=== PATIENT | male | born 1955 | race Caucasian/White ===

== ENCOUNTER 2017-01-29 17:37 | Inpatient (IN) | payer MEDICAID ==
[2017-01-29] MEDS ORDERED: SODIUM CHLORIDE 0.9% 1,000 ML IV ONE ×2 (18:17)
[2017-01-29] MEDS ORDERED: MORPHINE 10 MG/ML VIAL IVP STA ×2 (18:17→19:53)
--- NOTE | 2017-01-29 18:20 | ED Physician Documentation ---
History of Present Illness - Stated complaint Stated Complaint: STOMACH PX - Chief complaint Chief Complaint: Cardiac - History obtained from History obtained from: Patient, Family - History of Present Illness Timing: How many weeks ago (1) Pain level max: 8 Pain level now: 8 - Additonal information Additional information: Patient is a 61-year-old diabetic gentleman who presents to the emergency department with right-sided chest pain for the past week. He is also had intermittent fevers, coughing and congestion at home. States nothing makes the pain better. Worse with movement and breathing. He is a smoker. Has not seen a doctor for several years. Took aspirin at home without relief. No recent travel. No leg swelling. Review of Systems Ten Systems: 10 systems reviewed and negative Constitutional: reports: Fever, Chills Ears: denies: Ear pain Nose: reports: Rhinorrhea / runny nose, Congestion Throat: denies: Sore throat Cardiac: reports: Chest pain / pressure (R sided, heavy) Respiratory: reports: Cough. denies: Dyspnea, Hemoptysis GI: denies: Abdominal Pain, Nausea, Vomiting, Diarrhea Skin: denies: Rash Musculoskeletal: denies: Neck pain, Back pain PD PAST MEDICAL HISTORY - Past Medical History Past Medical History: Yes Endocrine/Autoimmune: Type 2 diabetes GI: Hepatitis - Past Surgical History Past Surgical History: Yes - Present Medications Home Medications: Ambulatory Orders Medication Instructions Recorded Confirmed No Known Home Medications [No 01/29/17 01/29/17 Known Home Medications] - Allergies Allergies/Adverse Reactions: Allergies Allergy/AdvReac Type Severity Reaction Status Date / Time No Known Drug Allergies Allergy Verified 01/29/17 17:51 - Social History Does the pt smoke?: Yes Smoking Status: Current every day smoker PD ED PE NORMAL - Vitals Vital signs reviewed: Yes - General General: Alert and oriented X 3, No acute distress, Well developed/nourished - HEENT HEENT: PERRL, Moist mucous membranes - Neck Neck: Supple, no meningeal sign - Cardiac Cardiac: RRR, Strong equal pulses - Respiratory Respiratory: No respiratory distress, Other (diminished BS bilaterally.) - Abdomen Abdomen: Soft, Non tender, Non distended - Derm Derm: Warm and dry - Extremities Extremities: No edema, No calf tenderness / cord - Neuro Neuro: Alert and oriented X 3 - Psych Psych: Normal mood, Normal affect Results - Vitals Vitals: Vital Signs - 24 hr 12/16/17 12/16/17 12/16/17 17:47 18:08 18:55 Temperature 37.2 C Heart Rate 97 90 94 Respiratory 16 20 16 Rate Blood Pressure 172/91 H 170/83 H O2 Saturation 97 98 93 01/29/17 01/29/17 18:56 19:59 Temperature Heart Rate 90 Respiratory 18 Rate Blood Pressure 153/72 H 165/85 H O2 Saturation 95 Oxygen O2 Source Room air - EKG (time done) 1749 Rate: Rate (enter#) (97) Rhythm: NSR Gabriels: Normal Intervals: Normal CA QRS: Normal Ischemia: Normal ST segments, Other (q waves V1-2) - Labs Labs: Laboratory Tests 01/29/17 01/29/17 01/29/17 17:56 18:34 18:34 WBC 16.5 H RBC 4.42 L Hgb 13.2 L Hct 39.7 L MCV 89.8 MCH 29.9 MCHC 33.3 RDW 13.8 Plt Count 337 MPV 8.1 Neut # Not Reportable Lymph # Not Reportable Phillips # Not Reportable Eos # Not Reportable Baso # Not Reportable Absolute Nucleated RBC Not Reportable Total Counted 100 Band Neuts % (Manual) 7 Abnorm Lymph % (Manual) 0 Nucleated RBC % Not Reportable Neutrophils # (Manual) 13.9 H Lymphocytes # (Manual) 1.3 L Monocytes # (Manual) 1.3 H Eosinophils # (Manual) 0.0 Basophils # (Manual) 0.0 Manual Slide Review Indicated WBC Morphology NORMAL APPEARANCE Platelet Estimate NORMAL (130-450,000) Platelet Morphology NORMAL APPEARANCE RBC Morph Micro Appear NORMAL APPEARANCE Sodium 129 L Potassium 4.1 Chloride 90 L Carbon Dioxide 23 Anion Gap 16.0 H BUN 10 Creatinine 0.4 L Estimated GFR (MDRD) 220 Glucose 270 H POC Whole Bld Glucose 299 H Lactic Acid Calcium 8.5 Total Bilirubin 1.1 H AST 20 ALT 37 Alkaline Phosphatase 122 H Troponin I Total Protein 7.7 Albumin 2.6 L Globulin 5.1 H Albumin/Globulin Ratio 0.5 L Lipase < 10 L 01/29/17 01/29/17 18:34 18:34 WBC RBC Hgb Hct MCV MCH MCHC RDW Plt Count MPV Neut # Lymph # Phillips # Eos # Baso # Absolute Nucleated RBC Total Counted Band Neuts % (Manual) Abnorm Lymph % (Manual) Nucleated RBC % Neutrophils # (Manual) Lymphocytes # (Manual) Monocytes # (Manual) Eosinophils # (Manual) Basophils # (Manual) Manual Slide Review WBC Morphology Platelet Estimate Platelet Morphology RBC Morph Micro Appear Sodium Potassium Chloride Carbon Dioxide Anion Gap BUN Creatinine Estimated GFR (MDRD) Glucose POC Whole Bld Glucose Lactic Acid 1.5 Calcium Total Bilirubin AST ALT Alkaline Phosphatase Troponin I < 0.04 Total Protein Albumin Globulin Albumin/Globulin Ratio Lipase - Rads (name of study) CXR Radiology: Prelim report reviewed, EMP read contemporaneously, See rad report ( Opacification of majority of the right lung. Chest CT recommended. mild cardiomegaly) CT chest Radiology: Prelim report reviewed, EMP read contemporaneously, See rad report ( Large loculated pleural effusion on the right with near complete collapse of the middle and lower lobes and volume loss in the upper lobe. 2. Fatty liver noted. ) PD MEDICAL DECISION MAKING - ED course Complexity details: reviewed results, re-evaluated patient, considered differential, d/w patient, d/w family, d/w automotive internet sales consultant ([id number] - Dr. Teran ( surgery) and states will come see the patient tonight on the floor and drain the effusion. Requested to be called when goes to the floor. ) ED course: Patient is a 61-year-old gentleman who presents to the emergency department with coughing and right-sided chest pain for the past week. Does have an elevated white blood cell count. Discussed the case with surgery on-call who states that he feels that we can drain the effusion here and he will come see the patient on the floor tonight to drain the effusion. Antibiotics will be held until it is drained. Patient is well-appearing, nontoxic. Pain improved with morphine. Discussed the case also with Dr. Banks, hospitalist who accepts. This document was made in part using voice recognition software. While efforts are made to proofread this document, sound alike and grammatical errors may occur. Departure - Departure Disposition: 66 [facility] DC/Xfer Clinical Impression: Pleural effusion Chest pain Qualifiers: Chest pain type: unspecified Qualified Code(s): R07.9 - Chest pain, unspecified Condition: Stable Discharge Date/Time: 01/29/17 21:33
--- NOTE | 2017-01-29 18:27 | XRAY Preliminary Report ---
Exam: XR CHEST 1 VIEW IMPRESSION: 1. Opacification majority of the right lung. Chest CT recommended. 2. Mild cardiomegaly. [facility] SITE ID: [id number]
--- NOTE | 2017-01-29 18:34 | XRAY Report ---
EXAM: CHEST RADIOGRAPHY EXAM DATE: 01/29/2017 06:21 PM. CLINICAL HISTORY: Cough, right-sided chest pain for one week. COMPARISON: None. TECHNIQUE: 1 view. FINDINGS: Lungs/Pleura: Opacification of the inferior two-thirds of the right lung. Possible marked elevation o f the right hemidiaphragm. Left lung is clear. No vascular congestion nor pneumothorax. Mediastinum: Mild cardiomegaly. No midline shift. Other: None. IMPRESSION: 1. Opacification of majority of the right lung. Chest CT recommended. 2. Mild cardiomegaly. [facility] Referring Provider Line: [phone] SITE ID: [id number]
[2017-01-29 18:42] LABS: BASOPHILS % (AUTO) 0.2 %; EOSINOPHILS % (AUTO) 0.1 %; HCT - HEMATOCRIT 39.7 % (42.0-52.0); HGB - HEMOGLOBIN 13.2 g/dL (14.0-18.0); LYMPHOCYTES % (AUTO) 5.6 %; MEAN CORPUSCULAR HEMOGLOBIN 29.9 pg (27.0-31.0); MEAN CORPUSCULAR HGB CONC 33.3 g/dL (32.0-36.0); MEAN CORPUSCULAR VOLUME 89.8 fL (80.0-94.0); MEAN PLATELET VOLUME 8.1 fL (7.4-11.4); MONOCYTES % (AUTO) 4.7 %; NEUTROPHILS % (AUTO) 89.4 %; RED BLOOD COUNT 4.42 10^6/uL (4.70-6.10); RED CELL DISTRIBUTION WIDTH 13.8 % (12.0-15.0); UNCORRECTED WHITE BLOOD COUNT 16.5 x10^3/uL; WHITE BLOOD COUNT 16.5 x10^3/uL (4.8-10.8)
[2017-01-29 18:57] LABS: ALBUMIN/GLOBULIN RATIO 0.5 (1.0-2.2); BILIRUBIN,TOTAL 1.1 mg/dL (0.2-1.0); BUN - BLOOD UREA NITROGEN 10 mg/dL (6-20); CALCIUM 8.5 mg/dL (8.5-10.3); CARBON DIOXIDE - CO2 23 mmol/L (21-32); CHLORIDE 90 mmol/L (101-111); CREATININE 0.4 mg/dL (0.6-1.2); GFR - MDRD 220 (>89); GLUCOSE 270 mg/dL (70-100); LIPASE < 10 U/L (22-51); POTASSIUM 4.1 mmol/L (3.5-5.0); SODIUM 129 mmol/L (135-145); TOTAL PROTEIN 7.7 g/dL (6.7-8.2)
[2017-01-29 19:09] LABS: BAND NEUTROPHILS % (MANUAL) 7 %; LYMPHOCYTES % (MANUAL) 8 %; NEUTROPHILS % (MANUAL) 77 %; TOTAL CELLS COUNTED 100
[2017-01-29 19:11] LABS: NP AUTO DIFFERENTIAL? YES; NP MAN DIFFERENTIAL? NO; PLATELET ESTIMATE, MANUAL NORMAL (130-450,000) (NORMAL); PLATELET MORPHOLOGY NORMAL APPEARANCE (NORMAL); WBC MORPHOLOGY (MULTIPLE) NORMAL APPEARANCE (NORMAL)
[2017-01-29] MEDS ORDERED: IOPAMIDOL-300 100 ML VIAL ONE (19:24)
[2017-01-29] MEDS ORDERED: IOPAMIDOL-300 100 ML VIAL IVP ONE (19:41)
--- NOTE | 2017-01-29 20:33 | CT Preliminary Report ---
Exam: CT CHEST W/ IMPRESSION: 1. Large loculated pleural effusion on the right with near complete collapse of the middle and lower lobes and volume loss in the upper lobe. 2. Fatty liver noted. [facility] SITE ID: [id number]
--- NOTE | 2017-01-29 20:36 | CT Report ---
EXAM: CT CHEST EXAM DATE: 01/29/2017 07:52 PM. CLINICAL HISTORY: Cough. Fever. Pleural effusion. COMPARISONS: Chest x-ray today. TECHNIQUE: Routine helical CT imaging was performed through the chest. IV contrast: 80 cc of Isovue 3 00. Reconstructions: Coronal and sagittal. In accordance with CT protocol optimization, one or more of the following dose reduction techniques w ere utilized for this exam: automated exposure control, adjustment of mA and/or KV based on patient s ize, or use of iterative reconstructive technique. FINDINGS: Lungs/Pleura: Large loculated pleural effusion on the right, mainly lower lung, with near complete co llapse of the middle and lower lobes and volume loss in the upper lobe. On the left, no nodules, bron chial thickening, consolidation, or edema. Pulmonary vasculature is normal. No left pleural effusion. No pneumothorax. Mediastinum: Normal. No adenopathy or masses. The heart and great vessels are normal. Bones: Unremarkable. Visualized Abdomen: Diffuse liver low-density, otherwise unremarkable. Other: None. IMPRESSION: 1. Large loculated pleural effusion on the right with near complete collapse of the middle and lower lobes and volume loss in the upper lobe. 2. Fatty liver noted. [facility] Referring Provider Line: [phone] SITE ID: [id number]
[2017-01-29] MEDS ORDERED: IPRATROPIUM/ALBUTEROL 3 ML NEB INH PRN (20:52)
[2017-01-29] MEDS ORDERED: ZOLPIDEM 5 MG TABLET PO PRN (20:52)
[2017-01-29] MEDS ORDERED: ONDANSETRON 4 MG/2 ML VIAL IVP PRN (20:52)
[2017-01-29] MEDS ORDERED: oxyCODONE 5 MG TABLET PO PRN (20:52)
[2017-01-29] MEDS ORDERED: PROCHLORPERAZINE 10 MG/2 ML VIAL IVP PRN (20:52)
[2017-01-29] MEDS ORDERED: PIPERACILLIN/TAZOBACTAM 4.5 GM in SODIUM CHLORIDE 0.9% MINIBAG 100 ML IV SCH (21:00)
--- NOTE | 2017-01-29 21:32 | HISTORY & PHYSICAL EXAMINATION ---
Chief Complaint - Chief Complaint Chief Complaint: Chest pain History of Present Illness - Admitted From Admitted From:: Emergency department - History Obtained From Records Reviewed: Yes History obtained from: Patient Exam Limitations: None - History of Present Illness HPI Comment/Other: Patient is a 61-year-old gentleman with a past medical history significant for diabetes, hyperlipidemia, hypertension and hepatitis C status post treatment in 1999 who presented to the emergency department with a chief complaint of right- sided chest pain. The patient states that he has not seen a doctor for several years and although he was previously on insulin for his diabetes he has not been taking any medications. He states that about 1-1-1/2 weeks ago he began experiencing chest pain. He states that it was in the right side and radiated into his posterior ribs. He states that he thought the pain was secondary to a pulled muscle and just waited it out. He denies having had any fevers or chills. He denies having had any night sweats. He does admit to a mild cough without any production. He states that with the cough his pain would become worse. He states that the pain is worse with deep breathing and recently he cannot take a deep breath at all. He states that over the past 3 days the pain has become significantly worse and he has been increasingly short of air. Today the symptoms were so bad that he finally decided to come into the emergency department. The patient denies any injury to his chest wall. He states that he has been losing weight over the last 5 or 6 years but there has not been a significant weight loss in the last year. The patient also admits to increased urinary frequency and polydipsia. The patient denies any headaches, blurred vision, runny nose, sore throat, nasal congestion, orthopnea, PND, increased lower extremity swelling, abdominal pain, nausea, vomiting, diarrhea, constipation, urinary urgency or dysuria, muscle aches, joint pains, joint swelling, back pain, neck stiffness, changes in appetite, difficulty swallowing, hair loss, rashes or any focal neurologic deficits. On presentation to the emergency department the patient was afebrile he was hypertensive and heart rate was in the high 90s. The patient however was not in any respiratory distress and was saturating well on room air. The patient was complaining of significant right-sided chest pain and could only take shallow breaths. On examination the patient was found to have very limited breath sounds in the right lung. The patient underwent routine lab work which did reveal a hyponatremia of 129 and elevated blood glucose of 299 and a WBC of 16.5. The patient's lactic acid was normal and his troponin was negative. The patient also had an EKG which showed normal sinus rhythm without any ST elevations it did show Q waves in the anterior septal leads suggestive of possible old NC. The patient then underwent a chest x-ray the chest x-ray revealed complete opacification of majority of the right lung and a CT scan was recommended by the radiologist. A CT scan of the chest was ordered and that CT scan revealed a large loculated pleural effusion on the right with near complete collapse of the middle and lower lobes and volume loss in the upper lobe. The emergency room physician spoke with the surgeon regional retail sales manager Dr. Ino Teran he asked that the patient be admitted to the medical service and that he be consulted for a thoracentesis and drainage of this loculated pleural effusion. The patient was given antibiotics in the emergency department and admitted to the medical jean. History - Past Medical History Cardiovascular: reports: Hypertension, High cholesterol Endocrine/Autoimmune: reports: Type 2 diabetes GI: reports: Hepatitis (Hepatitis C status post treatment in 1999) Other Past Medical History: Right rib fracture - Family & Social History Family History: Mother: CAD, Cancer (Brother had bladder cancer, mom had cervical cancer), Diabetes, Type 2, Hypertension, Father: (Brother of bladder cancer also had cirrhosis of his liver from alcohol abuse), Brother: , Alcoholism, Cancer Living arrangement: At home Living Situation: With family Social History Notes: The patient lives in [place] with his mother. He does have children who are grown. He is not currently . 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 The patient does smoke although he states he has not had a cigarette for the past week due to this current illness. He states that he smokes half a pack to 1 pack per day and has been smoking since the age of 20. He denies any illicit drug use or alcohol abuse. - POLST Patient has POLST: No POLST Status: Full Code Meds/Allgy - Home Medications Home Medications: Ambulatory Orders Medication Instructions Recorded Confirmed No Known Home Medications [No 01/29/17 01/29/17 Known Home Medications] - Allergies Allergies/Adverse Reactions: Allergies Allergy/AdvReac Type Severity Reaction Status Date / Time No Known Drug Allergies Allergy Verified 01/29/17 17:51 Review of Systems - Other Findings Other Findings: A comprehensive review of systems was performed the pertinent positives and negatives are stated above in the HPI and the remainder of the review of systems is negative. Exam - Vital Signs Reviewed Vital Signs: Yes - Physical Exam General Appearance: positive: Alert, Mild distress (Continues to have significant pain anytime he is asked to take a deep breath.) Eyes Bilateral: positive: Normal inspection, PERRL, EOMI, No lid inflammation, Conjunctivae nml, No scleral icterus ENT: positive: Pharynx nml, Dry mucous membranes, Other (Tongue is very dry and patient has poor dentition). negative: Purulent nasal drainage, Pharyngeal erythema Neck: positive: Nml inspection, Thyroid nml, No JVD, Trachea midline. negative : Thyromegaly, Lymphadenopathy (R), Lymphadenopathy (L), Carotid bruit, Tracheal deviation Respiratory: positive: Chest non-tender, Other (Decreased almost absent lung sounds on the right, dullness to percussion on the right lung. Patient unable to take a deep breath secondary to pain). negative: Wheezes, Rales, Rhonchi Cardiovascular: positive: No murmur, No gallop, Tachycardia Peripheral Pulses: positive: 2+ Abdomen: positive: Non-tender, No organomegaly, Nml bowel sounds, No distention. negative: Guarding, Rebound, Hepatomegaly Back: positive: Nml inspection. negative: CVA tenderness (R), CVA tenderness (L ) Skin: positive: Color nml, No rash, Dry. negative: Cyanosis, Diaphoresis, Pallor Extremities: positive: Non-tender, Full ROM, Nml appearance, No pedal edema Neurologic/Psychiatric: positive: Oriented x3, CN's nml (2-12), Motor nml, Sensation nml, Mood/affect nml Conclusion/Plan - Problem List (1) Loculated pleural effusion Conclusion/Plan: The patient presented with right-sided chest pain, cough and increasing shortness of air for the past week. Patient was found to have a right lung loculated pleural effusion. This is likely secondary to an infection. However given the patient's history of smoking we cannot completely rule out the possibility of malignancy at this time. The patient's effusion is quite extensive and there could be an underlying mass or cancer. The patient does have a leukocytosis and this is quite acute in onset therefore it is more likely that the patient does just have a severe pneumonia. Plan: Surgery consulted for thoracentesis and drainage of the pleural effusion Pleural fluid will be sent for cell count and differential, cytology and cultures Patient will be given supplemental oxygen Patient will be treated with IV antibiotics We will continue to monitor his effusion with daily chest x-ray Patient will likely need a repeat CT once effusion has improved to look for resolution and for any underlying process. (2) Community acquired pneumonia Conclusion/Plan: The patient presented with 1 week of right-sided chest pain, mild cough and increasing shortness of air. The patient was found to have a right sided loculated pleural effusion and likely has an underlying pneumonia. Given that the patient has not been recently hospitalized he likely has community-acquired pneumonia however he is an uncontrolled diabetic and has risk factors for Pseudomonas. Plan: Patient will be treated with IV antibiotics Zosyn and Levaquin to ensure coverage for Pseudomonas. Patient will be given IV fluids We will monitor the patient's white blood cell count and get daily chest x-ray. Surgery has been consulted for thoracentesis Patient's pleural fluid will be sent for cell count and differential, as well as cytology and cultures. Patient will be placed on duo nebs as needed although he does not have a history of COPD given his smoking history he may have some mild COPD Patient was advised to quit smoking Patient will be given oxygen as needed Qualifiers: Laterality: right (3) Hyponatremia Conclusion/Plan: The patient does present with some hyponatremia with a sodium of 129. The patient does appear to be significantly dehydrated likely secondary to his elevated blood glucose and the finding of pneumonia with loculated effusion. The patient has hypovolemic hyponatremia. Plan: Patient will be treated with IV fluids and we will continue to monitor the patient's sodium. (4) Diabetes Conclusion/Plan: The patient does have a history of type 2 diabetes. He was previously on insulin but stopped taking all of his medications a few years back when his PCP left. He states that he does experience probably urea and polydipsia and has for some time. On presentation to the emergency department the patient's blood glucose is elevated at 299. Plan: We will check a hemoglobin A1c We will monitor the patient's blood glucose before meals at bedtime We will place the patient on a sliding scale of insulin We will consider starting long-acting insulin once we have an A1c and an idea of how much short-acting insulin the patient requires over 24 hours. Patient will be placed on a diabetic diet Patient was counseled about medication noncompliance Qualifiers: Diabetes mellitus type: type 2 (5) Hypertension Conclusion/Plan: The patient does have a history of hypertension however he does not take any medications. He states that he has stopped seeing his primary care physician because his PCP moved away. He states that he has not refilled any medications and does not remember if he was on anything for his blood pressure. On presentation to the emergency department the patient's blood pressure is elevated however he is also in pain. Plan: We will continue to monitor the patient's blood pressure closely We will treat the patient's pain If patient's blood pressure is persistently elevated we will consider starting a medication likely lisinopril in the setting of diabetes. Qualifiers: Hypertension type: essential hypertension Qualified Code(s): I10 - Essential (primary) hypertension (6) Hyperlipidemia Conclusion/Plan: The patient states he does have a history of hyperlipidemia however he does not take any medications and has not followed up with a primary care physician in over 2 years. Plan: We will check a lipid profile and wait on results for any further recommendations. (7) Tobacco abuse Conclusion/Plan: The patient states he has not smoked for 1 week secondary to his current symptoms. He however does smoke half a pack to a pack a day regularly. He was counseled on the risks of continued smoking. The patient understood the risk he was putting himself under by continuing to smoke. He stated that he would think about quitting. Currently he states he does not need a nicotine patch. (8) Prophylactic use of low molecular weight heparin for venous thromboembolism (VTE) Conclusion/Plan: Patient will be placed on Lovenox for DVT prophylaxis while he is hospitalized. - Lab Results Lab results reviewed: Yes Fish Bones: 01/29/17 18:34 01/29/17 18:34 Other Lab Results: Laboratory Results WBC 16.5 x10^3/uL (4.8-10.8) H 01/29/17 18:34 RBC 4.42 10^6/uL (4.70-6.10) L 01/29/17 18:34 Hgb 13.2 g/dL (14.0-18.0) L 01/29/17 18:34 Hct 39.7 % (42.0-52.0) L 01/29/17 18:34 MCV 89.8 fL (80.0-94.0) 01/29/17 18:34 MCH 29.9 pg (27.0-31.0) 01/29/17 18:34 MCHC 33.3 g/dL (32.0-36.0) 01/29/17 18:34 RDW 13.8 % (12.0-15.0) 01/29/17 18:34 Plt Count 337 10^3/uL (130-450) 01/29/17 18:34 MPV 8.1 fL (7.4-11.4) 01/29/17 18:34 Neut # Not Reportable 01/29/17 18:34 Lymph # Not Reportable 01/29/17 18:34 [place] # Not Reportable 01/29/17 18:34 Eos # Not Reportable 01/29/17 18:34 Baso # Not Reportable 01/29/17 18:34 Absolute Nucleated RBC Not Reportable 01/29/17 18:34 Total Counted 100 01/29/17 18:34 Band Neuts % (Manual) 7 % (0-10) 01/29/17 18:34 Abnorm Lymph % (Manual) 0 % 01/29/17 18:34 Nucleated RBC % Not Reportable 01/29/17 18:34 Neutrophils # (Manual) 13.9 10^3/uL (1.5-6.6) H 01/29/17 18:34 Lymphocytes # (Manual) 1.3 10^3/uL (1.5-3.5) L 01/29/17 18:34 Monocytes # (Manual) 1.3 10^3/uL (0.0-1.0) H 01/29/17 18:34 Eosinophils # (Manual) 0.0 10^3/uL (0-0.7) 01/29/17 18:34 Basophils # (Manual) 0.0 10^3/uL (0-0.1) 01/29/17 18:34 Manual Slide Review Indicated 01/29/17 18:34 WBC Morphology NORMAL APPEARANCE (NORMAL) 01/29/17 18:34 Platelet Estimate NORMAL (130-450,000) (NORMAL) 01/29/17 18:34 Platelet Morphology NORMAL APPEARANCE (NORMAL) 01/29/17 18:34 RBC Morph Micro Appear NORMAL APPEARANCE (NORMAL) 01/29/17 18:34 Sodium 129 mmol/L (135-145) L 01/29/17 18:34 Potassium 4.1 mmol/L (3.5-5.0) 01/29/17 18:34 Chloride 90 mmol/L (101-111) L 01/29/17 18:34 Carbon Dioxide 23 mmol/L (21-32) 01/29/17 18:34 Anion Gap 16.0 (6-13) H 01/29/17 18:34 BUN 10 mg/dL (6-20) 01/29/17 18:34 Creatinine 0.4 mg/dL (0.6-1.2) L 01/29/17 18:34 Estimated GFR (MDRD) 220 (>89) 01/29/17 18:34 Glucose 270 mg/dL (70-100) H 01/29/17 18:34 POC Whole Bld Glucose 299 mg/dL (70 - 100) H 01/29/17 17:56 Lactic Acid 1.5 mmol/L (0.5-2.2) 01/29/17 18:34 Calcium 8.5 mg/dL (8.5-10.3) 01/29/17 18:34 Total Bilirubin 1.1 mg/dL (0.2-1.0) H 01/29/17 18:34 AST 20 IU/L (10-42) 01/29/17 18:34 ALT 37 IU/L (10-60) 01/29/17 18:34 Alkaline Phosphatase 122 IU/L (42-121) H 01/29/17 18:34 Troponin I < 0.04 ng/mL (<0.49) 01/29/17 18:34 Total Protein 7.7 g/dL (6.7-8.2) 01/29/17 18:34 Albumin 2.6 g/dL (3.2-5.5) L 01/29/17 18:34 Globulin 5.1 g/dL (2.1-4.2) H 01/29/17 18:34 Albumin/Globulin Ratio 0.5 (1.0-2.2) L 12/16/17 18:34 Lipase < 10 U/L (22-51) L 01/29/17 18:34 - Diagnostic Imaging Results Diagnostic Imaging Results: positive: Final report reviewed Diagnostic Imaging Results Comments: Chest x-ray Impression: 1. Opacification of majority of the right lung. Chest CT recommended. 2. Mild cardiomegaly Chest CT Impression: 1. Large loculated pleural effusion on the right with near complete collapse of the middle and lower lobes and volume loss in the upper lobe. 2. Fatty liver noted. - EKG Results EKG Interpreted Independently: Yes EKG Findings: Normal sinus rhythm with Q waves in the anteroseptal leads. Issues/Core Measures - Anticipated LOS Anticipated Stay Length: 2 or more midnights - [facility] Requirement for [facility] I expect patient to be DC'd or transferred within 96 hours.: Yes - DVT/VTE - Prophylaxis VTE/DVT Prophylaxis med ordered at admit?: Yes
[2017-01-29] MEDS: MORPHINE 2 MG/ML SYRINGE IVP PRN ×2 (21:58→23:49)
[2017-01-29] MEDS: SODIUM CHLORIDE 0.9% 1,000 ML IV SCH (22:17)
[2017-01-29] MEDS: INSULIN ASPART 300 UNIT/3 ML PEN SUBQ SCH (22:23)
[2017-01-29] MEDS: levoFLOXacin 750 MG/150 ML 750 MG/150 ML BAG IV SCH (23:40)
[2017-01-29] MEDS: SODIUM CHLORIDE FLUSH 0.9% 10 ML SYRINGE IVP SCH (23:44)
[2017-01-29] MEDS: traZODone 50 MG TABLET PO SCH (23:44)
[2017-01-30] MEDS: MORPHINE 2 MG/ML SYRINGE IVP PRN ×6 (01:41→18:23)
[2017-01-30] MEDS: oxyCODONE 5 MG TABLET PO PRN ×3 (02:23→21:32)
[2017-01-30] MEDS: PIPERACILLIN/TAZOBACTAM 4.5 GM in SODIUM CHLORIDE 0.9% MINIBAG 100 ML IV SCH ×4 (04:27→21:15)
[2017-01-30 05:02] LABS: BASOPHILS % (AUTO) 0.2 %; EOSINOPHILS % (AUTO) 0.1 %; HGB - HEMOGLOBIN 11.7 g/dL (14.0-18.0); LYMPHOCYTES # (AUTO) 0.8 10^3/uL (1.5-3.5); LYMPHOCYTES % (AUTO) 6.3 %; MEAN CORPUSCULAR HEMOGLOBIN 29.4 pg (27.0-31.0); MEAN CORPUSCULAR HGB CONC 32.6 g/dL (32.0-36.0); MEAN CORPUSCULAR VOLUME 90.1 fL (80.0-94.0); MEAN PLATELET VOLUME 7.6 fL (7.4-11.4); MONOCYTES # (AUTO) 1.2 10^3/uL (0.0-1.0); MONOCYTES % (AUTO) 9.8 %; NEUTROPHILS # (AUTO) 10.3 10^3/uL (1.5-6.6); NEUTROPHILS % (AUTO) 83.6 %; NUCLEATED RED BLOOD CELLS AUTO 0.1 /100WBC; RED BLOOD COUNT 3.99 10^6/uL (4.70-6.10); RED CELL DISTRIBUTION WIDTH 13.8 % (12.0-15.0); UNCORRECTED WHITE BLOOD COUNT 12.4 x10^3/uL; WHITE BLOOD COUNT 12.4 x10^3/uL (4.8-10.8)
[2017-01-30 05:10] LABS: CALCIUM 7.5 mg/dL (8.5-10.3); CREATININE 0.4 mg/dL (0.6-1.2); POTASSIUM 3.7 mmol/L (3.5-5.0)
[2017-01-30] MEDS: SODIUM CHLORIDE FLUSH 0.9% 10 ML SYRINGE IVP SCH ×3 (05:23→18:23)
[2017-01-30 05:38] LABS: INR 1.3 (0.8-1.2)
[2017-01-30 05:54] LABS: CHOL/HDL RATIO 7.4 (<5.0); CHOLESTEROL 126 mg/dL; HDL CHOLESTEROL 17 mg/dL; LDL/HDL RATIO 4.6 (<3.6); TRIGLYCERIDES 148 mg/dL; VLDL CHOLESTEROL 30 mg/dL
[2017-01-30 06:14] LABS: HEMOGLOBIN A1C 1.42 g/dL
[2017-01-30] MEDS: INSULIN ASPART 300 UNIT/3 ML PEN SUBQ SCH ×4 (08:36→21:19)
[2017-01-30] MEDS: SACCHAROMYCES BOULARDII 250 MG CAPSULE PO SCH ×2 (08:40→17:55)
[2017-01-30] MEDS: FAMOTIDINE 20 MG TABLET PO SCH (08:40)
[2017-01-30] MEDS: ENOXAPARIN 40 MG/0.4 ML SYRINGE SUBQ SCH (08:56)
[2017-01-30] MEDS: POLYETHYLENE GLYCOL 3350 17 GM PACKET PO SCH (08:56)
[2017-01-30] MEDS ORDERED: INSULIN GLARGINE 300 UNIT/3 ML PEN SUBQ SCH (09:00)
--- NOTE | 2017-01-30 09:57 | PROVIDER PROGRESS NOTE ---
Subjective - Prog Note Date Prog Note Date: 01/30/17 - Subjective Pt reports feeling: Improved Subjective: pt state his right side chest pain is great improved. Pt will have thoracentesis today. Current Medications - Current Medications Current Medications: Active Medications Acetaminophen (Tylenol) 650 mg PO Q4HR PRN PRN Reason: Pain 1 to 4 Albuterol/Ipratropium (Duoneb) 3 ml INH RTQID PRN PRN Reason: Wheezing Enoxaparin Sodium (Lovenox) 40 mg SUBQ DAILY [facility] Last Admin: 01/30/17 08:56 Dose: 40 mg Famotidine (Pepcid) 20 mg PO DAILY [facility] Last Admin: 01/30/17 08:40 Dose: 20 mg Levofloxacin (Levaquin 750 Mg/150 Ml) 750 mg in 150 mls @ 100 mls/hr IV Q24H [facility] Last Infusion: 01/30/17 01:10 Dose: Infused Sodium Chloride (Normal Saline 0.9%) 1,000 mls @ 100 mls/hr IV .Q10H [facility] Last Infusion: 01/30/17 01:45 Dose: 100 mls/hr Piperacillin Sod/Tazobactam (Sod 4.5 gm/ Sodium Chloride) 100 mls @ 100 mls/hr IV Q6H [facility] Last Admin: 01/30/17 09:50 Dose: 100 mls/hr Insulin Aspart (Novolog) 1 - 5 unit SUBQ 0800,1200,1700,2100 [facility] PRN Reason: Protocol Last Admin: 01/30/17 08:36 Dose: 3 unit Insulin Glargine (Lantus Solostar) 20 unit SUBQ DAILY [facility] Last Admin: 01/30/17 08:37 Dose: 20 unit Morphine Sulfate (Morphine) 2 mg IVP Q2H PRN PRN Reason: Pain 8 to 10 Last Admin: 01/30/17 09:09 Dose: 2 mg Ondansetron HCl (Zofran Inj) 4 mg IVP Q6HR PRN PRN Reason: Nausea / Vomiting Oxycodone HCl (Roxicodone) 5 mg PO Q4HR PRN PRN Reason: Pain 5 to 7 Oxycodone HCl (Roxicodone) 10 mg PO Q4HR PRN PRN Reason: Pain 8 to 10 Last Admin: 01/30/17 07:36 Dose: 10 mg Polyethylene Glycol (Miralax) 17 gm PO DAILY [facility] Last Admin: 01/30/17 08:56 Dose: Not Given Prochlorperazine Edisylate (Compazine Inj) 10 mg IVP Q6HR PRN PRN Reason: Nausea / Vomiting Saccharomyces Boulardii (Florastor) 250 mg PO BIDWM [facility] Last Admin: 01/30/17 08:40 Dose: 250 mg Sodium Chloride (Normal Saline Flush 0.9%) 10 ml IVP PRN PRN PRN Reason: NEEDED PER PROVIDER ORDERS Sodium Chloride (Normal Saline Flush 0.9%) 10 ml IVP Q8HR [facility] Last Admin: 01/30/17 05:23 Dose: 10 ml Trazodone HCl (Desyrel) 50 mg PO QPM [facility] Last Admin: 01/29/17 23:44 Dose: 50 mg No Known Home Medications [No Known Home Medications] 01/29/17 Objective - Vital Signs/Intake & Output Reviewed Vital Signs: Yes Vital Signs: Vital Signs x48h Temp Pulse Resp BP Pulse Ox 01/30/17 07:28 37.0 C 104 H 20 138/93 H 93 01/30/17 05:19 37.3 C 100 22 152/69 H 92 Intake & Output: Intake & Output 01/27/17 01/28/17 01/29/17 01/30/17 23:59 23:59 23:59 23:59 Intake Total 1111.667 250 Output Total 250 Balance 1111.667 0 - Objective General Appearance: positive: No acute distress, Alert. negative: Lethargic Eyes Bilateral: positive: Normal inspection, PERRL, No lid inflammation, Conjunctivae nml ENT: positive: ENT inspection nml, Pharynx nml, No signs of dehydration. negative: Purulent nasal drainage, Pharyngeal erythema, Oral lesions, Dry mucous membranes Neck: positive: Nml inspection, Thyroid nml, No JVD, Trachea midline. negative : Thyromegaly, Lymphadenopathy (R), Lymphadenopathy (L), Stiff neck, Carotid bruit, Swelling/bruising, Tracheal deviation Respiratory: positive: Chest non-tender, No respiratory distress, Other ( significantly decreased lung sound at right side). negative: Wheezes, Rales, Rhonchi Cardiovascular: positive: Regular rate & rhythm, No murmur, No gallop. negative : Irregularly irregular, Extrasystoles, Tachycardia, Bradycardia, Systolic murmur, Diastolic murmur Peripheral Pulses: 2+ Radial (R), 2+ Radial (L), 2+ Dorsalis pedis (R), 2+ Dorsalis pedis (L) Abdomen: positive: Non-tender, No organomegaly, Nml bowel sounds, No distention. negative: Tenderness, Guarding, Rebound, Abnml bowel sounds Back: positive: Nml inspection. negative: CVA tenderness (R), CVA tenderness (L ) Skin: positive: Color nml, No rash, Warm, Dry. negative: Cyanosis, Diaphoresis , Pallor, Skin rash Extremities: positive: Non-tender, Full ROM, Nml appearance. negative: Pedal edema, Joint swelling, Nestor's sign/cords Neurologic/Psychiatric: positive: Oriented x3, Motor nml, Sensation nml, Mood/ affect nml. negative: Sensory loss, Depressed mood/affect - Lab Results Fish Bones: 01/30/17 04:50 01/30/17 04:50 Other Labs: Lab Results x24hrs 01/30/17 01/30/17 01/30/17 Range/Units 07:18 04:50 04:50 WBC (4.8-10.8) x10^3/uL RBC (4.70-6.10) 10^6/uL Hgb (14.0-18.0) g/dL Hct (42.0-52.0) % MCV (80.0-94.0) fL MCH (27.0-31.0) pg MCHC (32.0-36.0) g/dL RDW (12.0-15.0) % Plt Count (130-450) 10^3/uL MPV (7.4-11.4) fL Neut # (1.5-6.6) 10^3/uL Lymph # (1.5-3.5) 10^3/uL Owen # (0.0-1.0) 10^3/uL Eos # (0.0-0.7) 10^3/uL Baso # (0.0-0.1) 10^3/uL Absolute Nucleated RBC x10^3/uL Nucleated RBC % /100WBC PT 14.0 H (9.9-12.6) secs INR 1.3 H (0.8-1.2) Sodium (135-145) mmol/L Potassium (3.5-5.0) mmol/L Chloride (101-111) mmol/L Carbon Dioxide (21-32) mmol/L Anion Gap (6-13) BUN (6-20) mg/dL Creatinine (0.6-1.2) mg/dL Estimated GFR (MDRD) (>89) Glucose (70-100) mg/dL POC Whole Bld Glucose 264 H (70 - 100) mg/dL Glycated Hemoglobin (4.6-6.2) % Estim Average Glucose (70-100) Calcium (8.5-10.3) mg/dL Triglycerides 148 ( - 149) mg/dL Cholesterol 126 ( - 199) mg/dL LDL Cholesterol, Calc 79 ( - 129) mg/dL VLDL Cholesterol 30 mg/dL HDL Cholesterol 17 L (60 - ) mg/dL LDL/HDL Ratio 4.6 (<3.6) Cholesterol/HDL Ratio 7.4 (<5.0) 01/30/17 01/30/17 01/30/17 Range/Units 04:50 04:50 04:50 WBC 12.4 H (4.8-10.8) x10^3/uL RBC 3.99 L (4.70-6.10) 10^6/uL Hgb 11.7 L (14.0-18.0) g/dL Hct 36.0 L (42.0-52.0) % MCV 90.1 (80.0-94.0) fL MCH 29.4 (27.0-31.0) pg MCHC 32.6 (32.0-36.0) g/dL RDW 13.8 (12.0-15.0) % Plt Count 302 (130-450) 10^3/uL MPV 7.6 (7.4-11.4) fL Neut # 10.3 H (1.5-6.6) 10^3/uL Lymph # 0.8 L (1.5-3.5) 10^3/uL Owen # 1.2 H (0.0-1.0) 10^3/uL Eos # 0.0 (0.0-0.7) 10^3/uL Baso # 0.0 (0.0-0.1) 10^3/uL Absolute Nucleated RBC 0.01 x10^3/uL Nucleated RBC % 0.1 /100WBC PT (9.9-12.6) secs INR (0.8-1.2) Sodium 131 L (135-145) mmol/L Potassium 3.7 (3.5-5.0) mmol/L Chloride 96 L (101-111) mmol/L Carbon Dioxide 22 (21-32) mmol/L Anion Gap 13.0 (6-13) BUN 10 (6-20) mg/dL Creatinine 0.4 L (0.6-1.2) mg/dL Estimated GFR (MDRD) 220 (>89) Glucose 241 H (70-100) mg/dL POC Whole Bld Glucose (70 - 100) mg/dL Glycated Hemoglobin 12.6 H (4.6-6.2) % Estim Average Glucose 315 H (70-100) Calcium 7.5 L (8.5-10.3) mg/dL Triglycerides ( - 149) mg/dL Cholesterol ( - 199) mg/dL LDL Cholesterol, Calc ( - 129) mg/dL VLDL Cholesterol mg/dL HDL Cholesterol (60 - ) mg/dL LDL/HDL Ratio (<3.6) Cholesterol/HDL Ratio (<5.0) 01/29/ Range/Units 21:48 WBC (4.8-10.8) x10^3/uL RBC (4.70-6.10) 10^6/uL Hgb (14.0-18.0) g/dL Hct (42.0-52.0) % MCV (80.0-94.0) fL MCH (27.0-31.0) pg MCHC (32.0-36.0) g/dL RDW (12.0-15.0) % Plt Count (130-450) 10^3/uL MPV (7.4-11.4) fL Neut # (1.5-6.6) 10^3/uL Lymph # (1.5-3.5) 10^3/uL Owen # (0.0-1.0) 10^3/uL Eos # (0.0-0.7) 10^3/uL Baso # (0.0-0.1) 10^3/uL Absolute Nucleated RBC x10^3/uL Nucleated RBC % /100WBC PT (9.9-12.6) secs INR (0.8-1.2) Sodium (135-145) mmol/L Potassium (3.5-5.0) mmol/L Chloride (101-111) mmol/L Carbon Dioxide (21-32) mmol/L Anion Gap (6-13) BUN (6-20) mg/dL Creatinine (0.6-1.2) mg/dL Estimated GFR (MDRD) (>89) Glucose (70-100) mg/dL POC Whole Bld Glucose 255 H (70 - 100) mg/dL Glycated Hemoglobin (4.6-6.2) % Estim Average Glucose (70-100) Calcium (8.5-10.3) mg/dL Triglycerides ( - 149) mg/dL Cholesterol ( - 199) mg/dL LDL Cholesterol, Calc ( - 129) mg/dL VLDL Cholesterol mg/dL HDL Cholesterol (60 - ) mg/dL LDL/HDL Ratio (<3.6) Cholesterol/HDL Ratio (<5.0) Assessment/Plan - Problem List (1) Pleural effusion Impression: talk with Dr. Teran. Pt will have thoracentesis today keep NPO IVF 100cc/h pain control with Morphin for right side chest pain pleural fluid study and culture plan order CT of chest to R/O malignance The patient presented with right-sided chest pain, cough and increasing shortness of air for the past week. Patient was found to have a right lung loculated pleural effusion. This is likely secondary to an infection. However given the patient's history of smoking we cannot completely rule out the possibility of malignancy at this time. The patient's effusion is quite extensive and there could be an underlying mass or cancer. The patient does have a leukocytosis and this is quite acute in onset therefore it is more likely that the patient does just have a severe pneumonia. Plan: Surgery consulted for thoracentesis and drainage of the pleural effusion Pleural fluid will be sent for cell count and differential, cytology and cultures Patient will be given supplemental oxygen Patient will be treated with IV antibiotics We will continue to monitor his effusion with daily chest x-ray Patient will likely need a repeat CT once effusion has improved to look for resolution and for any underlying process. (2) Community acquired pneumonia Conclusion/Plan: continue the current antibiotics follow up blood culture, and fluid culture vital monitor, daily lab monitor The patient presented with 1 week of right-sided chest pain, mild cough and increasing shortness of air. The patient was found to have a right sided loculated pleural effusion and likely has an underlying pneumonia. Given that the patient has not been recently hospitalized he likely has community-acquired pneumonia however he is an uncontrolled diabetic and has risk factors for Pseudomonas. Plan: Patient will be treated with IV antibiotics Zosyn and Levaquin to ensure coverage for Pseudomonas. Patient will be given IV fluids We will monitor the patient's white blood cell count and get daily chest x-ray. Surgery has been consulted for thoracentesis Patient's pleural fluid will be sent for cell count and differential, as well as cytology and cultures. Patient will be placed on duo nebs as needed although he does not have a history of COPD given his smoking history he may have some mild COPD Patient was advised to quit smoking Patient will be given oxygen as needed Qualifiers: Laterality: right (3) Hyponatremia Conclusion/Plan: Na increase to 132, continue NS of IVF continue daily lab test The patient does present with some hyponatremia with a sodium of 129. The patient does appear to be significantly dehydrated likely secondary to his elevated blood glucose and the finding of pneumonia with loculated effusion. The patient has hypovolemic hyponatremia. Plan: Patient will be treated with IV fluids and we will continue to monitor the patient's sodium. (4) Diabetes Conclusion/Plan: Pt's A1C is over 12, it seems pt did not have medical compliance for DM treatment pt had daily Lantus and slide scale, will closely monitor glucose level, adjust insulin as needed The patient does have a history of type 2 diabetes. He was previously on insulin but stopped taking all of his medications a few years back when his PCP left. He states that he does experience probably urea and polydipsia and has for some time. On presentation to the emergency department the patient's blood glucose is elevated at 299. Plan: We will check a hemoglobin A1c We will monitor the patient's blood glucose before meals at bedtime We will place the patient on a sliding scale of insulin We will consider starting long-acting insulin once we have an A1c and an idea of how much short-acting insulin the patient requires over 24 hours. Patient will be placed on a diabetic diet Patient was counseled about medication noncompliance Qualifiers: Diabetes mellitus type: type 2 (5) Hypertension Conclusion/Plan: stable controlled, continue BP meds check vital, The patient does have a history of hypertension however he does not take any medications. He states that he has stopped seeing his primary care physician because his PCP moved away. He states that he has not refilled any medications and does not remember if he was on anything for his blood pressure. On presentation to the emergency department the patient's blood pressure is elevated however he is also in pain. Plan: We will continue to monitor the patient's blood pressure closely We will treat the patient's pain If patient's blood pressure is persistently elevated we will consider starting a medication likely lisinopril in the setting of diabetes. (6) Hyperlipidemia Conclusion/Plan: The patient states he does have a history of hyperlipidemia however he does not take any medications and has not followed up with a primary care physician in over 2 years. Plan: We will check a lipid profile and wait on results for any further recommendations. (7) Tobacco abuse consult with pt for quitting smoking. pt plan to quit cigarette smoking (8) medical non-compliant consult for medical compliance, special DM control.
--- NOTE | 2017-01-30 10:02 | XRAY Preliminary Report ---
Exam: XR CHEST 2 VIEW PA/LAT IMPRESSION: 1. Somewhat increased right lung opacity compatible with large effusion and atelectasis and/or consol idation. [facility] SITE ID: [id number]
--- NOTE | 2017-01-30 10:05 | XRAY Report ---
EXAM: CHEST RADIOGRAPHY EXAM DATE: 01/30/2017 08:51 AM. CLINICAL HISTORY: Loculated pleural effusion. COMPARISON: 01/29/2017 1812 hrs.. TECHNIQUE: 2 views. FINDINGS: Lungs/Pleura: Opacification of the mid to lower right lung compatible with large effusion and atelect asis and/or consolidation, with increased opacity at the periphery of the right apex. Left lung is cl ear. Mediastinum: Heart and mediastinal contours are unremarkable. Other: None. IMPRESSION: 1. Somewhat increased right lung opacity compatible with large effusion and atelectasis and/or consol idation. [facility] Referring Provider Line: [phone] SITE ID: [id number]
[2017-01-30] MEDS ORDERED: LIDOCAINE 2% 10 ML MDV ONE (12:48)
[2017-01-30] MEDS: SODIUM CHLORIDE 0.9% 1,000 ML IV SCH ×2 (13:19→16:34)
[2017-01-30 14:16] LABS: CC,BF RBC 84077 /mm^3
[2017-01-30] MEDS ORDERED: SODIUM CHLORIDE 0.9% 1,000 ML IV ONE (14:33)
[2017-01-30] MEDS ORDERED: LIDOCAINE 1% 50 ML MDV SUBQ ONE (14:34)
[2017-01-30] MEDS ORDERED: PROPOFOL 200 MG/20 ML VIAL IVP ONE (15:00)
[2017-01-30] MEDS: HYDROmorphone 1 MG/ML SYRINGE ONE ×2 (15:05→15:15)
--- NOTE | 2017-01-30 15:23 | XRAY Preliminary Report ---
Exam: XR CHEST 1 VIEW IMPRESSION: Postoperative changes. Right chest tube terminating at the right apex, with evacuation of the loculated right pleural effusion. Residual right infiltrate and atelectasis. [facility] SITE ID: [id number]
[2017-01-30] MEDS ORDERED: KETOROLAC 15 MG/ML VIAL ONE (15:24)
--- NOTE | 2017-01-30 15:26 | XRAY Report ---
EXAM: CHEST RADIOGRAPHY EXAM DATE: 01/30/2017 03:16 PM. CLINICAL HISTORY: Chest tube placement. COMPARISON: 01/30/2017 0837 hrs.. TECHNIQUE: 1 view. FINDINGS: Lungs/Pleura: Right chest tube terminates at the right apex. Loculated right pleural fluid has been e vacuated. Patchy atelectasis and right infiltrate are present. The left lung is clear. No definite pn eumothorax. Mediastinum: Within exam limitations, the cardiomediastinal contour is normal. Other: None. IMPRESSION: Postoperative changes. Right chest tube terminating at the right apex, with evacuation of the loculated right pleural effusion. Residual right infiltrate and atelectasis. [facility] Referring Provider Line: [phone] SITE ID: [id number]
[2017-01-30 15:50] LABS: LYMPHOCYTES %,BODY FLUID 15; MESOTHELIAL %, BF 29 %; NEUTROPHILS %, BF 56 %
[2017-01-30 15:51] LABS: BF CLARITY TURBID; BF COLOR BLOODY
[2017-01-30] MEDS ORDERED: CALCIUM GLUCONATE 1,000 MG in SODIUM CHLORIDE 0.9% 50 ML IV ONE (17:15)
[2017-01-30] MEDS: traZODone 50 MG TABLET PO SCH (21:17)
[2017-01-30] MEDS: levoFLOXacin 750 MG/150 ML 750 MG/150 ML BAG IV SCH (22:25)
[2017-01-31] MEDS: PIPERACILLIN/TAZOBACTAM 4.5 GM in SODIUM CHLORIDE 0.9% MINIBAG 100 ML IV SCH ×4 (03:39→21:37)
[2017-01-31 05:34] LABS: BASOPHILS % (AUTO) 0.1 %; EOSINOPHILS % (AUTO) 0.1 %; HCT - HEMATOCRIT 33.4 % (42.0-52.0); HGB - HEMOGLOBIN 11.1 g/dL (14.0-18.0); LYMPHOCYTES % (AUTO) 9.3 %; MEAN CORPUSCULAR HEMOGLOBIN 29.9 pg (27.0-31.0); MEAN CORPUSCULAR HGB CONC 33.3 g/dL (32.0-36.0); MEAN CORPUSCULAR VOLUME 89.8 fL (80.0-94.0); MEAN PLATELET VOLUME 7.8 fL (7.4-11.4); MONOCYTES # (AUTO) 1.2 10^3/uL (0.0-1.0); MONOCYTES % (AUTO) 11.6 %; NEUTROPHILS # (AUTO) 8.1 10^3/uL (1.5-6.6); NEUTROPHILS % (AUTO) 78.9 %; RED BLOOD COUNT 3.72 10^6/uL (4.70-6.10); RED CELL DISTRIBUTION WIDTH 13.8 % (12.0-15.0); UNCORRECTED WHITE BLOOD COUNT 10.3 x10^3/uL; WHITE BLOOD COUNT 10.3 x10^3/uL (4.8-10.8)
[2017-01-31 05:35] LABS: CALCIUM 7.4 mg/dL (8.5-10.3); CREATININE 0.5 mg/dL (0.6-1.2); POTASSIUM 3.3 mmol/L (3.5-5.0)
[2017-01-31] MEDS: SODIUM CHLORIDE FLUSH 0.9% 10 ML SYRINGE IVP SCH ×3 (06:11→21:41)
[2017-01-31] MEDS: oxyCODONE 5 MG TABLET PO PRN ×5 (06:27→23:52)
[2017-01-31] MEDS ORDERED: POTASSIUM CHLORIDE 20 MEQ TABLET PO ONE ×2 (07:01→08:00)
[2017-01-31 07:25] LABS: CALCIUM, IONIZED 1.06 mmol/L (1.15-1.33); VBG PH 7.491 (7.31-7.41)
[2017-01-31] MEDS ORDERED: POTASSIUM CHLOR 10 MEQ/100 ML 10 MEQ/100 ML BAG IV ONE (08:15)
[2017-01-31] MEDS: MORPHINE 2 MG/ML SYRINGE IVP PRN ×5 (08:15→23:51)
[2017-01-31] MEDS ORDERED: CALCIUM GLUCONATE 2,000 MG in SODIUM CHLORIDE 0.9% 100ML 100 ML IV ONE (08:15)
[2017-01-31] MEDS: SODIUM CHLORIDE FLUSH 0.9% 10 ML SYRINGE IVP PRN (08:16)
[2017-01-31] MEDS: SACCHAROMYCES BOULARDII 250 MG CAPSULE PO SCH ×2 (08:50→17:02)
[2017-01-31] MEDS: INSULIN ASPART 300 UNIT/3 ML PEN SUBQ SCH ×4 (08:50→21:39)
[2017-01-31] MEDS: POLYETHYLENE GLYCOL 3350 17 GM PACKET PO SCH (08:50)
[2017-01-31] MEDS: FAMOTIDINE 20 MG TABLET PO SCH (08:50)
[2017-01-31] MEDS: INSULIN GLARGINE 300 UNIT/3 ML PEN SUBQ SCH (08:51)
[2017-01-31] MEDS: ENOXAPARIN 40 MG/0.4 ML SYRINGE SUBQ SCH (08:52)
--- NOTE | 2017-01-31 11:40 | PROVIDER PROGRESS NOTE ---
Subjective - Prog Note Date Prog Note Date: 01/31/17 - Subjective Pt reports feeling: Improved Subjective: pt state he feel better in his right chest pain, and breathing also better. Denies fever, chill, chest pain. Current Medications - Current Medications Current Medications: Active Medications Acetaminophen (Tylenol) 650 mg PO Q4HR PRN PRN Reason: Pain 1 to 4 Albuterol/Ipratropium (Duoneb) 3 ml INH RTQID PRN PRN Reason: Wheezing Enoxaparin Sodium (Lovenox) 40 mg SUBQ DAILY [facility] Last Admin: 01/31/17 08:52 Dose: 40 mg Famotidine (Pepcid) 20 mg PO DAILY [facility] Last Admin: 01/31/17 08:50 Dose: 20 mg Levofloxacin (Levaquin 750 Mg/150 Ml) 750 mg in 150 mls @ 100 mls/hr IV Q24H [facility] Last Infusion: 01/31/17 00:00 Dose: Infused Piperacillin Sod/Tazobactam (Sod 4.5 gm/ Sodium Chloride) 100 mls @ 100 mls/hr IV Q6H [facility] Last Admin: 01/31/17 11:34 Dose: 100 mls/hr Sodium Chloride (Normal Saline 0.9%) 1,000 mls @ 75 mls/hr IV .[id number] [facility] Last Infusion: 01/30/17 19:08 Dose: 75 mls/hr Insulin Aspart (Novolog) 1 - 9 unit SUBQ 0800,1200,1700,2100 [facility] PRN Reason: Protocol Last Admin: 01/31/17 11:50 Dose: 3 unit Insulin Glargine (Lantus Solostar) 25 unit SUBQ DAILY [facility] Last Admin: 01/31/17 08:51 Dose: 25 unit Morphine Sulfate (Morphine) 2 mg IVP Q2H PRN PRN Reason: Pain 8 to 10 Last Admin: 01/31/17 08:15 Dose: 2 mg Ondansetron HCl (Zofran Inj) 4 mg IVP Q6HR PRN PRN Reason: Nausea / Vomiting Oxycodone HCl (Roxicodone) 5 mg PO Q4HR PRN PRN Reason: Pain 5 to 7 Last Admin: 01/31/17 01:01 Dose: 5 mg Oxycodone HCl (Roxicodone) 10 mg PO Q4HR PRN PRN Reason: Pain 8 to 10 Last Admin: 01/31/17 11:34 Dose: 10 mg Polyethylene Glycol (Miralax) 17 gm PO DAILY [facility] Last Admin: 01/31/17 08:50 Dose: 17 gm Prochlorperazine Edisylate (Compazine Inj) 10 mg IVP Q6HR PRN PRN Reason: Nausea / Vomiting Saccharomyces Boulardii (Florastor) 250 mg PO BIDWM [facility] Last Admin: 01/31/17 08:50 Dose: 250 mg Sodium Chloride (Normal Saline Flush 0.9%) 10 ml IVP PRN PRN PRN Reason: NEEDED PER PROVIDER ORDERS Last Admin: 01/31/17 08:16 Dose: 10 ml Sodium Chloride (Normal Saline Flush 0.9%) 10 ml IVP Q8HR [facility] Last Admin: 01/31/17 06:11 Dose: Not Given Trazodone HCl (Desyrel) 50 mg PO QPM [facility] Last Admin: 01/30/17 21:17 Dose: 50 mg No Known Home Medications [No Known Home Medications] 01/29/17 Objective - Vital Signs/Intake & Output Reviewed Vital Signs: Yes Vital Signs: Vital Signs x48h Temp Pulse Resp BP Pulse Ox 01/31/17 08:12 37.0 C 82 18 153/76 H 94 01/31/17 04:51 36.9 C 85 18 147/68 H 93 Intake & Output: Intake & Output 01/28/17 01/29/17 01/30/17 01/31/17 23:59 23:59 23:59 23:59 Intake Total 0901.442 0585.833 920 Output Total 650 260 Balance 7664.730 2522.833 660 - Objective General Appearance: positive: No acute distress, Alert. negative: Lethargic Eyes Bilateral: positive: Normal inspection, PERRL, No lid inflammation, Conjunctivae nml ENT: positive: ENT inspection nml, Pharynx nml, No signs of dehydration. negative: Purulent nasal drainage, Pharyngeal erythema, Oral lesions, Dry mucous membranes Neck: positive: Nml inspection, Thyroid nml, No JVD, Trachea midline. negative : Thyromegaly, Lymphadenopathy (R), Lymphadenopathy (L), Stiff neck, Carotid bruit, Swelling/bruising, Tracheal deviation Respiratory: positive: Chest non-tender, No respiratory distress, Other (normal lung sound at left side, reduced sound at right). negative: Wheezes, Rales Cardiovascular: positive: Regular rate & rhythm, No murmur, No gallop. negative : Irregularly irregular, Extrasystoles, Tachycardia, Bradycardia, Systolic murmur, Diastolic murmur Peripheral Pulses: 2+ Radial (R), 2+ Radial (L), 2+ Dorsalis pedis (R), 2+ Dorsalis pedis (L) Abdomen: positive: Non-tender, No organomegaly, Nml bowel sounds, No distention. negative: Tenderness, Guarding, Rebound Back: positive: Nml inspection. negative: CVA tenderness (R), CVA tenderness (L ) Skin: positive: Color nml, No rash, Warm, Dry. negative: Cyanosis, Diaphoresis , Pallor, Skin rash Extremities: positive: Non-tender, Full ROM, Nml appearance. negative: Calf tenderness, Joint swelling, Nestor's sign/cords Neurologic/Psychiatric: positive: Oriented x3, Motor nml, Sensation nml, Mood/ affect nml. negative: Sensory loss, Facial droop, Slurred/abnml speech, Depressed mood/affect - Lab Results Fish Bones: 01/31/17 04:50 01/31/17 04:50 Other Labs: Lab Results x24hrs 01/31/17 01/31/17 01/31/17 Range/Units 11:27 07:48 07:18 WBC (4.8-10.8) x10^3/uL RBC (4.70-6.10) 10^6/uL Hgb (14.0-18.0) g/dL Hct (42.0-52.0) % MCV (80.0-94.0) fL MCH (27.0-31.0) pg MCHC (32.0-36.0) g/dL RDW (12.0-15.0) % Plt Count (130-450) 10^3/uL MPV (7.4-11.4) fL Neut # (1.5-6.6) 10^3/uL Lymph # (1.5-3.5) 10^3/uL Stone # (0.0-1.0) 10^3/uL Eos # (0.0-0.7) 10^3/uL Baso # (0.0-0.1) 10^3/uL Absolute Nucleated RBC x10^3/uL Nucleated RBC % /100WBC VBG pH 7.491 H (7.31-7.41) Ionized Calcium 1.06 L (1.15-1.33) mmol/L Sodium (135-145) mmol/L Potassium (3.5-5.0) mmol/L Chloride (101-111) mmol/L Carbon Dioxide (21-32) mmol/L Anion Gap (6-13) BUN (6-20) mg/dL Creatinine (0.6-1.2) mg/dL Estimated GFR (MDRD) (>89) Glucose (70-100) mg/dL POC Whole Bld Glucose 191 H 196 H (70 - 100) mg/dL Calcium (8.5-10.3) mg/dL Fluid Source Fluid Color Fluid Clarity Fluid WBC /mm^3 Fluid RBC /mm^3 Fluid Neutrophils % % Fluid Lymphocytes % Fld Mesothelial Cell % % 01/31/17 01/31/17 01/30/17 Range/Units 04:50 04:50 20:25 WBC 10.3 (4.8-10.8) x10^3/uL RBC 3.72 L (4.70-6.10) 10^6/uL Hgb 11.1 L (14.0-18.0) g/dL Hct 33.4 L (42.0-52.0) % MCV 89.8 (80.0-94.0) fL MCH 29.9 (27.0-31.0) pg MCHC 33.3 (32.0-36.0) g/dL RDW 13.8 (12.0-15.0) % Plt Count 310 (130-450) 10^3/uL MPV 7.8 (7.4-11.4) fL Neut # 8.1 H (1.5-6.6) 10^3/uL Lymph # 1.0 L (1.5-3.5) 10^3/uL Stone # 1.2 H (0.0-1.0) 10^3/uL Eos # 0.0 (0.0-0.7) 10^3/uL Baso # 0.0 (0.0-0.1) 10^3/uL Absolute Nucleated RBC 0.00 x10^3/uL Nucleated RBC % 0.0 /100WBC VBG pH (7.31-7.41) Ionized Calcium (1.15-1.33) mmol/L Sodium 131 L (135-145) mmol/L Potassium 3.3 L (3.5-5.0) mmol/L Chloride 96 L (101-111) mmol/L Carbon Dioxide 25 (21-32) mmol/L Anion Gap 10.0 (6-13) BUN 12 (6-20) mg/dL Creatinine 0.5 L (0.6-1.2) mg/dL Estimated GFR (MDRD) 170 (>89) Glucose 189 H (70-100) mg/dL POC Whole Bld Glucose 283 H (70 - 100) mg/dL Calcium 7.4 L (8.5-10.3) mg/dL Fluid Source Fluid Color Fluid Clarity Fluid WBC /mm^3 Fluid RBC /mm^3 Fluid Neutrophils % % Fluid Lymphocytes % Fld Mesothelial Cell % % 01/30/17 01/30/17 Range/Units 16:22 12:45 WBC (4.8-10.8) x10^3/uL RBC (4.70-6.10) 10^6/uL Hgb (14.0-18.0) g/dL Hct (42.0-52.0) % MCV (80.0-94.0) fL MCH (27.0-31.0) pg MCHC (32.0-36.0) g/dL RDW (12.0-15.0) % Plt Count (130-450) 10^3/uL MPV (7.4-11.4) fL Neut # (1.5-6.6) 10^3/uL Lymph # (1.5-3.5) 10^3/uL Stone # (0.0-1.0) 10^3/uL Eos # (0.0-0.7) 10^3/uL Baso # (0.0-0.1) 10^3/uL Absolute Nucleated RBC x10^3/uL Nucleated RBC % /100WBC VBG pH (7.31-7.41) Ionized Calcium (1.15-1.33) mmol/L Sodium (135-145) mmol/L Potassium (3.5-5.0) mmol/L Chloride (101-111) mmol/L Carbon Dioxide (21-32) mmol/L Anion Gap (6-13) BUN (6-20) mg/dL Creatinine (0.6-1.2) mg/dL Estimated GFR (MDRD) (>89) Glucose (70-100) mg/dL POC Whole Bld Glucose 211 H (70 - 100) mg/dL Calcium (8.5-10.3) mg/dL Fluid Source PLEURAL Fluid Color BLOODY Fluid Clarity TURBID Fluid WBC 328492 /mm^3 Fluid RBC 80119 /mm^3 Fluid Neutrophils % 56 % Fluid Lymphocytes % 15 Fld Mesothelial Cell % 29 % Assessment/Plan - Problem List (1) Pleural effusion Impression: (1) Pleural effusion Impression: pt had 2300 ml pus by chest tube out pus was sent for culture and staining and test, will follow up chest tube, will follow up surgeon continue antibiotics treatment. Today pt's WBC is down to the [facility] daily lab, and vital monitor talk with Dr. Teran. Pt will have thoracentesis today keep NPO IVF 100cc/h pain control with Morphin for right side chest pain pleural fluid study and culture plan order CT of chest to R/O malignance The patient presented with right-sided chest pain, cough and increasing shortness of air for the past week. Patient was found to have a right lung loculated pleural effusion. This is likely secondary to an infection. However given the patient's history of smoking we cannot completely rule out the possibility of malignancy at this time. The patient's effusion is quite extensive and there could be an underlying mass or cancer. The patient does have a leukocytosis and this is quite acute in onset therefore it is more likely that the patient does just have a severe pneumonia. Plan: Surgery consulted for thoracentesis and drainage of the pleural effusion Pleural fluid will be sent for cell count and differential, cytology and cultures Patient will be given supplemental oxygen Patient will be treated with IV antibiotics We will continue to monitor his effusion with daily chest x-ray Patient will likely need a repeat CT once effusion has improved to look for resolution and for any underlying process. (2) Community acquired pneumonia Conclusion/Plan: continue antibiotics follow up culture continue the current antibiotics follow up blood culture, and fluid culture vital monitor, daily lab monitor The patient presented with 1 week of right-sided chest pain, mild cough and increasing shortness of air. The patient was found to have a right sided loculated pleural effusion and likely has an underlying pneumonia. Given that the patient has not been recently hospitalized he likely has community-acquired pneumonia however he is an uncontrolled diabetic and has risk factors for Pseudomonas. Plan: Patient will be treated with IV antibiotics Zosyn and Levaquin to ensure coverage for Pseudomonas. Patient will be given IV fluids We will monitor the patient's white blood cell count and get daily chest x-ray. Surgery has been consulted for thoracentesis Patient's pleural fluid will be sent for cell count and differential, as well as cytology and cultures. Patient will be placed on duo nebs as needed although he does not have a history of COPD given his smoking history he may have some mild COPD Patient was advised to quit smoking Patient will be given oxygen as needed (3) Hyponatremia Conclusion/Plan: stable, it may be pt's baseline Na increase to 132, continue NS of IVF continue daily lab test The patient does present with some hyponatremia with a sodium of 129. The patient does appear to be significantly dehydrated likely secondary to his elevated blood glucose and the finding of pneumonia with loculated effusion. The patient has hypovolemic hyponatremia. Plan: Patient will be treated with IV fluids and we will continue to monitor the patient's sodium. (4) Diabetes Conclusion/Plan: slight high glucose level increase Lantus to 25 unit and moderate insulin of slide scale Pt's A1C is over 12, it seems pt did not have medical compliance for DM treatment pt had daily Lantus and slide scale, will closely monitor glucose level, adjust insulin as needed The patient does have a history of type 2 diabetes. He was previously on insulin but stopped taking all of his medications a few years back when his PCP left. He states that he does experience probably urea and polydipsia and has for some time. On presentation to the emergency department the patient's blood glucose is elevated at 299. Plan: We will check a hemoglobin A1c We will monitor the patient's blood glucose before meals at bedtime We will place the patient on a sliding scale of insulin We will consider starting long-acting insulin once we have an A1c and an idea of how much short-acting insulin the patient requires over 24 hours. Patient will be placed on a diabetic diet Patient was counseled about medication noncompliance (5) Hypertension Conclusion/Plan: stable controlled, continue BP meds check vital, The patient does have a history of hypertension however he does not take any medications. He states that he has stopped seeing his primary care physician because his PCP moved away. He states that he has not refilled any medications and does not remember if he was on anything for his blood pressure. On presentation to the emergency department the patient's blood pressure is elevated however he is also in pain. Plan: We will continue to monitor the patient's blood pressure closely We will treat the patient's pain If patient's blood pressure is persistently elevated we will consider starting a medication likely lisinopril in the setting of diabetes. (6) Hyperlipidemia Conclusion/Plan: The patient states he does have a history of hyperlipidemia however he does not take any medications and has not followed up with a primary care physician in over 2 years. Plan: We will check a lipid profile and wait on results for any further recommendations. (7) Tobacco abuse consult with pt for quitting smoking. pt plan to quit cigarette smoking (8) medical non-compliant consult for medical compliance, special DM control. (9) Empyema based on pt's clinic features, large amount pus at right pleural effusion, with PNA history, will review of culture and staining of effusion result continue chest tube for drainage out, follow up surgeon. continue current antibiotics daily lab vital monitor pt may need residential antibiotics
--- NOTE | 2017-01-31 12:24 | PROCEDURE REPORT ---
DATE OF PROCEDURE: 01/30/2017 PREOPERATIVE DIAGNOSIS: Right empyema. POSTOPERATIVE DIAGNOSIS: Right empyema. PROCEDURE PERFORMED: Placement of right chest tube with evacuation of right empyema. ANESTHESIA: MAC. INDICATIONS FOR PROCEDURE: The patient is a 61-year-old male who presents with right-sided chest pain. A chest x-ray and CT scan of the chest revealed a large loculated effusion on the right side. He underwent a thoracentesis earlier, in which purulent fluid was aspirated from the right chest. Because of this, it was recommended a tube thoracostomy would be placed. FINDINGS AT PROCEDURE: 2200 mL of purulent, thick fluid was aspirated from the right chest cavity. DESCRIPTION OF PROCEDURE: After informed consent was obtained, patient was taken to the operating room and placed in a supine position. MAC anesthesia was administered. The patient's right chest was then prepped and draped in the usual sterile fashion. The skin overlying the fifth rib near the anterior axillary line was then injected with local anesthesia. The area had been prepped and draped in usual sterile fashion. An incision was then made over the fifth rib in this location. The wound was then dissected all the way to the chest wall, which was then entered with a clamp. Purulent fluid was then encountered. A finger was then inserted, enlarging the hole. The anchor suction was then advanced into the chest cavity sucking out 2200 mL of purulent, thick fluid. The Yankauer was used to break up any loculations and any adhesions. Next, a 40-Mongolian chest tube was placed through this opening in the chest wall and into the pleural cavity. Under fluoroscopy it was advanced with the tip of the chest tube located in the superior portion of the chest cavity. The chest tube was then secured to the skin using #0 silk suture. Xeroform gauze was then applied to the insertion site and gauze placed on top. The chest tube was then taped in place. Patient was then awakened and taken from the operating room in stable condition. Chest x-ray will be obtained in the recovery room. The chest tube had been connected to the collecting system. TD: 01/31/2017 08:44 MART
[2017-01-31] MEDS: SODIUM CHLORIDE 0.9% 1,000 ML IV SCH ×2 (15:00→23:52)
[2017-01-31] MEDS: ACETAMINOPHEN 325 MG TABLET PO PRN (17:02)
[2017-01-31] MEDS: levoFLOXacin 750 MG/150 ML 750 MG/150 ML BAG IV SCH (21:35)
[2017-01-31] MEDS: traZODone 50 MG TABLET PO SCH (21:38)
[2017-02-01] MEDS: PIPERACILLIN/TAZOBACTAM 4.5 GM in SODIUM CHLORIDE 0.9% MINIBAG 100 ML IV SCH ×4 (03:09→22:57)
[2017-02-01] MEDS: SODIUM CHLORIDE 0.9% 1,000 ML IV SCH ×2 (03:09→18:47)
[2017-02-01] MEDS: MORPHINE 2 MG/ML SYRINGE IVP PRN ×4 (03:23→23:51)
[2017-02-01] MEDS: oxyCODONE 5 MG TABLET PO PRN ×5 (03:23→23:51)
[2017-02-01 05:25] LABS: BASOPHILS % (AUTO) 0.1 %; EOSINOPHILS % (AUTO) 0.1 %; HGB - HEMOGLOBIN 10.5 g/dL (14.0-18.0); LYMPHOCYTES # (AUTO) 0.9 10^3/uL (1.5-3.5); LYMPHOCYTES % (AUTO) 9.4 %; MEAN CORPUSCULAR HEMOGLOBIN 29.5 pg (27.0-31.0); MEAN CORPUSCULAR HGB CONC 32.9 g/dL (32.0-36.0); MEAN CORPUSCULAR VOLUME 89.6 fL (80.0-94.0); MEAN PLATELET VOLUME 7.3 fL (7.4-11.4); MONOCYTES % (AUTO) 11.3 %; NEUTROPHILS # (AUTO) 7.2 10^3/uL (1.5-6.6); NEUTROPHILS % (AUTO) 79.1 %; RED BLOOD COUNT 3.57 10^6/uL (4.70-6.10); RED CELL DISTRIBUTION WIDTH 13.7 % (12.0-15.0); UNCORRECTED WHITE BLOOD COUNT 9.1 x10^3/uL; WHITE BLOOD COUNT 9.1 x10^3/uL (4.8-10.8)
[2017-02-01] MEDS: SODIUM CHLORIDE FLUSH 0.9% 10 ML SYRINGE IVP SCH ×3 (05:32→22:56)
[2017-02-01 05:33] LABS: CALCIUM 7.3 mg/dL (8.5-10.3); CREATININE 0.4 mg/dL (0.6-1.2); MAGNESIUM 1.5 mg/dL (1.7-2.8); POTASSIUM 3.7 mmol/L (3.5-5.0)
--- NOTE | 2017-02-01 07:42 | PROVIDER PROGRESS NOTE ---
Subjective - Prog Note Date Prog Note Date: 02/01/17 Prog Note Time: 07:41 - Subjective Pt reports feeling: No change Subjective: Jarad was accompanied by his mother by his side and later his sister who claims they all 3 live together. Patient notes his primary complaint as his right sided chest tube. He denies chest pain, new shortness of breath, N/V or a new cough. Current Medications - Current Medications Current Medications: Active Medications Acetaminophen (Tylenol) 650 mg PO Q4HR PRN PRN Reason: Pain 1 to 4 Last Admin: 01/31/17 17:02 Dose: 650 mg Albuterol/Ipratropium (Duoneb) 3 ml INH RTQID PRN PRN Reason: Wheezing Enoxaparin Sodium (Lovenox) 40 mg SUBQ DAILY [facility] Last Admin: 01/31/17 08:52 Dose: 40 mg Famotidine (Pepcid) 20 mg PO DAILY [facility] Last Admin: 01/31/17 08:50 Dose: 20 mg Levofloxacin (Levaquin 750 Mg/150 Ml) 750 mg in 150 mls @ 100 mls/hr IV Q24H [facility] Last Infusion: 02/01/17 07:29 Dose: Infused Piperacillin Sod/Tazobactam (Sod 4.5 gm/ Sodium Chloride) 100 mls @ 100 mls/hr IV Q6H [facility] Last Infusion: 02/01/17 05:32 Dose: Infused Sodium Chloride (Normal Saline 0.9%) 1,000 mls @ 75 mls/hr IV .[id number] [facility] Last Admin: 02/01/17 03:09 Dose: 75 mls/hr Insulin Aspart (Novolog) 1 - 9 unit SUBQ 0800,1200,1700,2100 [facility] PRN Reason: Protocol Last Admin: 01/31/17 21:39 Dose: 5 unit Insulin Glargine (Lantus Solostar) 25 unit SUBQ DAILY [facility] Last Admin: 01/31/17 08:51 Dose: 25 unit Morphine Sulfate (Morphine) 2 mg IVP Q2H PRN PRN Reason: Pain 8 to 10 Last Admin: 02/01/17 03:23 Dose: 2 mg Ondansetron HCl (Zofran Inj) 4 mg IVP Q6HR PRN PRN Reason: Nausea / Vomiting Oxycodone HCl (Roxicodone) 5 mg PO Q4HR PRN PRN Reason: Pain 5 to 7 Last Admin: 01/31/17 01:01 Dose: 5 mg Oxycodone HCl (Roxicodone) 10 mg PO Q4HR PRN PRN Reason: Pain 8 to 10 Last Admin: 02/01/17 03:23 Dose: 10 mg Polyethylene Glycol (Miralax) 17 gm PO DAILY [facility] Last Admin: 01/31/17 08:50 Dose: 17 gm Prochlorperazine Edisylate (Compazine Inj) 10 mg IVP Q6HR PRN PRN Reason: Nausea / Vomiting Saccharomyces Boulardii (Florastor) 250 mg PO BIDWM [facility] Last Admin: 01/31/17 17:02 Dose: 250 mg Sodium Chloride (Normal Saline Flush 0.9%) 10 ml IVP PRN PRN PRN Reason: NEEDED PER PROVIDER ORDERS Last Admin: 01/31/17 08:16 Dose: 10 ml Sodium Chloride (Normal Saline Flush 0.9%) 10 ml IVP Q8HR [facility] Last Admin: 02/01/17 05:32 Dose: Not Given Trazodone HCl (Desyrel) 50 mg PO QPM [facility] Last Admin: 01/31/17 21:38 Dose: 50 mg No Known Home Medications [No Known Home Medications] 01/29/17 Objective - Vital Signs/Intake & Output Vital Signs: Vital Signs x48h Temp Pulse Resp BP Pulse Ox 02/01/17 05:00 36.8 C 77 16 139/66 H 95 02/01/17 00:50 36.7 C 82 18 153/86 H 96 Intake & Output: Intake & Output 01/29/17 01/30/17 01/31/17 02/01/17 23:59 23:59 23:59 23:59 Intake Total 3874.523 0225.833 3177.5 1161.25 Output Total 650 1250 200 Balance 2461.786 9145.833 1927.5 961.25 - Objective General Appearance: positive: Alert, Moderate distress Eyes Bilateral: positive: Normal inspection ENT: positive: ENT inspection nml, Pharynx nml, Dry mucous membranes Neck: positive: Nml inspection, Thyroid nml, No JVD Respiratory: positive: No respiratory distress, Rales, Rhonchi (coarse crackles right), Other (right sided chest wall pain due to CT site.) Cardiovascular: positive: Regular rate & rhythm, No gallop, Tachycardia Peripheral Pulses: 2+ Radial (R), 2+ Radial (L) Abdomen: positive: Non-tender, Hepatomegaly, Abnml bowel sounds Back: positive: CVA tenderness (R) Skin: positive: Color nml, No rash, Warm, Dry, Pallor Extremities: positive: Non-tender, Full ROM, No pedal edema, Joint swelling Neurologic/Psychiatric: positive: Oriented x3, CN's nml (2-12), Motor nml, Weakness, Depressed mood/affect Reflexes: Bicep (R): 3+, Bicep (L): 3+ - Lab Results Fish Bones: 02/02/17 05:17 02/01/17 05:08 Other Labs: Lab Results x24hrs 02/01/17 02/01/17 02/01/17 Range/Units 07:33 05:08 05:08 WBC 9.1 (4.8-10.8) x10^3/uL RBC 3.57 L (4.70-6.10) 10^6/uL Hgb 10.5 L (14.0-18.0) g/dL Hct 32.0 L (42.0-52.0) % MCV 89.6 (80.0-94.0) fL MCH 29.5 (27.0-31.0) pg MCHC 32.9 (32.0-36.0) g/dL RDW 13.7 (12.0-15.0) % Plt Count 354 (130-450) 10^3/uL MPV 7.3 L (7.4-11.4) fL Neut # 7.2 H (1.5-6.6) 10^3/uL Lymph # 0.9 L (1.5-3.5) 10^3/uL [place] # 1.0 (0.0-1.0) 10^3/uL Eos # 0.0 (0.0-0.7) 10^3/uL Baso # 0.0 (0.0-0.1) 10^3/uL Absolute Nucleated RBC 0.00 x10^3/uL Nucleated RBC % 0.0 /100WBC Sodium 129 L (135-145) mmol/L Potassium 3.7 (3.5-5.0) mmol/L Chloride 96 L (101-111) mmol/L Carbon Dioxide 25 (21-32) mmol/L Anion Gap 8.0 (6-13) BUN 9 (6-20) mg/dL Creatinine 0.4 L (0.6-1.2) mg/dL Estimated GFR (MDRD) 220 (>89) Glucose 202 H (70-100) mg/dL POC Whole Bld Glucose 184 H (70 - 100) mg/dL Calcium 7.3 L (8.5-10.3) mg/dL Magnesium 1.5 L (1.7-2.8) mg/dL 01/31/17 01/31/17 01/31/17 Range/Units 20:25 16:22 11:27 WBC (4.8-10.8) x10^3/uL RBC (4.70-6.10) 10^6/uL Hgb (14.0-18.0) g/dL Hct (42.0-52.0) % MCV (80.0-94.0) fL MCH (27.0-31.0) pg MCHC (32.0-36.0) g/dL RDW (12.0-15.0) % Plt Count (130-450) 10^3/uL MPV (7.4-11.4) fL Neut # (1.5-6.6) 10^3/uL Lymph # (1.5-3.5) 10^3/uL [place] # (0.0-1.0) 10^3/uL Eos # (0.0-0.7) 10^3/uL Baso # (0.0-0.1) 10^3/uL Absolute Nucleated RBC x10^3/uL Nucleated RBC % /100WBC Sodium (135-145) mmol/L Potassium (3.5-5.0) mmol/L Chloride (101-111) mmol/L Carbon Dioxide (21-32) mmol/L Anion Gap (6-13) BUN (6-20) mg/dL Creatinine (0.6-1.2) mg/dL Estimated GFR (MDRD) (>89) Glucose (70-100) mg/dL POC Whole Bld Glucose 243 H 224 H 191 H (70 - 100) mg/dL Calcium (8.5-10.3) mg/dL Magnesium (1.7-2.8) mg/dL 01/31/17 Range/Units 07:48 WBC (4.8-10.8) x10^3/uL RBC (4.70-6.10) 10^6/uL Hgb (14.0-18.0) g/dL Hct (42.0-52.0) % MCV (80.0-94.0) fL MCH (27.0-31.0) pg MCHC (32.0-36.0) g/dL RDW (12.0-15.0) % Plt Count (130-450) 10^3/uL MPV (7.4-11.4) fL Neut # (1.5-6.6) 10^3/uL Lymph # (1.5-3.5) 10^3/uL [place] # (0.0-1.0) 10^3/uL Eos # (0.0-0.7) 10^3/uL Baso # (0.0-0.1) 10^3/uL Absolute Nucleated RBC x10^3/uL Nucleated RBC % /100WBC Sodium (135-145) mmol/L Potassium (3.5-5.0) mmol/L Chloride (101-111) mmol/L Carbon Dioxide (21-32) mmol/L Anion Gap (6-13) BUN (6-20) mg/dL Creatinine (0.6-1.2) mg/dL Estimated GFR (MDRD) (>89) Glucose (70-100) mg/dL POC Whole Bld Glucose 196 H (70 - 100) mg/dL Calcium (8.5-10.3) mg/dL Magnesium (1.7-2.8) mg/dL - Diagnostic Imaging Diagnostic Imaging Results: positive: Final report reviewed Diagnostic Imaging Comments: Chest x-ray 02/01/17: FINDINGS: Lungs/Pleura: Right thoracostomy tube in stable position with tip in the right apex. Similar right basal opacity suggesting small effusion and atelectasis and/ or consolidation. Similar opacity in the aerated right lung. No definite pneumothorax. Left lung appears clear. Mediastinum: Heart and mediastinal contours are unremarkable. Other: None. IMPRESSION: Compared with 01/31/2017, similar right-sided pulmonary opacities, as described above. Right chest tube in stable position. Assessment/Plan - Problem List (1) Loculated pleural effusion Impression: The patient presented with right-sided chest pain, cough and increasing shortness of breath at least the past week. Patient was found to have a right lung loculated pleural effusion. Patient has a history of smoking, so the chance of malignancy is a concern. Surgery was consulted for thoracentesis and drainage of the pleural effusion, pleural fluid was sent for cell count and differential, cytology and cultures. Plan: Supplemental oxygen as needed or for patient comfort, IV antibiotics, daily chest x-rays. Plan for a repeat CT once effusion has improved to look for resolution and for any underlying process. (2) Community acquired pneumonia Impression: The patient presented with 1 week of right-sided chest pain, mild cough and increasing shortness of breath. The patient was found to have a right sided loculated pleural effusion and likely has an underlying pneumonia. The patient has not had any recent hospitalizations, so this is likely community-acquired pneumonia. Plan: IV antibiotics Zosyn and Levaquin to ensure coverage for Pseudomonas, IV fluids, monitor labs including WBCs and get daily chest x-ray. The patient will be encouraged to continue with smoking cessation. Qualifiers: Laterality: right (3) Hyponatremia Impression: Sodium is 129. The patient shows signs of dehydration likely secondary to his elevated blood glucose and the finding of pneumonia with loculated effusion. Plan: Patient will be treated with IV fluids and we will continue to monitor the patient's sodium. (4) Hypertension Impression: The patient does have a history of hypertension however he does not take any medications. He states that he has stopped seeing his primary care physician because his PCP moved away. Plan: Continue to monitor the patient's vital signs, treat the patient's pain, and may consider starting a medication likely lisinopril in the setting of diabetes. Qualifiers: Hypertension type: essential hypertension Qualified Code(s): I10 - Essential (primary) hypertension (5) Hyperlipidemia Impression: The patient states he does have a history of hyperlipidemia however he does not take any medications and has not followed up with a primary care physician in over 2 years. Plan: We will check a lipid profile and wait on results for any further recommendations. (6) Tobacco abuse Impression: The patient states he has not smoked for 1 week secondary to his current symptoms. He however does smoke half a pack to a pack a day regularly. He stated that he would think about quitting and has great family re-enforcements for support. Plan: Offer nicotine patch if he becomes agitated, but has refused a nicotine patch. (7) Uncontrolled type 2 DM with peripheral circulatory disorder Impression: The patient does have a history of type 2 diabetes. He was previously on insulin but stopped taking all of his medications a few years back when his PCP left. He states that he does experience probable urea and polydipsia and has for some time. On presentation to the emergency department the patient's blood glucose is elevated at 299. Hemoglobin A1c was grossly elevated at 12.6%. Plan: Monitor the patient's blood glucose before meals at bedtime and plan to control BS with SSI, and Lantus long acting insulin. Also added a scheduled Aspart insulin of 4 units with meals. We will continue to monitor and adjust Lantus as needed depending on early AM blood sugars.
[2017-02-01] MEDS: INSULIN ASPART 300 UNIT/3 ML PEN SUBQ SCH ×4 (07:54→21:38)
[2017-02-01] MEDS: INSULIN GLARGINE 300 UNIT/3 ML PEN SUBQ SCH (07:55)
[2017-02-01] MEDS: SACCHAROMYCES BOULARDII 250 MG CAPSULE PO SCH ×2 (07:57→16:28)
[2017-02-01] MEDS: FAMOTIDINE 20 MG TABLET PO SCH (07:57)
[2017-02-01] MEDS: POLYETHYLENE GLYCOL 3350 17 GM PACKET PO SCH (07:58)
[2017-02-01] MEDS: ENOXAPARIN 40 MG/0.4 ML SYRINGE SUBQ SCH (08:00)
--- NOTE | 2017-02-01 09:59 | PROCEDURE REPORT ---
DATE OF PROCEDURE: 01/30/2017 PREOPERATIVE DIAGNOSIS: Right pleural effusion. POSTOPERATIVE DIAGNOSIS: Right empyema. PROCEDURE PERFORMED: Aspiration or thoracentesis right chest cavity. INDICATIONS FOR PROCEDURE: The patient is a 61-year-old male who presents with several day history of right-sided chest pain. He came to the emergency room and a chest x-ray revealed a large density in the right lobe. CT scan of the chest revealed a large fluid collection being present in the right chest, loculated with near collapse of the middle and lower lobes. PROCEDURE: After informed consent was obtained, the patient was placed in the upright position. Location on the right side of the back was then identified for the thoracentesis by ultrasound. This was approximately just lateral to the midclavicular line at about the 8th intercostal space. The skin overlying the area was then prepped and draped in usual sterile fashion. The skin overlying the 9th rib was then injected with local anesthesia. The needle was then inserted through this area over top of the 9th rib and into the pleural space. Purulent fluid was then aspirated. At this point, I decided that he needs a tube thoracostomy and not a thoracentesis, as this fluid was quite viscous. A Band-Aid was then applied to the surgical site with no bleeding noted. The fluid was sent for Gram stain, culture and sensitivity. Patient will now be ready to have a right chest tube placed. TD: 01/31/2017 08:42 MTDD
--- NOTE | 2017-02-01 10:33 | XRAY Preliminary Report ---
Exam: XR CHEST 2 VIEW PA/LAT IMPRESSION: Compared with 01/31/2017, similar right-sided pulmonary opacities, as described above. Ri ght chest tube in stable position. [facility] SITE ID: [id number]
--- NOTE | 2017-02-01 10:35 | XRAY Report ---
EXAM: CHEST RADIOGRAPHY EXAM DATE: 02/01/2017 09:28 AM. CLINICAL HISTORY: Loculated pleural effusion. COMPARISON: 01/31/2017. TECHNIQUE: 2 views. FINDINGS: Lungs/Pleura: Right thoracostomy tube in stable position with tip in the right apex. Similar right ba riana opacity suggesting small effusion and atelectasis and/or consolidation. Similar opacity in the ae rated right lung. No definite pneumothorax. Left lung appears clear. Mediastinum: Heart and mediastinal contours are unremarkable. Other: None. IMPRESSION: Compared with 01/31/2017, similar right-sided pulmonary opacities, as described above. Ri ght chest tube in stable position. [facility] Referring Provider Line: [phone] SITE ID: [id number]
[2017-02-01] MEDS ORDERED: MAGNESIUM OXIDE 400 MG TABLET PO ONE (13:17)
[2017-02-01] MEDS: traZODone 50 MG TABLET PO SCH (21:25)
[2017-02-01] MEDS: levoFLOXacin 750 MG/150 ML 750 MG/150 ML BAG IV SCH (21:25)
[2017-02-01] MEDS: SODIUM CHLORIDE FLUSH 0.9% 10 ML SYRINGE IVP PRN (23:52)
[2017-02-01] MEDS ORDERED: SODIUM CHLORIDE FLUSH 0.9% 10 ML SYRINGE IVP ONE (23:56)
[2017-02-02] MEDS: oxyCODONE 5 MG TABLET PO PRN ×4 (04:27→21:48)
[2017-02-02] MEDS: MORPHINE 2 MG/ML SYRINGE IVP PRN ×4 (04:27→16:10)
[2017-02-02] MEDS: PIPERACILLIN/TAZOBACTAM 4.5 GM in SODIUM CHLORIDE 0.9% MINIBAG 100 ML IV SCH ×4 (04:28→21:42)
[2017-02-02] MEDS: SODIUM CHLORIDE FLUSH 0.9% 10 ML SYRINGE IVP SCH ×3 (04:56→16:11)
[2017-02-02 05:45] LABS: BASOPHILS % (AUTO) 0.3 %; EOSINOPHILS % (AUTO) 0.4 %; HCT - HEMATOCRIT 32.5 % (42.0-52.0); HGB - HEMOGLOBIN 10.7 g/dL (14.0-18.0); LYMPHOCYTES # (AUTO) 1.1 10^3/uL (1.5-3.5); LYMPHOCYTES % (AUTO) 11.5 %; MEAN CORPUSCULAR HEMOGLOBIN 29.7 pg (27.0-31.0); MEAN CORPUSCULAR HGB CONC 33.1 g/dL (32.0-36.0); MEAN CORPUSCULAR VOLUME 89.8 fL (80.0-94.0); MEAN PLATELET VOLUME 7.4 fL (7.4-11.4); MONOCYTES # (AUTO) 1.1 10^3/uL (0.0-1.0); MONOCYTES % (AUTO) 11.8 %; NEUTROPHILS # (AUTO) 7.3 10^3/uL (1.5-6.6); NUCLEATED RED BLOOD CELLS AUTO 0.1 /100WBC; RED BLOOD COUNT 3.62 10^6/uL (4.70-6.10); RED CELL DISTRIBUTION WIDTH 13.5 % (12.0-15.0); UNCORRECTED WHITE BLOOD COUNT 9.6 x10^3/uL; WHITE BLOOD COUNT 9.6 x10^3/uL (4.8-10.8)
[2017-02-02 06:10] LABS: CALCIUM 7.3 mg/dL (8.5-10.3); CREATININE 0.3 mg/dL (0.6-1.2); POTASSIUM 3.4 mmol/L (3.5-5.0)
--- NOTE | 2017-02-02 06:36 | XRAY Preliminary Report ---
Exam: XR CHEST 2 VIEW PA/LAT IMPRESSION: Stable small loculated right pleural effusion with adjacent airspace opacity with chest t ube in place. [facility] SITE ID: [id number]
--- NOTE | 2017-02-02 06:41 | XRAY Report ---
EXAM: CHEST RADIOGRAPHY EXAM DATE: 02/02/2017 06:29 AM. CLINICAL HISTORY: Loculated pleural effusion. COMPARISON: 02/01/2017, CT 01/29/2017. TECHNIQUE: 2 views. FINDINGS: Lungs/Pleura: Stable right chest tube projecting at the apex. Stable small right pleural effusion wit h adjacent airspace opacity. Grossly clear left lung. No pneumothorax. Mediastinum: Heart and mediastinal contours are unremarkable. Other: None. IMPRESSION: Stable small loculated right pleural effusion with adjacent airspace opacity with chest tube in place . [facility] Referring Provider Line: [phone] SITE ID: [id number]
[2017-02-02] MEDS: INSULIN GLARGINE 300 UNIT/3 ML PEN SUBQ SCH (08:39)
[2017-02-02] MEDS: INSULIN ASPART 300 UNIT/3 ML PEN SUBQ SCH ×7 (08:39→21:50)
[2017-02-02] MEDS: POLYETHYLENE GLYCOL 3350 17 GM PACKET PO SCH (08:40)
[2017-02-02] MEDS: FAMOTIDINE 20 MG TABLET PO SCH (08:40)
[2017-02-02] MEDS: SACCHAROMYCES BOULARDII 250 MG CAPSULE PO SCH ×2 (08:40→16:10)
[2017-02-02] MEDS: ENOXAPARIN 40 MG/0.4 ML SYRINGE SUBQ SCH (08:40)
--- NOTE | 2017-02-02 10:14 | XRAY Report ---
[facility] Fluoroscopy time only, no images submitted for interpretation. Fluoroscopy time 0 minutes, 0.3 seconds. MTDD
--- NOTE | 2017-02-02 11:35 | PROVIDER PROGRESS NOTE ---
Subjective - Prog Note Date Prog Note Date: 02/02/17 Prog Note Time: 11:33 - Subjective Pt reports feeling: No change Subjective: Patient states he wishes to go home. He denies SOB, chest pain-except incision discomfort, N/V or a new cough. He feels he has an easier time breathing. Current Medications - Current Medications Current Medications: Active Medications Acetaminophen (Tylenol) 650 mg PO Q4HR PRN PRN Reason: Pain 1 to 4 Last Admin: 01/31/17 17:02 Dose: 650 mg Albuterol/Ipratropium (Duoneb) 3 ml INH RTQID PRN PRN Reason: Wheezing Enoxaparin Sodium (Lovenox) 40 mg SUBQ DAILY [facility] Last Admin: 02/02/17 08:40 Dose: 40 mg Famotidine (Pepcid) 20 mg PO DAILY [facility] Last Admin: 02/02/17 08:40 Dose: 20 mg Levofloxacin (Levaquin 750 Mg/150 Ml) 750 mg in 150 mls @ 100 mls/hr IV Q24H [facility] Last Infusion: 02/03/17 00:20 Dose: Infused Piperacillin Sod/Tazobactam (Sod 4.5 gm/ Sodium Chloride) 100 mls @ 100 mls/hr IV Q6H [facility] Last Infusion: 02/03/17 05:48 Dose: Infused Sodium Chloride (Normal Saline 0.9%) 1,000 mls @ 125 mls/hr IV .Q8H [facility] Insulin Aspart (Novolog) 1 - 9 unit SUBQ 0800,1200,1700,2100 [facility] PRN Reason: Protocol Last Admin: 02/02/17 21:50 Dose: 1 unit Insulin Aspart (Novolog) 4 unit SUBQ TIDWM [facility] Last Admin: 02/02/17 17:43 Dose: 4 unit Insulin Glargine (Lantus Solostar) 30 unit SUBQ DAILY [facility] Magnesium Oxide (Mag Ox) 400 mg PO BID [facility] Morphine Sulfate (Morphine) 2 mg IVP Q2H PRN PRN Reason: Pain 8 to 10 Last Admin: 02/03/17 04:20 Dose: 2 mg Ondansetron HCl (Zofran Inj) 4 mg IVP Q6HR PRN PRN Reason: Nausea / Vomiting Oxycodone HCl (Roxicodone) 5 mg PO Q4HR PRN PRN Reason: Pain 5 to 7 Last Admin: 01/31/17 01:01 Dose: 5 mg Oxycodone HCl (Roxicodone) 10 mg PO Q4HR PRN PRN Reason: Pain 8 to 10 Last Admin: 02/03/17 04:20 Dose: 10 mg Polyethylene Glycol (Miralax) 17 gm PO DAILY [facility] Last Admin: 02/02/17 08:40 Dose: 17 gm Prochlorperazine Edisylate (Compazine Inj) 10 mg IVP Q6HR PRN PRN Reason: Nausea / Vomiting Saccharomyces Boulardii (Florastor) 250 mg PO BIDWM [facility] Last Admin: 02/02/17 16:10 Dose: 250 mg Sodium Chloride (Normal Saline Flush 0.9%) 10 ml IVP PRN PRN PRN Reason: NEEDED PER PROVIDER ORDERS Last Admin: 02/03/17 00:30 Dose: 10 ml Sodium Chloride (Normal Saline Flush 0.9%) 10 ml IVP Q8HR [facility] Last Admin: 02/02/17 16:11 Dose: 10 ml Trazodone HCl (Desyrel) 50 mg PO QPM [facility] Last Admin: 02/02/17 21:45 Dose: 50 mg No Known Home Medications [No Known Home Medications] 01/29/17 Objective - Vital Signs/Intake & Output Reviewed Vital Signs: Yes Vital Signs: Vital Signs x48h Temp Pulse Pulse Resp BP Pulse Ox 02/02/17 09:03 83 18 02/02/17 07:39 36.6 C 79 18 137/80 H 98 02/02/17 04:36 36.7 C 80 18 162/76 H 96 Intake & Output: Intake & Output 01/30/17 01/31/17 02/01/17 02/02/17 23:59 23:59 23:59 23:59 Intake Total 2966.833 3177.5 3717.50 700 Output Total 650 1250 1708 820 Balance 2316.833 1927.5 2008.50 -120 - Objective General Appearance: positive: No acute distress, Alert Eyes Bilateral: positive: Normal inspection ENT: positive: ENT inspection nml, Pharynx nml, No signs of dehydration Neck: positive: Nml inspection, Thyroid nml, No JVD Respiratory: positive: No respiratory distress, Rhonchi (right side) Cardiovascular: positive: Regular rate & rhythm, No murmur, No gallop Peripheral Pulses: 2+ Radial (R), 2+ Radial (L) Abdomen: positive: Non-tender, No organomegaly, Nml bowel sounds, Other ( rounded.) Back: positive: Nml inspection, CVA tenderness (R) Skin: positive: Color nml, No rash, Warm, Dry Extremities: positive: Non-tender, Full ROM, Nml appearance, No pedal edema Neurologic/Psychiatric: positive: Oriented x3, CN's nml (2-12), Motor nml, Sensation nml, Depressed mood/affect Reflexes: Bicep (R): 3+, Bicep (L): 3+ - Lab Results Fish Bones: 02/03/17 05:02 02/03/17 05:02 Other Labs: Lab Results x24hrs 02/02/17 02/02/17 02/02/17 Range/Units 11:21 07:22 05:17 WBC (4.8-10.8) x10^3/uL RBC (4.70-6.10) 10^6/uL Hgb (14.0-18.0) g/dL Hct (42.0-52.0) % MCV (80.0-94.0) fL MCH (27.0-31.0) pg MCHC (32.0-36.0) g/dL RDW (12.0-15.0) % Plt Count (130-450) 10^3/uL MPV (7.4-11.4) fL Neut # (1.5-6.6) 10^3/uL Lymph # (1.5-3.5) 10^3/uL [place] # (0.0-1.0) 10^3/uL Eos # (0.0-0.7) 10^3/uL Baso # (0.0-0.1) 10^3/uL Absolute Nucleated RBC x10^3/uL Nucleated RBC % /100WBC Sodium 131 L (135-145) mmol/L Potassium 3.4 L (3.5-5.0) mmol/L Chloride 97 L (101-111) mmol/L Carbon Dioxide 27 (21-32) mmol/L Anion Gap 7.0 (6-13) BUN 7 (6-20) mg/dL Creatinine 0.3 L (0.6-1.2) mg/dL Estimated GFR (MDRD) 307 (>89) Glucose 157 H (70-100) mg/dL POC Whole Bld Glucose 171 H 157 H (70 - 100) mg/dL Calcium 7.3 L (8.5-10.3) mg/dL 02/02/17 02/01/17 02/01/17 Range/Units 05:17 21:26 17:55 WBC 9.6 (4.8-10.8) x10^3/uL RBC 3.62 L (4.70-6.10) 10^6/uL Hgb 10.7 L (14.0-18.0) g/dL Hct 32.5 L (42.0-52.0) % MCV 89.8 (80.0-94.0) fL MCH 29.7 (27.0-31.0) pg MCHC 33.1 (32.0-36.0) g/dL RDW 13.5 (12.0-15.0) % Plt Count 435 (130-450) 10^3/uL MPV 7.4 (7.4-11.4) fL Neut # 7.3 H (1.5-6.6) 10^3/uL Lymph # 1.1 L (1.5-3.5) 10^3/uL [place] # 1.1 H (0.0-1.0) 10^3/uL Eos # 0.0 (0.0-0.7) 10^3/uL Baso # 0.0 (0.0-0.1) 10^3/uL Absolute Nucleated RBC 0.01 x10^3/uL Nucleated RBC % 0.1 /100WBC Sodium (135-145) mmol/L Potassium (3.5-5.0) mmol/L Chloride (101-111) mmol/L Carbon Dioxide (21-32) mmol/L Anion Gap (6-13) BUN (6-20) mg/dL Creatinine (0.6-1.2) mg/dL Estimated GFR (MDRD) (>89) Glucose (70-100) mg/dL POC Whole Bld Glucose 219 H 171 H (70 - 100) mg/dL Calcium (8.5-10.3) mg/dL 02/01/17 Range/Units 16:40 WBC (4.8-10.8) x10^3/uL RBC (4.70-6.10) 10^6/uL Hgb (14.0-18.0) g/dL Hct (42.0-52.0) % MCV (80.0-94.0) fL MCH (27.0-31.0) pg MCHC (32.0-36.0) g/dL RDW (12.0-15.0) % Plt Count (130-450) 10^3/uL MPV (7.4-11.4) fL Neut # (1.5-6.6) 10^3/uL Lymph # (1.5-3.5) 10^3/uL [place] # (0.0-1.0) 10^3/uL Eos # (0.0-0.7) 10^3/uL Baso # (0.0-0.1) 10^3/uL Absolute Nucleated RBC x10^3/uL Nucleated RBC % /100WBC Sodium (135-145) mmol/L Potassium (3.5-5.0) mmol/L Chloride (101-111) mmol/L Carbon Dioxide (21-32) mmol/L Anion Gap (6-13) BUN (6-20) mg/dL Creatinine (0.6-1.2) mg/dL Estimated GFR (MDRD) (>89) Glucose (70-100) mg/dL POC Whole Bld Glucose 194 H (70 - 100) mg/dL Calcium (8.5-10.3) mg/dL - Diagnostic Imaging Diagnostic Imaging Results: positive: Final report reviewed Diagnostic Imaging Comments: Daily chest x-ray 02/02/17: FINDINGS: Lungs/Pleura: Stable right chest tube projecting at the apex. Stable small right pleural effusion with adjacent airspace opacity. Grossly clear left lung. No pneumothorax. Mediastinum: Heart and mediastinal contours are unremarkable. Other: None. IMPRESSION: Stable small loculated right pleural effusion with adjacent airspace opacity with chest tube in place. Assessment/Plan - Problem List (1) Loculated pleural effusion Impression: The patient presented with right-sided chest pain, cough and increasing shortness of breath at least the past week. Patient was found to have a right lung loculated pleural effusion. Patient has a history of smoking, so the chance of malignancy is a concern. Surgery was consulted for thoracentesis and drainage of the pleural effusion, pleural fluid was sent for cell count and differential, cytology and cultures. Patient continues to have generous output , so not a good idea to discontinue right chest tube, spoke with Dr. Teran who is managing this. Plan: Supplemental oxygen as needed or for patient comfort, IV antibiotics, daily chest x-rays. Plan for a repeat CT once effusion has improved to look for resolution and for any underlying process. (2) Community acquired pneumonia Impression: The patient presented with 1 week of right-sided chest pain, mild cough and increasing shortness of breath. The patient was found to have a right sided loculated pleural effusion and likely has an underlying pneumonia. The patient has not had any recent hospitalizations, so this is likely community-acquired pneumonia. Plan: IV antibiotics Zosyn and Levaquin to ensure coverage for Pseudomonas, IV fluids, monitor labs including WBCs and get daily chest x-ray. The patient will be encouraged to continue with smoking cessation. Qualifiers: Laterality: right (3) Hyponatremia Impression: Sodium remains low at 130. The patient shows signs of dehydration likely secondary to his elevated blood glucose and the finding of pneumonia with loculated effusion. Plan: Patient will be treated with IV fluids and we will continue to monitor the patient's sodium. (4) Hypertension Impression: The patient does have a history of hypertension however he does not take any medications. He states that he has stopped seeing his primary care physician because his PCP moved away. Plan: Continue to monitor the patient's vital signs, treat the patient's pain, and may consider starting a medication likely lisinopril in the setting of diabetes. Qualifiers: Hypertension type: essential hypertension Qualified Code(s): I10 - Essential (primary) hypertension (5) Hyperlipidemia Impression: The patient states he does have a history of hyperlipidemia however he does not take any medications and has not followed up with a primary care physician in over 2 years. Plan: We will check a lipid profile and wait on results for any further recommendations. (6) Tobacco abuse Impression: The patient states he has not smoked for 1 week secondary to his current symptoms. He however does smoke half a pack to a pack a day regularly. He stated that he would think about quitting and has great family re-enforcements for support. Plan: Offer nicotine patch if he becomes agitated, but has refused a nicotine patch. (7) Uncontrolled type 2 DM with peripheral circulatory disorder Impression: The patient does have a history of type 2 diabetes. He was previously on insulin but stopped taking all of his medications a few years back when his PCP left. He states that he does experience probable urea and polydipsia and has for some time. On presentation to the emergency department the patient's blood glucose is elevated at 299. Hemoglobin A1c was grossly elevated at 12.6%. Plan: Monitor the patient's blood glucose before meals at bedtime and plan to control BS with SSI, and Lantus long acting insulin. Also added a scheduled Aspart insulin of 4 units with meals. We will continue to monitor and adjust Lantus as needed depending on early AM blood sugars. Lantus was increased to 30 units daily. *[facility] 96 hour ATTESTATION: In good daniel I feel that the patient is reasonably expected to be discharged and/or transferred to another hospital within 96 hours.
[2017-02-02] MEDS: SODIUM CHLORIDE 0.9% 1,000 ML IV SCH (11:52)
[2017-02-02] MEDS ORDERED: INSULIN GLARGINE 300 UNIT/3 ML PEN SUBQ SCH (11:54)
[2017-02-02] MEDS: SODIUM CHLORIDE FLUSH 0.9% 10 ML SYRINGE IVP PRN (13:42)
[2017-02-02] MEDS: traZODone 50 MG TABLET PO SCH (21:45)
[2017-02-02] MEDS: levoFLOXacin 750 MG/150 ML 750 MG/150 ML BAG IV SCH (22:48)
--- NOTE | 2017-02-02 23:57 | Ultrasound Preliminary Report ---
Exam: US DUPLEX EXT VEINS RIGHT IMPRESSION: No evidence for deep vein thrombosis. [facility] SITE ID: [id number]
--- NOTE | 2017-02-02 23:59 | Ultrasound Report ---
EXAM: RIGHT UPPER EXTREMITY VENOUS ULTRASOUND EXAM DATE: 02/02/2017 10:16 PM. CLINICAL HISTORY: Right arm pain and swelling. COMPARISON: None. TECHNIQUE: Real-time sonographic vascular imaging was performed by the manager room through the upper extremity utilizing both color-flow and Doppler spectral analysis. Multiple product representative static lyndsay ges were saved for review. FINDINGS: Internal Jugular Vein (IJV): Normal. Subclavian Vein (SCV): Normal. Axillary Vein : Normal. Cephalic Vein (superficial vein): Normal. Basilic Vein (superficial vein): Normal. Brachial Vein: Normal. IMPRESSION: No evidence for deep vein thrombosis. [facility] Referring Provider Line: [phone] SITE ID: [id number]
[2017-02-03] MEDS: MORPHINE 2 MG/ML SYRINGE IVP PRN ×4 (00:29→20:49)
[2017-02-03] MEDS: SODIUM CHLORIDE FLUSH 0.9% 10 ML SYRINGE IVP PRN ×2 (00:30→09:20)
[2017-02-03] MEDS ORDERED: SODIUM CHLORIDE FLUSH 0.9% 10 ML SYRINGE IVP ONE (00:34)
[2017-02-03] MEDS: PIPERACILLIN/TAZOBACTAM 4.5 GM in SODIUM CHLORIDE 0.9% MINIBAG 100 ML IV SCH ×4 (04:20→20:50)
[2017-02-03] MEDS: oxyCODONE 5 MG TABLET PO PRN ×4 (04:20→20:44)
[2017-02-03 05:23] LABS: BASOPHILS % (AUTO) 0.4 %; EOSINOPHILS % (AUTO) 0.4 %; HCT - HEMATOCRIT 33.5 % (42.0-52.0); HGB - HEMOGLOBIN 10.8 g/dL (14.0-18.0); LYMPHOCYTES # (AUTO) 1.2 10^3/uL (1.5-3.5); LYMPHOCYTES % (AUTO) 11.9 %; MEAN CORPUSCULAR HEMOGLOBIN 28.8 pg (27.0-31.0); MEAN CORPUSCULAR HGB CONC 32.3 g/dL (32.0-36.0); MEAN CORPUSCULAR VOLUME 89.2 fL (80.0-94.0); MEAN PLATELET VOLUME 6.8 fL (7.4-11.4); MONOCYTES # (AUTO) 1.4 10^3/uL (0.0-1.0); MONOCYTES % (AUTO) 14.3 %; NEUTROPHILS # (AUTO) 7.1 10^3/uL (1.5-6.6); RED BLOOD COUNT 3.75 10^6/uL (4.70-6.10); RED CELL DISTRIBUTION WIDTH 13.3 % (12.0-15.0); UNCORRECTED WHITE BLOOD COUNT 9.8 x10^3/uL; WHITE BLOOD COUNT 9.8 x10^3/uL (4.8-10.8)
[2017-02-03 05:32] LABS: CALCIUM 7.6 mg/dL (8.5-10.3); CREATININE 0.3 mg/dL (0.6-1.2); POTASSIUM 3.6 mmol/L (3.5-5.0)
--- NOTE | 2017-02-03 07:31 | PROVIDER PROGRESS NOTE ---
Subjective - Prog Note Date Prog Note Date: 02/03/17 Prog Note Time: 07:28 - Subjective Pt reports feeling: No change Subjective: Jarad is anxious to get home. He admits to fair pain control. He denies SOB, chest pain other than where the chest tube is, N/V or cough. He has yet to move his bowels. Current Medications - Current Medications Current Medications: Active Medications Acetaminophen (Tylenol) 650 mg PO Q4HR PRN PRN Reason: Pain 1 to 4 Last Admin: 01/31/17 17:02 Dose: 650 mg Albuterol/Ipratropium (Duoneb) 3 ml INH RTQID PRN PRN Reason: Wheezing Enoxaparin Sodium (Lovenox) 40 mg SUBQ DAILY [facility] Last Admin: 02/02/17 08:40 Dose: 40 mg Famotidine (Pepcid) 20 mg PO DAILY [facility] Last Admin: 02/02/17 08:40 Dose: 20 mg Levofloxacin (Levaquin 750 Mg/150 Ml) 750 mg in 150 mls @ 100 mls/hr IV Q24H [facility] Last Infusion: 02/03/17 00:20 Dose: Infused Piperacillin Sod/Tazobactam (Sod 4.5 gm/ Sodium Chloride) 100 mls @ 100 mls/hr IV Q6H [facility] Last Infusion: 02/03/17 05:48 Dose: Infused Sodium Chloride (Normal Saline 0.9%) 1,000 mls @ 125 mls/hr IV .Q8H [facility] Insulin Aspart (Novolog) 1 - 9 unit SUBQ 0800,1200,1700,2100 [facility] PRN Reason: Protocol Last Admin: 02/02/17 21:50 Dose: 1 unit Insulin Aspart (Novolog) 4 unit SUBQ TIDWM [facility] Last Admin: 02/02/17 17:43 Dose: 4 unit Insulin Glargine (Lantus Solostar) 30 unit SUBQ DAILY [facility] Magnesium Oxide (Mag Ox) 400 mg PO BID [facility] Morphine Sulfate (Morphine) 2 mg IVP Q2H PRN PRN Reason: Pain 8 to 10 Last Admin: 02/03/17 04:20 Dose: 2 mg Ondansetron HCl (Zofran Inj) 4 mg IVP Q6HR PRN PRN Reason: Nausea / Vomiting Oxycodone HCl (Roxicodone) 5 mg PO Q4HR PRN PRN Reason: Pain 5 to 7 Last Admin: 01/31/17 01:01 Dose: 5 mg Oxycodone HCl (Roxicodone) 10 mg PO Q4HR PRN PRN Reason: Pain 8 to 10 Last Admin: 02/03/17 04:20 Dose: 10 mg Polyethylene Glycol (Miralax) 17 gm PO DAILY [facility] Last Admin: 02/02/17 08:40 Dose: 17 gm Prochlorperazine Edisylate (Compazine Inj) 10 mg IVP Q6HR PRN PRN Reason: Nausea / Vomiting Saccharomyces Boulardii (Florastor) 250 mg PO BIDWM [facility] Last Admin: 02/02/17 16:10 Dose: 250 mg Sodium Chloride (Normal Saline Flush 0.9%) 10 ml IVP PRN PRN PRN Reason: NEEDED PER PROVIDER ORDERS Last Admin: 02/03/17 00:30 Dose: 10 ml Sodium Chloride (Normal Saline Flush 0.9%) 10 ml IVP Q8HR [facility] Last Admin: 02/02/17 16:11 Dose: 10 ml Trazodone HCl (Desyrel) 50 mg PO QPM [facility] Last Admin: 02/02/17 21:45 Dose: 50 mg No Known Home Medications [No Known Home Medications] 01/29/17 Objective - Vital Signs/Intake & Output Vital Signs: Vital Signs x48h Temp Pulse Resp BP Pulse Ox 02/03/17 04:27 36.8 C 79 18 156/67 H 97 02/03/17 00:26 36.9 C 80 18 156/77 H 96 Intake & Output: Intake & Output 01/31/17 02/01/17 02/02/17 02/03/17 23:59 23:59 23:59 23:59 Intake Total 3177.5 3717.50 2683.75 550 Output Total 1250 1708 2225 1620 Balance 1927.5 2008.50 458.75 -1070 - Objective General Appearance: positive: No acute distress, Alert ENT: positive: ENT inspection nml, Pharynx nml, No signs of dehydration Neck: positive: Nml inspection, Thyroid nml, No JVD, Trachea midline Respiratory: positive: Chest non-tender, No respiratory distress, Rales, Rhonchi Cardiovascular: positive: Regular rate & rhythm, No gallop, Systolic murmur Peripheral Pulses: 1+ Dorsalis pedis (R), 1+ Dorsalis pedis (L), 2+ Radial (R), 2+ Radial (L) Abdomen: positive: Non-tender, Abnml bowel sounds (rounded, firm) Back: positive: Nml inspection Skin: positive: Color nml, No rash, Warm, Dry, Pallor Extremities: positive: Non-tender, Full ROM, Pedal edema, Joint swelling, Other (RUE swelling, no DVT) Neurologic/Psychiatric: positive: Oriented x3, CN's nml (2-12), Motor nml, Sensation nml, Depressed mood/affect Reflexes: Bicep (R): 3+, Bicep (L): 3+ - Lab Results Fish Bones: 02/04/17 05:33 02/04/17 05:33 Other Labs: Lab Results x24hrs 02/03/17 02/03/17 02/03/17 Range/Units 07:23 05:02 05:02 WBC (4.8-10.8) x10^3/uL RBC (4.70-6.10) 10^6/uL Hgb (14.0-18.0) g/dL Hct (42.0-52.0) % MCV (80.0-94.0) fL MCH (27.0-31.0) pg MCHC (32.0-36.0) g/dL RDW (12.0-15.0) % Plt Count (130-450) 10^3/uL MPV (7.4-11.4) fL Neut # (1.5-6.6) 10^3/uL Lymph # (1.5-3.5) 10^3/uL [place] # (0.0-1.0) 10^3/uL Eos # (0.0-0.7) 10^3/uL Baso # (0.0-0.1) 10^3/uL Absolute Nucleated RBC x10^3/uL Nucleated RBC % /100WBC Sodium 130 L (135-145) mmol/L Potassium 3.6 (3.5-5.0) mmol/L Chloride 96 L (101-111) mmol/L Carbon Dioxide 26 (21-32) mmol/L Anion Gap 8.0 (6-13) BUN 6 (6-20) mg/dL Creatinine 0.3 L (0.6-1.2) mg/dL Estimated GFR (MDRD) 307 (>89) Glucose 181 H (70-100) mg/dL POC Whole Bld Glucose 191 H (70 - 100) mg/dL Calcium 7.6 L (8.5-10.3) mg/dL Magnesium 1.6 L (1.7-2.8) mg/dL 02/03/17 02/02/17 02/02/17 Range/Units 05:02 20:43 16:35 WBC 9.8 (4.8-10.8) x10^3/uL RBC 3.75 L (4.70-6.10) 10^6/uL Hgb 10.8 L (14.0-18.0) g/dL Hct 33.5 L (42.0-52.0) % MCV 89.2 (80.0-94.0) fL MCH 28.8 (27.0-31.0) pg MCHC 32.3 (32.0-36.0) g/dL RDW 13.3 (12.0-15.0) % Plt Count 500 H (130-450) 10^3/uL MPV 6.8 L (7.4-11.4) fL Neut # 7.1 H (1.5-6.6) 10^3/uL Lymph # 1.2 L (1.5-3.5) 10^3/uL [place] # 1.4 H (0.0-1.0) 10^3/uL Eos # 0.0 (0.0-0.7) 10^3/uL Baso # 0.0 (0.0-0.1) 10^3/uL Absolute Nucleated RBC 0.00 x10^3/uL Nucleated RBC % 0.0 /100WBC Sodium (135-145) mmol/L Potassium (3.5-5.0) mmol/L Chloride (101-111) mmol/L Carbon Dioxide (21-32) mmol/L Anion Gap (6-13) BUN (6-20) mg/dL Creatinine (0.6-1.2) mg/dL Estimated GFR (MDRD) (>89) Glucose (70-100) mg/dL POC Whole Bld Glucose 157 H 216 H (70 - 100) mg/dL Calcium (8.5-10.3) mg/dL Magnesium (1.7-2.8) mg/dL 02/02/17 Range/Units 11:21 WBC (4.8-10.8) x10^3/uL RBC (4.70-6.10) 10^6/uL Hgb (14.0-18.0) g/dL Hct (42.0-52.0) % MCV (80.0-94.0) fL MCH (27.0-31.0) pg MCHC (32.0-36.0) g/dL RDW (12.0-15.0) % Plt Count (130-450) 10^3/uL MPV (7.4-11.4) fL Neut # (1.5-6.6) 10^3/uL Lymph # (1.5-3.5) 10^3/uL [place] # (0.0-1.0) 10^3/uL Eos # (0.0-0.7) 10^3/uL Baso # (0.0-0.1) 10^3/uL Absolute Nucleated RBC x10^3/uL Nucleated RBC % /100WBC Sodium (135-145) mmol/L Potassium (3.5-5.0) mmol/L Chloride (101-111) mmol/L Carbon Dioxide (21-32) mmol/L Anion Gap (6-13) BUN (6-20) mg/dL Creatinine (0.6-1.2) mg/dL Estimated GFR (MDRD) (>89) Glucose (70-100) mg/dL POC Whole Bld Glucose 171 H (70 - 100) mg/dL Calcium (8.5-10.3) mg/dL Magnesium (1.7-2.8) mg/dL - Diagnostic Imaging Diagnostic Imaging Results: positive: Final report reviewed Assessment/Plan - Problem List (1) Loculated pleural effusion Impression: The patient presented with right-sided chest pain, cough and increasing shortness of breath at least the past week. Patient was found to have a right lung loculated pleural effusion. Patient has a history of smoking, so the chance of malignancy is a concern. Surgery was consulted for thoracentesis and drainage of the pleural effusion, pleural fluid was sent for cell count and differential, cytology and cultures. Plan: Supplemental oxygen as needed or for patient comfort, IV antibiotics, daily chest x-rays. Plan for a repeat CT once effusion has improved to look for resolution and for any underlying process. (2) Community acquired pneumonia Impression: The patient presented with 1 week of right-sided chest pain, mild cough and increasing shortness of breath. The patient was found to have a right sided loculated pleural effusion and likely has an underlying pneumonia. The patient has not had any recent hospitalizations, so this is likely community-acquired pneumonia. Plan: IV antibiotics Zosyn and Levaquin to ensure coverage for Pseudomonas, IV fluids, monitor labs including WBCs and get daily chest x-ray. The patient will be encouraged to continue with smoking cessation. Qualifiers: Laterality: right (3) Hyponatremia Impression: Sodium is 130. The patient shows signs of dehydration likely secondary to his elevated blood glucose and the finding of pneumonia with loculated effusion. Plan: Patient will be treated with IV fluids and we will continue to monitor the patient's sodium. (4) Hypertension Impression: The patient does have a history of hypertension however he does not take any medications. He states that he has stopped seeing his primary care physician because his PCP moved away. Plan: Continue to monitor the patient's vital signs, treat the patient's pain, and may consider starting a medication likely lisinopril in the setting of diabetes. Qualifiers: Hypertension type: essential hypertension Qualified Code(s): I10 - Essential (primary) hypertension (5) Hyperlipidemia Impression: The patient states he does have a history of hyperlipidemia however he does not take any medications and has not followed up with a primary care physician in over 2 years. Plan: We will check a lipid profile and wait on results for any further recommendations. (6) Tobacco abuse Impression: The patient states he has not smoked for 1 week secondary to his current symptoms. He however does smoke half a pack to a pack a day regularly. He stated that he would think about quitting and has great family re-enforcements for support. Plan: Offer nicotine patch if he becomes agitated, but has refused a nicotine patch. (7) Uncontrolled type 2 DM with peripheral circulatory disorder Impression: The patient does have a history of type 2 diabetes. He was previously on insulin but stopped taking all of his medications a few years back when his PCP left. He states that he does experience probable urea and polydipsia and has for some time. On presentation to the emergency department the patient's blood glucose is elevated at 299. Hemoglobin A1c was grossly elevated at 12.6%. Plan: Monitor the patient's blood glucose before meals at bedtime and plan to control BS with SSI, and Lantus long acting insulin. Also added a scheduled Aspart insulin of 4 units with meals. We will continue to monitor and adjust Lantus as needed depending on early AM blood sugars.
[2017-02-03] MEDS: SODIUM CHLORIDE FLUSH 0.9% 10 ML SYRINGE IVP SCH ×3 (08:33→20:45)
[2017-02-03] MEDS: ENOXAPARIN 40 MG/0.4 ML SYRINGE SUBQ SCH (08:53)
[2017-02-03] MEDS: SODIUM CHLORIDE 0.9% 1,000 ML IV SCH ×2 (08:53→19:29)
[2017-02-03] MEDS: INSULIN ASPART 300 UNIT/3 ML PEN SUBQ SCH ×7 (08:54→20:56)
[2017-02-03] MEDS: MAGNESIUM OXIDE 400 MG TABLET PO SCH ×2 (08:54→20:44)
[2017-02-03] MEDS: POLYETHYLENE GLYCOL 3350 17 GM PACKET PO SCH (08:54)
[2017-02-03] MEDS: SACCHAROMYCES BOULARDII 250 MG CAPSULE PO SCH ×2 (08:54→17:30)
[2017-02-03] MEDS: FAMOTIDINE 20 MG TABLET PO SCH (08:55)
[2017-02-03] MEDS: SENNA 8.6 MG TABLET PO SCH (09:21)
[2017-02-03] MEDS: DOCUSATE SODIUM 250 MG CAPSULE PO SCH (09:21)
[2017-02-03] MEDS ORDERED: SODIUM CHLORIDE 0.9% 1,000 ML IV ONE (19:29)
[2017-02-03] MEDS: traZODone 50 MG TABLET PO SCH (20:44)
[2017-02-03] MEDS: levoFLOXacin 750 MG/150 ML 750 MG/150 ML BAG IV SCH (22:02)
[2017-02-03] MEDS ORDERED: SOAP SUDS ENEMA 1 EACH RC ONE (22:06)
[2017-02-03] MEDS ORDERED: BISACODYL 10 MG SUPP PR PRN (22:06)
--- NOTE | 2017-02-03 23:31 | PROVIDER PROGRESS NOTE ---
Subjective - General Admit Date: 01/29/17 - Review of Systems General: positive: No symptoms Objective - Patient Data Vital Signs: Vital Signs x48h Temp Pulse Resp BP Pulse Ox 02/03/17 20:51 36.8 C 93 24 166/77 H 95 02/03/17 16:16 36.0 C L 92 24 168/94 H 97 Intake & Output: Intake and Output Totals x24h 02/01/17 02/02/17 02/03/17 23:59 23:59 23:59 Intake Total 3717.50 2683.75 2746.667 Output Total 1208 2225 3265 Balance 2509.50 458.75 -518.333 - Lab Results Lab Results: 02/03/17 05:02 02/03/17 05:02 Other Lab Results: Lab Results x24hrs 02/03/17 02/03/17 02/03/17 Range/Units 20:45 16:55 11:21 WBC (4.8-10.8) x10^3/uL RBC (4.70-6.10) 10^6/uL Hgb (14.0-18.0) g/dL Hct (42.0-52.0) % MCV (80.0-94.0) fL MCH (27.0-31.0) pg MCHC (32.0-36.0) g/dL RDW (12.0-15.0) % Plt Count (130-450) 10^3/uL MPV (7.4-11.4) fL Neut # (1.5-6.6) 10^3/uL Lymph # (1.5-3.5) 10^3/uL Buchanan # (0.0-1.0) 10^3/uL Eos # (0.0-0.7) 10^3/uL Baso # (0.0-0.1) 10^3/uL Absolute Nucleated RBC x10^3/uL Nucleated RBC % /100WBC Sodium (135-145) mmol/L Potassium (3.5-5.0) mmol/L Chloride (101-111) mmol/L Carbon Dioxide (21-32) mmol/L Anion Gap (6-13) BUN (6-20) mg/dL Creatinine (0.6-1.2) mg/dL Estimated GFR (MDRD) (>89) Glucose (70-100) mg/dL POC Whole Bld Glucose 194 H 192 H 265 H (70 - 100) mg/dL Calcium (8.5-10.3) mg/dL Magnesium (1.7-2.8) mg/dL 02/03/17 02/03/17 02/03/17 Range/Units 07:23 05:02 05:02 WBC (4.8-10.8) x10^3/uL RBC (4.70-6.10) 10^6/uL Hgb (14.0-18.0) g/dL Hct (42.0-52.0) % MCV (80.0-94.0) fL MCH (27.0-31.0) pg MCHC (32.0-36.0) g/dL RDW (12.0-15.0) % Plt Count (130-450) 10^3/uL MPV (7.4-11.4) fL Neut # (1.5-6.6) 10^3/uL Lymph # (1.5-3.5) 10^3/uL Buchanan # (0.0-1.0) 10^3/uL Eos # (0.0-0.7) 10^3/uL Baso # (0.0-0.1) 10^3/uL Absolute Nucleated RBC x10^3/uL Nucleated RBC % /100WBC Sodium 130 L (135-145) mmol/L Potassium 3.6 (3.5-5.0) mmol/L Chloride 96 L (101-111) mmol/L Carbon Dioxide 26 (21-32) mmol/L Anion Gap 8.0 (6-13) BUN 6 (6-20) mg/dL Creatinine 0.3 L (0.6-1.2) mg/dL Estimated GFR (MDRD) 307 (>89) Glucose 181 H (70-100) mg/dL POC Whole Bld Glucose 191 H (70 - 100) mg/dL Calcium 7.6 L (8.5-10.3) mg/dL Magnesium 1.6 L (1.7-2.8) mg/dL 02/03/17 Range/Units 05:02 WBC 9.8 (4.8-10.8) x10^3/uL RBC 3.75 L (4.70-6.10) 10^6/uL Hgb 10.8 L (14.0-18.0) g/dL Hct 33.5 L (42.0-52.0) % MCV 89.2 (80.0-94.0) fL MCH 28.8 (27.0-31.0) pg MCHC 32.3 (32.0-36.0) g/dL RDW 13.3 (12.0-15.0) % Plt Count 500 H (130-450) 10^3/uL MPV 6.8 L (7.4-11.4) fL Neut # 7.1 H (1.5-6.6) 10^3/uL Lymph # 1.2 L (1.5-3.5) 10^3/uL Buchanan # 1.4 H (0.0-1.0) 10^3/uL Eos # 0.0 (0.0-0.7) 10^3/uL Baso # 0.0 (0.0-0.1) 10^3/uL Absolute Nucleated RBC 0.00 x10^3/uL Nucleated RBC % 0.0 /100WBC Sodium (135-145) mmol/L Potassium (3.5-5.0) mmol/L Chloride (101-111) mmol/L Carbon Dioxide (21-32) mmol/L Anion Gap (6-13) BUN (6-20) mg/dL Creatinine (0.6-1.2) mg/dL Estimated GFR (MDRD) (>89) Glucose (70-100) mg/dL POC Whole Bld Glucose (70 - 100) mg/dL Calcium (8.5-10.3) mg/dL Magnesium (1.7-2.8) mg/dL - Current Medications Current Medications: Current Medications Generic Name Dose Route Start Last Admin Trade Name Freq PRN Reason Stop Dose Admin Acetaminophen 650 mg 01/29/17 20:52 01/31/17 17:02 Tylenol PO 650 mg Q4HR PRN Administration Pain 1 to 4 Docusate Sodium 250 - 500 mg 02/03/17 10:00 02/03/17 09:21 Colace 250mg Capsule PO 500 mg DAILY DIANE Administration Enoxaparin Sodium 40 mg 01/30/17 09:00 02/03/17 08:53 Lovenox SUBQ 40 mg DAILY DIANE Administration Famotidine 20 mg 01/30/17 09:00 02/03/17 08:55 Pepcid PO 20 mg DAILY DIANE Administration Levofloxacin 750 mg in 150 mls @ 100 mls/hr 01/29/17 21:00 02/03/17 22:02 Levaquin 750 Mg/150 Ml IV 100 mls/hr Q24H DIANE Administration Piperacillin Sod/Tazobactam 100 mls @ 100 mls/hr 01/30/17 04:00 02/03/17 21: 50 Sod 4.5 gm/ Sodium Chloride IV Infused Q6H DIANE Infusion Sodium Chloride 1,000 mls @ 125 mls/hr 02/03/17 08:00 02/03/17 20:58 Normal Saline 0.9% IV 0 mls/hr .Q8H DIANE Infusion Insulin Aspart 4 unit 02/02/17 08:00 02/03/17 17:31 Novolog SUBQ 4 unit TIDWM DIANE Administration Insulin Aspart 3 - 11 unit 02/03/17 12:00 02/03/17 20:56 Novolog SUBQ 3 unit 0800,1200,1700,2100 DIANE Administration Protocol Magnesium Oxide 400 mg 02/03/17 09:00 02/03/17 20:44 Mag Ox PO 400 mg BID DIANE Administration Morphine Sulfate 2 mg 01/29/17 20:52 02/03/17 20:49 Morphine IVP 2 mg Q2H PRN Administration Pain 8 to 10 Oxycodone HCl 5 mg 01/29/17 20:52 01/31/17 01:01 Roxicodone PO 5 mg Q4HR PRN Administration Pain 5 to 7 Oxycodone HCl 10 mg 01/29/17 20:52 02/03/17 20:44 Roxicodone PO 10 mg Q4HR PRN Administration Pain 8 to 10 Polyethylene Glycol 17 gm 01/30/17 09:00 02/03/17 08:54 Miralax PO 17 gm DAILY DIANE Administration Saccharomyces Boulardii 250 mg 01/30/17 08:00 02/03/17 17:30 Florastor PO 250 mg BIDWM DIANE Administration Senna 8.6 - 17.2 mg 02/03/17 10:00 02/03/17 09:21 Senokot PO 17.2 mg DAILY DIANE Administration Sodium Chloride 10 ml 01/29/17 20:52 02/03/17 09:20 Normal Saline Flush 0.9% IVP 10 ml PRN PRN Administration NEEDED PER PROVIDER ORDERS Sodium Chloride 10 ml 01/29/17 22:00 02/03/17 20:45 Normal Saline Flush 0.9% IVP 10 ml Q8HR DIANE Administration Trazodone HCl 50 mg 01/29/17 23:00 02/03/17 20:44 Desyrel PO 50 mg QPM DIANE Administration Impression/Plan - Problem List Problem List: Right empyema s/p chest tube placement 1liter out 2 days ago with 200ml overnight. small air leak. Continue chest tube until drainage less then 100 ml/day Consider f/u chest ct scan in am
[2017-02-04] MEDS: MORPHINE 2 MG/ML SYRINGE IVP PRN ×8 (00:02→23:43)
[2017-02-04] MEDS: oxyCODONE 5 MG TABLET PO PRN ×6 (02:04→23:43)
[2017-02-04] MEDS: PIPERACILLIN/TAZOBACTAM 4.5 GM in SODIUM CHLORIDE 0.9% MINIBAG 100 ML IV SCH ×4 (04:00→22:59)
[2017-02-04 06:10] LABS: BASOPHILS # (AUTO) 0.1 10^3/uL (0.0-0.1); BASOPHILS % (AUTO) 0.5 %; EOSINOPHILS % (AUTO) 0.4 %; HCT - HEMATOCRIT 29.4 % (42.0-52.0); HGB - HEMOGLOBIN 9.6 g/dL (14.0-18.0); LYMPHOCYTES # (AUTO) 1.3 10^3/uL (1.5-3.5); LYMPHOCYTES % (AUTO) 11.8 %; MEAN CORPUSCULAR HEMOGLOBIN 29.2 pg (27.0-31.0); MEAN CORPUSCULAR HGB CONC 32.7 g/dL (32.0-36.0); MEAN CORPUSCULAR VOLUME 89.2 fL (80.0-94.0); MEAN PLATELET VOLUME 6.9 fL (7.4-11.4); MONOCYTES # (AUTO) 1.4 10^3/uL (0.0-1.0); MONOCYTES % (AUTO) 12.9 %; NEUTROPHILS # (AUTO) 8.3 10^3/uL (1.5-6.6); NEUTROPHILS % (AUTO) 74.4 %; RED BLOOD COUNT 3.29 10^6/uL (4.70-6.10); RED CELL DISTRIBUTION WIDTH 13.7 % (12.0-15.0); UNCORRECTED WHITE BLOOD COUNT 11.2 x10^3/uL; WHITE BLOOD COUNT 11.2 x10^3/uL (4.8-10.8)
[2017-02-04 06:21] LABS: ALBUMIN/GLOBULIN RATIO 0.4 (1.0-2.2); BILIRUBIN,TOTAL 0.3 mg/dL (0.2-1.0); CALCIUM 7.3 mg/dL (8.5-10.3); CREATININE 0.3 mg/dL (0.6-1.2); POTASSIUM 3.6 mmol/L (3.5-5.0); TOTAL PROTEIN 6.2 g/dL (6.7-8.2)
[2017-02-04] MEDS: SODIUM CHLORIDE FLUSH 0.9% 10 ML SYRINGE IVP SCH ×3 (06:27→21:20)
--- NOTE | 2017-02-04 08:07 | PROVIDER PROGRESS NOTE ---
Subjective - Prog Note Date Prog Note Date: 02/04/17 Prog Note Time: 08:07 - Subjective Pt reports feeling: No change Subjective: Jarad has no complaints except the usual wishes to go home. He denies SOB, chest pain, N/V or a new cough. He states he is breathing ok, despite having a chest tube. Current Medications - Current Medications Current Medications: Active Medications Acetaminophen (Tylenol) 650 mg PO Q4HR PRN PRN Reason: Pain 1 to 4 Last Admin: 01/31/17 17:02 Dose: 650 mg Albuterol/Ipratropium (Duoneb) 3 ml INH RTQID PRN PRN Reason: Wheezing Bisacodyl (Dulcolax Supp) 10 mg [place] DAILY PRN PRN Reason: Constipation Docusate Sodium (Colace 250mg Capsule) 250 - 500 mg PO DAILY [facility] Last Admin: 02/03/17 09:21 Dose: 500 mg Enoxaparin Sodium (Lovenox) 40 mg SUBQ DAILY [facility], [facility] Last Admin: 02/03/17 08:53 Dose: 40 mg Famotidine (Pepcid) 20 mg PO DAILY [facility], [facility] Last Admin: 02/03/17 08:55 Dose: 20 mg Levofloxacin (Levaquin 750 Mg/150 Ml) 750 mg in 150 mls @ 100 mls/hr IV Q24H [facility], [facility] Last Infusion: 02/03/17 23:35 Dose: Infused Piperacillin Sod/Tazobactam (Sod 4.5 gm/ Sodium Chloride) 100 mls @ 100 mls/hr IV Q6H [facility], [facility] Last Infusion: 02/04/17 05:13 Dose: Infused Sodium Chloride (Normal Saline 0.9%) 1,000 mls @ 125 mls/hr IV .Q8H [facility], [facility] Last Infusion: 02/03/17 23:47 Dose: 125 mls/hr Insulin Aspart (Novolog) 4 unit SUBQ TIDWM [facility] Last Admin: 02/03/17 17:31 Dose: 4 unit Insulin Aspart (Novolog) 3 - 11 unit SUBQ 0800,1200,1700,2100 DIANE PRN Reason: Protocol Last Admin: 02/03/17 20:56 Dose: 3 unit Insulin Glargine (Lantus Solostar) 35 unit SUBQ DAILY [facility] Magnesium Oxide (Mag Ox) 400 mg PO BID [facility] Last Admin: 02/03/17 20:44 Dose: 400 mg Morphine Sulfate (Morphine) 2 mg IVP Q2H PRN PRN Reason: Pain 8 to 10 Last Admin: 02/04/17 06:27 Dose: 2 mg Ondansetron HCl (Zofran Inj) 4 mg IVP Q6HR PRN PRN Reason: Nausea / Vomiting Oxycodone HCl (Roxicodone) 5 mg PO Q4HR PRN PRN Reason: Pain 5 to 7 Last Admin: 01/31/17 01:01 Dose: 5 mg Oxycodone HCl (Roxicodone) 10 mg PO Q4HR PRN PRN Reason: Pain 8 to 10 Last Admin: 02/04/17 06:27 Dose: 10 mg Polyethylene Glycol (Miralax) 17 gm PO DAILY [facility] Last Admin: 02/03/17 08:54 Dose: 17 gm Prochlorperazine Edisylate (Compazine Inj) 10 mg IVP Q6HR PRN PRN Reason: Nausea / Vomiting Saccharomyces Boulardii (Florastor) 250 mg PO BIDWM [facility] Last Admin: 02/03/17 17:30 Dose: 250 mg Senna (Senokot) 8.6 - 17.2 mg PO DAILY [facility] Last Admin: 02/03/17 09:21 Dose: 17.2 mg Sodium Chloride (Normal Saline Flush 0.9%) 10 ml IVP PRN PRN PRN Reason: NEEDED PER PROVIDER ORDERS Last Admin: 02/03/17 09:20 Dose: 10 ml Sodium Chloride (Normal Saline Flush 0.9%) 10 ml IVP Q8HR [facility] Last Admin: 02/04/17 06:27 Dose: 10 ml Trazodone HCl (Desyrel) 50 mg PO QPM [facility] Last Admin: 02/03/17 20:44 Dose: 50 mg No Known Home Medications [No Known Home Medications] 01/29/17 Objective - Vital Signs/Intake & Output Reviewed Vital Signs: Yes Vital Signs: Vital Signs x48h Temp Pulse Resp BP Pulse Ox 02/04/17 05:00 36.8 C 83 16 152/73 H 94 02/04/17 00:43 36.7 C 88 18 161/75 H 94 Intake & Output: Intake & Output 02/01/17 02/02/17 02/03/17 02/04/17 23:59 23:59 23:59 23:59 Intake Total 3717.50 2683.75 2896.667 100 Output Total 1208 2225 3265 785 Balance 2509.50 458.75 -368.333 -685 - Objective General Appearance: positive: Alert, Moderate distress Eyes Bilateral: positive: Normal inspection ENT: positive: ENT inspection nml, Pharynx nml Respiratory: positive: Rales, Rhonchi (right chest, left lobes clear.) Abdomen: positive: Non-tender, No organomegaly, Nml bowel sounds, No distention Back: positive: Nml inspection Skin: positive: Color nml, No rash, Warm, Dry Extremities: positive: Non-tender, Full ROM, Nml appearance, Joint swelling, Other (RUE swelling, no DVT) Neurologic/Psychiatric: positive: Oriented x3, CN's nml (2-12), Motor nml, Sensation nml, Depressed mood/affect Reflexes: Bicep (R): 3+, Bicep (L): 3+ - Lab Results Fish Bones: 02/04/17 05:33 02/04/17 05:33 Other Labs: Lab Results x24hrs 02/04/17 02/04/17 02/04/17 Range/Units 07:41 05:33 05:33 WBC (4.8-10.8) x10^3/uL RBC (4.70-6.10) 10^6/uL Hgb (14.0-18.0) g/dL Hct (42.0-52.0) % MCV (80.0-94.0) fL MCH (27.0-31.0) pg MCHC (32.0-36.0) g/dL RDW (12.0-15.0) % Plt Count (130-450) 10^3/uL MPV (7.4-11.4) fL Neut # (1.5-6.6) 10^3/uL Lymph # (1.5-3.5) 10^3/uL Andrews # (0.0-1.0) 10^3/uL Eos # (0.0-0.7) 10^3/uL Baso # (0.0-0.1) 10^3/uL Absolute Nucleated RBC x10^3/uL Nucleated RBC % /100WBC Sodium 128 L (135-145) mmol/L Potassium 3.6 (3.5-5.0) mmol/L Chloride 97 L (101-111) mmol/L Carbon Dioxide 25 (21-32) mmol/L Anion Gap 6.0 (6-13) BUN 7 (6-20) mg/dL Creatinine 0.3 L (0.6-1.2) mg/dL Estimated GFR (MDRD) 307 (>89) Glucose 205 H (70-100) mg/dL POC Whole Bld Glucose 193 H (70 - 100) mg/dL Calcium 7.3 L (8.5-10.3) mg/dL Total Bilirubin 0.3 (0.2-1.0) mg/dL AST 17 (10-42) IU/L ALT 26 (10-60) IU/L Alkaline Phosphatase 70 (42-121) IU/L B-Natriuretic Peptide 64 (5-100) pg/mL Total Protein 6.2 L (6.7-8.2) g/dL Albumin 1.7 L (3.2-5.5) g/dL Globulin 4.5 H (2.1-4.2) g/dL Albumin/Globulin Ratio 0.4 L (1.0-2.2) 02/04/17 02/03/17 02/03/17 Range/Units 05:33 20:45 16:55 WBC 11.2 H (4.8-10.8) x10^3/uL RBC 3.29 L (4.70-6.10) 10^6/uL Hgb 9.6 L (14.0-18.0) g/dL Hct 29.4 L (42.0-52.0) % MCV 89.2 (80.0-94.0) fL MCH 29.2 (27.0-31.0) pg MCHC 32.7 (32.0-36.0) g/dL RDW 13.7 (12.0-15.0) % Plt Count 538 H (130-450) 10^3/uL MPV 6.9 L (7.4-11.4) fL Neut # 8.3 H (1.5-6.6) 10^3/uL Lymph # 1.3 L (1.5-3.5) 10^3/uL Andrews # 1.4 H (0.0-1.0) 10^3/uL Eos # 0.0 (0.0-0.7) 10^3/uL Baso # 0.1 (0.0-0.1) 10^3/uL Absolute Nucleated RBC 0.01 x10^3/uL Nucleated RBC % 0.0 /100WBC Sodium (135-145) mmol/L Potassium (3.5-5.0) mmol/L Chloride (101-111) mmol/L Carbon Dioxide (21-32) mmol/L Anion Gap (6-13) BUN (6-20) mg/dL Creatinine (0.6-1.2) mg/dL Estimated GFR (MDRD) (>89) Glucose (70-100) mg/dL POC Whole Bld Glucose 194 H 192 H (70 - 100) mg/dL Calcium (8.5-10.3) mg/dL Total Bilirubin (0.2-1.0) mg/dL AST (10-42) IU/L ALT (10-60) IU/L Alkaline Phosphatase (42-121) IU/L B-Natriuretic Peptide (5-100) pg/mL Total Protein (6.7-8.2) g/dL Albumin (3.2-5.5) g/dL Globulin (2.1-4.2) g/dL Albumin/Globulin Ratio (1.0-2.2) 02/03/ Range/Units 11:21 WBC (4.8-10.8) x10^3/uL RBC (4.70-6.10) 10^6/uL Hgb (14.0-18.0) g/dL Hct (42.0-52.0) % MCV (80.0-94.0) fL MCH (27.0-31.0) pg MCHC (32.0-36.0) g/dL RDW (12.0-15.0) % Plt Count (130-450) 10^3/uL MPV (7.4-11.4) fL Neut # (1.5-6.6) 10^3/uL Lymph # (1.5-3.5) 10^3/uL Andrews # (0.0-1.0) 10^3/uL Eos # (0.0-0.7) 10^3/uL Baso # (0.0-0.1) 10^3/uL Absolute Nucleated RBC x10^3/uL Nucleated RBC % /100WBC Sodium (135-145) mmol/L Potassium (3.5-5.0) mmol/L Chloride (101-111) mmol/L Carbon Dioxide (21-32) mmol/L Anion Gap (6-13) BUN (6-20) mg/dL Creatinine (0.6-1.2) mg/dL Estimated GFR (MDRD) (>89) Glucose (70-100) mg/dL POC Whole Bld Glucose 265 H (70 - 100) mg/dL Calcium (8.5-10.3) mg/dL Total Bilirubin (0.2-1.0) mg/dL AST (10-42) IU/L ALT (10-60) IU/L Alkaline Phosphatase (42-121) IU/L B-Natriuretic Peptide (5-100) pg/mL Total Protein (6.7-8.2) g/dL Albumin (3.2-5.5) g/dL Globulin (2.1-4.2) g/dL Albumin/Globulin Ratio (1.0-2.2) - Diagnostic Imaging Diagnostic Imaging Results: positive: Final report reviewed Diagnostic Imaging Comments: RUE US: 02/02/17-FINDINGS: Internal Jugular Vein (IJV): Normal. Subclavian Vein (SCV): Normal. Axillary Vein : Normal. Cephalic Vein (superficial vein): Normal. Basilic Vein (superficial vein): Normal. Brachial Vein: Normal. IMPRESSION: No evidence for deep vein thrombosis. Chest x-ray 2 view: 02/02/17-FINDINGS: Lungs/Pleura: Stable right chest tube projecting at the apex. Stable small right pleural effusion with adjacent airspace opacity. Grossly clear left lung. No pneumothorax. Mediastinum: Heart and mediastinal contours are unremarkable. Other: None. IMPRESSION: Stable small loculated right pleural effusion with adjacent airspace opacity with chest tube in place. Chest CT 02/04/17: FINDINGS: Lungs/Pleura: There is a persistent loculated air and fluid collection along the posterior lateral right hemithorax measuring up to 8.7 x 3.8 cm (series 5, image 34), previously 19.6 x 9.9 cm. There is a loculated fluid collection along the posterior medial aspect of the right hemithorax measuring 5.8 x 2.7 cm, previously 5.2 x 1.8 cm (series 5, image 27). There is a loculated fluid collection along the anterior medial aspect of the right hemithorax measuring up to 4.0 x 1.7 cm, previously 3.6 x 1.4 cm (series 5 , image 32). There is a fluid and air-filled loculated collection along the superior anterior lateral aspect of the right hemithorax measuring 4.6 x 1.7 cm, previously 2.5 x 1.2 cm (series 5, image 18). There is a loculated fluid collection along the inferior posterior medial aspect of the right hemithorax measuring 6.1 x 3.4 cm, previously 6.1 x 3.4 cm ( series 5, image 46). There is a right-sided chest tube position with its tip near the apex. There is a small amount of free air and fluid within the pleural space layering laterally and anteriorly. There is a region of groundglass opacity in the left lung apex measuring up to 3.3 x 2.4 cm, previously 2.1 x 2.4 cm (series 5, image 10). Mediastinum: Normal. No adenopathy or masses. The heart and great vessels are normal. Bones: Unremarkable. Visualized Abdomen: Unremarkable. Other: None. IMPRESSION: 1. There are 5 residual empyemas within the right pleural space, as described above. This is improved significantly since the prior examination. 2. There is a chest tube in place with its tip near the apex. 3. There is an increasing region of groundglass opacity in the apex of the left lung measuring up to 3.3 x 2.4 cm, previously 2.4 x 2.1 cm. This is of unknown etiology and may be inflammatory or infectious in nature. Close attention on follow-up imaging recommended. Assessment/Plan - Problem List (1) Loculated pleural effusion Impression: The patient presented with right-sided chest pain, cough and increasing shortness of breath at least the past week. Patient was found to have a right lung loculated pleural effusion. Patient has a history of smoking, so the chance of malignancy is a concern. Surgery was consulted for thoracentesis and drainage of the pleural effusion, pleural fluid was sent for cell count and differential, cytology and cultures. Patient continues to have generous output , so not a good idea to discontinue right chest tube, spoke with Dr. Teran who is managing this. Plan: Supplemental oxygen as needed or for patient comfort, IV antibiotics, daily chest x-rays. Plan for a repeat CT once effusion has improved to look for resolution and for any underlying process. (2) Community acquired pneumonia Impression: The patient presented with 1 week of right-sided chest pain, mild cough and increasing shortness of breath. The patient was found to have a right sided loculated pleural effusion and likely has an underlying pneumonia. The patient has not had any recent hospitalizations, so this is likely community-acquired pneumonia. Plan: IV antibiotics Zosyn and Levaquin to ensure coverage for Pseudomonas, IV fluids, monitor labs including WBCs and get daily chest x-ray. The patient will be encouraged to continue with smoking cessation. Qualifiers: Laterality: right (3) Hyponatremia Impression: Sodium is down to 128 this AM, yesterday it was 130. Plan: Patient will be treated with IV fluids and we will continue to monitor the patient's sodium. (4) Hypertension Qualifiers: Hypertension type: essential hypertension Qualified Code(s): I10 - Essential (primary) hypertension (5) Hyperlipidemia Impression: The patient states he does have a history of hyperlipidemia however he does not take any medications and has not followed up with a primary care physician in over 2 years. Plan: We will check a lipid profile and wait on results for any further recommendations. (6) Tobacco abuse Impression: The patient states he has not smoked for 1 week secondary to his current symptoms. He however does smoke half a pack to a pack a day regularly. He stated that he would think about quitting and has great family re-enforcements for support. Plan: Offer nicotine patch if he becomes agitated, but has refused a nicotine patch. (7) Uncontrolled type 2 DM with peripheral circulatory disorder Impression: The patient does have a history of type 2 diabetes. He was previously on insulin but stopped taking all of his medications a few years back when his PCP left. He states that he does experience probable urea and polydipsia and has for some time. On presentation to the emergency department the patient's blood glucose is elevated at 299. Hemoglobin A1c was grossly elevated at 12.6%. 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 Plan: Monitor the patient's blood glucose before meals at bedtime and plan to control BS with SSI, and Lantus long acting insulin. Also added a scheduled Aspart insulin of 5 units with meals. We will continue to monitor and adjust Lantus as needed depending on early AM blood sugars. Lantus was increased to 35 units daily. *[facility] 96 hour ATTESTATION: In good daniel I feel that the patient is reasonably expected to be discharged and/or transferred to another hospital within 96 hours.
[2017-02-04] MEDS: SACCHAROMYCES BOULARDII 250 MG CAPSULE PO SCH ×2 (08:18→16:52)
[2017-02-04] MEDS: MAGNESIUM OXIDE 400 MG TABLET PO SCH ×2 (08:18→21:09)
[2017-02-04] MEDS: SENNA 8.6 MG TABLET PO SCH (08:18)
[2017-02-04] MEDS: FAMOTIDINE 20 MG TABLET PO SCH (08:19)
[2017-02-04] MEDS: INSULIN GLARGINE 300 UNIT/3 ML PEN SUBQ SCH (08:19)
[2017-02-04] MEDS: ENOXAPARIN 40 MG/0.4 ML SYRINGE SUBQ SCH (08:19)
[2017-02-04] MEDS: POLYETHYLENE GLYCOL 3350 17 GM PACKET PO SCH (08:19)
[2017-02-04] MEDS: DOCUSATE SODIUM 250 MG CAPSULE PO SCH (08:19)
[2017-02-04] MEDS: INSULIN ASPART 300 UNIT/3 ML PEN SUBQ SCH ×7 (08:24→21:09)
[2017-02-04] MEDS: SODIUM CHLORIDE 0.9% 1,000 ML IV SCH ×3 (08:24→21:17)
--- NOTE | 2017-02-04 13:50 | XRAY Report ---
FRONTAL CHEST: 01/31/2017 CLINICAL INDICATION: Followup chest tube. COMPARISON: 01/30/2017 FINDINGS: Frontal view of the chest demonstrates a normal cardiac silhouette. Right chest tube is in stable position, with minimal residual pleural fluid. Right parenchymal disease appears stable, allowing for lower lung volumes. The left lung remains clear. No left effusion is seen. No definite pneumothorax. IMPRESSION: STABLE RIGHT CHEST TUBE AND RIGHT PARENCHYMAL DISEASE. TD: 01/31/2017 15:49 [facility]
[2017-02-04] MEDS: ACETAMINOPHEN 325 MG TABLET PO PRN (16:52)
[2017-02-04] MEDS ORDERED: SODIUM CHLORIDE FLUSH 0.9% 10 ML SYRINGE IVP ONE (16:52)
[2017-02-04] MEDS ORDERED: IOPAMIDOL-300 100 ML VIAL ONE (17:29)
[2017-02-04] MEDS ORDERED: IOPAMIDOL-300 100 ML VIAL IVP ONE ×2 (17:59)
--- NOTE | 2017-02-04 19:43 | CT Report ---
EXAM: CT CHEST EXAM DATE: 02/04/2017 06:00 PM. CLINICAL HISTORY: Reexamine chest after drainage of empyema. COMPARISONS: Chest CT dated 01/29/2017. TECHNIQUE: Routine helical CT imaging was performed through the chest. IV contrast: None. Reconstruct ions: Coronal and sagittal. In accordance with CT protocol optimization, one or more of the following dose reduction techniques w ere utilized for this exam: automated exposure control, adjustment of mA and/or KV based on patient s ize, or use of iterative reconstructive technique. FINDINGS: Lungs/Pleura: There is a persistent loculated air and fluid collection along the posterior lateral right hemithorax measuring up to 8.7 x 3.8 cm (series 5, image 34), previously 19.6 x 9.9 cm. There is a loculated fluid collection along the posterior medial aspect of the right hemithorax measu ring 5.8 x 2.7 cm, previously 5.2 x 1.8 cm (series 5, image 27). There is a loculated fluid collection along the anterior medial aspect of the right hemithorax measur ing up to 4.0 x 1.7 cm, previously 3.6 x 1.4 cm (series 5, image 32). There is a fluid and air-filled loculated collection along the superior anterior lateral aspect of th e right hemithorax measuring 4.6 x 1.7 cm, previously 2.5 x 1.2 cm (series 5, image 18). There is a loculated fluid collection along the inferior posterior medial aspect of the right hemitho rax measuring 6.1 x 3.4 cm, previously 6.1 x 3.4 cm (series 5, image 46). There is a right-sided chest tube position with its tip near the apex. There is a small amount of radha e air and fluid within the pleural space layering laterally and anteriorly. There is a region of grou ndglass opacity in the left lung apex measuring up to 3.3 x 2.4 cm, previously 2.1 x 2.4 cm (series 5 , image 10). Mediastinum: Normal. No adenopathy or masses. The heart and great vessels are normal. Bones: Unremarkable. Visualized Abdomen: Unremarkable. Other: None. IMPRESSION: 1. There are 5 residual empyemas within the right pleural space, as described above. This is improved significantly since the prior examination. 2. There is a chest tube in place with its tip near the apex. 3. There is an increasing region of groundglass opacity in the apex of the left lung measuring up to 3.3 x 2.4 cm, previously 2.4 x 2.1 cm. This is of unknown etiology and may be inflammatory or infecti ous in nature. Close attention on follow-up imaging recommended. [facility] Referring Provider Line: [phone] SITE ID: [id number]
[2017-02-04] MEDS: traZODone 50 MG TABLET PO SCH (21:09)
[2017-02-04] MEDS: levoFLOXacin 750 MG/150 ML 750 MG/150 ML BAG IV SCH (21:15)
[2017-02-04] MEDS: SODIUM CHLORIDE FLUSH 0.9% 10 ML SYRINGE IVP PRN (21:28)
[2017-02-05] MEDS: MORPHINE 2 MG/ML SYRINGE IVP PRN ×6 (02:17→16:05)
[2017-02-05] MEDS: PIPERACILLIN/TAZOBACTAM 4.5 GM in SODIUM CHLORIDE 0.9% MINIBAG 100 ML IV SCH ×3 (04:08→16:17)
[2017-02-05] MEDS: oxyCODONE 5 MG TABLET PO PRN ×4 (04:08→17:10)
[2017-02-05 05:12] LABS: BASOPHILS # (AUTO) 0.1 10^3/uL (0.0-0.1); BASOPHILS % (AUTO) 0.5 %; EOSINOPHILS # (AUTO) 0.1 10^3/uL (0.0-0.7); EOSINOPHILS % (AUTO) 0.7 %; HCT - HEMATOCRIT 30.8 % (42.0-52.0); HGB - HEMOGLOBIN 10.1 g/dL (14.0-18.0); LYMPHOCYTES # (AUTO) 1.7 10^3/uL (1.5-3.5); LYMPHOCYTES % (AUTO) 15.2 %; MEAN CORPUSCULAR HEMOGLOBIN 29.1 pg (27.0-31.0); MEAN CORPUSCULAR HGB CONC 32.8 g/dL (32.0-36.0); MEAN CORPUSCULAR VOLUME 88.9 fL (80.0-94.0); MEAN PLATELET VOLUME 6.8 fL (7.4-11.4); MONOCYTES # (AUTO) 1.5 10^3/uL (0.0-1.0); MONOCYTES % (AUTO) 13.1 %; NEUTROPHILS % (AUTO) 70.5 %; RED BLOOD COUNT 3.46 10^6/uL (4.70-6.10); RED CELL DISTRIBUTION WIDTH 13.5 % (12.0-15.0); UNCORRECTED WHITE BLOOD COUNT 11.3 x10^3/uL; WHITE BLOOD COUNT 11.3 x10^3/uL (4.8-10.8)
[2017-02-05 05:19] LABS: ALBUMIN/GLOBULIN RATIO 0.4 (1.0-2.2); BILIRUBIN,TOTAL 0.3 mg/dL (0.2-1.0); CALCIUM 7.6 mg/dL (8.5-10.3); CREATININE 0.4 mg/dL (0.6-1.2); MAGNESIUM 1.6 mg/dL (1.7-2.8); POTASSIUM 3.5 mmol/L (3.5-5.0); TOTAL PROTEIN 6.7 g/dL (6.7-8.2)
[2017-02-05] MEDS: SODIUM CHLORIDE FLUSH 0.9% 10 ML SYRINGE IVP SCH ×3 (05:54→07:32)
[2017-02-05] MEDS: ACETAMINOPHEN 325 MG TABLET PO PRN (06:55)
[2017-02-05] MEDS: INSULIN ASPART 300 UNIT/3 ML PEN SUBQ SCH ×6 (08:08→17:12)
[2017-02-05] MEDS ORDERED: MAGNESIUM OXIDE 400 MG TABLET PO SCH (08:48)
--- NOTE | 2017-02-05 08:49 | PROVIDER PROGRESS NOTE ---
Subjective - Prog Note Date Prog Note Date: 02/05/17 Prog Note Time: 08:49 - Subjective Pt reports feeling: Improved Objective - Vital Signs/Intake & Output Vital Signs: Vital Signs x48h Temp Pulse Resp BP Pulse Ox 02/05/17 08:22 36.7 C 88 18 144/72 H 95 02/05/17 04:47 36.9 C 81 18 166/81 H 95 Intake & Output: Intake & Output 02/02/17 02/03/17 02/04/17 02/05/17 23:59 23:59 23:59 23:59 Intake Total 2683.75 2896.667 2986.666 737.5 Output Total 2225 3265 1715 1600 Balance 458.75 -897.824 1405.666 -862.5 - Lab Results Fish Bones: 02/05/17 04:36 02/05/17 04:36 Other Labs: Lab Results x24hrs 02/05/17 02/05/17 02/04/17 Range/Units 04:36 04:36 20:24 WBC 11.3 H (4.8-10.8) x10^3/uL RBC 3.46 L (4.70-6.10) 10^6/uL Hgb 10.1 L (14.0-18.0) g/dL Hct 30.8 L (42.0-52.0) % MCV 88.9 (80.0-94.0) fL MCH 29.1 (27.0-31.0) pg MCHC 32.8 (32.0-36.0) g/dL RDW 13.5 (12.0-15.0) % Plt Count 621 H (130-450) 10^3/uL MPV 6.8 L (7.4-11.4) fL Neut # 8.0 H (1.5-6.6) 10^3/uL Lymph # 1.7 (1.5-3.5) 10^3/uL [place] # 1.5 H (0.0-1.0) 10^3/uL Eos # 0.1 (0.0-0.7) 10^3/uL Baso # 0.1 (0.0-0.1) 10^3/uL Absolute Nucleated RBC 0.00 x10^3/uL Nucleated RBC % 0.0 /100WBC Sodium 130 L (135-145) mmol/L Potassium 3.5 (3.5-5.0) mmol/L Chloride 97 L (101-111) mmol/L Carbon Dioxide 27 (21-32) mmol/L Anion Gap 6.0 (6-13) BUN 6 (6-20) mg/dL Creatinine 0.4 L (0.6-1.2) mg/dL Estimated GFR (MDRD) 220 (>89) Glucose 103 H (70-100) mg/dL POC Whole Bld Glucose 198 H (70 - 100) mg/dL Calcium 7.6 L (8.5-10.3) mg/dL Magnesium 1.6 L (1.7-2.8) mg/dL Total Bilirubin 0.3 (0.2-1.0) mg/dL AST 18 (10-42) IU/L ALT 21 (10-60) IU/L Alkaline Phosphatase 79 (42-121) IU/L Total Protein 6.7 (6.7-8.2) g/dL Albumin 1.9 L (3.2-5.5) g/dL Globulin 4.8 H (2.1-4.2) g/dL Albumin/Globulin Ratio 0.4 L (1.0-2.2) 02/04/ Range/Units 11:35 WBC (4.8-10.8) x10^3/uL RBC (4.70-6.10) 10^6/uL Hgb (14.0-18.0) g/dL Hct (42.0-52.0) % MCV (80.0-94.0) fL MCH (27.0-31.0) pg MCHC (32.0-36.0) g/dL RDW (12.0-15.0) % Plt Count (130-450) 10^3/uL MPV (7.4-11.4) fL Neut # (1.5-6.6) 10^3/uL Lymph # (1.5-3.5) 10^3/uL [place] # (0.0-1.0) 10^3/uL Eos # (0.0-0.7) 10^3/uL Baso # (0.0-0.1) 10^3/uL Absolute Nucleated RBC x10^3/uL Nucleated RBC % /100WBC Sodium (135-145) mmol/L Potassium (3.5-5.0) mmol/L Chloride (101-111) mmol/L Carbon Dioxide (21-32) mmol/L Anion Gap (6-13) BUN (6-20) mg/dL Creatinine (0.6-1.2) mg/dL Estimated GFR (MDRD) (>89) Glucose (70-100) mg/dL POC Whole Bld Glucose 112 H (70 - 100) mg/dL Calcium (8.5-10.3) mg/dL Magnesium (1.7-2.8) mg/dL Total Bilirubin (0.2-1.0) mg/dL AST (10-42) IU/L ALT (10-60) IU/L Alkaline Phosphatase (42-121) IU/L Total Protein (6.7-8.2) g/dL Albumin (3.2-5.5) g/dL Globulin (2.1-4.2) g/dL Albumin/Globulin Ratio (1.0-2.2) Assessment/Plan - Problem List (2) Community acquired pneumonia Qualifiers: Laterality: right (4) Hypertension Impression: Patient is noted to be hypertensive now more consistantly. Plan: Norvasc 5mg PO daily was started today and we will monitor blood pressure , vital signs. Qualifiers: Hypertension type: essential hypertension Qualified Code(s): I10 - Essential (primary) hypertension
[2017-02-05] MEDS: ENOXAPARIN 40 MG/0.4 ML SYRINGE SUBQ SCH (08:52)
[2017-02-05] MEDS: DOCUSATE SODIUM 250 MG CAPSULE PO SCH (08:52)
[2017-02-05] MEDS: SACCHAROMYCES BOULARDII 250 MG CAPSULE PO SCH ×2 (08:53→17:10)
[2017-02-05] MEDS: MAGNESIUM OXIDE 400 MG TABLET PO SCH (08:53)
[2017-02-05] MEDS: SENNA 8.6 MG TABLET PO SCH (08:53)
[2017-02-05] MEDS: FAMOTIDINE 20 MG TABLET PO SCH (08:53)
[2017-02-05] MEDS: POLYETHYLENE GLYCOL 3350 17 GM PACKET PO SCH (08:53)
[2017-02-05] MEDS: INSULIN GLARGINE 300 UNIT/3 ML PEN SUBQ SCH (08:55)
[2017-02-05] MEDS: SODIUM CHLORIDE 0.9% 1,000 ML IV SCH ×2 (09:00→16:08)
[2017-02-05] MEDS ORDERED: amLODIPine 5 MG TABLET PO SCH (09:00)
--- NOTE | 2017-02-05 15:45 | DISCHARGE SUMMARY ---
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 Pneumonia, unspecified organism (J18.9) resolved, cultures negative. Hypo-osmolality and hyponatremia (E87.1) resolved. Essential (primary) hypertension (I10) ongoing, treated. Hyperlipidemia, unspecified (E78.5) ongoing, stable. Tobacco use (Z72.0) resolved, patient planning on not resuming. Type 2 diabetes mellitus with diabetic peripheral angiopathy without gangrene ( E11.51)ongoing, controlled. - HPI History of Present Illness: HPI per Dr. Banks: Patient is a 61-year-old gentleman with a past medical history significant for diabetes, hyperlipidemia, hypertension and hepatitis C status post treatment in 1999 who presented to the emergency department with a chief complaint of right- sided chest pain. The patient states that he has not seen a doctor for several years and although he was previously on insulin for his diabetes he has not been taking any medications. He states that about 1-1-1/2 weeks ago he began experiencing chest pain. He states that it was in the right side and radiated into his posterior ribs. He states that he thought the pain was secondary to a pulled muscle and just waited it out. He denies having had any fevers or chills. He denies having had any night sweats. He does admit to a mild cough without any production. He states that with the cough his pain would become worse. He states that the pain is worse with deep breathing and recently he cannot take a deep breath at all. He states that over the past 3 days the pain has become significantly worse and he has been increasingly short of air. Today the symptoms were so bad that he finally decided to come into the emergency department. The patient denies any injury to his chest wall. He states that he has been losing weight over the last 5 or 6 years but there has not been a significant weight loss in the last year. The patient also admits to increased urinary frequency and polydipsia. The patient denies any headaches, blurred vision, runny nose, sore throat, nasal congestion, orthopnea, PND, increased lower extremity swelling, abdominal pain, nausea, vomiting, diarrhea, constipation, urinary urgency or dysuria, muscle aches, joint pains, joint swelling, back pain, neck stiffness, changes in appetite, difficulty swallowing, hair loss, rashes or any focal neurologic deficits. On presentation to the emergency department the patient was afebrile he was hypertensive and heart rate was in the high 90s. The patient however was not in any respiratory distress and was saturating well on room air. The patient was complaining of significant right-sided chest pain and could only take shallow breaths. On examination the patient was found to have very limited breath sounds in the right lung. The patient underwent routine lab work which did reveal a hyponatremia of 129 and elevated blood glucose of 299 and a WBC of 16.5. The patient's lactic acid was normal and his troponin was negative. The patient also had an EKG which showed normal sinus rhythm without any ST elevations it did show Q waves in the anterior septal leads suggestive of possible old LA. The patient then underwent a chest x-ray the chest x-ray revealed complete opacification of majority of the right lung and a CT scan was recommended by the radiologist. A CT scan of the chest was ordered and that CT scan revealed a large loculated pleural effusion on the right with near complete collapse of the middle and lower lobes and volume loss in the upper lobe. The emergency room physician spoke with the surgeon passenger conductor Dr. Ino Teran he asked that the patient be admitted to the medical service and that he be consulted for a thoracentesis and drainage of this loculated pleural effusion. The patient was given antibiotics in the emergency department and admitted to the medical jean. - CONSULTS | PROCEDURES Consultations: General surgery Procedures: Thoracentesis with 2L purulent fluid off, right chest tube. - HOSPITAL COURSE Hospital Course: Loculated pleural effusions: The patient presented with right-sided chest pain , cough and increasing shortness of breath at least the past week. Patient was found to have a right lung loculated pleural effusion. Patient has a history of smoking, so the chance of malignancy is a concern. Surgery was consulted for thoracentesis and drainage of the pleural effusion, pleural fluid was sent for cell count and differential, cytology and cultures. Chest tube was removed by Dr. Adi Bowman MD at the bedside without complications. A post- procedure 2-view chest x-ray showed no pnuemothorax. On repeat CT there were at least 5 remaining loculated areas that will need prompt follow up with a photographic process attendant in the near future including a bronchoscopy. Community acquired pneumonia: The patient presented with 1 week of right-sided chest pain, mild cough and increasing shortness of breath. The patient was found to have a right sided loculated pleural effusion and likely has an underlying pneumonia. The patient has not had any recent hospitalizations, so this is likely community-acquired pneumonia. Patient remained on IV antibiotics Zosyn and Levaquin to ensure coverage for Pseudomonas. IV fluids were given to normalize electrolytes. Labs were monitored. The patient was encouraged to continue with smoking cessation. Hyponatremia: Sodium levels remained low, which is common for those patients with either malignancy or COPD. On the day of discharge sodium level was 130. IV fluids were continued until the time of discharge. Hypertension: Patient had a history of HTN as he admitted this upon admission to the hospital. Patient was prescribed norvasc PO and recommended to continue at home. Hyperlipidemia: The patient states he does have a history of hyperlipidemia however he does not take any medications and has not followed up with a primary care physician in over 2 years. Recommend follow up with a newly established PCP, which the patient plans on upon discharge. Tobacco abuse: The patient states he has not smoked for 1 week secondary to his current symptoms. He however does smoke half a pack to a pack a day regularly. He stated that he would think about quitting and has great family re- enforcements for support. Nicotine patch was offered several times, and he stated he was not interested. Uncontrolled type 2 DM with peripheral circulatory disorder: The patient does have a history of type 2 diabetes. He was previously on insulin but stopped taking all of his medications a few years back when his PCP left. He states that he does experience probable urea and polydipsia and has for some time. On presentation to the emergency department the patient's blood glucose is elevated at 299. Hemoglobin A1c was grossly elevated at 12.6%. 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 Patient placed on Metformin BID upon discharge. He was also instructed to check blood glucose once daily. Patient states he will follow up with a newly established PCP. - ALLERGIES Allergies/Adverse Reactions: Allergies Allergy/AdvReac Type Severity Reaction Status Date / Time No Known Drug Allergies Allergy Verified 01/29/17 17:51 - MEDICATIONS Home Medications: Ambulatory Orders Medication Instructions Recorded Confirmed Amox/Clav 500/125 [Augmentin] 1 each PO Q8H 7 Days #21 tablet 02/05/17 Blood Sugar Diagnostic [Glucometer 1 each MC DAILY #120 strip 02/05/17 Strips] Insulin Glargine [Lantus Solostar] 35 unit SUBQ DAILY #5 pen 02/05/17 Senna [Senokot] 8.6 - 17.2 mg PO DAILY #30 tablet 02/05/17 amLODIPine [Norvasc] 5 mg PO DAILY #30 tablet 02/05/17 metFORMIN [Glucophage] 500 mg PO BID #60 tablet 02/05/17 oxyCODONE [Roxicodone] 5 mg PO Q4HR PRN #20 tablet 02/05/17 traZODone [Desyrel] 100 mg PO QPM #30 tablet 02/05/17 - PHYSICAL EXAM AT DISCHARGE General Appearance: positive: No acute distress, Alert Eyes Bilateral: positive: Normal inspection, PERRL ENT: positive: ENT inspection nml, Pharynx nml, No signs of dehydration Neck: positive: Nml inspection, Thyroid nml, No JVD, Trachea midline Respiratory: positive: Chest non-tender, No respiratory distress, Rhonchi (right ) Cardiovascular: positive: Regular rate & rhythm, No gallop, Systolic murmur Peripheral Pulses: positive: 2+ Abdomen: positive: Non-tender, No organomegaly, Nml bowel sounds, Other (rounded , firm) Back: positive: Nml inspection, CVA tenderness (R) Skin: positive: Color nml, No rash, Warm, Dry, Pallor Extremities: positive: Non-tender, Full ROM, Pedal edema Neurologic/Psychiatric: positive: Oriented x3, CN's nml (2-12), Motor nml, Sensation nml, Depressed mood/affect Reflexes: Bicep (R): 2+, Bicep (L): 2+ - LABS Result Diagrams: 02/05/17 04:36 02/05/17 04:36 - DIAGNOSTIC IMAGING Diagnostic Imaging Results: Final report reviewed Diagnostic Imaging Results Comments: Chest x-ray 2 view post Chest tube: 02/05/17 FINDINGS: Lungs/Pleura: Clear left lung with slight blunting of the costophrenic angle. On the right, interval removal of lateral chest tube with no visible pneumothorax. Stable pleural thickening. Persistent opacities in the upper and lower lobes. Mediastinum: Heart and mediastinal contours are unremarkable. Other: No fractures identified. IMPRESSION: 1. Right chest tube removal with no visible pneumothorax. 2. New blunting of the left costophrenic angle. 3. Stable pleural thickening on the right with persistent upper and lower lobe airspace disease. Chest CT 02/04/17: FINDINGS: Lungs/Pleura: There is a persistent loculated air and fluid collection along the posterior lateral right hemithorax measuring up to 8.7 x 3.8 cm (series 5, image 34), previously 19.6 x 9.9 cm. There is a loculated fluid collection along the posterior medial aspect of the right hemithorax measuring 5.8 x 2.7 cm, previously 5.2 x 1.8 cm (series 5, image 27). There is a loculated fluid collection along the anterior medial aspect of the right hemithorax measuring up to 4.0 x 1.7 cm, previously 3.6 x 1.4 cm (series 5 , image 32). There is a fluid and air-filled loculated collection along the superior anterior lateral aspect of the right hemithorax measuring 4.6 x 1.7 cm, previously 2.5 x 1.2 cm (series 5, image 18). There is a loculated fluid collection along the inferior posterior medial aspect of the right hemithorax measuring 6.1 x 3.4 cm, previously 6.1 x 3.4 cm ( series 5, image 46). There is a right-sided chest tube position with its tip near the apex. There is a small amount of free air and fluid within the pleural space layering laterally and anteriorly. There is a region of groundglass opacity in the left lung apex measuring up to 3.3 x 2.4 cm, previously 2.1 x 2.4 cm (series 5, image 10). Mediastinum: Normal. No adenopathy or masses. The heart and great vessels are normal. Bones: Unremarkable. Visualized Abdomen: Unremarkable. Other: None. IMPRESSION: 1. There are 5 residual empyemas within the right pleural space, as described above. This is improved significantly since the prior examination. 2. There is a chest tube in place with its tip near the apex. 3. There is an increasing region of groundglass opacity in the apex of the left lung measuring up to 3.3 x 2.4 cm, previously 2.4 x 2.1 cm. This is of unknown etiology and may be inflammatory or infectious in nature. Close attention on follow-up imaging recommended. - FOLLOW UP Follow Up: Your lung condition was called loculated empyema of the right lung. Please decide on a PCP and plan to see them in 3-5 days as a follow up to this hospital stay. You need to see a photographic process attendant for further treatment of your pleural effusions in your lungs. Please get set up with a psychologist for the best mental health care. Monitor blood sugars every other day or daily (early AM before food is best) and take newly prescribed medications to control your sugars. - TIME SPENT Time Spent in Discharge (Minutes): 60"
--- NOTE | 2017-02-05 16:04 | PROVIDER PROGRESS NOTE ---
Subjective - General Admit Date: 01/29/17 Procedure Date: 01/30/17 Post Op Days: 6 Procedure Performed: RIGHT tube thoracostomy with drainage empyema - Review of Systems Wound/Incisions: positive: Healing well Drain Type: 40 Fr chest tube Drain Output Description: Serous Approximate mls Output: 50 mL General: positive: No symptoms HEENT: positive: No symptoms Pulmonary: positive: Shortness of breath, Pleuritic chest pain Cardiovascular: positive: No symptoms Gastrointestinal: positive: No symptoms Genitourinary: positive: No symptoms Musculoskeletal: positive: No symptoms Skin: positive: No symptoms Objective - Patient Data Reviewed Vital Signs: Yes Vital Signs: Vital Signs x48h Temp Pulse Resp BP Pulse Ox 02/05/17 13:00 36.6 C 89 18 157/80 H 95 02/05/17 08:22 36.7 C 88 18 144/72 H 95 Intake & Output: Intake and Output Totals x24h 02/03/17 02/04/17 02/05/17 23:59 23:59 23:59 Intake Total 2896.667 2986.666 2116.667 Output Total 3265 1715 3200 Balance -468.228 7441.666 -1083.333 - Lab Results Lab Results: 02/05/17 04:36 02/05/17 04:36 Other Lab Results: Lab Results x24hrs 02/05/17 02/05/17 02/04/17 Range/Units 04:36 04:36 20:24 WBC 11.3 H (4.8-10.8) x10^3/uL RBC 3.46 L (4.70-6.10) 10^6/uL Hgb 10.1 L (14.0-18.0) g/dL Hct 30.8 L (42.0-52.0) % MCV 88.9 (80.0-94.0) fL MCH 29.1 (27.0-31.0) pg MCHC 32.8 (32.0-36.0) g/dL RDW 13.5 (12.0-15.0) % Plt Count 621 H (130-450) 10^3/uL MPV 6.8 L (7.4-11.4) fL Neut # 8.0 H (1.5-6.6) 10^3/uL Lymph # 1.7 (1.5-3.5) 10^3/uL [place] # 1.5 H (0.0-1.0) 10^3/uL Eos # 0.1 (0.0-0.7) 10^3/uL Baso # 0.1 (0.0-0.1) 10^3/uL Absolute Nucleated RBC 0.00 x10^3/uL Nucleated RBC % 0.0 /100WBC Sodium 130 L (135-145) mmol/L Potassium 3.5 (3.5-5.0) mmol/L Chloride 97 L (101-111) mmol/L Carbon Dioxide 27 (21-32) mmol/L Anion Gap 6.0 (6-13) BUN 6 (6-20) mg/dL Creatinine 0.4 L (0.6-1.2) mg/dL Estimated GFR (MDRD) 220 (>89) Glucose 103 H (70-100) mg/dL POC Whole Bld Glucose 198 H (70 - 100) mg/dL Calcium 7.6 L (8.5-10.3) mg/dL Magnesium 1.6 L (1.7-2.8) mg/dL Total Bilirubin 0.3 (0.2-1.0) mg/dL AST 18 (10-42) IU/L ALT 21 (10-60) IU/L Alkaline Phosphatase 79 (42-121) IU/L Total Protein 6.7 (6.7-8.2) g/dL Albumin 1.9 L (3.2-5.5) g/dL Globulin 4.8 H (2.1-4.2) g/dL Albumin/Globulin Ratio 0.4 L (1.0-2.2) - Current Medications Current Medications: Current Medications Generic Name Dose Route Start Last Admin Trade Name Freq PRN Reason Stop Dose Admin Acetaminophen 650 mg 01/29/17 20:52 02/05/17 06:55 Tylenol PO 650 mg Q4HR PRN Administration Pain 1 to 4 Amlodipine Besylate 5 mg 02/05/17 09:00 02/05/17 10:45 Norvasc PO 5 mg DAILY DIANE Administration Docusate Sodium 250 - 500 mg 02/03/17 10:00 02/05/17 08:52 Colace 250mg Capsule PO 250 mg DAILY DIANE Administration Enoxaparin Sodium 40 mg 01/30/17 09:00 02/05/17 08:52 Lovenox SUBQ 40 mg DAILY DIANE Administration Famotidine 20 mg 01/30/17 09:00 02/05/17 08:53 Pepcid PO 20 mg DAILY DIANE Administration Levofloxacin 750 mg in 150 mls @ 100 mls/hr 01/29/17 21:00 02/04/17 22:58 Levaquin 750 Mg/150 Ml IV Infused Q24H DIANE Infusion Piperacillin Sod/Tazobactam 100 mls @ 100 mls/hr 01/30/17 04:00 02/05/17 11: 54 Sod 4.5 gm/ Sodium Chloride IV Infused Q6H DIANE Infusion Sodium Chloride 1,000 mls @ 125 mls/hr 02/03/17 08:00 02/05/17 11:45 Normal Saline 0.9% IV 125 mls/hr .Q8H DIANE Infusion Insulin Aspart 3 - 11 unit 02/03/17 12:00 02/05/17 12:05 Novolog SUBQ 7 unit 0800,1200,1700,2100 DIANE Administration Protocol Insulin Aspart 6 unit 02/04/17 21:09 02/05/17 12:05 Novolog SUBQ 6 unit TIDWM DIANE Administration Insulin Glargine 35 unit 02/03/17 22:05 02/05/17 08:55 Lantus Solostar SUBQ 35 unit DAILY DIANE Administration Magnesium Oxide 400 mg 02/03/17 09:00 02/05/17 08:53 Mag Ox PO 400 mg BID DIANE Administration Morphine Sulfate 2 mg 01/29/17 20:52 02/05/17 14:08 Morphine IVP 2 mg Q2H PRN Administration Pain 8 to 10 Oxycodone HCl 5 mg 01/29/17 20:52 01/31/17 01:01 Roxicodone PO 5 mg Q4HR PRN Administration Pain 5 to 7 Oxycodone HCl 10 mg 01/29/17 20:52 02/05/17 13:09 Roxicodone PO 10 mg Q4HR PRN Administration Pain 8 to 10 Polyethylene Glycol 17 gm 01/30/17 09:00 02/05/17 08:53 Miralax PO 17 gm DAILY DIANE Administration Saccharomyces Boulardii 250 mg 01/30/17 08:00 02/05/17 08:53 Florastor PO 250 mg BIDWM DIANE Administration Senna 8.6 - 17.2 mg 02/03/17 10:00 02/05/17 08:53 Senokot PO 8.6 mg DAILY DIANE Administration Sodium Chloride 10 ml 01/29/17 20:52 02/04/17 21:28 Normal Saline Flush 0.9% IVP 10 ml PRN PRN Administration NEEDED PER PROVIDER ORDERS Sodium Chloride 10 ml 01/29/17 22:00 02/05/17 07:32 Normal Saline Flush 0.9% IVP Not Given Q8HR DIANE Trazodone HCl 50 mg 01/29/17 23:00 02/04/17 21:09 Desyrel PO 50 mg QPM DIANE Administration - Physical Exam Wound/Incisions: positive: Dressing dry and intact Eyes Bilateral: positive: No lid inflammation, Conjunctivae nml, No scleral icterus Neck: positive: Thyroid nml Respiratory: positive: No respiratory distress Cardiovascular: positive: Tachycardia Neurologic/Psychiatric: positive: Oriented x3 Impression/Plan - Problem List Problem List: D6 s/p tube thoracostomy for empyema - cause still unknown After informing patient about the process of removing the chest tube it was removed and the patient tolerated this well. An occlusive dressing was applied to prevent pneumothorax. Chest xray ordered. Discussed the need for follow up bronchoscopy (not offered at this hospital) and possible thoracoscopy with breakup of empyema if it recurs or worsens in the next 2 weeks. Also had a detailed conversation about his blood sugars and the need for much tighter control. Explained that a HgbA1C is a cheater test designed to "catch" people whose blood sugar has been elevated for months. Explained in no uncertain terms that his MORTALITY is markedly elevated with a HgbA1C of 12. His white blood cells that fight infection are effectively "paralyzed" with such a high blood sugar. In addition, discussed the inevitability of retinopathy, nephropathy, neuropathy and vascular occlusion resulting in amputation, stroke or PA. Explained that if he plans on living longer than a few years he will need to get his sugar down. Both he and his mother vocalized an understanding. Okay to go home with follow up as indicated above.
--- NOTE | 2017-02-05 17:23 | XRAY Preliminary Report ---
Exam: XR CHEST 2 VIEW PA/LAT IMPRESSION: 1. Right chest tube removal with no visible pneumothorax. 2. New blunting of the left costophrenic angle. 3. Stable pleural thickening on the right with persistent upper and lower lobe airspace disease. [facility] SITE ID: [id number]
--- NOTE | 2017-02-05 17:26 | XRAY Report ---
EXAM: CHEST RADIOGRAPHY EXAM DATE: 02/05/2017 04:52 PM. CLINICAL HISTORY: S/P chest tube removal on right. Empyema. COMPARISON: 02/02/2017. TECHNIQUE: 2 views. FINDINGS: Lungs/Pleura: Clear left lung with slight blunting of the costophrenic angle. On the right, interval removal of lateral chest tube with no visible pneumothorax. Stable pleural thickening. Persistent opa cities in the upper and lower lobes. Mediastinum: Heart and mediastinal contours are unremarkable. Other: No fractures identified. IMPRESSION: 1. Right chest tube removal with no visible pneumothorax. 2. New blunting of the left costophrenic angle. 3. Stable pleural thickening on the right with persistent upper and lower lobe airspace disease. [facility] Referring Provider Line: [phone] SITE ID: [id number]
--- NOTE | 2017-02-05 18:11 | Discharge Plan ---
Discharge Plan Disposition: 01 Home, Self Care Condition: Good Prescriptions: oxyCODONE [Roxicodone] 5 mg PO Q4HR PRN #20 tablet PRN Reason: Pain amLODIPine [Norvasc] 5 mg PO DAILY #30 tablet Amox/Clav 500/125 [Augmentin] 1 each PO Q8H 7 Days #21 tablet Blood Sugar Diagnostic [Glucometer Strips] 1 each MC DAILY #120 strip Insulin Glargine [Lantus Solostar] 35 unit SUBQ DAILY #5 pen metFORMIN [Glucophage] 500 mg PO BID #60 tablet Senna [Senokot] 8.6 - 17.2 mg PO DAILY #30 tablet traZODone [Desyrel] 100 mg PO QPM #30 tablet Diet: Diabetic Activity Restrictions: No Restrictions Shower Restrictions: No Driving Restrictions: No Weight Bearing: Full Weight Instruction Topics: Effusion Pleural, Hyperglycemia, Diabetes Healthy Meals, Diabetes Carbs, Blood Sugar Manage Exercise, Bronchoscopy, Diabetes Manage A1C Test Additional Instructions or Follow Up instructions: Your lung condition was called loculated empyema of the right lung. Please decide on a PCP and plan to see them in 3-5 days as a follow up to this hospital stay. You need to see a sales service route manager for further treatment of your pleural effusions in your lungs. Please get set up with a psychologist for the best mental health care. Monitor blood sugars every other day or daily (early AM before food is best) and take newly prescribed medications to control your sugars. Follow-Up Care: [facility] - Diabetes Ed No Smoking: If you smoke, Please STOP! Call for help.
[2017-02-05 18:40] VITALS: BP 150/81
== END 2017-02-05 18:55 | disposition home or self-care (01) | DRG 177 ==
LOC: ED 17:37 → MS2 20:53
PROVIDERS: ADMIT Internal Medicine; ATTEND Nurse Practitioner
PROC: 0W993ZX Drainage of Right Pleural Cavity, Percutaneous Approach, Diagnostic (ICD-10-PCS; 2017-01-30)
PROC: 0W9930Z Drainage of Right Pleural Cavity with Drainage Device, Percutaneous Approach (ICD-10-PCS; principal; 2017-01-30 13:51)
DX: J86.9 Pyothorax without fistula (principal); J18.9 Pneumonia, unspecified organism; E87.1 Hypo-osmolality and hyponatremia; I10 Essential (primary) hypertension; E78.5 Hyperlipidemia, unspecified; E11.65 Type 2 diabetes mellitus with hyperglycemia; E11.51 Type 2 diabetes mellitus with diabetic peripheral angiopathy without gangrene; E86.0 Dehydration; E86.1 Hypovolemia; F17.210 Nicotine dependence, cigarettes, uncomplicated; M79.89 Other specified soft tissue disorders; Z91.14 Patient's other noncompliance with medication regimen; Z71.6 Tobacco abuse counseling; Z86.19 Personal history of other infectious and parasitic diseases; Z71.89 Other specified counseling
CPT/HCPCS: 36415; 71010; 71020; 71260; 71270; 76000; 80048; 80053; 80061; 82330; 83036; 83605; 83690; 83735; 83880; 84484; 85025; 85610; 87070; 87205; 87220; 89051; 93005; 96361; 96374; 96376; 99284; 99285

== ENCOUNTER 2017-10-29 20:06 | Emergency (ER) | payer MEDICAID ==
[2017-10-29 20:16] VITALS: BP 137/87
[2017-10-29] MEDS ORDERED: SULFAMETH/TRIMETH DS 800/160 MG TABLET PO STA (21:33)
[2017-10-29] MEDS ORDERED: LIDOCAINE 1% 2 ML VIAL SUBQ ONE (21:33)
[2017-10-29] MEDS ORDERED: cefTRIAXone 1 GM VIAL IM STA (21:33)
--- NOTE | 2017-10-29 21:41 | ED Physician Documentation ---
PD HPI UPPER EXT INJURY - Stated complaint Stated Complaint: FINGER SWELLING - Chief complaint Chief Complaint: Ext Problem - History obtained from History obtained from: Patient - History of Present Illness Location: Left Type of injury: Puncture wound Where injury occurred: Work Timing - onset: How many days ago (3) Pain level max: 0 Pain level now: 0 Worsened by: Moving, Palpating - Additonal information Additional information: Patient is a 62 year old male who presents to the emergency room with c/o L index finger swelling. States that he got a sliver of metal in his L index finger on 10/26/2017. He believes that he got it out but there may still be another piece of metal in his finger. States he has felt no pain or discomfort, is able to bend it. Last tetanus shot was less than a year ago. He is R hand dominant. Review of Systems Constitutional: denies: Fever, Chills, Fatigue Cardiac: denies: Chest pain / pressure Respiratory: denies: Cough GI: denies: Abdominal Pain, Nausea, Vomiting, Diarrhea Musculoskeletal: denies: Neck pain, Back pain Neurologic: denies: Generalized weakness, Focal weakness, Numbness Psychiatric: denies: Anxiety PD PAST MEDICAL HISTORY - Past Medical History Past Medical History: Yes Cardiovascular: Hypertension, High cholesterol Endocrine/Autoimmune: Type 2 diabetes GI: Hepatitis - Past Surgical History Past Surgical History: Yes General: Hiatal hernia repair - Present Medications Home Medications: Ambulatory Orders Medication Instructions Recorded Confirmed Amox/Clav 500/125 [Augmentin] 1 each PO Q8H 7 Days #21 tablet 02/05/17 Blood Sugar Diagnostic [Glucometer 1 each MC DAILY #120 strip 02/05/17 Strips] Insulin Glargine [Lantus Solostar] 35 unit SUBQ DAILY #5 pen 02/05/17 Senna [Senokot] 8.6 - 17.2 mg PO DAILY #30 tablet 02/05/17 amLODIPine [Norvasc] 5 mg PO DAILY #30 tablet 02/05/17 metFORMIN [Glucophage] 500 mg PO BID #60 tablet 02/05/17 oxyCODONE [Roxicodone] 5 mg PO Q4HR PRN #20 tablet 02/05/17 traZODone [Desyrel] 100 mg PO QPM #30 tablet 02/05/17 Cephalexin [Keflex] 500 mg PO Q6H #28 capsule 10/29/17 Sulfamethox/Trimeth 800/160 1 each PO BID #14 tablet 10/29/17 [Bactrim Ds 800/160] - Allergies Allergies/Adverse Reactions: Allergies Allergy/AdvReac Type Severity Reaction Status Date / Time No Known Drug Allergies Allergy Verified 10/29/17 20:15 - Social History Does the pt smoke?: Yes Smoking Status: Current every day smoker Does the pt drink ETOH?: No Does the pt have substance abuse?: Yes Substance Use and Type: Marijuana - Immunizations Immunizations are current?: Yes - POLST Patient has POLST: No POLST Status: Full Code PD ED PE NORMAL - Vitals Vital signs reviewed: Yes - General General: Alert and oriented X 3, No acute distress, Well developed/nourished - HEENT HEENT: Atraumatic, PERRL, Moist mucous membranes - Neck Neck: Supple, no meningeal sign - Derm Derm: Normal color - Extremities Extremities: Other (L index finger - Swelling to the palmar aspect of the left index finger. Has full range of motion of the finger. No tenderness along the joint line or in the deep space of the hand. Neurovascularly intact. Small amount of drainage from the area of erythema near the PIP joint. ) - Neuro Neuro: Alert and oriented X 3 - Psych Psych: Normal mood Results - Vitals Vitals: Vital Signs - 24 hr 10/29/17 20:12 Temperature 36.9 C Heart Rate 106 H Respiratory 18 Rate Blood Pressure 137/87 H O2 Saturation 98 Oxygen O2 Source Room air - Labs Labs: Microbiology 10/29/17 21:26 Wound Culture - Preliminary Abscess - Rads (name of study) L index finger xray Radiology: Prelim report reviewed, EMP read contemporaneously, See rad report (No acute abnormality. No foreign body) PD MEDICAL DECISION MAKING - ED course Complexity details: reviewed results, re-evaluated patient, considered differential, d/w patient, d/w family ED course: Patient is a 62-year-old male who presents to the emergency department with a cellulitis of left index finger. There appears to be a small abscess that spontaneously drained. Wound culture was obtained. No evidence of deep space infection in the hand or tendon infection. Neurovascularly intact. No lymphangitic spread. Patient and family counseled regarding signs and symptoms for which I believe and urgent re-evaluation would be necessary. Patient with good understanding of and agreement to plan and is comfortable going home at this time This document was made in part using voice recognition software. While efforts are made to proofread this document, sound alike and grammatical errors may occur. Tetanus is up-to-date. No foreign body visible on x-ray - Sepsis Event Vital Signs: Vital Signs - 24 hr 10/29/17 20:12 Temperature 36.9 C Heart Rate 106 H Respiratory 18 Rate Blood Pressure 137/87 H O2 Saturation 98 Oxygen O2 Source Room air Departure - Departure Disposition: Home, Self Care Clinical Impression: Cellulitis Qualifiers: Site of cellulitis: extremity Site of cellulitis of extremity: finger Laterality: left Qualified Code(s): L03.012 - Cellulitis of left finger Condition: Good Instructions: ED Infec Skin Cellulitis Follow-Up: Víctor Feldman MD [Primary Care Provider] - Within 3 Days (for wound check) Prescriptions: Cephalexin [Keflex] 500 mg PO Q6H #28 capsule Sulfamethox/Trimeth 800/160 [Bactrim Ds 800/160] 1 each PO BID #14 tablet Comments: Take all antibiotics until gone. Return if you worsen. This should improve over the next 24 hours. Return especially for worsening pain, fevers or swelling. Discharge Date/Time: 10/29/17 22:20
--- NOTE | 2017-10-29 21:54 | XRAY Report ---
Reason: L index finger infection, poss metal splinter Procedure Date: 10/29/2017 Accession Number: [id number] / [id number] Procedure: XR - Finger(s) LT CPT Code: FULL RESULT: EXAM: LEFT 2nd DIGIT RADIOGRAPHY EXAM DATE: 10/29/2017 09:45 PM. CLINICAL HISTORY: L index finger infection, poss metal splinter. COMPARISON: None. TECHNIQUE: 3 views. FINDINGS: DIPs in flexion on all views Bones: Normal. No fracture or bone lesion. Joints: Osteophyte joint space narrowing subchondral cystic changes at the PIP and DIP joint. Soft Tissues: Soft tissue swelling. No radiopaque foreign body IMPRESSION: Degenerative changes. If clinically warranted MRI [facility]
== END 2017-10-29 22:20 | disposition home or self-care (01) ==
LOC: ED 20:06
DX: L03.012 Cellulitis of left finger (principal); I10 Essential (primary) hypertension; E11.9 Type 2 diabetes mellitus without complications; Z79.4 Long term (current) use of insulin; F17.200 Nicotine dependence, unspecified, uncomplicated
CPT/HCPCS: 73140; 87070; 87181; 87205; 96372; 99283; A9270

== ENCOUNTER 2018-10-03 23:05 | Emergency (ER) | payer MEDICAID ==
[2018-10-03 23:53] LABS: BASOPHILS % (AUTO) 0.4 %; EOSINOPHILS # (AUTO) 0.1 10^3/uL (0.0-0.7); EOSINOPHILS % (AUTO) 0.5 %; HGB - HEMOGLOBIN 12.6 g/dL (14.0-18.0); LYMPHOCYTES # (AUTO) 1.5 10^3/uL (1.5-3.5); LYMPHOCYTES % (AUTO) 15.5 %; MEAN CORPUSCULAR HEMOGLOBIN 29.8 pg (27.0-31.0); MEAN CORPUSCULAR HGB CONC 33.7 g/dL (32.0-36.0); MEAN CORPUSCULAR VOLUME 88.4 fL (80.0-94.0); MEAN PLATELET VOLUME 9.5 fL (7.4-11.4); MONOCYTES # (AUTO) 0.6 10^3/uL (0.0-1.0); MONOCYTES % (AUTO) 5.9 %; NEUTROPHILS # (AUTO) 7.4 10^3/uL (1.5-6.6); NEUTROPHILS % (AUTO) 77.3 %; PLT - PLATELET COUNT 303 10^3/uL (130-450); RED BLOOD COUNT 4.23 10^6/uL (4.70-6.10); RED CELL DISTRIBUTION WIDTH 12.2 % (12.0-15.0); WHITE BLOOD COUNT 9.6 x10^3/uL (4.8-10.8)
[2018-10-04] MEDS ORDERED: IOVERSOL 320 100 ML VIAL IVP ONE ×2 (00:07→00:32)
[2018-10-04 00:10] LABS: CALCIUM 9.5 mg/dL (8.5-10.3); CREATININE 0.7 mg/dL (0.6-1.2); CRP - C-REACTIVE PROTEIN 2.3 mg/dL (0-1.0)
[2018-10-04] MEDS ORDERED: SODIUM CHLORIDE 0.9% 1,000 ML IV ONE (00:32)
[2018-10-04] MEDS ORDERED: INSULIN REGULAR HUMAN 100 UNIT/1 ML 10 ML MDV SUBQ STA (00:33)
--- NOTE | 2018-10-04 01:08 | CT Report ---
Reason: concern for calcaneal osteomyelitis Procedure Date: 10/04/2018 Accession Number: [id number] / [id number] Procedure: CT - LOWER EXTREMITY W - RT CPT Code: FULL RESULT: EXAM: RIGHT FOOT CT WITH CONTRAST EXAM DATE: 10/04/2018 12:27 AM CLINICAL HISTORY: Ulceration, concern for calcaneal osteomyelitis. COMPARISON: None. TECHNIQUE: Thin-section axial images were acquired of the foot after administration of intravenous contrast. IV contrast: 100 mL Optiray 320. Post-processing: Coronal and sagittal reformats. Other: None. In accordance with CT protocol optimization, one or more of the following dose reduction techniques were utilized for this exam: automated exposure control, adjustment of mA and/or KV based on patient size, or use of iterative reconstructive technique. FINDINGS: Bones: No cortical destruction demonstrated to suggest definite osteomyelitis on this exam. There is no displaced fracture demonstrated. Well-demarcated lytic abnormality within the inferior portion of the distal phalanx of the great toe is noted. This is probably a large subchondral cyst. Joints: No dislocation is demonstrated. No effusion. 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 Metatarsus varus primus and hallux valgus deformity are noted. Bunion formation is also suspected. There is severe interphalangeal degenerative changes within the great toe as well. Soft Tissues: There is a small plantar soft tissue ulceration noted at the level of the first MTP joint. Similarly, there is a small soft tissue ulceration noted at the heel (image 52 series 8). No involvement of the calcaneus is evident on this exam. There is no organized fluid collection within the soft tissues to suggest a definite abscess. IMPRESSION: 1. No bony destructive process noted to suggest a definite bone infection. 2. No displaced fracture demonstrated. 3. There is no dislocation. 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 4. Soft tissue ulcerations are noted along the plantar aspect of the foot at the first MTP joint as well as along the heel posteriorly. These do not extend up to the bone surface. No organized fluid collection noted to suggest abscess. [facility]
[2018-10-04] MEDS ORDERED: CLINDAMYCIN 150 MG CAPSULE PO STA (01:16)
--- NOTE | 2018-10-04 01:24 | ED Physician Documentation ---
History of Present Illness - Stated complaint Stated Complaint: FOOT INJ - Chief complaint Chief Complaint: Wound - History obtained from History obtained from: Patient, Family - History of Present Illness Timing: Other (1 month of R foot and heel pain with intermittent swelling of the ankle and foot) Severity Comments: pain now is mild Quality: throbbing at times Radiates to: does not radiate Improved by: elevating the foot Worsened by: weight bearing, touching the heel Associated symptoms: has multiple ulcerations on the bottom of the foot for the last month. No fever. No numbness or weakness and no discoloration. he does admit to poorly controlled diabetes. States he often just doesn't take his insulin. - Treatment prior to arrival Treatment prior to arrival: none - Additonal information Additional information: none Review of Systems Ten Systems: 10 systems reviewed and negative Constitutional: denies: Fever Cardiac: reports: Reviewed and negative Respiratory: reports: Reviewed and negative GI: denies: Abdominal Pain, Nausea, Vomiting Skin: reports: Other (foot ulcerations) Musculoskeletal: reports: Extremity pain, Extremity swelling Neurologic: denies: Generalized weakness, Focal weakness, Numbness Endocrine: reports: Polydypsia, Polyuria Immunocompromised: reports: Other (diabetic, poorly controlled) PD PAST MEDICAL HISTORY - Past Medical History Past Medical History: Yes Cardiovascular: Hypertension, High cholesterol Endocrine/Autoimmune: Type 2 diabetes GI: Hepatitis - Past Surgical History Past Surgical History: Yes General: Hiatal hernia repair - Present Medications Home Medications: Ambulatory Orders Medication Instructions Recorded Confirmed RX: Clindamycin HCl [Clindamycin 450 mg PO Q8HR #28 capsule 10/04/18 300MG CAP] - Allergies Allergies/Adverse Reactions: Allergies Allergy/AdvReac Type Severity Reaction Status Date / Time No Known Drug Allergies Allergy Verified 10/03/18 23:27 - Social History Does the pt smoke?: Yes Smoking Status: Current every day smoker Does the pt drink ETOH?: No Does the pt have substance abuse?: Yes - Immunizations Immunizations are current?: Yes - POLST Patient has POLST: No POLST Status: Full Code PD ED PE NORMAL - Vitals Vital signs reviewed: Yes - General General: Alert and oriented X 3, No acute distress, Well developed/nourished - HEENT HEENT: Atraumatic, Pharynx benign, Other (dry mucous membranes ) - Neck Neck: Supple, no meningeal sign - Cardiac Cardiac: RRR - Respiratory Respiratory: No respiratory distress - Abdomen Abdomen: Non distended - Male Male : Deferred - Rectal Rectal: Deferred - Derm Derm: Other (right plantar ulceration x 2 which are superficial and a deep right heel ulceration which is malodorous and tender with palpation) - Extremities Extremities: No deformity, Other (right heel tenderness with ulceration through skin, malodorous, no drainage.) - Neuro Neuro: Alert and oriented X 3, No motor deficit, No sensory deficit, Other (normal gait ) Eye Opening: Spontaneous Motor: Obeys Commands Verbal: Oriented GCS Score: 15 Results - Vitals Vitals: Vital Signs - 24 hr 10/03/18 10/04/18 23:24 01:34 Temperature 37.1 C 36.6 C Heart Rate 94 82 Respiratory 17 16 Rate Blood Pressure 136/84 H 164/87 H O2 Saturation 97 99 Oxygen O2 Source Room air - Labs Labs: Laboratory Tests 10/03/18 10/03/18 10/03/18 23:45 23:45 23:45 WBC 9.6 RBC 4.23 L Hgb 12.6 L Hct 37.4 L MCV 88.4 MCH 29.8 MCHC 33.7 RDW 12.2 Plt Count 303 MPV 9.5 Neut # (Auto) 7.4 H Lymph # (Auto) 1.5 [place] # (Auto) 0.6 Eos # (Auto) 0.1 Baso # (Auto) 0.0 Absolute Nucleated RBC 0.00 Nucleated RBC % 0.0 ESR 72 H Sodium 132 L Potassium 4.4 Chloride 95 L Carbon Dioxide 26 Anion Gap 11.0 BUN 19 Creatinine 0.7 Estimated GFR (MDRD) 115 Glucose 426 H POC Whole Bld Glucose Calcium 9.5 C-Reactive Protein 2.3 H 10/04/18 01:22 WBC RBC Hgb Hct MCV MCH MCHC RDW Plt Count MPV Neut # (Auto) Lymph # (Auto) [place] # (Auto) Eos # (Auto) Baso # (Auto) Absolute Nucleated RBC Nucleated RBC % ESR Sodium Potassium Chloride Carbon Dioxide Anion Gap BUN Creatinine Estimated GFR (MDRD) Glucose POC Whole Bld Glucose 307 H Calcium C-Reactive Protein moderately elevated inflammatory markers hyperglycemia, improving with fluids and insulin - Rads (name of study) CT Right foot Radiology: Final report received, See rad report (no evidence of osteomyelitis) PD MEDICAL DECISION MAKING - ED course Complexity details: reviewed results, re-evaluated patient, considered differential, d/w patient ED course: ddx- diabetic foot ulcer, infected diabetic foot ulcer, osteomyelitis. 63 y/o M with malodrous R heel diabetic foot ulcer and 2 more superficial ulcers on the plantar ball of the R foot. None of which probe to bone. Given patient's poorly controlled diabetes, blood sugar here of >400 he was given IV fluids and 10 units of subcutaneous insulin which improved his blood sugar to 300 while evaluating for osteomyelitis. His inflammatory markers are moderately elevated but the wound does not probe to bone and his CT is not suggestive of osteomyelitis. His pain is under control. He is afebrile and has no systemic symptoms thus will treat with oral antibiotics, dressed the wound here with topical antibiotic and nonadherent dressing and pt to f/u in wound clinic this week. Provided information for the [facility] clinic for pt to f/u. Pt was given return precautions if worsening pain, fever or new concerning symptoms. Departure - Departure Disposition: ED Left Without Being Seen Clinical Impression: Diabetic foot ulcer, Hyperglycemia due to type 2 diabetes mellitus Condition: Stable Record reviewed to determine appropriate education?: Yes Instructions: Diabetic Foot Ulcer Dc Follow-Up: Víctor Feldman MD [Primary Care Provider] - [place] 1 week [facility] [place]Other] - Tomorrow (call the main hospital line tomorrow at [phone] and ask for the [facility] [place] care followup this week.) Prescriptions: RX: Clindamycin HCl [Clindamycin 300MG CAP] 450 mg PO Q8HR #28 capsule Discharge Date/Time: 10/04/18 01:57
[2018-10-04] MEDS ORDERED: BACITRACIN OINT TOP STA (01:28)
[2018-10-04] MEDS ORDERED: ONDANSETRON ODT 4 MG TABLET TL STA (01:41)
[2018-10-04] MEDS ORDERED: ONDANSETRON ODT 4 MG Prepack 2 TL STA (01:41)
[2018-10-04 01:47] VITALS: BP 164/87
== END 2018-10-04 01:57 | disposition home or self-care (01) ==
LOC: ED 23:05
DX: E11.621 Type 2 diabetes mellitus with foot ulcer (principal); L97.411 Non-pressure chronic ulcer of right heel and midfoot limited to breakdown of skin; E11.65 Type 2 diabetes mellitus with hyperglycemia; Z79.4 Long term (current) use of insulin; Z91.14 Patient's other noncompliance with medication regimen; I10 Essential (primary) hypertension; F17.200 Nicotine dependence, unspecified, uncomplicated
CPT/HCPCS: 36415; 73701; 80048; 85025; 85651; 86140; 96360; 99284; A9270; J1815; Q0162; Q9967

== ENCOUNTER 2019-01-11 12:26 | Emergency (ER) | payer MEDICAID ==
[2019-01-11 12:51] VITALS: BP 135/60
[2019-01-11] MEDS ORDERED: oxyCODONE 5 MG TABLET PO STA (13:23)
[2019-01-11] MEDS ORDERED: AMOX/CLAV 875 MG/125 MG TABLET PO STA (13:23)
[2019-01-11 13:35] LABS: BASOPHILS # (AUTO) 0.1 10^3/uL (0.0-0.1); BASOPHILS % (AUTO) 0.3 %; EOSINOPHILS % (AUTO) 0.1 %; HGB - HEMOGLOBIN 11.6 g/dL (14.0-18.0); LYMPHOCYTES # (AUTO) 1.1 10^3/uL (1.5-3.5); LYMPHOCYTES % (AUTO) 6.4 %; MEAN CORPUSCULAR HEMOGLOBIN 29.1 pg (27.0-31.0); MEAN CORPUSCULAR HGB CONC 33.3 g/dL (32.0-36.0); MEAN CORPUSCULAR VOLUME 87.2 fL (80.0-94.0); MEAN PLATELET VOLUME 9.9 fL (7.4-11.4); MONOCYTES # (AUTO) 1.3 10^3/uL (0.0-1.0); MONOCYTES % (AUTO) 7.7 %; NEUTROPHILS # (AUTO) 14.1 10^3/uL (1.5-6.6); NEUTROPHILS % (AUTO) 84.7 %; PLT - PLATELET COUNT 290 10^3/uL (130-450); RED BLOOD COUNT 3.99 10^6/uL (4.70-6.10); WHITE BLOOD COUNT 16.6 x10^3/uL (4.8-10.8)
--- NOTE | 2019-01-11 13:41 | ED Physician Documentation ---
History of Present Illness - Stated complaint Stated Complaint: RT FOOT PX - Chief complaint Chief Complaint: Ext Problem - History obtained from History obtained from: Patient, Family - History of Present Illness Timing: Chronic Pain level max: 5 Pain level now: 5 Improved by: nothing Worsened by: nothing - Additonal information Additional information: 63-year-old male presents to the emergency department with diabetic foot ulcers that he has been treated for. He recently finished his antibiotics. He saw wound care yesterday where his wounds were repacked. There were concerned it was becoming infected, but they state they can no longer prescribe antibiotics and so referred him back to his primary doctor. His primary doctor will not prescribe him antibiotics until he sees him. No appointment until January 24. They were referred here for antibiotic prescription. Review of Systems Ten Systems: 10 systems reviewed and negative Constitutional: denies: Fever, Chills Skin: denies: Rash Musculoskeletal: denies: Neck pain, Back pain Neurologic: denies: Headache PD PAST MEDICAL HISTORY - Past Medical History Cardiovascular: Hypertension, High cholesterol Neuro: Peripheral neuropathy Endocrine/Autoimmune: Type 2 diabetes GI: Hepatitis - Past Surgical History Past Surgical History: Yes General: Hiatal hernia repair - Present Medications Home Medications: Ambulatory Orders Medication Instructions Recorded Confirmed Ciprofloxacin HCl [Cipro] 500 mg PO BID 12/13/18 12/13/18 Amox/Clav 875/125 [Augmentin] 1 each PO Q12H #20 tablet 01/11/19 Hydrocodone/Acetaminophen 1 - 2 each PO Q6H PRN #14 tablet 01/11/19 [Hydrocodon-Acetaminophen 5-325] - Allergies Allergies/Adverse Reactions: Allergies Allergy/AdvReac Type Severity Reaction Status Date / Time No Known Drug Allergies Allergy Verified 01/11/19 12:51 - Social History Does the pt smoke?: Yes Smoking Status: Current every day smoker Does the pt drink ETOH?: No Does the pt have substance abuse?: Yes - Immunizations Immunizations are current?: Yes - POLST Patient has POLST: No POLST Status: Full Code PD ED PE NORMAL - Vitals Vital signs reviewed: Yes - General General: Alert and oriented X 3, No acute distress - Derm Derm: Warm and dry - Extremities Extremities: Other (R foot - mild swelling and erythema to the distal foot and toes. NVI. no drainage. no lympangitis.) - Neuro Neuro: Alert and oriented X 3 Results - Vitals Vitals: Vital Signs - 24 hr 01/11/19 12:47 Temperature 36.9 C Heart Rate 99 Respiratory 16 Rate Blood Pressure 135/60 H O2 Saturation 98 Oxygen O2 Source Room air - Labs Labs: Laboratory Tests 01/11/19 01/11/19 01/11/19 13:21 13:21 13:21 WBC 16.6 H RBC 3.99 L Hgb 11.6 L Hct 34.8 L MCV 87.2 MCH 29.1 MCHC 33.3 RDW 13.0 Plt Count 290 MPV 9.9 Neut # (Auto) 14.1 H Lymph # (Auto) 1.1 L [place] # (Auto) 1.3 H Eos # (Auto) 0.0 Baso # (Auto) 0.1 Absolute Nucleated RBC 0.00 Nucleated RBC % 0.0 ESR 57 H Sodium 125 L Potassium 4.4 Chloride 88 L Carbon Dioxide 26 Anion Gap 11.0 BUN 28 H Creatinine 0.9 Estimated GFR (MDRD) 86 L Glucose 432 H Calcium 9.1 Total Bilirubin 0.7 AST 17 ALT 28 Alkaline Phosphatase 76 C-Reactive Protein 26.4 H Total Protein 8.7 H Albumin 3.8 Globulin 4.8 H Albumin/Globulin Ratio 0.8 L Lipase 24 PD MEDICAL DECISION MAKING - ED course Complexity details: reviewed old records, reviewed results, re-evaluated patient, considered differential, d/w patient, d/w family ED course: Patient with mild cellulitis and infected diabetic foot ulcers. Reviewed his cultures. Will place on Augmentin. Patient and family counseled regarding signs and symptoms for which I believe and urgent re-evaluation would be necessary. Patient with good understanding of and agreement to plan and is comfortable going home at this time This document was made in part using voice recognition software. While efforts are made to proofread this document, sound alike and grammatical errors may occur. No evidence of osteomyelitis, sepsis. Patient has chronic hyponatremia, will need his laboratory abnormalities followed closely by his doctor. Departure - Departure Disposition: Home, Self Care Clinical Impression: Cellulitis Qualifiers: Site of cellulitis: unspecified site Qualified Code(s): L03.90 - Cellulitis, unspecified Diabetic foot ulcer Qualifiers: Diabetic foot ulcer location: unspecified part of foot Diabetes mellitus type: type 2 Laterality: right Non-pressure ulcer stage: unspecified non-pressure ulcer stage Qualified Code(s): E11.621 - Type 2 diabetes mellitus with foot ulcer Condition: Good Instructions: ED Infec Skin Cellulitis Follow-Up: Your,doctor in 1 week [Other] Prescriptions: Amox/Clav 875/125 [Augmentin] 1 each PO Q12H #20 tablet Hydrocodone/Acetaminophen [Hydrocodon-Acetaminophen 5-325] 1 - 2 each PO Q6H PRN #14 tablet PRN Reason: pain Comments: Take all antibiotics until gone. Return if you worsen. Follow-up with your doctor for repeat evaluation. Do not drink alcohol or drive while on narcotic pain medicine. Note that many narcotic pain relievers also contain tylenol/acetaminophen. Please ensure that your total dose of acetaminophen from all sources does not exceed 3 grams (3000mg) per day. You may constipated on this medication, take a stool softener such as "Colace" twice a day while you are on it. Also recommend a [id number] laxative such as senna or MiraLAX any day that you do not have a bowel movement. If you received narcotic pain medication in the emergency department, do not drive or operate machinery for the next 24 hours. Discharge Date/Time: 01/11/19 13:59
[2019-01-11 14:04] LABS: ALBUMIN 3.8 g/dL (3.2-5.5); ALBUMIN/GLOBULIN RATIO 0.8 (1.0-2.2); BILIRUBIN,TOTAL 0.7 mg/dL (0.2-1.0); CALCIUM 9.1 mg/dL (8.5-10.3); CREATININE 0.9 mg/dL (0.6-1.2); CRP - C-REACTIVE PROTEIN 26.4 mg/dL (0-1.0); TOTAL PROTEIN 8.7 g/dL (6.7-8.2)
== END 2019-01-11 13:59 | disposition home or self-care (01) ==
LOC: ED 12:26
DX: L03.115 Cellulitis of right lower limb (principal); E11.621 Type 2 diabetes mellitus with foot ulcer; L97.519 Non-pressure chronic ulcer of other part of right foot with unspecified severity; E11.42 Type 2 diabetes mellitus with diabetic polyneuropathy; E87.1 Hypo-osmolality and hyponatremia; I10 Essential (primary) hypertension; F17.200 Nicotine dependence, unspecified, uncomplicated
CPT/HCPCS: 36415; 80053; 83690; 85025; 85651; 86140; 99283; A9270

== ENCOUNTER 2019-05-10 13:48 | Outpatient (CLI) | payer MEDICAID ==
[2019-05-10 17:03] LABS: BASOPHILS % (AUTO) 0.2 %; EOSINOPHILS # (AUTO) 0.1 10^3/uL (0.0-0.7); EOSINOPHILS % (AUTO) 0.7 %; HGB - HEMOGLOBIN 11.8 g/dL (14.0-18.0); LYMPHOCYTES # (AUTO) 1.7 10^3/uL (1.5-3.5); LYMPHOCYTES % (AUTO) 20.7 %; MEAN CORPUSCULAR HEMOGLOBIN 27.5 pg (27.0-31.0); MEAN CORPUSCULAR HGB CONC 31.6 g/dL (32.0-36.0); MEAN CORPUSCULAR VOLUME 86.9 fL (80.0-94.0); MEAN PLATELET VOLUME 9.9 fL (7.4-11.4); MONOCYTES # (AUTO) 0.6 10^3/uL (0.0-1.0); MONOCYTES % (AUTO) 7.5 %; NEUTROPHILS # (AUTO) 5.7 10^3/uL (1.5-6.6); NEUTROPHILS % (AUTO) 70.7 %; PLT - PLATELET COUNT 341 10^3/uL (130-450); RED BLOOD COUNT 4.29 10^6/uL (4.70-6.10); RED CELL DISTRIBUTION WIDTH 13.7 % (12.0-15.0)
[2019-05-10 17:23] LABS: CREATININE,URINE 67.4 mg/dL; HB2 TOTAL 12.6 g/dL; HEMOGLOBIN A1C 1.48 g/dL; HEMOGLOBIN A1C % 12.9 % (4.6-6.2); MICROALBUM/CREATININE RATIO,UR 427.3 ug/mg (<30.0); MICROALBUMIN,URINE 28.8 mg/dL (0-300.0)
[2019-05-10 17:25] LABS: BUN - BLOOD UREA NITROGEN 23 mg/dL (6-20); CALCIUM 9.1 mg/dL (8.5-10.3); CARBON DIOXIDE - CO2 26 mmol/L (21-32); CHLORIDE 94 mmol/L (101-111); CHOL/HDL RATIO 2.9 (<5.0); CHOLESTEROL 158 mg/dL; CREATININE 0.8 mg/dL (0.6-1.2); GLUCOSE 346 mg/dL (70-100); HDL CHOLESTEROL 54 mg/dL; LDL CHOLESTEROL,CALCULATED 89 mg/dL; LDL/HDL RATIO 1.6 (<3.6); SODIUM 130 mmol/L (135-145); VLDL CHOLESTEROL 15 mg/dL
== END 2019-05-10 23:59 | disposition home or self-care (01) ==
LOC: LAB.N 13:48
PROVIDERS: ATTEND Family Medicine
DX: E11.9 Type 2 diabetes mellitus without complications (principal)
CPT/HCPCS: 36415; 80048; 80061; 82043; 82570; 83036; 83721; 84443; 85025

== ENCOUNTER 2019-05-29 08:00 | Outpatient (CLI) | payer MEDICAID ==
[2019-05-29 16:48] LABS: ABSOLUTE RETICS # AUTO 0.041 10^6/uL (0.020-0.110); BASOPHILS % (AUTO) 0.4 %; EOSINOPHILS # (AUTO) 0.1 10^3/uL (0.0-0.7); EOSINOPHILS % (AUTO) 1.7 %; HGB - HEMOGLOBIN 11.6 g/dL (14.0-18.0); LYMPHOCYTES # (AUTO) 1.5 10^3/uL (1.5-3.5); LYMPHOCYTES % (AUTO) 21.3 %; MEAN CORPUSCULAR HEMOGLOBIN 28.7 pg (27.0-31.0); MEAN CORPUSCULAR VOLUME 89.9 fL (80.0-94.0); MEAN PLATELET VOLUME 9.9 fL (7.4-11.4); MONOCYTES # (AUTO) 0.8 10^3/uL (0.0-1.0); MONOCYTES % (AUTO) 10.5 %; NEUTROPHILS # (AUTO) 4.7 10^3/uL (1.5-6.6); NEUTROPHILS % (AUTO) 65.5 %; PLT - PLATELET COUNT 295 10^3/uL (130-450); RED BLOOD COUNT 4.04 10^6/uL (4.70-6.10); RED CELL DISTRIBUTION WIDTH 13.2 % (12.0-15.0); WHITE BLOOD COUNT 7.1 x10^3/uL (4.8-10.8)
[2019-05-29 18:04] LABS: % IRON SATURATION 10 % (20-50); IRON 39 ug/dL (45-182); TOTAL IRON BINDING CAPACITY 400 ug/dL (250-450); TRANSFERRIN 286 mg/dL (180-329)
[2019-05-29 18:12] LABS: FERRITIN 107.3 ng/mL (23.9-336.2)
[2019-05-29 18:16] LABS: FOLATE 15.77 ng/mL (5.90 - >24.8)
== END 2019-05-29 23:59 | disposition home or self-care (01) ==
LOC: LAB.WCP 08:00
PROVIDERS: ATTEND Family Medicine
DX: D64.9 Anemia, unspecified (principal)
CPT/HCPCS: 36415; 82607; 82728; 82746; 83540; 84466; 85025; 85045

== ENCOUNTER 2019-06-26 08:00 | Outpatient (CLI) | payer MEDICAID | END 2019-06-26 23:59 | disposition home or self-care (01) | LOC: LAB.R 08:00 | PROVIDERS: ATTEND Family Medicine | DX: D64.9 Anemia, unspecified (principal) | CPT/HCPCS: 82274 ==

== ENCOUNTER 2021-02-23 17:40 | Emergency (ER) | payer MEDICAID ==
--- NOTE | 2021-02-23 18:43 | ED Physician Documentation ---
PD HPI LOWER EXT INJURY - Stated complaint Stated Complaint: INFECTED TOE - Chief complaint Chief Complaint: Ext Problem - History obtained from History obtained from: Patient - Additional information Additional information: Gentleman who has diabetes and is not compliant with medications or checking his blood sugars. He has had a wound on the bottom of his left foot. He was previously in wound care for this at [facility] but he missed some appointments and was late to a few others and it sounds like he was dismissed from their care. Presents today because he has more drainage from the wound. He had his left fourth toe amputated due to infection about 8 months ago. Review of Systems Ten Systems: 10 systems reviewed and negative Constitutional: denies: Fever, Chills Eyes: reports: Reviewed and negative Ears: reports: Reviewed and negative PD PAST MEDICAL HISTORY - Past Medical History Cardiovascular: Hypertension, High cholesterol Neuro: Peripheral neuropathy Endocrine/Autoimmune: Type 2 diabetes GI: Hepatitis - Past Surgical History Past Surgical History: Yes General: Hiatal hernia repair - Present Medications Home Medications: Ambulatory Orders Medication Instructions Recorded Confirmed Hydrocodone/Acetaminophen 1 - 2 each PO Q6H PRN #14 tablet 01/11/19 04/13/19 [Hydrocodon-Acetaminophen 5-325] Amox/Clav 875/125 [Augmentin] 1 each PO Q12H #20 tablet 02/23/21 Insulin Glargine [Lantus Solostar] 15 unit SUBQ DAILY #3 ahfu 02/23/21 Insulin Lispro [Humalog] 5 unit SUBQ AC #10 ml 02/23/21 Lancets/Blood Glucose Strips [Pogo 1 each ACHS #120 unit 02/23/21 Automatic Test Cartridge] [place], Disposable [Needle] 1 each QID #120 unit 02/23/21 metFORMIN [Glucophage] 500 mg PO BIDWM #60 tablet 02/23/21 - Allergies Allergies/Adverse Reactions: Allergies Allergy/AdvReac Type Severity Reaction Status Date / Time No Known Drug Allergies Allergy Verified 02/23/21 18:07 - Social History Does the pt smoke?: Yes Smoking Status: Current every day smoker Does the pt drink ETOH?: No Does the pt have substance abuse?: Yes - Immunizations Immunizations are current?: Yes - POLST Patient has POLST: No POLST Status: Full Code PD ED PE NORMAL - Vitals Vital signs reviewed: Yes - General General: Alert and oriented X 3, No acute distress - Extremities Extremities: Other (There is about 8 cm ulcer with 2 draining fistulous tracts on the bottom of the left foot. Purulent drainage from those tracks.) - Neuro Neuro: Alert and oriented X 3, Normal speech Results - Vitals Vitals: Vital Signs - 24 hr 02/23/21 02/23/21 18:00 18:33 Temperature 36.6 C 36.6 C Heart Rate 93 93 Respiratory 18 18 Rate Blood Pressure 139/69 H 139/69 H O2 Saturation 98 98 Oxygen O2 Source Room air - Labs Labs: Laboratory Tests 02/23/21 02/23/21 02/23/21 18:11 19:07 19:07 WBC 9.8 RBC 3.62 L Hgb 9.4 L Hct 28.5 L MCV 78.7 L MCH 26.0 L MCHC 33.0 RDW 13.2 Plt Count 336 MPV 8.8 Neut # (Auto) 7.3 H Lymph # (Auto) 1.2 L [place] # (Auto) 1.1 H Eos # (Auto) 0.1 Baso # (Auto) 0.0 Absolute Nucleated RBC 0.00 Nucleated RBC % 0.0 ESR > 140 H Sodium Potassium Chloride Carbon Dioxide Anion Gap BUN Creatinine Estimated GFR (MDRD) Glucose POC Whole Bld Glucose 394 H Calcium C-Reactive Protein 02/23/21 19:07 WBC RBC Hgb Hct MCV MCH MCHC RDW Plt Count MPV Neut # (Auto) Lymph # (Auto) [place] # (Auto) Eos # (Auto) Baso # (Auto) Absolute Nucleated RBC Nucleated RBC % ESR Sodium 126 L Potassium 3.7 Chloride 89 L Carbon Dioxide 27 Anion Gap 10.0 BUN 24 H Creatinine 0.9 Estimated GFR (MDRD) 85 L Glucose 347 H POC Whole Bld Glucose Calcium 8.5 C-Reactive Protein 21.9 H - Rads (name of study) Three-view x-ray of the left foot shows cortical destruction around the third MTP joint Radiology: EMP read contemporaneously PD MEDICAL DECISION MAKING - ED course ED course: 65-year-old gentleman with uncontrolled diabetes and medical noncompliance presents with osteomyelitis of the left foot. He is not septic. A culture was obtained from the foot. X-ray is consistent with third MTP osteomyelitis. Case was discussed by phone with the on-call orthopedist Dr. Alcazar who agrees he can probably follow-up as an outpatient on antibiotics. A culture is pending. Patient seemed willing to restart his diabetic regimen. He does not seem septic and this does seem to be a chronic problem so I do not think he needs to be admitted, but discussed with him the importance of glycemic control, follow-up, and also discussed that at some point, even with ideal care, he may end up needing a ray amputation or a partial foot amputation. Departure - Departure Disposition: 01 Home, Self Care Clinical Impression: Foot osteomyelitis, left, Hyperglycemia due to type 2 diabetes mellitus Condition: Good Record reviewed to determine appropriate education?: Yes Instructions: ED Hyperglycemia Diabetic, ED Foot Care Diabetic Follow-Up: Brandyn Alcazar MD [Provider Admit Priv/Credential] - Prescriptions: Amox/Clav 875/125 [Augmentin] 1 each PO Q12H #20 tablet metFORMIN [Glucophage] 500 mg PO BIDWM #60 tablet Insulin Lispro [Humalog] 5 unit SUBQ AC #10 ml Insulin Glargine [Lantus Solostar] 15 unit SUBQ DAILY #3 ahfu [place], Disposable [Needle] 1 each MC QID #120 unit Lancets/Blood Glucose Strips [Pogo Automatic Test Cartridge] 1 each ACHS #120 unit Comments: I sent your prescriptions to [facility] in [place]. Follow-up with the Ortho surgeon, next available appointment. Call his office tomorrow. The numbers on this form. Return if worsening or if you develop a fever. We are performing a wound culture, the results should be done in 48-72 hours. If antibiotic change is necessary we will call you. Return if worse in the meantime, especially if you develop increased pain, fevers, cannot keep down the medication. Otherwise follow-up with your physician in approximately 2-3 days.
[2021-02-23 19:21] LABS: BASOPHILS % (AUTO) 0.4 %; EOSINOPHILS # (AUTO) 0.1 10^3/uL (0.0-0.7); EOSINOPHILS % (AUTO) 0.8 %; HCT - HEMATOCRIT 28.5 % (42.0-52.0); HGB - HEMOGLOBIN 9.4 g/dL (14.0-18.0); LYMPHOCYTES # (AUTO) 1.2 10^3/uL (1.5-3.5); LYMPHOCYTES % (AUTO) 12.2 %; MEAN CORPUSCULAR VOLUME 78.7 fL (80.0-94.0); MEAN PLATELET VOLUME 8.8 fL (7.4-11.4); MONOCYTES # (AUTO) 1.1 10^3/uL (0.0-1.0); MONOCYTES % (AUTO) 11.7 %; NEUTROPHILS # (AUTO) 7.3 10^3/uL (1.5-6.6); NEUTROPHILS % (AUTO) 74.4 %; PLT - PLATELET COUNT 336 10^3/uL (130-450); RED BLOOD COUNT 3.62 10^6/uL (4.70-6.10); RED CELL DISTRIBUTION WIDTH 13.2 % (12.0-15.0); WHITE BLOOD COUNT 9.8 x10^3/uL (4.8-10.8)
--- NOTE | 2021-02-23 19:24 | XRAY Report ---
PROCEDURE: Foot 3 View LT INDICATIONS: foot infection TECHNIQUE: 3 views of the foot were acquired. COMPARISON: None. FINDINGS: Bones: Postoperative changes are seen from fixation of the fourth ray at the level of the distal four th metatarsal. The fourth metatarsal stump appears to be intact. There is cortical destruction involv ing the third metatarsal head and the third proximal phalangeal base adjacent to the third metatarsop halangeal joints with surrounding osteopenia, which is suspicious for osteomyelitis. Degenerative cale nges are seen throughout the interphalangeal joints of toes. Soft tissues: Soft tissue edema is seen in the forefoot. Skin irregularity is seen in the plantar asp ect of the forefoot at the level of the metatarsal heads. IMPRESSION: 1.Cortical destruction surrounding the third metatarsophalangeal joint is suspicious for osteomyeliti s. 2.Postsurgical changes from prior transmetatarsal amputation of the fourth ray. No definite cortical destruction is seen at the surgical site. Reviewed by: Juancarlos Mcgrath MD on 02/23/2021 7:23 PM PST Approved by: Juancarlos Mcgrath MD on 02/23/2021 7:23 PM PST Station ID: [id number]
[2021-02-23 19:46] LABS: CALCIUM 8.5 mg/dL (8.5-10.3); CREATININE 0.9 mg/dL (0.6-1.2); CRP - C-REACTIVE PROTEIN 21.9 mg/dL (0-1.0); POTASSIUM 3.7 mmol/L (3.5-5.0)
[2021-02-23] MEDS ORDERED: AMOX/CLAV 875 MG/125 MG TABLET PO STA (20:00)
[2021-02-23 20:22] VITALS: BP 135/71
== END 2021-02-23 20:16 | disposition home or self-care (01) ==
LOC: ED 17:40
DX: E11.621 Type 2 diabetes mellitus with foot ulcer (principal); E11.65 Type 2 diabetes mellitus with hyperglycemia; L97.526 Non-pressure chronic ulcer of other part of left foot with bone involvement without evidence of necrosis; Z79.4 Long term (current) use of insulin
CPT/HCPCS: 36415; 73630; 80048; 85025; 85651; 86140; 87070; 87205; 99283; 99284; A9270

== ENCOUNTER 2021-03-10 12:37 | Outpatient (CLI) | payer MEDICAID ==
[2021-03-10 18:49] LABS: BASOPHILS # (AUTO) 0.1 10^3/uL (0.0-0.1); BASOPHILS % (AUTO) 0.6 %; EOSINOPHILS # (AUTO) 0.1 10^3/uL (0.0-0.7); EOSINOPHILS % (AUTO) 1.2 %; HCT - HEMATOCRIT 25.9 % (42.0-52.0); LYMPHOCYTES # (AUTO) 1.4 10^3/uL (1.5-3.5); LYMPHOCYTES % (AUTO) 13.4 %; MEAN CORPUSCULAR HGB CONC 30.9 g/dL (32.0-36.0); MEAN CORPUSCULAR VOLUME 80.9 fL (80.0-94.0); MEAN PLATELET VOLUME 9.4 fL (7.4-11.4); MONOCYTES # (AUTO) 0.9 10^3/uL (0.0-1.0); NEUTROPHILS # (AUTO) 7.6 10^3/uL (1.5-6.6); NEUTROPHILS % (AUTO) 75.4 %; PLT - PLATELET COUNT 459 10^3/uL (130-450); RED CELL DISTRIBUTION WIDTH 13.9 % (12.0-15.0); WHITE BLOOD COUNT 10.1 x10^3/uL (4.8-10.8)
[2021-03-10 19:27] LABS: CALCIUM 8.6 mg/dL (8.5-10.3); CREATININE 0.8 mg/dL (0.6-1.2); POTASSIUM 3.9 mmol/L (3.5-5.0)
== END 2021-03-10 23:59 | disposition home or self-care (01) ==
LOC: LAB.WCP 12:37
PROVIDERS: ATTEND Family Medicine
DX: E11.59 Type 2 diabetes mellitus with other circulatory complications (principal); M86.9 Osteomyelitis, unspecified; E11.621 Type 2 diabetes mellitus with foot ulcer
CPT/HCPCS: 36415; 80048; 85025; 85651

== ENCOUNTER 2021-04-16 03:53 | Outpatient (CLI) | payer MEDICAID | END 2021-04-16 03:54 | disposition critical access hospital (66) | LOC: EMS 03:53 | DX: R06.02 Shortness of breath (principal) | CPT/HCPCS: A0425; A0429; A0999 ==

== ENCOUNTER 2021-04-16 04:20 | Inpatient (IN) | payer MEDICAID ==
[2021-04-16] MEDS ORDERED: IPRATROPIUM/ALBUTEROL 3 ML NEB INH STA (04:28)
--- NOTE | 2021-04-16 04:36 | ED Physician Documentation ---
History of Present Illness - Stated complaint Stated Complaint: SOA - Chief complaint Chief Complaint: Resp - History obtained from History obtained from: Patient - Additonal information Additional information: 65yM with pmh htn, dm, pneumonia with loculated pleural effusion in 2017 requiring chest tube and admission, noncompliant with meds, unvaccinated against covid 19 p/w 1 week of progressive dyspnea, worsening acutely overnight. patient states he "slept terrible" and then was acutely soa this am and called ems. as he was being assisted out of the house his o2 sat was in mid to high 80s per ems, improving to 100% on 4-6L o2 by nasal cannula. patient was hypertensive with normal HR en route. fingerstick in 200s. he endorses subjective soa here in ed with "tickle" in throat but no cough, cp, n/v. Review of Systems Ten Systems: 10 systems reviewed and negative Constitutional: denies: Fever, Chills Cardiac: denies: Chest pain / pressure Respiratory: reports: Dyspnea. denies: Cough PD PAST MEDICAL HISTORY - Past Medical History Cardiovascular: Hypertension, High cholesterol Neuro: Peripheral neuropathy Endocrine/Autoimmune: Type 2 diabetes GI: Hepatitis - Past Surgical History Past Surgical History: Yes General: Hiatal hernia repair - Present Medications Home Medications: Ambulatory Orders Medication Instructions Recorded Confirmed Hydrocodone/Acetaminophen 1 - 2 each PO Q6H PRN #14 tablet 01/11/19 04/13/19 [Hydrocodon-Acetaminophen 5-325] Amox/Clav 875/125 [Augmentin] 1 each PO Q12H #20 tablet 02/23/21 Insulin Glargine [Lantus Solostar] 15 unit SUBQ DAILY #3 ahfu 02/23/21 Insulin Lispro [Humalog] 5 unit SUBQ AC #10 ml 02/23/21 Lancets/Blood Glucose Strips [Pogo 1 each ACHS #120 unit 02/23/21 Automatic Test Cartridge] [place], Disposable [Needle] 1 each QID #120 unit 02/23/21 metFORMIN [Glucophage] 500 mg PO BIDWM #60 tablet 02/23/21 Sulfamethox/Trimeth 800/160 1 each PO BID #20 tablet 02/27/21 [Bactrim Ds 800/160] - Allergies Allergies/Adverse Reactions: Allergies Allergy/AdvReac Type Severity Reaction Status Date / Time No Known Drug Allergies Allergy Verified 04/16/21 04:31 - Social History Does the pt smoke?: Yes Smoking Status: Current every day smoker Does the pt drink ETOH?: No Does the pt have substance abuse?: Yes - Immunizations Immunizations are current?: Yes - POLST Patient has POLST: No POLST Status: Full Code PD ED PE NORMAL - Vitals Vital signs reviewed: Yes - General General: Alert and oriented X 3, Other (sitting forward tripoding, in mild to moderate respiratory dsitress) - HEENT HEENT: Atraumatic, PERRL, EOMI - Neck Neck: Supple, no meningeal sign - Cardiac Cardiac: RRR - Respiratory Respiratory: Other (BL end expiratory wheezing and scant crackles on anterior lung auscultation) - Abdomen Abdomen: Non tender, Non distended - Derm Derm: Normal color, Warm and dry - Extremities Extremities: No deformity - Neuro Neuro: Alert and oriented X 3, No motor deficit, No sensory deficit - Psych Psych: Normal mood, Normal affect Results - Vitals Vitals: Vital Signs - 24 hr 04/16/21 04/16/21 04/16/21 04:27 04:46 05:51 Temperature 35.9 C L Heart Rate 102 H 98 Respiratory 24 20 Rate Blood Pressure 170/90 H O2 Saturation 96 89 L 04/16/21 05:53 Temperature Heart Rate Respiratory Rate Blood Pressure O2 Saturation 94 Oxygen O2 Source Room air - EKG (time done) 0437 Rate: Rate (enter#) (94) Rhythm: NSR [place]: Normal Intervals: Normal NE QRS: Normal Ischemia: Other (old ischemic changes (deep Q waves) in anteroseptal leads) - Labs Labs: Laboratory Tests 04/16/21 04/16/21 04/16/21 04:30 04:30 04:30 WBC 8.0 RBC 2.97 L Hgb 7.3 L Hct 23.9 L MCV 80.5 MCH 24.6 L MCHC 30.5 L RDW 17.6 H Plt Count 384 MPV 8.6 Neut # (Auto) 5.5 Lymph # (Auto) 1.7 [place] # (Auto) 0.7 Eos # (Auto) 0.1 Baso # (Auto) 0.1 Absolute Nucleated RBC 0.00 Nucleated RBC % 0.0 VBG pH VBG pCO2 VBG pO2 VBG HCO3 VBG Total CO2 VBG O2 Saturation VBG Base Excess Sodium 132 L Potassium 3.9 Chloride 99 L Carbon Dioxide 27 Anion Gap 6.0 BUN 12 Creatinine 0.7 Estimated GFR (MDRD) 114 Glucose 216 H Calcium 7.8 L Total Bilirubin 0.3 AST 21 ALT 24 Alkaline Phosphatase 246 H Troponin I High Sens 18.8 B-Natriuretic Peptide Total Protein 7.0 Albumin 1.6 L Globulin 5.4 H Albumin/Globulin Ratio 0.3 L Lipase 19 L Nasal Adenovirus (PCR) Nasal B. parapertussis DNA (PCR) Nasal Coronavir 229E PCR Nasal Coronavir HKU1 PCR Nasal Coronavir NL63 PCR Nasal Coronavir OC43 PCR Nasal Enterovir/Rhinovir PCR Nasal Influenza B PCR Nasal Influenza A PCR Nasal Parainfluen 1 PCR Nasal Parainfluen 2 PCR Nasal Parainfluen 3 PCR Nasal Parainfluen 4 PCR Nasal RSV (PCR) Nasal B.pertussis DNA PCR Nasal C.pneumoniae (PCR) Esvin Human Metapneumo PCR Nasal M.pneumoniae (PCR) Nasal SARS-CoV-2 (PCR) 04/16/21 04/16/21 04/16/21 04:30 04:30 04:35 WBC RBC Hgb Hct MCV MCH MCHC RDW Plt Count MPV Neut # (Auto) Lymph # (Auto) [place] # (Auto) Eos # (Auto) Baso # (Auto) Absolute Nucleated RBC Nucleated RBC % VBG pH 7.401 VBG pCO2 48.3 VBG pO2 26.6 VBG HCO3 29.3 H VBG Total CO2 30.8 H VBG O2 Saturation 47.3 L VBG Base Excess 4.0 H Sodium Potassium Chloride Carbon Dioxide Anion Gap BUN Creatinine Estimated GFR (MDRD) Glucose Calcium Total Bilirubin AST ALT Alkaline Phosphatase Troponin I High Sens B-Natriuretic Peptide 698 H Total Protein Albumin Globulin Albumin/Globulin Ratio Lipase Nasal Adenovirus (PCR) NOT DETECTED Nasal B. parapertussis DNA (PCR) NOT DETECTED Nasal Coronavir 229E PCR NOT DETECTED Nasal Coronavir HKU1 PCR NOT DETECTED Nasal Coronavir NL63 PCR NOT DETECTED Nasal Coronavir OC43 PCR NOT DETECTED Nasal Enterovir/Rhinovir PCR NOT DETECTED Nasal Influenza B PCR NOT DETECTED Nasal Influenza A PCR NOT DETECTED Nasal Parainfluen 1 PCR NOT DETECTED Nasal Parainfluen 2 PCR NOT DETECTED Nasal Parainfluen 3 PCR NOT DETECTED Nasal Parainfluen 4 PCR NOT DETECTED Nasal RSV (PCR) NOT DETECTED Nasal B.pertussis DNA PCR NOT DETECTED Nasal C.pneumoniae (PCR) NOT DETECTED Esvin Human Metapneumo PCR NOT DETECTED Nasal M.pneumoniae (PCR) NOT DETECTED Nasal SARS-CoV-2 (PCR) DETECTED A PD MEDICAL DECISION MAKING - ED course ED course: 65yM p/w soa, will eval and treat. patient feels subjective improvement s/p duoneb. now with wet sounding nonproductive cough. Ambulation test performed- patient desatted to 80s while ambulating a couple feet in his room, became acutely dyspneic. d/w Dr. Pascual for admission. Departure - Departure Disposition: 68 [facility] DC/Xfer Clinical Impression: Anemia, Shortness of breath, Pleural effusion, COVID-19 Condition: Stable
[2021-04-16 04:40] LABS: BASOPHILS # (AUTO) 0.1 10^3/uL (0.0-0.1); BASOPHILS % (AUTO) 0.6 %; EOSINOPHILS # (AUTO) 0.1 10^3/uL (0.0-0.7); HCT - HEMATOCRIT 23.9 % (42.0-52.0); HGB - HEMOGLOBIN 7.3 g/dL (14.0-18.0); LYMPHOCYTES # (AUTO) 1.7 10^3/uL (1.5-3.5); LYMPHOCYTES % (AUTO) 20.9 %; MEAN CORPUSCULAR HEMOGLOBIN 24.6 pg (27.0-31.0); MEAN CORPUSCULAR HGB CONC 30.5 g/dL (32.0-36.0); MEAN CORPUSCULAR VOLUME 80.5 fL (80.0-94.0); MEAN PLATELET VOLUME 8.6 fL (7.4-11.4); MONOCYTES # (AUTO) 0.7 10^3/uL (0.0-1.0); MONOCYTES % (AUTO) 9.1 %; NEUTROPHILS # (AUTO) 5.5 10^3/uL (1.5-6.6); NEUTROPHILS % (AUTO) 68.2 %; PLT - PLATELET COUNT 384 10^3/uL (130-450); RED BLOOD COUNT 2.97 10^6/uL (4.70-6.10); RED CELL DISTRIBUTION WIDTH 17.6 % (12.0-15.0); VBG HCO3 29.3 mmol/L (23-28); VBG OXYGEN SATURATION 47.3 % (60-80); VBG PCO2 48.3 mmHg (41-51); VBG PH 7.401 (7.31-7.41); VBG PO2 26.6 mmHg (25-47); VBG TOTAL CO2 30.8 mmol/L (24-29)
[2021-04-16 04:55] LABS: ALBUMIN 1.6 g/dL (3.2-5.5); ALBUMIN/GLOBULIN RATIO 0.3 (1.0-2.2); BILIRUBIN,TOTAL 0.3 mg/dL (0.2-1.0); CALCIUM 7.8 mg/dL (8.5-10.3); CREATININE 0.7 mg/dL (0.6-1.2); POTASSIUM 3.9 mmol/L (3.5-5.0)
[2021-04-16 05:33] LABS: CORONAVIRUS 229E-RESP PCR NOT DETECTED; CORONAVIRUS HKU1-RESP PCR NOT DETECTED; CORONAVIRUS NL63-RESP PCR NOT DETECTED; CORONAVIRUS OC43-RESP PCR NOT DETECTED
[2021-04-16 05:34] LABS: B. PARAPERTUSSIS- RESP PCR PAN NOT DETECTED; B. PERTUSSIS- RESP PCR PANEL NOT DETECTED; C. PNEUMONIAE- RESP PCR PANEL NOT DETECTED; HUMAN METAPNEUMOVIRUS NOT DETECTED; INFLUENZA A- RESP PCR PANEL NOT DETECTED; INFLUENZA B - RESP PCR PANEL NOT DETECTED; M. PNEUMONIAE- RESP PCR PANEL NOT DETECTED; PARAINFLUENZA VIRUS 1 NOT DETECTED; PARAINFLUENZA VIRUS 2 NOT DETECTED; PARAINFLUENZA VIRUS 3 NOT DETECTED; PARAINFLUENZA VIRUS 4 NOT DETECTED; RHINOVIRUS/ENTEROVIRUS NOT DETECTED; RSV- RESP PCR PANEL NOT DETECTED; SARS-CoV-2 -RESP PCR PANEL DETECTED
[2021-04-16] MEDS ORDERED: ONDANSETRON 4 MG/2 ML VIAL IVP PRN (05:58)
[2021-04-16] MEDS ORDERED: SODIUM CHLORIDE FLUSH 0.9% 10 ML SYRINGE IVP PRN (05:58)
[2021-04-16] MEDS ORDERED: ACETAMINOPHEN 325 MG TABLET PO PRN (05:58)
[2021-04-16] MEDS ORDERED: ONDANSETRON ODT 4 MG TABLET TL PRN (05:58)
[2021-04-16] MEDS ORDERED: CHERRY SYRUP 10 ML UDC PO ONE (06:00)
--- NOTE | 2021-04-16 07:55 | XRAY Report ---
PROCEDURE: Chest 1 View X-Ray INDICATIONS: Chest Pain TECHNIQUE: One view of the chest was acquired. COMPARISON: 01/2517 FINDINGS: Surgical changes and devices: None. Lungs and pleura: Diffuse interstitial prominence. Mild vascular congestion. Bilateral pleural effusi ons larger on the right. No focal consolidations. Streaky bibasilar opacities favored to represent at electasis. No pneumothorax. Mediastinum: Mediastinal contours appear normal. Heart size is normal. Bones and chest wall: No suspicious bony lesions. Overlying soft tissues appear unremarkable. IMPRESSION: Findings compatible with pulmonary edema/CHF. A concurrent infectious/inflammatory processes not excl uded if clinically appropriate. No significant discrepancy with initial interpretation by overnight radiologist. Reviewed by: Burt Ramos MD on 04/16/2021 6:54 AM [facility] Approved by: Burt Ramos MD on 04/16/2021 6:54 AM [facility] Station ID: [id number]
[2021-04-16] MEDS ORDERED: IPRATROPIUM/ALBUTEROL 3 ML NEB INH PRN (08:08)
[2021-04-16 08:14] LABS: % IRON SATURATION 14 % (20-50); IRON 32 ug/dL (45-182); TOTAL IRON BINDING CAPACITY 235 ug/dL (250-450); TRANSFERRIN 168 mg/dL (180-329)
[2021-04-16] MEDS: DEXAMETHASONE 10 MG/ML VIAL PO SCH (08:18)
[2021-04-16] MEDS: INSULIN ASPART 300 UNIT/3 ML PEN SUBQ SCH ×6 (08:19→21:14)
[2021-04-16] MEDS: SODIUM CHLORIDE FLUSH 0.9% 10 ML SYRINGE IVP SCH ×3 (08:20→23:54)
[2021-04-16] MEDS: ENOXAPARIN 40 MG/0.4 ML SYRINGE SUBQ SCH (08:20)
--- NOTE | 2021-04-16 08:22 | HISTORY & PHYSICAL EXAMINATION ---
Chief Complaint - Chief Complaint Chief Complaint: Shortness of breath History of Present Illness - Admitted From Admitted From:: Medical floor - History Obtained From [facility], and ER notes History obtained from: pt Exam Limitations: no - History of Present Illness HPI Comment/Other: Patient is a 65-year-old gentleman with a past medical history significant for diabetes, current smoker, COPD, loculated pleural effusion in 2017 requiring chest tube, medical non-complaint, hyperlipidemia, hypertension and hepatitis C status post treatment in 1999, who presented to the emergency department with a chief complaint of shortness of breath. pt report he has been one week of progressive dyspnea and he feel worsening overnight. He report he feel more difficulty to breath on the lay flat. Pt was found with O2 sat 86% on room air initially at ER and was placed on 4-6L of O2 via NC and increased O2 sat to 95%. pt's Covid 19 test is positive. He report no one ask him to have COVID-19 vaccination and he did not think about he need to have vaccination for Covid 19. he is unvaccinated. he report he smoke 3-4 cigaret daily. He denies fever, chill, chest pain. pt present dirty dressing with odor smell on his left foot ulcer infection. Patient report his primary care asked him to do dressing change every 2 days. Patient also report his left feet infection has been on 1 year. Patient report he never heard he was anemia, he denies GI bleeding. He denies nausea, vomiting. Chest x-ray show findings compatible with pulmonary edema or CHF, concurrent Infection or inflammation process not excluded. Routine laboratory test significantly show patient is COVID-19 positive, glucose 216, Hemoglobin 7.3,D-dimer 832. In the ER, patient is afebrile, patient had oxygen saturation 89% on room air with tachycardia, Blood pressure 170/90. Discussed the care goal with the patient, patient hope to have full code. History - Past Medical History Cardiovascular: reports: Hypertension, High cholesterol Respiratory: reports: None Neuro: reports: Peripheral neuropathy Endocrine/Autoimmune: reports: Type 2 diabetes GI: reports: Hepatitis : reports: Other Psych: reports: None Musculoskeletal: reports: None Derm: reports: None MRSA Hx?: No Other Past Medical History: Urinary urgency - Past Surgical History General: reports: Hiatal hernia repair - Family & Social History Family History Comment/Other: Patient report his father at age 75 with leukemia, his mother is 84 years old, still living Social History Notes: The patient lives in [place] with his mother. He does have children who are grown. He is not currently . 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 The patient does smoke although he states he has not had a cigarette for the past week due to this current illness. He states that he smokes half a pack to 1 pack per day and has been smoking since the age of 20. He denies any illicit drug use or alcohol abuse. - POLST Patient has POLST: No POLST Status: Full Code Meds/Allgy - Home Medications Home Medications: Ambulatory Orders Medication Instructions Recorded Confirmed Hydrocodone/Acetaminophen 1 - 2 each PO Q6H PRN #14 tablet 01/11/19 04/13/19 [Hydrocodon-Acetaminophen 5-325] Amox/Clav 875/125 [Augmentin] 1 each PO Q12H #20 tablet 02/23/21 Insulin Glargine [Lantus Solostar] 15 unit SUBQ DAILY #3 ahfu 02/23/21 Insulin Lispro [Humalog] 5 unit SUBQ AC #10 ml 02/23/21 Lancets/Blood Glucose Strips [Pogo 1 each ACHS #120 unit 02/23/21 Automatic Test Cartridge] [place], Disposable [Needle] 1 each QID #120 unit 02/23/21 metFORMIN [Glucophage] 500 mg PO BIDWM #60 tablet 02/23/21 Sulfamethox/Trimeth 800/160 1 each PO BID #20 tablet 02/27/21 [Bactrim Ds 800/160] - Allergies Allergies/Adverse Reactions: Allergies Allergy/AdvReac Type Severity Reaction Status Date / Time No Known Drug Allergies Allergy Verified 04/16/21 04:31 Review of Systems - Constitutional Constitutional: denies: Fever, Chills - Eyes Eyes: denies: Pain - Cardiovascular Cariovascular: reports: Exertional dyspnea, Decr. exercise tolerance. denies: Chest pain - Respiratory Respiratory: reports: Cough, SOB with exertion. denies: Sputum production, SOB at rest - Gastrointestinal Gastrointestinal: denies: Abdominal pain, Diarrhea, Nausea, Vomiting - Neurological Neurological: denies: Focal weakness, Headache, Dizziness, Numbness, Abnormal gait, Seizures, Incoordination, Slurred speech - Hematologic/Lymphatic Hematologic/Lymphatic: denies: Anemia Prior Level of Functionality: Patient report he used his cane to walk in the home Exam - Vital Signs Vital Signs: Vital Signs x48h Temp Pulse Pulse Resp BP BP Pulse Ox 04/16/21 07:00 36.4 C L 113 H 21 178/89 H 99 04/16/21 06:00 94 22 174/91 H 95 04/16/21 05:53 94 04/16/21 05:51 89 L 04/16/21 05:30 96 22 178/94 H 92 04/16/21 04:46 98 20 04/16/21 04:27 35.9 C L 102 H 24 170/90 H 96 - Physical Exam General Appearance: positive: No acute distress, Alert. negative: Lethargic Eyes Bilateral: positive: Normal inspection, No lid inflammation ENT: positive: ENT inspection nml, No signs of dehydration. negative: Dry mucous membranes Neck: positive: Nml inspection, Trachea midline. negative: Tracheal deviation Respiratory: positive: Chest non-tender, No respiratory distress, Rales. negative: Wheezes Cardiovascular: positive: Regular rate & rhythm. negative: Tachycardia, Bradycardia, Systolic murmur Peripheral Pulses: positive: 2+ Abdomen: positive: Non-tender, Nml bowel sounds, No distention. negative: Tenderness Back: positive: Nml inspection Skin: positive: Color nml, Warm, Dry, Decubitus Extremities: positive: Non-tender, Pedal edema (Left lower extremity), Other (There is size 6/5/1.5 cm ulcer at left plantar with around swelling, mild to moderate erythema, and fourth digit amputation.) Neurologic/Psychiatric: positive: Oriented x3, Motor nml, Sensation nml. negative: Weakness, Sensory loss, Facial droop, Slurred/abnml speech, Depressed mood/affect Conclusion/Plan - Problem List (1) Respiratory failure with hypoxia Conclusion/Plan: Patient report he had shortness of breathing for 1 week ago and worsening overnight. pt is unvaccinated for Covid 19. Now pt is Covid 19 positive. Chest x-ray show pulmonary edema, and report orthopnea. pt also has of COPD and current smoker. His SOB is likely combination of Covid 19 infection and fluid overload of pulmonary edema, secondary to CHF, and COPD exacerbation. Plan: start with treatment for Covid 19 with decatron, Remdisivir, and Lovenox. Lasix bid for pulmonary edema. Decatron and Duoneb for COPD. check: d-dimer and order ECHO study. (2) Pneumonia due to COVID-19 virus Conclusion/Plan: Patient is COVID-19 positive, hypoxia. We will treat for COVID-19, Continue supplemental oxygen as needed. (3) Pulmonary edema cardiac cause Conclusion/Plan: Patient had elevated BNP, patient report orthopnea, CXR reveal Pulmonary edema or CHF. Patient has no echo study in this hospital. Plan: We will start with Lasix intravenous, We will finish echo study. We will order blood pressure medication to control patient blood pressure. We will continue monitor tech patient and vital signs monitor patient (4) Diabetes with ulcer of foot Conclusion/Plan: Patient had a large plantar ulcer of left feet for one year. pt has hx of uncontrolled diabetes and ambulated left fourth toe. pt's dressing is very dirty with odor smell. pt took antibiotics at home. plan: culture of blood and ulcer wound, start with antibiotics IV and probiotics, wound care by MAC, and dressing change by nurse. order Xray for pt's left foot. called and consulted with orthopedics, discussed the Xray result with orthopedics. orthopedics doctor recommend we strictly control of his infection, his diabetes, not Necessary to have MRI of feet, he will see pt on Tuesday, recommend pt followup with his office and pt do not need urgent surgery at this point. (5) Hyperglycemia due to type 2 diabetes mellitus Conclusion/Plan: Patient's glucose 216 on today, patient has a history of diabetic, he reported he take insulin in the home. We will started with Lantus, sliding scale and scheduled Novolog and patient take Decadron now, and continue hypoglycemia protocol (6) Chronic anemia Conclusion/Plan: Patient hemoglobin 7.3 today, we will have anemia study for patient, patient denies GI bleeding, patient did not take a blood thinning at the home. We will continue to have H&H monitor patient, will order occult study, add ferrous pill for pt. (7) HTN (hypertension) Conclusion/Plan: Patient had elevated blood pressure, we will start with amlodipine, pt also has Lasix. We will closely vital signs monitor patient (8) COPD (chronic obstructive pulmonary disease) Conclusion/Plan: Patient is still smoking and history of COPD. We will start with DuoNeb and albuterol NIH, continue decatron, Supplemental oxygen as needed - Lab Results Fish Bones: 04/16/21 04:30 04/16/21 04:30 Core Measures - Anticipated LOS I expect patient to be DC'd or transferred within 96 hours.: Yes - DVT/VTE - Prophylaxis VTE/DVT Device ordered at admit?: Yes VTE/DVT Prophylaxis med ordered at admit?: Yes
[2021-04-16] MEDS ORDERED: BENZONATATE 100 MG CAPSULE PO STA (08:40)
[2021-04-16] MEDS ORDERED: hydrALAZINE INJ 20 MG/ML VIAL IVP PRN (08:47)
[2021-04-16 08:55] LABS: ABSOLUTE RETICS # AUTO 0.133 10^6/uL (0.020-0.110); RED BLOOD COUNT 2.93 10^6/uL (4.70-6.10); RETICULOCYTE COUNT % (AUTO) 4.54 % (0.5-2.3)
[2021-04-16] MEDS ORDERED: amLODIPine 5 MG TABLET PO SCH (09:00)
[2021-04-16] MEDS ORDERED: FUROSEMIDE 20 MG/2 ML VIAL IVP SCH ×2 (09:00)
[2021-04-16] MEDS ORDERED: INSULIN GLARGINE 300 UNIT/3 ML PEN SUBQ SCH (09:00)
--- NOTE | 2021-04-16 09:17 | XRAY Report ---
PROCEDURE: Foot 2 View LT INDICATIONS: big ulcer, diabetes infection TECHNIQUE: 3 views of the foot were acquired. COMPARISON: X-ray foot 02/23/2021 FINDINGS: Bones: There is amputation of the fourth digit distal to the metatarsal. There is abnormal contours o f the first metatarsal there is poor evaluation of the third digits is secondary to overlapping osseo us structures. And proximal phalanx with areas of lucency. The second digit demonstrates portions of the proximal mid and distal phalanx overlying the third and fourth digit appearing completely separat ed from the second metatarsal.. No suspicious bony lesions. Soft tissues: No tibiotalar joint effusion. Achilles tendon appears normal. Significant diffuse so ft tissue edema is present. IMPRESSION: Stable appearance of fourth digit amputation. Abnormal appearance of the first metatarsal as well as proximal phalanx which is suggestive of either fracture and/or superimposed infection inflammation such as osteomyelitis with bony destruction. Fur ther evaluation with MRI may be helpful. Suspected dislocation of the second digit distal to the metatarsal consistent with fracture. Lucency is noted at the distal metatarsal which can be related to fracture secondary to infection or inflamma tion such as osteomyelitis. Further evaluation with MRI maybe helpful. Reviewed by: Salina Cadet MD on 04/16/2021 9:16 AM PST Approved by: Salina Cadet MD on 04/16/2021 9:16 AM PST Station ID: [id number]
[2021-04-16] MEDS: FERROUS GLUCONATE 324 MG TABLET PO SCH (09:27)
[2021-04-16] MEDS: FUROSEMIDE 20 MG/2 ML VIAL IVP SCH ×2 (09:27→21:14)
[2021-04-16] MEDS: CEFEPIME 1 GM in SODIUM CHLORIDE 0.9% MINIBAG 100 ML IV SCH ×3 (09:27→22:35)
[2021-04-16] MEDS ORDERED: REMDESIVIR 100MG VIAL 200 MG in SODIUM CHLORIDE 0.9% 250 ML IV ONE (10:00)
[2021-04-16 11:13] LABS: ESTIMATED AVERAGE GLUCOSE 246 mg/dL (70-100); HEMOGLOBIN A1c% 10.2 % (4.27-6.07)
[2021-04-16 11:50] LABS: HCT - HEMATOCRIT 24.9 % (42.0-52.0); HGB - HEMOGLOBIN 7.6 g/dL (14.0-18.0)
[2021-04-16] MEDS ORDERED: VANCOMYCIN INJ 1 GM, VANCOMYCIN INJ 500 MG in SODIUM CHLORIDE 0.9% 500 ML IV SCH (12:00)
--- NOTE | 2021-04-16 12:13 | PHARMACY PROGRESS NOTE ---
- Therapy Status Vancomycin regimen day #: 1 Therapy status: Awaiting steady state Basis for treatment: Empirical Treatment indication: Possible Bacteremia, Possible Pneumonia, Would infxn Trough goal: 15-20 Concurrent antibiotics: Cefepime 1G Q8H - MAC Risk Risk level for Acute Kidney Injury: Moderate Acute Kidney Injury risk factors: Goal trough >15, Diabetes - Monitoring and Recommendation Clinical response to treatment: I&O Previous 24 hours 04/14/21 04/15/21 04/16/21 23:59 23:59 23:59 Intake Total 350 Output Total 1600 Balance -1250 Lab Results 04/16/21 04:30 BUN 12 Creatinine 0.7 Estimated GFR (MDRD) 114 Cultures 04/16/21 09:30 Foot - Left Wound Culture - Preliminary Monitoring plan: Daily serum creatinine Next trough due prior to maintenance dose #: 5 Next trough due (date/time): 04/18/21 @1230
[2021-04-16] MEDS ORDERED: SODIUM CHLORIDE 0.9% 250 ML IV PRN (12:19)
[2021-04-16] MEDS ORDERED: IOVERSOL 320 100 ML VIAL IVP ONE ×2 (12:36→13:50)
[2021-04-16] MEDS: MULTIVITAMIN W/MINERALS TABLET PO SCH (12:39)
[2021-04-16] MEDS: ASCORBIC ACID 500 MG TABLET PO SCH (12:39)
--- NOTE | 2021-04-16 14:02 | CT Report ---
PROCEDURE: ANGIO CHEST W/WO INDICATIONS: SOB, elevated d-dimer, Covid 19 positive, if PE? CONTRAST: IV CONTRAST: Optiray 320 ml: 80 PO CONTRAST: *NO PO CONTRAST TECHNIQUE: After the administration of intravenous contrast, 2 mm axial images were acquired from the pulmonary apices to the posterior costophrenic angles during the arterial phase. In addition, 1 mm lung kernel and 5 mm soft tissue kernel reconstructions were performed. 3-dimensional coronal oblique maximum int ensity projection (MIP) reformats, 8 mm axial MIP, and 5 mm coronal and sagittal MPR reformats were t hen performed through the thorax. For radiation dose reduction, the following was used: automated exp osure control, adjustment of mA and/or kV according to patient size. COMPARISON: February 04, 2017 FINDINGS: Thyroid: Homogeneous. Systemic arterial Vasculature: The thoracic aorta and arch vasculature is not well opacified. Calcifi ed atheromatous change. Normal size and contour without gross evidence of dissection. Pulmonary arterial vasculature: The pulmonary arterial vasculature demonstrates good contrast opacifi cation. No filling defect is appreciated to suggest pulmonary embolism. Heart: No cardiomegaly or pericardial effusion. Mediastinum/ella: Mediastinal and hilar lymphadenopathy. Lungs/pleura: Trace right and moderate left pleural effusions with adjacent atelectasis. Peripheral g round glass airspace opacities are seen, left greater than right. No pneumothorax. Tracheobronchial tree: Patent. Upper abdomen: The visualized upper abdomen is grossly unremarkable. Bones: No significant osseous abnormalities are noted. Chest wall: The chest wall and axilla are within normal limits. IMPRESSION: 1.No CT evidence of pulmonary embolus. 2.Trace right and moderate left pleural effusions with atelectasis. 3.Peripheral groundglass airspace opacities, compatible with an atypical (viral) infectious process. Reviewed by: Robles Whitehead MD on 04/16/2021 2:01 PM PST Approved by: Robles Whitehead MD on 04/16/2021 2:01 PM PST Station ID: [id number]
[2021-04-16] MEDS: SACCHAROMYCES BOULARDII 250 MG CAPSULE PO SCH (17:32)
[2021-04-16] MEDS: VANCOMYCIN INJ 1 GM, VANCOMYCIN INJ 500 MG in SODIUM CHLORIDE 0.9% 500 ML IV SCH (23:54)
[2021-04-17] MEDS: CEFEPIME 1 GM in SODIUM CHLORIDE 0.9% MINIBAG 100 ML IV SCH ×3 (05:00→21:33)
[2021-04-17 06:09] LABS: BASOPHILS % (AUTO) 0.3 %; EOSINOPHILS % (AUTO) 0.1 %; HCT - HEMATOCRIT 25.5 % (42.0-52.0); HGB - HEMOGLOBIN 7.8 g/dL (14.0-18.0); LYMPHOCYTES % (AUTO) 14.6 %; MEAN CORPUSCULAR HEMOGLOBIN 24.3 pg (27.0-31.0); MEAN CORPUSCULAR HGB CONC 30.6 g/dL (32.0-36.0); MEAN CORPUSCULAR VOLUME 79.4 fL (80.0-94.0); MEAN PLATELET VOLUME 8.8 fL (7.4-11.4); MONOCYTES # (AUTO) 1.2 10^3/uL (0.0-1.0); MONOCYTES % (AUTO) 8.6 %; NEUTROPHILS # (AUTO) 10.2 10^3/uL (1.5-6.6); PLT - PLATELET COUNT 445 10^3/uL (130-450); RED BLOOD COUNT 3.21 10^6/uL (4.70-6.10); RED CELL DISTRIBUTION WIDTH 17.9 % (12.0-15.0); WHITE BLOOD COUNT 13.4 x10^3/uL (4.8-10.8)
[2021-04-17 06:28] LABS: CALCIUM 7.9 mg/dL (8.5-10.3); CREATININE 0.8 mg/dL (0.6-1.2); POTASSIUM 3.9 mmol/L (3.5-5.0)
[2021-04-17] MEDS: INSULIN ASPART 300 UNIT/3 ML PEN SUBQ SCH ×4 (08:25→20:24)
[2021-04-17] MEDS: BENZONATATE 100 MG CAPSULE PO PRN ×2 (08:55→19:37)
[2021-04-17] MEDS: DEXAMETHASONE 10 MG/ML VIAL PO SCH (08:55)
[2021-04-17] MEDS: METOPROLOL SUCCINATE 25 MG TABLET PO SCH (08:55)
[2021-04-17] MEDS: FERROUS GLUCONATE 324 MG TABLET PO SCH (08:55)
[2021-04-17] MEDS: lisinopriL 5 MG TABLET PO SCH (08:55)
[2021-04-17] MEDS: ASCORBIC ACID 500 MG TABLET PO SCH (08:55)
[2021-04-17] MEDS: MULTIVITAMIN W/MINERALS TABLET PO SCH (08:55)
[2021-04-17] MEDS: SACCHAROMYCES BOULARDII 250 MG CAPSULE PO SCH ×2 (08:55→17:51)
[2021-04-17] MEDS: ENOXAPARIN 40 MG/0.4 ML SYRINGE SUBQ SCH (08:56)
[2021-04-17] MEDS: INSULIN GLARGINE 300 UNIT/3 ML PEN SUBQ SCH (08:56)
[2021-04-17] MEDS: FUROSEMIDE 20 MG/2 ML VIAL IVP SCH ×2 (08:56→20:24)
[2021-04-17] MEDS: SODIUM CHLORIDE FLUSH 0.9% 10 ML SYRINGE IVP SCH ×2 (08:57→17:51)
[2021-04-17] MEDS: REMDESIVIR 100MG VIAL 100 MG in SODIUM CHLORIDE 0.9% 100ML 100 ML IV SCH (08:57)
[2021-04-17] MEDS ORDERED: INSULIN GLARGINE 300 UNIT/3 ML PEN SUBQ SCH (09:00)
[2021-04-17] MEDS ORDERED: METOPROLOL SUCCINATE 25 MG TABLET PO SCH (09:00)
[2021-04-17] MEDS ORDERED: lisinopriL 5 MG TABLET PO SCH (09:00)
--- NOTE | 2021-04-17 10:36 | PHARMACY PROGRESS NOTE ---
- Best Possible Medication History Admit Date and Time: 04/16/21 0558 Processed by: Pharmacy Medication History completed: Yes Secondary Source(s): Physician records, Insurance records As the person ultimately responsible for medication therapy, providers are able to order a medication from an existing home medication list in [facility] via the "Reconcile Routine" prior to Confirmation of that medication by manager product support. Such practice is discouraged except when the physician, in their clinical judgment, deems that a medical need exists for a medication without regard to previous use.
--- NOTE | 2021-04-17 10:46 | PROVIDER PROGRESS NOTE ---
Assessment/Plan - Problem List (1) Respiratory failure with hypoxia Assessment/Plan: 3/4 pt still need 2 liter of O2 to support his 94% sats but pt did not present acute respiratory distress. CTA did not reveal PE but present groundglass airspace opacities atypical viral infection pattern. pt was positive for Covid 19. continue Remdesivir, decatron and Lovenox, continue supplement of O2 as needed. Patient report he had shortness of breathing for 1 week ago and worsening overnight. pt is unvaccinated for Covid 19. Now pt is Covid 19 positive. Chest x-ray show pulmonary edema, and report orthopnea. pt also has of COPD and current smoker. His SOB is likely combination of Covid 19 infection and fluid overload of pulmonary edema, secondary to CHF, and COPD exacerbation. Plan: start with treatment for Covid 19 with decatron, Remdisivir, and Lovenox. Lasix bid for pulmonary edema. Decatron and Duoneb for COPD. check: d-dimer and order ECHO study. (2) Pneumonia due to COVID-19 virus Conclusion/Plan: Patient is COVID-19 positive, hypoxia. We will treat for COVID-19, Continue supplemental oxygen as needed. (3) Pulmonary edema cardiac cause-diastolic heart failure Conclusion/Plan: 3/4 BNP is reduced slightly to 600 from 700, and pt has 94% O2 sat on 2 liter of O2, CTA reveal Trace right and moderate left pleural effusion. ECHO reveal preserved EF with mild right abnormal heart pressure and moderate elevated RVSP 48mmHG. I&Os reveal -2000ml fluid reduction as far. continue IV Lasix, pt has elevated BP, start with Low dosage lisinopril and low dosage metoprolol, Continue security monitor, continue lab monitor, and vital monitor. Patient had elevated BNP, patient report orthopnea, CXR reveal Pulmonary edema or CHF. Patient has no echo study in this hospital. Plan: We will start with Lasix intravenous, We will finish echo study. We will order blood pressure medication to control patient blood pressure. We will continue security monitor patient and vital signs monitor patient (4) Diabetes with ulcer of foot Conclusion/Plan: 3/4 MAC wound care is pending. continue nurse dressing change and skin care. Wound culture show staph aureus is positive, Sensitivity study is pending. We will continue IV antibiotics, probiotics, Hopefully patient can be discharged to see orthopedic surgeon at his office on next Tuesday. Patient had a large plantar ulcer of left feet for one year. pt has hx of uncontrolled diabetes and ambulated left fourth toe. pt's dressing is very dirty with odor smell. pt took antibiotics at home. plan: culture of blood and ulcer wound, start with antibiotics IV and probiotics, wound care by MAC, and dressing change by nurse. order Xray for pt's left foot. called and consulted with orthopedics, discussed the Xray result with orthopedics. orthopedics doctor recommend we strictly control of his infection, his diabetes, not Necessary to have MRI of feet, he will see pt on Tuesday, recommend pt followup with his office and pt do not need urgent surgery at this point. (5) Hyperglycemia due to type 2 diabetes mellitus Conclusion/Plan: 3/ glucose is good control, glucose is 89 at library aide. Continue Lantus scheduled, continue sliding scale, continue glucose check, continue hypoglycemia protocol Patient's glucose 216 on today, patient has a history of diabetic, he reported he take insulin in the home. We will started with Lantus, sliding scale and scheduled Novolog and patient take Decadron now, and continue hypoglycemia protocol (6) Chronic anemia Conclusion/Plan: 3/ Improved, hemoglobin is 7.8, continue iron supplement Patient hemoglobin 7.3 today, we will have anemia study for patient, patient denies GI bleeding, patient did not take a blood thinning at the home. We will continue to have H&H monitor patient, will order occult study, add ferrous pill for pt. (7) HTN (hypertension) Conclusion/Plan: Patient had elevated blood pressure, we will start with amlodipine, pt also has Lasix. We will closely vital signs monitor patient (8) COPD (chronic obstructive pulmonary disease) Conclusion/Plan: Patient is still smoking and history of COPD. We will start with DuoNeb and albuterol [facility], continue decatron, Supplemental oxygen as needed - Current Meds Current Meds: Current Medications Generic Name Dose Route Start Last Admin Trade Name Freq PRN Reason Stop Dose Admin Ascorbic Acid 500 mg 04/16/21 12:00 04/17/21 08:55 Ascorbic Acid 500 Mg Tablet PO 500 mg DAILY DIANE Administration Benzonatate 100 mg 04/16/21 08:40 04/17/21 08:55 Benzonatate 100 Mg Capsule PO 100 mg TID PRN Administration Cough Dexamethasone 6 mg 04/16/21 06:00 04/17/21 08:55 Dexamethasone 10 Mg/Ml Vial PO 04/25/21 09:01 6 mg DAILY DIANE Administration Enoxaparin Sodium 40 mg 04/16/21 09:00 04/17/21 08:56 Enoxaparin 40 Mg/0.4 Ml Syringe SUBQ 40 mg DAILY DIANE Administration Ferrous Gluconate 324 mg 04/16/21 09:00 04/17/21 08:55 Ferrous Gluconate 324 Mg Tablet PO 324 mg DAILYWM DIANE Administration Furosemide 20 mg 04/16/21 09:00 04/17/21 08:56 Furosemide 20 Mg/2 Ml Vial IVP 20 mg BID DIANE Administration Remdesivir 100 mg/ Sodium 100 mls @ 200 mls/hr 04/17/21 09:00 04/17/21 09:28 Chloride IV 04/20/21 09:29 Infused DAILY DIANE Infusion Cefepime HCl 1 gm/ Sodium 100 mls @ 200 mls/hr 04/16/21 09:00 04/17/21 05:30 Chloride IV Infused TID [facility] Infusion Vancomycin HCl 1 gm/ 500 mls @ 250 mls/hr 04/17/21 00:00 04/17/21 02:01 Vancomycin HCl 500 mg/ Sodium IV Infused Chloride Q12H [facility] Infusion Insulin Aspart 3 - 11 unit 04/16/21 17:00 04/17/21 08:25 Insulin Aspart 300 Unit/3 Ml Pen SUBQ Not Given 0800,1200,1700,2100 [facility] Protocol Insulin Glargine 13 unit 04/17/21 09:00 04/17/21 08:56 Insulin Glargine 300 Unit/3 Ml Pen SUBQ 13 unit DAILY DIANE Administration Lisinopril 5 mg 04/17/21 09:00 04/17/21 08:55 Lisinopril 5 Mg Tablet PO 5 mg DAILY DIANE Administration Metoprolol Succinate 25 mg 04/17/21 09:00 04/17/21 08:55 Metoprolol Succinate 25 Mg Tablet PO 25 mg DAILY DIANE Administration Multivitamins/Minerals 1 tab 04/16/21 12:00 04/17/21 08:55 Multivitamin W/Minerals Tablet PO 1 tab DAILYWM [facility] Administration Saccharomyces Boulardii 250 mg 04/16/21 17:00 04/17/21 08:55 Saccharomyces Boulardii 250 Mg Capsule PO 250 mg BIDWM DIANE Administration Sodium Chloride 10 ml 04/16/21 09:00 04/17/21 08:57 Sodium Chloride Flush 0.9% 10 Ml Syringe IVP 10 ml 0100,0900,1700 [facility] Administration - Lab Result Fish Bone Diagrams: 04/17/21 06:00 04/17/21 06:00 - Additional Planning My Orders: My Active Orders 04/16/21 11:38 Blood Culture [CULTURE, BLOOD #1] [RM] Urgent 04/16/21 11:43 Blood Culture [CULTURE, BLOOD #2] [RM] Urgent 04/16/21 12:00 Ascorbic Acid [Vitamin C] 500 mg PO DAILY Multivitamin W/Minerals [Theragran M] 1 tab PO DAILYWM 04/16/21 Dinner Carb-controlled Diet [DIET] 04/16/21 17:00 Insulin Aspart [NovoLOG] 3 - 11 unit SUBQ 0800,1200,1700,2100 Saccharomyces Boulardii [Florastor] 250 mg PO BIDWM 04/17/21 night time nanny Consult [CONS] Routine 04/17/21 00:00 Vancomycin Inj [Vancomycin] 1 gm Vancomycin Inj [Vancomycin Hcl] 500 mg Sodium Chloride 0.9% [Normal Saline 0.9%] 500 ml IV Q12H 04/17/21 08:23 Telemetry- [RC] Q4HR 04/17/21 09:00 Insulin Glargine [Lantus Solostar] 13 unit SUBQ DAILY Metoprolol Succinate [Toprol Xl] 25 mg PO DAILY Remdesivir 100Mg Vial [Veklury] 100 mg Sodium Chloride 0.9% 100Ml [Normal Saline 0.9% 100Ml] 100 ml IV DAILY lisinopriL [Zestril] 5 mg PO DAILY 04/17/21 10:13 Diabetic Education [RC] ONCE 04/17/21 11:00 guaiFENesin [Mucinex] 600 mg PO BID 04/18/21 05:00 BNP - B-NATRIURETIC PEPTIDE [IAI] DAILYLAB 04/19/21 05:00 BNP - B-NATRIURETIC PEPTIDE [IAI] DAILYLAB Subjective - Subjective Patient Reports: Feeling Better, Resting Comfortably Objective Vital Signs: Vital Signs - 24 hr 04/16/21 04/16/21 04/16/21 12:26 17:00 21:00 Temperature 36.4 C L 36.6 C 36.6 C Heart Rate [ Brachial] Heart Rate [ 99 97 100 Radial] Respiratory 16 22 22 Rate Blood Pressure 167/81 H 176/89 H 173/89 H [Right Brachial artery] O2 Saturation 93 94 100 04/17/21 04/17/21 04/17/21 00:06 03:41 05:09 Temperature 37.0 C 36.5 C Heart Rate [ 101 H 97 Brachial] Heart Rate [ Radial] Respiratory 18 18 Rate Blood Pressure 170/88 H 172/87 H 155/86 H [Right Brachial artery] O2 Saturation 98 95 04/17/21 04/17/21 04/17/21 08:07 09:57 10:37 Temperature 36.4 C L Heart Rate [ 88 Brachial] Heart Rate [ 92 Radial] Respiratory 18 26 H 22 Rate Blood Pressure 169/85 H 167/83 H [Right Brachial artery] O2 Saturation 96 94 94 Oxygen O2 Source Nasal cannula I&O (Last 24 Hrs): Intake and Output Totals x24h 04/15/21 04/16/21 04/17/21 23:59 23:59 23:59 Intake Total 1930 0 Output Total 3800 2000 Balance -1870 60 General: Alert, Oriented x3, Cooperative, No acute distress HEENT: Atraumatic Neck: Supple Lymphatic: no adenopathy Neuro: Alert, Non Focal, Oriented Times 3 Cardiovascular: Regular rate, Normal S1, Normal S2 Respiratory: Chest non-tender, No respiratory distress Abdomen: Normal bowel sounds, Soft Extremities: Normal pulses - Results Results: Laboratory Results WBC 13.4 x10^3/uL (4.8-10.8) H 04/17/21 06:00 RBC 3.21 10^6/uL (4.70-6.10) L 04/17/21 06:00 Hgb 7.8 g/dL (14.0-18.0) L 04/17/21 06:00 Hct 25.5 % (42.0-52.0) L 04/17/21 06:00 MCV 79.4 fL (80.0-94.0) L 04/17/21 06:00 MCH 24.3 pg (27.0-31.0) L 04/17/21 06:00 MCHC 30.6 g/dL (32.0-36.0) L 04/17/21 06:00 RDW 17.9 % (12.0-15.0) H 04/17/21 06:00 Plt Count 445 10^3/uL (130-450) 04/17/21 06:00 MPV 8.8 fL (7.4-11.4) 04/17/21 06:00 Reticulocyte % (Auto) 4.54 % (0.5-2.3) H 04/16/21 06:22 Neut # (Auto) 10.2 10^3/uL (1.5-6.6) H 04/17/21 06:00 Lymph # (Auto) 2.0 10^3/uL (1.5-3.5) 04/17/21 06:00 Christian # (Auto) 1.2 10^3/uL (0.0-1.0) H 04/17/21 06:00 Eos # (Auto) 0.0 10^3/uL (0.0-0.7) 04/17/21 06:00 Baso # (Auto) 0.0 10^3/uL (0.0-0.1) 04/17/21 06:00 Absolute Nucleated RBC 0.00 x10^3/uL 04/17/21 06:00 Nucleated RBC % 0.0 /100WBC 04/17/21 06:00 Absolute Retic 0.133 10^6/uL (0.020-0.110) H 04/16/21 06:22 D-Dimer 832.2 ng/mL (200.0-255.0) H 04/16/21 04:30 VBG pH 7.401 (7.31-7.41) 04/16/21 04:30 VBG pCO2 48.3 mmHg (41-51) 04/16/21 04:30 VBG pO2 26.6 mmHg (25-47) 04/16/21 04:30 VBG HCO3 29.3 mmol/L (23-28) H 04/16/21 04:30 VBG Total CO2 30.8 mmol/L (24-29) H 04/16/21 04:30 VBG O2 Saturation 47.3 % (60-80) L 04/16/21 04:30 VBG Base Excess 4.0 mmol/L (-2 - +2) H 04/16/21 04:30 Sodium 132 mmol/L (135-145) L 04/17/21 06:00 Potassium 3.9 mmol/L (3.5-5.0) 04/17/21 06:00 Chloride 99 mmol/L (101-111) L 04/17/21 06:00 Carbon Dioxide 25 mmol/L (21-32) 04/17/21 06:00 Anion Gap 8.0 (6-13) 04/17/21 06:00 BUN 15 mg/dL (6-20) 04/17/21 06:00 Creatinine 0.8 mg/dL (0.6-1.2) 04/17/21 06:00 Estimated GFR (MDRD) 98 (>89) 04/17/21 06:00 Glucose 89 mg/dL (70-100) 04/17/21 06:00 Estimat Average Glucose 246 mg/dL (70-100) H 04/16/21 06:22 Hemoglobin A1c % 10.2 % (4.27-6.07) H 04/16/21 06:22 Calcium 7.9 mg/dL (8.5-10.3) L 04/17/21 06:00 Iron 32 ug/dL (45-182) L 04/16/21 04:30 TIBC 235 ug/dL (250-450) L 04/16/21 04:30 % Saturation 14 % (20-50) L 04/16/21 04:30 Transferrin 168 mg/dL (180-329) L 04/16/21 04:30 Ferritin 151.3 ng/mL (23.9-336.2) 04/16/21 04:30 Total Bilirubin 0.3 mg/dL (0.2-1.0) 04/16/21 04:30 AST 21 IU/L (10-42) 04/16/21 04:30 ALT 24 IU/L (10-60) 04/16/21 04:30 Alkaline Phosphatase 246 IU/L (42-121) H 04/16/21 04:30 Lactate Dehydrogenase 190 IU/L (91-225) 04/16/21 04:30 Troponin I High Sens 18.8 ng/L (2.3-19.7) 04/16/21 04:30 B-Natriuretic Peptide 607 pg/mL (5-100) H 04/17/21 06:00 Total Protein 7.0 g/dL (6.7-8.2) 04/16/21 04:30 Albumin 1.6 g/dL (3.2-5.5) L 04/16/21 04:30 Globulin 5.4 g/dL (2.1-4.2) H 04/16/21 04:30 Albumin/Globulin Ratio 0.3 (1.0-2.2) L 04/16/21 04:30 Lipase 19 U/L (22-51) L 04/16/21 04:30 Vitamin B12 716 pg/mL (180-914) 04/16/21 04:30 Nasal Adenovirus (PCR) NOT DETECTED 04/16/21 04:35 Nasal B. parapertussis DNA (PCR) NOT DETECTED 04/16/21 04:35 Nasal Coronavir 229E PCR NOT DETECTED 04/16/21 04:35 Nasal Coronavir HKU1 PCR NOT DETECTED 04/16/21 04:35 Nasal Coronavir NL63 PCR NOT DETECTED 04/16/21 04:35 Nasal Coronavir OC43 PCR NOT DETECTED 04/16/21 04:35 Nasal Enterovir/Rhinovir PCR NOT DETECTED 04/16/21 04:35 Nasal Influenza B PCR NOT DETECTED 04/16/21 04:35 Nasal Influenza A PCR NOT DETECTED 04/16/21 04:35 Nasal Parainfluen 1 PCR NOT DETECTED 04/16/21 04:35 Nasal Parainfluen 2 PCR NOT DETECTED 04/16/21 04:35 Nasal Parainfluen 3 PCR NOT DETECTED 04/16/21 04:35 Nasal Parainfluen 4 PCR NOT DETECTED 04/16/21 04:35 Nasal RSV (PCR) NOT DETECTED 04/16/21 04:35 Nasal B.pertussis DNA PCR NOT DETECTED 04/16/21 04:35 Nasal C.pneumoniae (PCR) NOT DETECTED 04/16/21 04:35 Esvin Human Metapneumo PCR NOT DETECTED 04/16/21 04:35 Nasal M.pneumoniae (PCR) NOT DETECTED 04/16/21 04:35 Nasal SARS-CoV-2 (PCR) DETECTED A 04/16/21 04:35 - Procedures Procedures: Procedures DRAINAGE OF R PLEURAL CAV WITH DRAIN DEV, PERC APPROACH (01/29/17) DRAINAGE OF RIGHT PLEURAL CAVITY, PERC APPROACH, DIAGN (01/29/17) ABX Reporting Has patient been on IV antibiotics over the past 48 hours?: Yes Current Medications - Current Medications Current Medications: Active Medications Acetaminophen (Acetaminophen 325 Mg Tablet) 650 mg PO Q4HR PRN PRN Reason: Pain 1 to 4 Albuterol/Ipratropium (Ipratropium/Albuterol 3 Ml Neb) 3 ml INH RTQID PRN PRN Reason: Shortness of Air/Wheezing Ascorbic Acid (Ascorbic Acid 500 Mg Tablet) 500 mg PO DAILY [facility] Last Admin: 04/17/21 08:55 Dose: 500 mg Benzonatate (Benzonatate 100 Mg Capsule) 100 mg PO TID PRN PRN Reason: Cough Last Admin: 04/17/21 08:55 Dose: 100 mg Dexamethasone (Dexamethasone 10 Mg/Ml Vial) 6 mg PO DAILY [facility] Stop: 04/25/21 09:01 Last Admin: 04/17/21 08:55 Dose: 6 mg Enoxaparin Sodium (Enoxaparin 40 Mg/0.4 Ml Syringe) 40 mg SUBQ DAILY [facility] Last Admin: 04/17/21 08:56 Dose: 40 mg Ferrous Gluconate (Ferrous Gluconate 324 Mg Tablet) 324 mg PO DAILYWM [facility] Last Admin: 04/17/21 08:55 Dose: 324 mg Furosemide (Furosemide 20 Mg/2 Ml Vial) 20 mg IVP BID [facility] Last Admin: 04/17/21 08:56 Dose: 20 mg Guaifenesin (Guaifenesin 600 Mg Tablet) 600 mg PO BID [facility] Hydralazine HCl (Hydralazine Inj 20 Mg/Ml Vial) 10 mg IVP QID PRN PRN Reason: Hypertensive Emergency Remdesivir 100 mg/ Sodium (Chloride) 100 mls @ 200 mls/hr IV DAILY [facility] Stop: 04/20/21 09:29 Last Infusion: 04/17/21 09:28 Dose: Infused Cefepime HCl 1 gm/ Sodium (Chloride) 100 mls @ 200 mls/hr IV TID [facility] Last Infusion: 04/17/21 05:30 Dose: Infused Sodium Chloride (Normal Saline 0.9%) 250 mls @ 20 mls/hr IV Q24H PRN PRN Reason: TKO RATE Vancomycin HCl 1 gm/Vancomycin HCl 500 mg/ Sodium Chloride 500 mls @ 250 mls/hr IV Q12H [facility] Last Infusion: 04/17/21 02:01 Dose: Infused Insulin Aspart (Insulin Aspart 300 Unit/3 Ml Pen) 3 - 11 unit SUBQ 0800,1200,1700,2100 [facility]; Protocol Last Admin: 04/17/21 08:25 Dose: Not Given Insulin Glargine (Insulin Glargine 300 Unit/3 Ml Pen) 13 unit SUBQ DAILY [facility] Last Admin: 04/17/21 08:56 Dose: 13 unit Lisinopril (Lisinopril 5 Mg Tablet) 5 mg PO DAILY [facility] Last Admin: 04/17/21 08:55 Dose: 5 mg Metoprolol Succinate (Metoprolol Succinate 25 Mg Tablet) 25 mg PO DAILY [facility] Last Admin: 04/17/21 08:55 Dose: 25 mg Multivitamins/Minerals (Multivitamin W/Minerals Tablet) 1 tab PO DAILYWM [facility] Last Admin: 04/17/21 08:55 Dose: 1 tab Ondansetron HCl (Ondansetron Odt 4 Mg Tablet) 4 mg TL Q6HR PRN PRN Reason: Nausea / Vomiting Ondansetron HCl (Ondansetron 4 Mg/2 Ml Vial) 4 mg IVP Q6HR PRN PRN Reason: Nausea / Vomiting Saccharomyces Boulardii (Saccharomyces Boulardii 250 Mg Capsule) 250 mg PO BIDWM [facility] Last Admin: 04/17/21 08:55 Dose: 250 mg Sodium Chloride (Sodium Chloride Flush 0.9% 10 Ml Syringe) 10 ml IVP PRN PRN PRN Reason: NEEDED PER PROVIDER ORDERS Sodium Chloride (Sodium Chloride Flush 0.9% 10 Ml Syringe) 10 ml IVP 0100,0900,1700 [facility] Last Admin: 04/17/21 08:57 Dose: 10 ml Insulin Aspart [NovoLOG] 20 unit SUBQ AC 04/17/21 Insulin Glargine [Lantus Solostar] 15 unit SUBQ QPM 04/17/21 Insulin Glargine [Lantus Solostar] 50 unit SUBQ QPM 04/17/21 Metformin HCl [Metformin ER Gastric] 1,000 mg PO DAILYWM 04/17/21
[2021-04-17] MEDS: guaiFENesin 600 MG TABLET PO SCH ×2 (12:04→20:24)
[2021-04-17] MEDS: VANCOMYCIN INJ 1 GM, VANCOMYCIN INJ 500 MG in SODIUM CHLORIDE 0.9% 500 ML IV SCH (12:04)
[2021-04-17] MEDS ORDERED: INSULIN ASPART 300 UNIT/3 ML PEN SUBQ ONE (17:12)
[2021-04-18] MEDS: VANCOMYCIN INJ 1 GM, VANCOMYCIN INJ 500 MG in SODIUM CHLORIDE 0.9% 500 ML IV SCH ×2 (00:15→12:20)
[2021-04-18] MEDS: SODIUM CHLORIDE FLUSH 0.9% 10 ML SYRINGE IVP SCH ×3 (00:19→17:06)
[2021-04-18 05:19] LABS: BASOPHILS % (AUTO) 0.3 %; EOSINOPHILS % (AUTO) 0.1 %; HCT - HEMATOCRIT 25.9 % (42.0-52.0); LYMPHOCYTES # (AUTO) 2.1 10^3/uL (1.5-3.5); LYMPHOCYTES % (AUTO) 18.7 %; MEAN CORPUSCULAR HEMOGLOBIN 24.4 pg (27.0-31.0); MEAN CORPUSCULAR HGB CONC 30.9 g/dL (32.0-36.0); MEAN PLATELET VOLUME 9.2 fL (7.4-11.4); NEUTROPHILS # (AUTO) 7.9 10^3/uL (1.5-6.6); NEUTROPHILS % (AUTO) 71.4 %; PLT - PLATELET COUNT 503 10^3/uL (130-450); RED BLOOD COUNT 3.28 10^6/uL (4.70-6.10); RED CELL DISTRIBUTION WIDTH 17.7 % (12.0-15.0); WHITE BLOOD COUNT 11.1 x10^3/uL (4.8-10.8)
[2021-04-18 05:37] LABS: CALCIUM 7.8 mg/dL (8.5-10.3); CREATININE 0.6 mg/dL (0.6-1.2); POTASSIUM 3.6 mmol/L (3.5-5.0)
[2021-04-18] MEDS: BENZONATATE 100 MG CAPSULE PO PRN ×3 (05:48→20:22)
[2021-04-18] MEDS: CEFEPIME 1 GM in SODIUM CHLORIDE 0.9% MINIBAG 100 ML IV SCH (05:49)
[2021-04-18] MEDS: INSULIN ASPART 300 UNIT/3 ML PEN SUBQ SCH ×4 (08:17→20:23)
[2021-04-18] MEDS: polyethylene glycoL 3350 17 GM PACKET PO SCH (08:18)
[2021-04-18] MEDS: FUROSEMIDE 20 MG/2 ML VIAL IVP SCH ×2 (08:35→17:04)
[2021-04-18] MEDS: DEXAMETHASONE 10 MG/ML VIAL PO SCH (08:35)
[2021-04-18] MEDS: REMDESIVIR 100MG VIAL 100 MG in SODIUM CHLORIDE 0.9% 100ML 100 ML IV SCH (08:35)
[2021-04-18] MEDS: METOPROLOL SUCCINATE 25 MG TABLET PO SCH (08:39)
[2021-04-18] MEDS: guaiFENesin 600 MG TABLET PO SCH ×2 (08:39→20:22)
[2021-04-18] MEDS: FERROUS GLUCONATE 324 MG TABLET PO SCH (08:39)
[2021-04-18] MEDS: MULTIVITAMIN W/MINERALS TABLET PO SCH (08:39)
[2021-04-18] MEDS: SACCHAROMYCES BOULARDII 250 MG CAPSULE PO SCH ×2 (08:39→17:05)
[2021-04-18] MEDS: lisinopriL 5 MG TABLET PO SCH (08:39)
[2021-04-18] MEDS: ASCORBIC ACID 500 MG TABLET PO SCH (08:39)
[2021-04-18] MEDS: ENOXAPARIN 40 MG/0.4 ML SYRINGE SUBQ SCH (08:40)
[2021-04-18] MEDS: INSULIN GLARGINE 300 UNIT/3 ML PEN SUBQ SCH (08:45)
[2021-04-18 11:36] LABS: VANCOMYCIN,TROUGH 15.7 ug/mL (10.0-20.0)
--- NOTE | 2021-04-18 15:51 | PROVIDER PROGRESS NOTE ---
Subjective - Prog Note Date Prog Note Date: 04/18/21 Prog Note Time: 15:47 - Subjective Pt reports feeling: No change Subjective: He is very sleepy today. He says that every time he sits down he just falls asleep. His shortness of breath is slowly improving. It is about the same as it was yesterday. He was able to walk 20 feet yesterday and that really made him feel hopeful that he is good to get out of here soon. He drinks quite a bit of coffee. Probably 4 cups of coffee during morning shift and afternoon shift.That means he is drinking about 8 cups of coffee in a patient who has congestive heart failure that we have started him on Lasix for. Cough is the same. No hemoptysis. No chest pain, no pleuritic chest pain. No abdominal pain. Current Medications - Current Medications Current Medications: Active Medications Acetaminophen (Acetaminophen 325 Mg Tablet) 650 mg PO Q4HR PRN PRN Reason: Pain 1 to 4 Last Admin: 04/18/21 12:34 Dose: 650 mg Albuterol/Ipratropium (Ipratropium/Albuterol 3 Ml Neb) 3 ml INH RTQID PRN PRN Reason: Shortness of Air/Wheezing Ascorbic Acid (Ascorbic Acid 500 Mg Tablet) 500 mg PO DAILY [facility] Last Admin: 04/18/21 08:39 Dose: 500 mg Benzonatate (Benzonatate 100 Mg Capsule) 100 mg PO TID PRN PRN Reason: Cough Last Admin: 04/18/21 12:27 Dose: 100 mg Dexamethasone (Dexamethasone 10 Mg/Ml Vial) 6 mg PO DAILY [facility] Stop: 04/25/21 09:01 Last Admin: 04/18/21 08:35 Dose: 6 mg Enoxaparin Sodium (Enoxaparin 40 Mg/0.4 Ml Syringe) 40 mg SUBQ DAILY [facility] Last Admin: 04/18/21 08:40 Dose: 40 mg Ferrous Gluconate (Ferrous Gluconate 324 Mg Tablet) 324 mg PO DAILYWM [facility] Last Admin: 04/18/21 08:39 Dose: 324 mg Furosemide (Furosemide 20 Mg/2 Ml Vial) 20 mg IVP 0900,1700 [facility] Guaifenesin (Guaifenesin 600 Mg Tablet) 600 mg PO BID [facility] Last Admin: 04/18/21 08:39 Dose: 600 mg Hydralazine HCl (Hydralazine Inj 20 Mg/Ml Vial) 10 mg IVP QID PRN PRN Reason: Hypertensive Emergency Remdesivir 100 mg/ Sodium (Chloride) 100 mls @ 200 mls/hr IV DAILY [facility] Stop: 04/20/21 09:29 Last Infusion: 04/18/21 09:12 Dose: Infused Sodium Chloride (Normal Saline 0.9%) 250 mls @ 20 mls/hr IV Q24H PRN PRN Reason: TKO RATE Vancomycin HCl 1 gm/Vancomycin HCl 500 mg/ Sodium Chloride 500 mls @ 250 mls/hr IV Q12H [facility] Last Infusion: 04/18/21 14:28 Dose: Infused Insulin Aspart (Insulin Aspart 300 Unit/3 Ml Pen) 3 - 11 unit SUBQ 0800,1200,1700,2100 [facility]; Protocol Last Admin: 04/18/21 12:27 Dose: 5 unit Insulin Glargine (Insulin Glargine 300 Unit/3 Ml Pen) 13 unit SUBQ DAILY [facility] Last Admin: 04/18/21 08:45 Dose: 13 unit Lisinopril (Lisinopril 5 Mg Tablet) 5 mg PO DAILY [facility] Last Admin: 04/18/21 08:39 Dose: 5 mg Metoprolol Succinate (Metoprolol Succinate 25 Mg Tablet) 25 mg PO DAILY [facility] Last Admin: 04/18/21 08:39 Dose: 25 mg Multivitamins/Minerals (Multivitamin W/Minerals Tablet) 1 tab PO DAILYWM [facility] Last Admin: 04/18/21 08:39 Dose: 1 tab Ondansetron HCl (Ondansetron Odt 4 Mg Tablet) 4 mg TL Q6HR PRN PRN Reason: Nausea / Vomiting Ondansetron HCl (Ondansetron 4 Mg/2 Ml Vial) 4 mg IVP Q6HR PRN PRN Reason: Nausea / Vomiting Polyethylene Glycol (Polyethylene Glycol 3350 17 Gm Packet) 17 gm PO DAILY [facility] Last Admin: 04/18/21 08:18 Dose: Not Given Saccharomyces Boulardii (Saccharomyces Boulardii 250 Mg Capsule) 250 mg PO BIDWM [facility] Last Admin: 04/18/21 08:39 Dose: 250 mg Sodium Chloride (Sodium Chloride Flush 0.9% 10 Ml Syringe) 10 ml IVP PRN PRN PRN Reason: NEEDED PER PROVIDER ORDERS Sodium Chloride (Sodium Chloride Flush 0.9% 10 Ml Syringe) 10 ml IVP 0100,0900,1700 DIANE Last Admin: 04/18/21 08:40 Dose: 10 ml Insulin Aspart [NovoLOG] 20 unit SUBQ AC 04/17/21 Insulin Glargine [Lantus Solostar] 15 unit SUBQ QPM 04/17/21 Insulin Glargine [Lantus Solostar] 50 unit SUBQ QPM 04/17/21 Metformin HCl [Metformin ER Gastric] 1,000 mg PO DAILYWM 04/17/21 Objective - Vital Signs/Intake & Output Reviewed Vital Signs: Yes Vital Signs: Vital Signs x48h Temp Pulse Resp BP Pulse Ox 04/18/21 14:00 19 94 04/18/21 11:59 37.0 C 89 20 163/88 H 94 04/18/21 10:45 92 19 94 04/18/21 08:00 36.4 C L 89 20 143/88 H 95 Intake & Output: Intake & Output 04/15/21 04/16/21 04/17/21 04/18/21 23:59 23:59 23:59 23:59 Intake Total 1930 5330 2900 Output Total 3800 5525 4200 Balance -1870 -195 1300 - Objective General Appearance: positive: No acute distress, Other (He is sleepy. Very bored. White gentleman that looks much older than stated age. Does not want to watch TV. Is stuck in this room) Eyes Bilateral: positive: PERRL, EOMI ENT: positive: No signs of dehydration Neck: positive: No JVD. negative: Stiff neck Respiratory: positive: No respiratory distress, Rhonchi. negative: Wheezes, Rales Cardiovascular: positive: Regular rate & rhythm, No murmur. negative: Gallop/S4, Friction rub Abdomen: positive: Non-tender, No organomegaly, Nml bowel sounds, No distention Skin: positive: Warm, Dry, Pallor Extremities: positive: Full ROM, No pedal edema Neurologic/Psychiatric: positive: Oriented x3, CN's nml (2-12), Motor nml - Lab Results Fish Bones: 04/18/21 04:58 04/18/21 04:58 Other Labs: Lab Results x24hrs 04/18/21 04/18/21 04/18/21 Range/Units 11:10 04:58 04:58 WBC (4.8-10.8) x10^3/uL RBC (4.70-6.10) 10^6/uL Hgb (14.0-18.0) g/dL Hct (42.0-52.0) % MCV (80.0-94.0) fL MCH (27.0-31.0) pg MCHC (32.0-36.0) g/dL RDW (12.0-15.0) % Plt Count (130-450) 10^3/uL MPV (7.4-11.4) fL Neut # (Auto) (1.5-6.6) 10^3/uL Lymph # (Auto) (1.5-3.5) 10^3/uL [place] # (Auto) (0.0-1.0) 10^3/uL Eos # (Auto) (0.0-0.7) 10^3/uL Baso # (Auto) (0.0-0.1) 10^3/uL Absolute Nucleated RBC x10^3/uL Nucleated RBC % /100WBC Sodium 130 L (135-145) mmol/L Potassium 3.6 (3.5-5.0) mmol/L Chloride 96 L (101-111) mmol/L Carbon Dioxide 26 (21-32) mmol/L Anion Gap 8.0 (6-13) BUN 18 (6-20) mg/dL Creatinine 0.6 (0.6-1.2) mg/dL Estimated GFR (MDRD) 136 (>89) Glucose 144 H (70-100) mg/dL Calcium 7.8 L (8.5-10.3) mg/dL B-Natriuretic Peptide 871 H (5-100) pg/mL Last Dose Date UNK Last Dose Time UNK Vancomycin Trough 15.7 (10.0-20.0) ug/mL 04/18/21 04/18/21 Range/Units 04:58 00:36 WBC 11.1 H (4.8-10.8) x10^3/uL RBC 3.28 L (4.70-6.10) 10^6/uL Hgb 8.0 L (14.0-18.0) g/dL Hct 25.9 L (42.0-52.0) % MCV 79.0 L (80.0-94.0) fL MCH 24.4 L (27.0-31.0) pg MCHC 30.9 L (32.0-36.0) g/dL RDW 17.7 H (12.0-15.0) % Plt Count 503 H (130-450) 10^3/uL MPV 9.2 (7.4-11.4) fL Neut # (Auto) 7.9 H (1.5-6.6) 10^3/uL Lymph # (Auto) 2.1 (1.5-3.5) 10^3/uL [place] # (Auto) 1.0 (0.0-1.0) 10^3/uL Eos # (Auto) 0.0 (0.0-0.7) 10^3/uL Baso # (Auto) 0.0 (0.0-0.1) 10^3/uL Absolute Nucleated RBC 0.00 x10^3/uL Nucleated RBC % 0.0 /100WBC Sodium (135-145) mmol/L Potassium (3.5-5.0) mmol/L Chloride (101-111) mmol/L Carbon Dioxide (21-32) mmol/L Anion Gap (6-13) BUN (6-20) mg/dL Creatinine (0.6-1.2) mg/dL Estimated GFR (MDRD) (>89) Glucose (70-100) mg/dL Calcium (8.5-10.3) mg/dL B-Natriuretic Peptide (5-100) pg/mL Last Dose Date 04/18/2021 Last Dose Time 0000 Vancomycin Trough 26.0 H* (10.0-20.0) ug/mL ABX Reporting Has patient been on IV antibiotics over the past 48 hours?: Yes Assessment/Plan - Problem List (1) Respiratory failure with hypoxia Impression: He presented as shortness of breath for 1 week and worsening acutely overnight resulting in his coming to the emergency room. His chest x-ray had pulmonary edema in a patient who has COPD from smoking. He was also COVID-19 positive. As such he is being treated as heart failure, COPD exacerbation and Covid pneumonia. He is needed anywhere between 2 to 3 L of oxygen. Yesterday afternoon he was consistently down to 1 L. By this afternoon he is down to room air and is 94% saturated. Depending on how fatigued or dyspneic he is, he may be able to be discharged by tomorrow if he does not need any more oxygen. (2) Pneumonia due to COVID-19 virus Conclusion/Plan: Day 04/23 of Decadron Day 04/18 of remdesivir (3) Cor pulmonale Conclusion/Plan: Who presented as shortness of breath, hypoxia, and had evidence of CHF on chest x-ray. Echocardiogram done April 16 shows LVH with normal systolic function. Ejection fraction 55%. Left atrium mildly dilated. Mild mitral regurgitation. Moderate pulmonary hypertension with a PASP of 48 mmHg. Normal right ventricular size and function. He has mild to moderate aortic valve sclerosis without stenosis. He has had a consistent negative fluid balance since admission. April 16 was - 1869. April 17 was -195 Today he is -1300 cc so far. He is on Lasix 20 mg twice a day IV. Zestril 5 mg daily. Both of those are new for him. Blood pressure is elevated to 163/88 so I would keep him on the Zestril and continue the diuresis for now. Within normal room air saturation, will consider discharge for tomorrow. (4) Diabetes with ulcer of foot Conclusion/Plan: He has had a large plantar ulcer of the left foot for 1 year. On top of that is superimposed uncontrolled diabetes and an amputated left fourth toe. When he presented on admission his dressing was dirty, malodorous. [place] [facility] [place]. Gonzalez, orthopedics, will see the patient April 20 in his office. He does not feel the patient needs to be urgently seen while in the hospital nor does he need any surgical intervention. We are continuing with dressing changes and skin care per nursing protocol. Wound culture is MRSA. As such I am stopping all antibiotics except vancomycin. (5) Hyperglycemia due to type 2 diabetes mellitus Conclusion/Plan: He has had good blood glucose in the morning. Lantus 13 units in the morning and he is sliding scale before meals. April 16: 182, 72, 83, 224 April 17: 103, 197, 285, 314 April 18: 102, 258 I will add short acting insulin, 5 units, before dinner (6) Chronic anemia Conclusion/Plan: Iron is 32, TIBC 235, percent saturation 14, transferrin 168. Ferritin 151. B12 716. Reticulocyte count is 4.54 with normal being 0.5-2.3. He is being treated as iron deficiency anemia but will check LDH in the morning to make sure there is no hemolysis. (7) HTN (hypertension) Conclusion/Plan: He does not take any antihypertensives at home. Since being here he has been started on Zestril 5 mg daily, Toprol-XL 25 mg daily and hydralazine as needed. He is consistently hypertensive during the stay. I would anticipate that he will be going home on these medications at home. (8) COPD (chronic obstructive pulmonary disease) Conclusion/Plan: Patient is still smoking and history of COPD. We have started DuoNeb and albuterol NIH, continue decatron, Supplemental oxygen as needed
[2021-04-18 19:56] LABS: FECAL OCCULT BLOOD (FIT) POSITIVE (NEGATIVE)
[2021-04-19] MEDS: VANCOMYCIN INJ 1 GM, VANCOMYCIN INJ 500 MG in SODIUM CHLORIDE 0.9% 500 ML IV SCH (00:13)
[2021-04-19] MEDS: SODIUM CHLORIDE FLUSH 0.9% 10 ML SYRINGE IVP SCH ×2 (00:14→08:34)
[2021-04-19] MEDS ORDERED: traZODone 50 MG TABLET PO STA (00:33)
[2021-04-19 05:14] LABS: BASOPHILS % (AUTO) 0.2 %; EOSINOPHILS % (AUTO) 0.2 %; HCT - HEMATOCRIT 24.6 % (42.0-52.0); HGB - HEMOGLOBIN 7.5 g/dL (14.0-18.0); LYMPHOCYTES # (AUTO) 1.9 10^3/uL (1.5-3.5); LYMPHOCYTES % (AUTO) 16.7 %; MEAN CORPUSCULAR HEMOGLOBIN 24.4 pg (27.0-31.0); MEAN CORPUSCULAR HGB CONC 30.5 g/dL (32.0-36.0); MEAN CORPUSCULAR VOLUME 80.1 fL (80.0-94.0); MEAN PLATELET VOLUME 9.2 fL (7.4-11.4); MONOCYTES # (AUTO) 0.8 10^3/uL (0.0-1.0); MONOCYTES % (AUTO) 7.1 %; NEUTROPHILS # (AUTO) 8.5 10^3/uL (1.5-6.6); NEUTROPHILS % (AUTO) 75.3 %; PLT - PLATELET COUNT 446 10^3/uL (130-450); RED BLOOD COUNT 3.07 10^6/uL (4.70-6.10); WHITE BLOOD COUNT 11.3 x10^3/uL (4.8-10.8)
[2021-04-19 05:27] LABS: CALCIUM 7.8 mg/dL (8.5-10.3); CREATININE 0.6 mg/dL (0.6-1.2); POTASSIUM 3.5 mmol/L (3.5-5.0)
[2021-04-19] MEDS: polyethylene glycoL 3350 17 GM PACKET PO SCH (07:44)
[2021-04-19] MEDS: INSULIN ASPART 300 UNIT/3 ML PEN SUBQ SCH (08:30)
[2021-04-19] MEDS: ENOXAPARIN 40 MG/0.4 ML SYRINGE SUBQ SCH (08:32)
[2021-04-19] MEDS: FERROUS GLUCONATE 324 MG TABLET PO SCH (08:33)
[2021-04-19] MEDS: MULTIVITAMIN W/MINERALS TABLET PO SCH (08:33)
[2021-04-19] MEDS: SACCHAROMYCES BOULARDII 250 MG CAPSULE PO SCH (08:33)
[2021-04-19] MEDS: ASCORBIC ACID 500 MG TABLET PO SCH (08:33)
[2021-04-19] MEDS: lisinopriL 5 MG TABLET PO SCH (08:33)
[2021-04-19] MEDS: METOPROLOL SUCCINATE 25 MG TABLET PO SCH (08:33)
[2021-04-19] MEDS: guaiFENesin 600 MG TABLET PO SCH (08:33)
[2021-04-19] MEDS: BENZONATATE 100 MG CAPSULE PO PRN (08:33)
[2021-04-19] MEDS: DEXAMETHASONE 10 MG/ML VIAL PO SCH (08:33)
[2021-04-19] MEDS: FUROSEMIDE 20 MG/2 ML VIAL IVP SCH (08:33)
[2021-04-19] MEDS: INSULIN GLARGINE 300 UNIT/3 ML PEN SUBQ SCH (08:35)
[2021-04-19] MEDS: REMDESIVIR 100MG VIAL 100 MG in SODIUM CHLORIDE 0.9% 100ML 100 ML IV SCH (08:38)
--- NOTE | 2021-04-19 08:55 | Discharge Plan ---
Discharge Plan Problem Reviewed?: Yes Disposition: Home, Self Care Condition: Stable Prescriptions: Sulfamethox/Trimeth 800/160 [Bactrim Ds] 1 tablet PO BID 6 Days #12 tablet dexAMETHasone [Decadron] 6 mg PO DAILY #9 ml Ferrous Gluconate [Fergon] 324 mg PO DAILYWM #30 tablet Metoprolol Succinate [Toprol Xl] 25 mg PO DAILY #30 tablet lisinopriL [Zestril] 5 mg PO DAILY #30 tablet Diet: Diabetic Activity Restrictions: Activity as Tolerated Shower Restrictions: Yes (keep foot clean and dry and wrapped with clean bandage) Driving Restrictions: Yes (no driving due to L foot infection) Assistance Devices: Wheelchair, Walker Health Concerns: You have a past medical history for uncontrolled diabetes mellitus, current smoking with emphysema, high blood pressure, and hepatitis C that came to the emergency room because you have been short of breath for about a week. We found you to have Covid pneumonia. We have been giving you remdesivir and Decadron. Decadron is a very powerful anti-inflammatory steroid. You have been here for days and your oxygen has been normal for 2 days. You really wish to go home and as such we are sending you home earlier than we would like to complete remdesivir therapy which is 5 days. You still need to complete 6 more days of Decadron by mouth. While you were here, we also identified you as having a left ball of foot ulcer and infection due to diabetes mellitus. It is MRSA positive. Shortness of breath was still a problem for you while you were here. We found her shortness of breath due to be lack of oxygen from Covid pneumonia as well as fluid in the lungs from congestive heart failure and you also have emphysema from smoking.. For short time we gave you a water pill to get rid of fluid in your lungs. We also gave you nebulizers for your emphysema and wheezing. You are chronically anemic and has been started on iron and vitamin C. We would like you to stay on iron and vitamin C at home. Plan of Treatment: 1. Please keep your foot clean and dry. Please walk on the heel of your left foot. Any pressure on your ball of foot may increase the infection and increased your risk for needing amputation. You can clean your foot with sterile soap and water but you must dry it immediately, and put a clean white Kerlix bandage on it. 2. You need 6 more days of antibiotics for MRSA. You will be sent home on a sulfa antibiotic called Bactrim for the next [address] Alcazar, from orthopedic surgery, would like to see you in his office on April 20. Please call his office at 8:00 am. [phone]. He has offices in [place] on [address] [facility], [facility] [address]. Call his office in the morning to find out which office he wants to see you when. Most likely you will not have an appointment scheduled and you will be a "walk-in appointment". 4. While you were here you were kept on a carb restricted diabetic diet. What was remarkable is how little insulin you needed here. At home, it is reported that you are taking up to 65 units of Lantus a day. While here, because you are on a carbohydrate restricted diet, you only needed 13 units of Lantus a day. This shows that you can control your sugar with appropriate food intake. Please try to do that at home. At this time you are already manifesting all the end- stage problems with uncontrolled diabetes. This will definitely shorten your life span and increase your risk of dialysis, blindness, heart attack, stroke. 5. Please see your primary care provider, Dr. Saldivar, in the office in the next week. He needs to examine your foot, make sure the infection is well treated with the antibiotic, and go over your blood glucose. He will need to call his office and set up an appointment. No Smoking: If you smoke, Please STOP! Call for help. Follow-up with: Brandyn Alcazar MD [Provider Admit Priv/Credential] - Rajat Saldivar MD [Provider Admit Priv/Credential] -
--- NOTE | 2021-04-19 09:27 | DISCHARGE SUMMARY ---
Discharge Summary Admit Date: 04/16/21 Discharge Date: 04/19/21 Discharging Provider: Leona Galvin MD Primary Care Provider: Rajat Saldivar MD Code Status: Attempt Resuscitation Condition at Discharge: Stable Discharge Disposition: 01 Home, Self Care - DIAGNOSES Discharge Diagnoses with Status of Each Condition: 1. Respiratory failure with hypoxia 2. Pneumonia due to COVID-19 3. Diastolic heart failure with possible cor pulmonale 4. Type 2 diabetes mellitus with ulcer of the foot 5. Hyperglycemia due to type 2 diabetes mellitus 6. Chronic anemia 7. Hypertension 8. COPD without exacerbation - HPI History of Present Illness: Patient is a 65-year-old gentleman with a past medical history significant for diabetes, current smoker, COPD, loculated pleural effusion in 2017 requiring chest tube, medical non-complaint, hyperlipidemia, hypertension and hepatitis C status post treatment in 1999, who presented to the emergency department with a chief complaint of shortness of breath. pt report he has been one week of progressive dyspnea and he feel worsening overnight. He report he feel more difficulty to breath on the lay flat. Pt was found with O2 sat 86% on room air initially at ER and was placed on 4-6L of O2 via NC and increased O2 sat to 95%. pt's Covid 19 test is positive. He report no one ask him to have COVID-19 vaccination and he did not think about he need to have vaccination for Covid 19. he is unvaccinated. he report he smoke 3-4 cigaret daily. He denies fever, chill, chest pain. pt present dirty dressing with odor smell on his left foot ulcer infection. Patient report his primary care asked him to do dressing change every 2 days. Patient also report his left feet infection has been on 1 year. Patient report he never heard he was anemia, he denies GI bleeding. He denies n ausea, vomiting. Chest x-ray show findings compatible with pulmonary edema or CHF, concurrent Infection or inflammation process not excluded. Routine laboratory test significantly show patient is COVID-19 positive, glucose 216, Hemoglobin 7.3,D- dimer 832. In the ER, patient is afebrile, patient had oxygen saturation 89% on room air with tachycardia, Blood pressure 170/90. Discussed the care goal with the patient, patient hope to have full code. - Past Medical History Cardiovascular: reports: Hypertension, High cholesterol Respiratory: reports: None Neuro: reports: Peripheral neuropathy Endocrine/Autoimmune: reports: Type 2 diabetes GI: reports: Hepatitis : reports: Other Psych: reports: None Musculoskeletal: reports: None Derm: reports: None MRSA Hx?: No Other Past Medical History: Urinary urgency - HOSPITAL COURSE Hospital Course: This gentleman has COPD baseline. But is not on oxygen. When he became ill with COVID-19 he was felt to have mild COVID-19 pneumonia and treated with remdesivir and Decadron. By the fourth day of remdesivir he was without hypoxia for 48 hours. Was very anxious to go home. Did not want to complete therapy. And asked that she is completed 4 days of Decadron IV and 4 days of remdesivir. He will be sent home with 6 more days of Decadron. He was found to have congestive heart failure with pulmonary edema. Echocar diogram had ejection fraction of 55 to 60%. Mild concentric left ventricular hypertrophy. Right ventricle normal in size and function. Mild increase in left atrial volume index and right atrial size normal. Mild to moderate aortic sclerosis without stenosis. He had mild tricuspid regurgitation and mildly abnormal elevated right heart pressures at RVSP 48 mmHg. He was treated with Lasix a few times to help with the hypoxia and shortness of breath. He has a chronic foot ulcer of the left foot for over a year now. This is due to uncontrolled diabetes mellitus. Orthopedics reviewed the films but never saw the patient. They did not feel they needed to see the patient in the hospital and asked the patient be seen on April 20 in their office. The patient is to call at 8 AM and he will be seen during the day as a work in. He has been asked to keep the wound clean and dry. On admission the dressing was dirty, malodorous and the patient is weightbearing on that ulcer. We are asking him to do heel walking and use crutches or a walker to avoid weightbearing. Culture grew out MRSA and he was treated with vancomycin after broad-spectrum antibiotics were discontinued. He was sent home with Bactrim. Diabetes mellitus is felt to be uncontrolled in the outpatient setting. He is on 65 units of Lantus combined. While in the hospital he was in a carb controlled diet which he bitterly complained about. He kept on accusing us of "starving him" in spite of full caloric intake and snacks. Nursing stated that he would be quite belligerent at night when he wanted more food. Overall, he only needed anywhere between 10 to 15 units of insulin/Lantus while he was here. He did not require the 65 units he was taking at home. And this is with us giving him Decadron 4 COVID. Grater than 30 minutes was spent in discharge - ALLERGIES Allergies/Adverse Reactions: Allergies Allergy/AdvReac Type Severity Reaction Status Date / Time No Known Drug Allergies Allergy Verified 04/16/21 04:31 - MEDICATIONS Home Medications: Ambulatory Orders Medication Instructions Recorded Confirmed Insulin Aspart [NovoLOG] 20 unit SUBQ AC 04/17/21 04/17/21 Insulin Glargine [Lantus Solostar] 15 unit SUBQ QPM 04/17/21 04/17/21 Insulin Glargine [Lantus Solostar] 50 unit SUBQ QPM 04/17/21 04/17/21 Metformin HCl [Metformin ER 1,000 mg PO DAILYWM 04/17/21 04/17/21 Gastric] Ascorbic Acid [Vitamin C] 500 mg PO DAILY tablet 04/19/21 Ferrous Gluconate [Fergon] 324 mg PO DAILYWM #30 tablet 04/19/21 Metoprolol Succinate [Toprol Xl] 25 mg PO DAILY #30 tablet 04/19/21 Multivitamin W/Minerals [Theragran 1 tab PO DAILYWM tablet 04/19/21 M] Sulfamethox/Trimeth 800/160 1 tablet PO BID 6 Days #12 tablet 04/19/21 [Bactrim Ds] dexAMETHasone [Decadron] 6 mg PO DAILY #9 ml 04/19/21 guaiFENesin [Mucinex] 600 mg PO BID tablet 04/19/21 lisinopriL [Zestril] 5 mg PO DAILY #30 tablet 04/19/21 - LABS Result Diagrams: 04/19/21 04:35 04/19/21 04:35
[2021-04-19 12:59] VITALS: BP 148/69
== END 2021-04-19 12:40 | disposition home or self-care (01) | DRG 177 ==
LOC: EDUNIT# → ED 04:20 → MS2 05:58
PROVIDERS: ADMIT Nurse Practitioner Gerontology; ATTEND Specialist
PROC: 3E0333Z Introduction of Anti-inflammatory into Peripheral Vein, Percutaneous Approach (ICD-10-PCS; 2021-04-16)
PROC: XW033E5 Introduction of Remdesivir Anti-infective into Peripheral Vein, Percutaneous Approach, New Technology Group 5 (ICD-10-PCS; principal; 2021-04-17)
DX: U07.1 COVID-19 (principal); J96.01 Acute respiratory failure with hypoxia; J12.82 Pneumonia due to coronavirus disease 2019; I50.30 Unspecified diastolic (congestive) heart failure; L97.429 Non-pressure chronic ulcer of left heel and midfoot with unspecified severity; J90 Pleural effusion, not elsewhere classified; J43.9 Emphysema, unspecified; I11.0 Hypertensive heart disease with heart failure; E11.621 Type 2 diabetes mellitus with foot ulcer; E11.65 Type 2 diabetes mellitus with hyperglycemia; Z79.4 Long term (current) use of insulin; Z79.84 Long term (current) use of oral hypoglycemic drugs; B95.62 Methicillin resistant Staphylococcus aureus infection as the cause of diseases classified elsewhere; F17.210 Nicotine dependence, cigarettes, uncomplicated; D64.9 Anemia, unspecified; E78.5 Hyperlipidemia, unspecified; I27.81 Cor pulmonale (chronic); Z89.422 Acquired absence of other left toe(s); B19.20 Unspecified viral hepatitis C without hepatic coma; E11.42 Type 2 diabetes mellitus with diabetic polyneuropathy
CPT/HCPCS: 0202U; 36415; 71045; 71275; 73620; 80048; 80053; 80202; 82274; 82607; 82728; 82803; 83036; 83540; 83615; 83690; 83880; 84466; 84484; 85014; 85018; 85025; 85045; 85379; 87040; 87070; 87181; 87205; 93005; 93306; 94640; 94664; 97161; 97165; 99283; 99285; A9270; J1650; J1815; J3370; Q9967

== ENCOUNTER 2021-04-21 08:00 | Outpatient (CLI) | payer MEDICAID ==
--- NOTE | 2021-04-21 09:05 | XRAY Report ---
PROCEDURE: Foot 3 View LT INDICATIONS: FOOT WOUND/ULCER TECHNIQUE: 3 views of the foot were acquired. COMPARISON: 04/16/2021 FINDINGS: Bones: Redemonstration of previous amputation of the left fourth toe at the level of the metatarsoph alangeal joint. No fractures or dislocations. Redemonstration of ill-defined distal margins of the l eft first, second, and third metatarsals with small osseous fragments of the distal margins. Findings are not significantly changed accounting for slight differences in imaging technique. Stable appeara nce of moderate overlying soft tissue edema. Remainder the visualized osseous structures are stable. No acute fracture seen. No suspicious osseous lesion. Soft tissues: No tibiotalar joint effusion. Achilles tendon appears normal. Moderate left mid and forefoot soft tissue swelling with persistent soft tissue defect overlying the plantar aspect of the left forefoot near the head of the metatarsals. No soft tissue gas visualized. IMPRESSION: Redemonstration of ill-defined osseous margins of the distal left first, second, and third metatarsal s with associated osseous fragments and overlying soft tissue swelling. Findings may represent sequel a of neurogenic arthropathy; however, an infectious process such as osteomyelitis with associated sera nt destruction not excluded. Recommend clinical correlation. Further evaluation with MRI may be helpf ul. Stable postsurgical changes of amputation of the left fourth toe at the level of the metatarsophalang eal joint. Reviewed by: Burt Ramos MD on 04/21/2021 9:04 AM PST Approved by: Burt Ramos MD on 04/21/2021 9:04 AM PST Station ID: [id number]
== END 2021-04-21 23:59 ==
LOC: DI.WOS 08:00
PROVIDERS: ATTEND Orthopaedic Surgery
DX: E11.621 Type 2 diabetes mellitus with foot ulcer (principal); L97.529 Non-pressure chronic ulcer of other part of left foot with unspecified severity; Z89.422 Acquired absence of other left toe(s)

== ENCOUNTER 2021-05-10 11:48 | Inpatient (IN) | payer MEDICAID ==
--- OUTSIDE RECORDS SUMMARY | 2021-05-10 12:16 | EXTERNAL MEDICAL SUMMARY RPT | Continuity of Care Document ---
:1955 Author Organization [place] Address [address] [place] [address] Phone Allergies No information. Encounters No information. Medications No information. Problems date description facility [id number] Left ventricular failure, unspecified [facility] Results No information.
[2021-05-10] MEDS ORDERED: MORPHINE 2 MG/ML CARPUJECT IVP STA (12:23)
[2021-05-10] MEDS ORDERED: IPRATROPIUM/ALBUTEROL 3 ML NEB INH STA (12:23)
--- NOTE | 2021-05-10 12:26 | ED Physician Documentation ---
PD HPI DYSPNEA - Stated complaint Stated Complaint: SOA/LEG PAIN - Chief complaint Chief Complaint: Cardiac - History obtained from History obtained from: Patient - Additional information Additional information: This is a 65-year-old gentleman brought in POV. He complains of shortness of breath and leg pain. States that shortness of breath and leg pain have been going on for 2 to 3 days. He states that is been going on since he was discharged from the hospital, but note that he was discharged about 3 weeks ago so there is some question to the accuracy of his history. He lives at home with his daughter. Continues to smoke 3 or 4 cigarettes a day. He was admitted here with Covid pneumonia in early April, again discharged about 3 weeks ago. He has a history of loculated pleural effusion, COPD, tobacco abuse, diabetes, leg wounds,'s hepatitis C status post treatment. He has had a productive cough. Denies fevers or chills. No chest pain. Shortness of breath is worse when laying flat. He has significant bilateral leg pain up to the thighs and he thinks his left foot ulcer has reopened. He is already being considered for amputation per him for this. Review of Systems Ten Systems: 10 systems reviewed and negative Constitutional: reports: Reviewed and negative Ears: reports: Reviewed and negative Cardiac: reports: Reviewed and negative Respiratory: reports: Dyspnea, Cough PD PAST MEDICAL HISTORY - Past Medical History Cardiovascular: Hypertension, High cholesterol Respiratory: None Neuro: Peripheral neuropathy Endocrine/Autoimmune: Type 2 diabetes GI: Hepatitis : Other Psych: None Musculoskeletal: None Derm: None - Past Surgical History Past Surgical History: Yes General: Hiatal hernia repair - Present Medications Home Medications: Ambulatory Orders Medication Instructions Recorded Confirmed Insulin Aspart [NovoLOG] 20 unit SUBQ AC 04/17/21 04/17/21 Insulin Glargine [Lantus Solostar] 15 unit SUBQ QPM 04/17/21 04/17/21 Insulin Glargine [Lantus Solostar] 50 unit SUBQ QPM 04/17/21 04/17/21 Metformin HCl [Metformin ER 1,000 mg PO DAILYWM 04/17/21 04/17/21 Gastric] Ascorbic Acid [Vitamin C] 500 mg PO DAILY tablet 04/19/21 Ferrous Gluconate [Fergon] 324 mg PO DAILYWM #30 tablet 04/19/21 Metoprolol Succinate [Toprol Xl] 25 mg PO DAILY #30 tablet 04/19/21 Multivitamin W/Minerals [Theragran 1 tab PO DAILYWM tablet 04/19/21 M] Sulfamethox/Trimeth 800/160 1 tablet PO BID 6 Days #12 tablet 04/19/21 [Bactrim Ds] dexAMETHasone [Decadron] 6 mg PO DAILY #9 ml 04/19/21 guaiFENesin [Mucinex] 600 mg PO BID tablet 04/19/21 lisinopriL [Zestril] 5 mg PO DAILY #30 tablet 04/19/21 - Allergies Allergies/Adverse Reactions: Allergies Allergy/AdvReac Type Severity Reaction Status Date / Time No Known Drug Allergies Allergy Verified 05/10/21 12:11 - Social History Does the pt smoke?: Yes Smoking Status: Current some day smoker Does the pt drink ETOH?: No Does the pt have substance abuse?: Yes - Immunizations Immunizations are current?: Yes - POLST Patient has POLST: No POLST Status: Full Code PD ED PE NORMAL - Vitals Vital signs reviewed: Yes - General General: Alert and oriented X 3, Other (Somewhat unkempt gentleman laying in bed and refusing to keep the mask on for the most part. He is in no obvious respiratory distress but he is hypoxemic on room air and has a moderate resting tachycardia.) - HEENT HEENT: PERRL, EOMI - Neck Neck: Supple, no meningeal sign, No bony TTP - Cardiac Cardiac: No murmur, Other (Regular rhythm with tachycardia, no clear murmur.) - Respiratory Respiratory: No respiratory distress, Other (Rhonchi both bases) - Abdomen Abdomen: Normal bowel sounds, Soft, Non tender - Back Back: No CVA TTP, No spinal TTP - Extremities Extremities: Other (Shiny skin of both legs consistent with peripheral vascular disease, small wound on the bottom of the right foot and very large wound on the bottom of the left foot with foul smell.) - Neuro Neuro: Alert and oriented X 3, Normal speech Results - Vitals Vitals: Vital Signs - 24 hr 05/10/21 05/10/21 05/10/21 12:08 12:10 12:23 Temperature 36.5 C 36.5 C 36.5 C Heart Rate 118 H 118 H 118 H Respiratory 20 20 20 Rate Blood Pressure 150/78 H 150/78 H 150/78 H O2 Saturation 88 L 88 L 88 L 05/10/21 05/10/21 05/10/21 12:47 12:53 13:23 Temperature 36.5 C 36.5 C Heart Rate 110 H 118 H 116 H Respiratory 22 24 24 Rate Blood Pressure 168/86 H 160/82 H O2 Saturation 96 96 05/10/21 05/10/21 13:30 14:15 Temperature 36.5 C Heart Rate 112 H 108 H Respiratory 22 15 Rate Blood Pressure 160/80 H 134/79 H O2 Saturation 98 95 Oxygen O2 Source Room air Oxygen Flow Rate 2 - EKG (time done) 1229 Rate: Rate (enter#) (117) Rhythm: Sinus tachycardia, LAE [place]: LAD Intervals: Normal SD QRS: Normal Ischemia: Non specific changes - Labs Labs: Laboratory Tests 05/10/21 05/10/21 05/10/21 12:21 13:04 13:04 WBC 12.9 H RBC 3.31 L Hgb 8.0 L Hct 26.6 L MCV 80.4 MCH 24.2 L MCHC 30.1 L RDW 17.5 H Plt Count 437 MPV 9.3 Neut # (Auto) 11.1 H Lymph # (Auto) 0.8 L [place] # (Auto) 0.9 Eos # (Auto) 0.1 Baso # (Auto) 0.1 Absolute Nucleated RBC 0.00 Nucleated RBC % 0.0 PT 12.1 INR 1.1 Sodium Potassium Chloride Carbon Dioxide Anion Gap BUN Creatinine Estimated GFR (MDRD) Glucose Lactic Acid Calcium Total Bilirubin AST ALT Alkaline Phosphatase Troponin I High Sens B-Natriuretic Peptide Total Protein Albumin Globulin Albumin/Globulin Ratio Lipase Nasal Adenovirus (PCR) NOT DETECTED Nasal B. parapertussis DNA (PCR) NOT DETECTED Nasal Coronavir 229E PCR NOT DETECTED Nasal Coronavir HKU1 PCR NOT DETECTED Nasal Coronavir NL63 PCR NOT DETECTED Nasal Coronavir OC43 PCR NOT DETECTED Nasal Enterovir/Rhinovir PCR NOT DETECTED Nasal Influenza B PCR NOT DETECTED Nasal Influenza A PCR NOT DETECTED Nasal Parainfluen 1 PCR NOT DETECTED Nasal Parainfluen 2 PCR NOT DETECTED Nasal Parainfluen 3 PCR NOT DETECTED Nasal Parainfluen 4 PCR NOT DETECTED Nasal RSV (PCR) NOT DETECTED Nasal B.pertussis DNA PCR NOT DETECTED Nasal C.pneumoniae (PCR) NOT DETECTED Esvin Human Metapneumo PCR NOT DETECTED Nasal M.pneumoniae (PCR) NOT DETECTED Nasal SARS-CoV-2 (PCR) DETECTED A 05/10/21 05/10/21 05/10/21 13:04 13:04 13:04 WBC RBC Hgb Hct MCV MCH MCHC RDW Plt Count MPV Neut # (Auto) Lymph # (Auto) [place] # (Auto) Eos # (Auto) Baso # (Auto) Absolute Nucleated RBC Nucleated RBC % PT INR Sodium 130 L Potassium 4.5 Chloride 97 L Carbon Dioxide 22 Anion Gap 11.0 BUN 22 H Creatinine 0.9 Estimated GFR (MDRD) 85 L Glucose 361 H Lactic Acid Calcium 7.8 L Total Bilirubin < 0.2 L AST 21 ALT 26 Alkaline Phosphatase 218 H Troponin I High Sens 19.1 B-Natriuretic Peptide 711 H Total Protein 6.6 L Albumin 1.9 L Globulin 4.7 H Albumin/Globulin Ratio 0.4 L Lipase 23 Nasal Adenovirus (PCR) Nasal B. parapertussis DNA (PCR) Nasal Coronavir 229E PCR Nasal Coronavir HKU1 PCR Nasal Coronavir NL63 PCR Nasal Coronavir OC43 PCR Nasal Enterovir/Rhinovir PCR Nasal Influenza B PCR Nasal Influenza A PCR Nasal Parainfluen 1 PCR Nasal Parainfluen 2 PCR Nasal Parainfluen 3 PCR Nasal Parainfluen 4 PCR Nasal RSV (PCR) Nasal B.pertussis DNA PCR Nasal C.pneumoniae (PCR) Esvin Human Metapneumo PCR Nasal M.pneumoniae (PCR) Nasal SARS-CoV-2 (PCR) 05/10/21 13:04 WBC RBC Hgb Hct MCV MCH MCHC RDW Plt Count MPV Neut # (Auto) Lymph # (Auto) [place] # (Auto) Eos # (Auto) Baso # (Auto) Absolute Nucleated RBC Nucleated RBC % PT INR Sodium Potassium Chloride Carbon Dioxide Anion Gap BUN Creatinine Estimated GFR (MDRD) Glucose Lactic Acid 1.8 Calcium Total Bilirubin AST ALT Alkaline Phosphatase Troponin I High Sens B-Natriuretic Peptide Total Protein Albumin Globulin Albumin/Globulin Ratio Lipase Nasal Adenovirus (PCR) Nasal B. parapertussis DNA (PCR) Nasal Coronavir 229E PCR Nasal Coronavir HKU1 PCR Nasal Coronavir NL63 PCR Nasal Coronavir OC43 PCR Nasal Enterovir/Rhinovir PCR Nasal Influenza B PCR Nasal Influenza A PCR Nasal Parainfluen 1 PCR Nasal Parainfluen 2 PCR Nasal Parainfluen 3 PCR Nasal Parainfluen 4 PCR Nasal RSV (PCR) Nasal B.pertussis DNA PCR Nasal C.pneumoniae (PCR) Esvin Human Metapneumo PCR Nasal M.pneumoniae (PCR) Nasal SARS-CoV-2 (PCR) - Rads (name of study) Single view chest x-ray demonstrates continued but improved interstitial infiltrates and pleural effusions Radiology: EMP read contemporaneously PD MEDICAL DECISION MAKING - ED course ED course: 65-year-old gentleman admitted for Covid pneumonia and CHF early this month now presents with shortness of breath 3 days duration associated with productive cough and leg pain. The leg pain is more likely related to his chronic ischemic legs and he does have festering sores of the left greater than right feet and is already being considered for amputation so I do not think this is necessarily an acute issue. His checks x-ray was nonspecific but showing an improvement of prior CHF and given his recent hospitalization this was followed by CT angiography of the chest demonstrating no PE, noting that it is somewhat of a limited study, but he has ill-defined bilateral multilobar patchy infiltrates and mediastinal adenopathy. This could be from his prior Covid although that is been about a month though. So I think we should go ahead and treat him for a multilobar hospital-acquired pneumonia for which he was administered cefepime and azithromycin.Spoke with Dr. Houston for admission given respiratory failure and hypoxemia at 3:09 PM. Departure - Departure Disposition: 68 [facility] DC/Xfer Clinical Impression: Uncontrolled type 2 DM with peripheral circulatory disorder, Diabetic foot ulcer, Respiratory failure with hypoxia, Hypoxemia Condition: Serious
--- NOTE | 2021-05-10 12:45 | XRAY Report ---
PROCEDURE: Chest 1 View X-Ray INDICATIONS: dyspnea TECHNIQUE: One view of the chest was acquired. COMPARISON: 04/16/2021. Correlation is also made with chest CT, 04/16/2021. FINDINGS: Surgical changes and devices: None. Lungs and pleura: No pleural effusions or pneumothorax. Abnormal interstitial infiltrates are seen, which are overall improved compared to the 04/16/2021 examination, yet worse on the current study at th e left lung base. The previously seen pleural effusions are decreased in size. No pneumothorax is see n. Mediastinum: Mediastinal contours appear normal. Heart size is normal. Calcification is seen of th e aortic arch. Bones and chest wall: No suspicious bony lesions. Age-appropriate degenerative changes are seen. Overlying soft tissues appear unremarkable. IMPRESSION: Improved interstitial infiltrates and improved pleural effusions, which are consistent with decreased CHF. Reviewed by: Josep Rdz MD on 05/10/2021 11:43 AM [facility] Approved by: Josep Rdz MD on 05/10/2021 11:43 AM [facility]LE[facility] Station ID: [id number]
[2021-05-10 13:12] LABS: BASOPHILS # (AUTO) 0.1 10^3/uL (0.0-0.1); BASOPHILS % (AUTO) 0.4 %; EOSINOPHILS # (AUTO) 0.1 10^3/uL (0.0-0.7); EOSINOPHILS % (AUTO) 0.4 %; HCT - HEMATOCRIT 26.6 % (42.0-52.0); LYMPHOCYTES # (AUTO) 0.8 10^3/uL (1.5-3.5); LYMPHOCYTES % (AUTO) 5.9 %; MEAN CORPUSCULAR HEMOGLOBIN 24.2 pg (27.0-31.0); MEAN CORPUSCULAR HGB CONC 30.1 g/dL (32.0-36.0); MEAN CORPUSCULAR VOLUME 80.4 fL (80.0-94.0); MEAN PLATELET VOLUME 9.3 fL (7.4-11.4); MONOCYTES # (AUTO) 0.9 10^3/uL (0.0-1.0); NEUTROPHILS # (AUTO) 11.1 10^3/uL (1.5-6.6); NEUTROPHILS % (AUTO) 86.1 %; PLT - PLATELET COUNT 437 10^3/uL (130-450); RED BLOOD COUNT 3.31 10^6/uL (4.70-6.10); RED CELL DISTRIBUTION WIDTH 17.5 % (12.0-15.0); WHITE BLOOD COUNT 12.9 x10^3/uL (4.8-10.8)
[2021-05-10 13:19] LABS: INR 1.1 (0.8-1.2); PT - PROTHROMBIN TIME 12.1 secs (9.9-12.6)
[2021-05-10 13:21] LABS: B. PARAPERTUSSIS- RESP PCR PAN NOT DETECTED; B. PERTUSSIS- RESP PCR PANEL NOT DETECTED; C. PNEUMONIAE- RESP PCR PANEL NOT DETECTED; CORONAVIRUS 229E-RESP PCR NOT DETECTED; CORONAVIRUS HKU1-RESP PCR NOT DETECTED; CORONAVIRUS NL63-RESP PCR NOT DETECTED; CORONAVIRUS OC43-RESP PCR NOT DETECTED; HUMAN METAPNEUMOVIRUS NOT DETECTED; INFLUENZA A- RESP PCR PANEL NOT DETECTED; INFLUENZA B - RESP PCR PANEL NOT DETECTED; M. PNEUMONIAE- RESP PCR PANEL NOT DETECTED; PARAINFLUENZA VIRUS 1 NOT DETECTED; PARAINFLUENZA VIRUS 2 NOT DETECTED; PARAINFLUENZA VIRUS 3 NOT DETECTED; PARAINFLUENZA VIRUS 4 NOT DETECTED; RHINOVIRUS/ENTEROVIRUS NOT DETECTED; RSV- RESP PCR PANEL NOT DETECTED
[2021-05-10 13:26] LABS: SARS-CoV-2 -RESP PCR PANEL DETECTED
[2021-05-10 13:30] LABS: ALBUMIN 1.9 g/dL (3.2-5.5); ALBUMIN/GLOBULIN RATIO 0.4 (1.0-2.2); ALKALINE PHOSPHATASE 218 IU/L (42-121); ALT ALANINE AMINOTRANSFERASE 26 IU/L (10-60); AST ASPARTATE AMINOTRANSFERASE 21 IU/L (10-42); BILIRUBIN,TOTAL < 0.2 mg/dL (0.2-1.0); BUN - BLOOD UREA NITROGEN 22 mg/dL (6-20); CALCIUM 7.8 mg/dL (8.5-10.3); CARBON DIOXIDE - CO2 22 mmol/L (21-32); CHLORIDE 97 mmol/L (101-111); CREATININE 0.9 mg/dL (0.6-1.2); GFR - MDRD 85 (>89); GLUCOSE 361 mg/dL (70-100); LIPASE 23 U/L (22-51); POTASSIUM 4.5 mmol/L (3.5-5.0); SODIUM 130 mmol/L (135-145); TOTAL PROTEIN 6.6 g/dL (6.7-8.2)
[2021-05-10] MEDS ORDERED: IOVERSOL 320 100 ML VIAL IVP ONE ×2 (13:49→14:26)
--- NOTE | 2021-05-10 14:42 | CT Report ---
PROCEDURE: ANGIO CHEST W/WO INDICATIONS: dyspnea, recent hospitlization, PE protocol CONTRAST: IV CONTRAST: Optiray 320 ml: 80 PO CONTRAST: *NO PO CONTRAST TECHNIQUE: After the administration of intravenous contrast, 2 mm axial images were acquired from the pulmonary apices to the posterior costophrenic angles during the arterial phase. In addition, 1 mm lung kernel and 5 mm soft tissue kernel reconstructions were performed. 3-dimensional coronal oblique maximum int ensity projection (MIP) reformats, 8 mm axial MIP, and 5 mm coronal and sagittal MPR reformats were t hen performed through the thorax. For radiation dose reduction, the following was used: automated exp osure control, adjustment of mA and/or kV according to patient size. COMPARISON: 04/16/2021 FINDINGS: Image quality: Excellent. Pulmonary arteries: Pulmonary arteries are normal in size. There is no intraluminal filling defects i n main pulmonary trunk and bilateral main pulmonary arteries. Segmental and subsegmental branches of bilateral pulmonary arteries are suboptimally opacified, distal small pulmonary emboli within subsegm ental branches cannot be excluded. Lungs and pleura: Moderate left-sided pleural effusion and trace right pleural effusion is again seen unchanged from prior study. Patchy airspace opacities are seen scattered in bilateral aerated lung f ields more prominent in left lower lobe and right middle lobe as well as left lingular segment sugges tive of bilateral patchy infiltrates. Central and peripheral airways are patent. Mediastinum: Heart size is mildly enlarged, without pericardial effusion. Soft tissue fullness in me diastinum is seen suggestive of mediastinal lymphadenopathy. Mild atherosclerotic calcifications in t he thoracic aorta and coronary vessels are seen. Thoracic aorta is normal in caliber and enhancement. Esophagus is normal in caliber, without hiatal hernia. Bones and chest wall: No suspicious bony lesions. Ribs and thoracic spine appear intact throughout. No axillary or supraclavicular adenopathy. The thyroid is normal in size and there are no incident al findings. There is generalized anasarca. Abdomen: Visualized upper abdominal solid organs appear normal in the early arterial phase of enhanc ement. IMPRESSION: 1. No evidence of central pulmonary embolism. Distal subsegmental branches of bilateral pulmonary art eries are suboptimally opacified, small distal pulmonary emboli cannot be excluded. 2. Moderate left pleural effusion and trace right pleural effusion. Ill-defined bilateral multilobar patchy infiltrates. No pneumothorax. 3. Soft tissue fullness in mediastinum suggestive of mediastinal lymphadenopathy. 4. No gross thoracic aortic aneurysm or dissection. Mild cardiomegaly, no pericardial effusion. CLINICAL RECOMMENDATION STATEMENTS: In patients <35 years with an ITN detected on CT, MRI, or extrathyroidal ultrasound, the Committee re commends further evaluation with dedicated thyroid ultrasound if the nodule is "e1 cm and has no susp icious imaging features, and if the patient has normal life expectancy. In patients "e35 years with an ITN detected on CT, MRI, or extrathyroidal ultrasound, the Committee r ecommends further evaluation with dedicated thyroid ultrasound if the nodule is "e1.5 cm and has no s uspicious imaging features, and if the patient has normal life expectancy. (ACR, 2014) Reviewed by: Nikolas Andre MD on 05/10/2021 2:41 PM PDT Approved by: Nikolas Andre MD on 05/10/2021 2:41 PM PDT Station ID: [id number]
[2021-05-10] MEDS ORDERED: AZITHROMYCIN INJ 500 MG in SODIUM CHLORIDE 0.9% 250 ML IV STA (14:43)
[2021-05-10] MEDS ORDERED: CEFEPIME 2 GM in SODIUM CHLORIDE 0.9% MINIBAG 100 ML IV STA (14:44)
[2021-05-10] MEDS ORDERED: ONDANSETRON 4 MG/2 ML VIAL IVP PRN (15:47)
--- NOTE | 2021-05-10 15:57 | HISTORY & PHYSICAL EXAMINATION ---
Chief Complaint - Chief Complaint Chief Complaint: worsened SOB. chronic leg pain History of Present Illness - Admitted From Admitted From:: ED - History Obtained From History obtained from: ED provider and the patient History - Past Medical History Cardiovascular: reports: Hypertension, High cholesterol Respiratory: reports: None Neuro: reports: Peripheral neuropathy Endocrine/Autoimmune: reports: Type 2 diabetes GI: reports: Hepatitis : reports: Other Psych: reports: None Musculoskeletal: reports: None Derm: reports: None MRSA Hx?: No - Past Surgical History General: reports: Hiatal hernia repair - Family & Social History Family History Comment/Other: Patient report his father at age 75 with leukemia, his mother is 84 years old, still living Living arrangement: At home Living Situation: With family Social History Notes: The patient lives in [place] with his mother. He does have children who are grown. He is not currently . 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 He states that he smokes half a pack to 1 pack per day and has been smoking since the age of 20. He denies any illicit drug use or alcohol abuse. - Substance History Use: Uses substance without health or social issues: Tobacco - POLST Patient has POLST: No POLST Status: Full Code Meds/Allgy - Home Medications Home Medications: Ambulatory Orders Medication Instructions Recorded Confirmed Insulin Aspart [NovoLOG] 20 unit SUBQ AC 04/17/21 04/17/21 Insulin Glargine [Lantus Solostar] 15 unit SUBQ QPM 04/17/21 04/17/21 Insulin Glargine [Lantus Solostar] 50 unit SUBQ QPM 04/17/21 04/17/21 Metformin HCl [Metformin ER 1,000 mg PO DAILYWM 04/17/21 04/17/21 Gastric] Ascorbic Acid [Vitamin C] 500 mg PO DAILY tablet 04/19/21 Ferrous Gluconate [Fergon] 324 mg PO DAILYWM #30 tablet 04/19/21 Metoprolol Succinate [Toprol Xl] 25 mg PO DAILY #30 tablet 04/19/21 Multivitamin W/Minerals [Theragran 1 tab PO DAILYWM tablet 04/19/21 M] Sulfamethox/Trimeth 800/160 1 tablet PO BID 6 Days #12 tablet 04/19/21 [Bactrim Ds] dexAMETHasone [Decadron] 6 mg PO DAILY #9 ml 04/19/21 guaiFENesin [Mucinex] 600 mg PO BID tablet 04/19/21 lisinopriL [Zestril] 5 mg PO DAILY #30 tablet 04/19/21 - Allergies Allergies/Adverse Reactions: Allergies Allergy/AdvReac Type Severity Reaction Status Date / Time No Known Drug Allergies Allergy Verified 05/10/21 12:11 Exam - Vital Signs Reviewed Vital Signs: Yes Vital Signs: Vital Signs x48h Temp Pulse Resp BP Pulse Ox 05/10/21 15:00 36.6 C 100 16 127/70 98 05/10/21 14:30 100 15 127/70 97 05/10/21 14:15 108 H 15 134/79 H 95 05/10/21 13:30 36.5 C 112 H 22 160/80 H 98 05/10/21 13:23 36.5 C 116 H 24 160/82 H 96 05/10/21 12:53 36.5 C 118 H 24 168/86 H 96 05/10/21 12:47 110 H 22 05/10/21 12:23 36.5 C 118 H 20 150/78 H 88 L 05/10/21 12:10 36.5 C 118 H 20 150/78 H 88 L 05/10/21 12:08 36.5 C 118 H 20 150/78 H 88 L - Physical Exam General Appearance: positive: Mild distress (respiraytory distress) Conclusion/Plan - Problem List (7) Hypertension Qualifiers: Hypertension type: essential hypertension Qualified Code(s): I10 - Essential (primary) hypertension - Lab Results Fish Bones: 05/10/21 13:04 05/10/21 13:04
[2021-05-10] MEDS ORDERED: NICOTINE 14 MG PATCH TOP STA (15:59)
[2021-05-10] MEDS ORDERED: LACTATED RINGERS 1,000 ML IV SCH (16:00)
[2021-05-10] MEDS: INSULIN ASPART 300 UNIT/3 ML PEN SUBQ SCH ×2 (17:05→20:33)
[2021-05-10] MEDS: SODIUM CHLORIDE FLUSH 0.9% 10 ML SYRINGE IVP SCH (17:10)
[2021-05-10] MEDS: INSULIN GLARGINE 300 UNIT/3 ML PEN SUBQ SCH (20:32)
[2021-05-10] MEDS: guaiFENesin 600 MG TABLET PO SCH (20:34)
--- NOTE | 2021-05-10 20:50 | HISTORY & PHYSICAL EXAMINATION ---
Chief Complaint - Chief Complaint Chief Complaint: dyspnea and leg pain History of Present Illness - Admitted From [facility] - History Obtained From Records Reviewed: yes History obtained from: patient and ED physician's note - History of Present Illness HPI Comment/Other: Patient is a 65-year-old male with medical history significant for hypertension, hyperlipidemia, diabetes mellitus type 2, peripheral neuropathy, loculated pleural effusion, COPD and tobacco use who presented to the ED with complaint of shortness of breath and leg pain. His symptoms have been going on for the past 2 to 3 days. However he adds that he has been dyspneic since his last hospital stay. He was discharged about 3 weeks ago after being treated in the hospital for Covid pneumonia. His shortness of breath is worse when he lays flat. His leg pain is bilaterally and is up to his thighs. He has wound on his lower extremities bilaterally. They are currently wrapped in bandage and are malodorous. He is currently being seen by orthopedics Dr. Alcazar and is undergoing work-up for potential amputation in the future. His oxygen saturation was 88% on room air and he required 2 L of oxygen to maintain his oxygen saturation in the 90s. He also had a white blood cell count of 12.9 Work-up in the ED included a CT of the chest which was negative for PE but reported moderate left pleural effusion and trace right pleural effusion as well as ill-defined bilateral multilobar patchy infiltrates. He was presented for admission for further treatment. History - Past Medical History Cardiovascular: reports: Hypertension, High cholesterol Respiratory: reports: None Neuro: reports: Peripheral neuropathy Endocrine/Autoimmune: reports: Type 2 diabetes GI: reports: Hepatitis : reports: Other Psych: reports: None Musculoskeletal: reports: None Derm: reports: None MRSA Hx?: No - Past Surgical History General: reports: Hiatal hernia repair - Family & Social History Family History Comment/Other: Patient report his father at age 75 with leukemia, his mother is 84 years old, still living Living arrangement: At home Living Situation: With family Social History Notes: The patient lives in [place] with his mother. He does have children who are grown. He is not currently . 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 He states that he smokes half a pack to 1 pack per day and has been smoking since the age of 20. He denies any illicit drug use or alcohol abuse. - Substance History Use: Uses substance without health or social issues: Tobacco - POLST Patient has POLST: No POLST Status: Full Code Meds/Allgy - Home Medications Home Medications: Ambulatory Orders Medication Instructions Recorded Confirmed Insulin Aspart [NovoLOG] 20 unit SUBQ AC 04/17/21 04/17/21 Insulin Glargine [Lantus Solostar] 15 unit SUBQ QPM 04/17/21 04/17/21 Insulin Glargine [Lantus Solostar] 50 unit SUBQ QPM 04/17/21 04/17/21 Metformin HCl [Metformin ER 1,000 mg PO DAILYWM 04/17/21 04/17/21 Gastric] Ascorbic Acid [Vitamin C] 500 mg PO DAILY tablet 04/19/21 Ferrous Gluconate [Fergon] 324 mg PO DAILYWM #30 tablet 04/19/21 Metoprolol Succinate [Toprol Xl] 25 mg PO DAILY #30 tablet 04/19/21 Multivitamin W/Minerals [Theragran 1 tab PO DAILYWM tablet 04/19/21 M] Sulfamethox/Trimeth 800/160 1 tablet PO BID 6 Days #12 tablet 04/19/21 [Bactrim Ds] dexAMETHasone [Decadron] 6 mg PO DAILY #9 ml 04/19/21 guaiFENesin [Mucinex] 600 mg PO BID tablet 04/19/21 lisinopriL [Zestril] 5 mg PO DAILY #30 tablet 04/19/21 - Allergies Allergies/Adverse Reactions: Allergies Allergy/AdvReac Type Severity Reaction Status Date / Time No Known Drug Allergies Allergy Verified 05/10/21 12:11 Review of Systems - Constitutional Constitutional: denies: Fatigue, Fever, Weakness, Poor appetite - Eyes Eyes: denies: Pain, Vision loss - Ears, Nose & Throat Ears, Nose & Throat: denies: Vertigo - Cardiovascular Cariovascular: reports: Edema (trace to +1). denies: Irregular heart rate, Chest pain, Lightheadedness - Respiratory Respiratory: reports: Cough, SOB at rest. denies: Sputum production, Wheezing - Gastrointestinal Gastrointestinal: denies: Abdominal pain, Abdominal distention, Nausea, Vomiting - Genitourinary Genitourinary: denies: Dysuria, Frequency, Urgency, Hematuria - Musculoskeletal Musculoskeletal: denies: Muscle pain, Back pain - Integumentary Integumentary: denies: Rash, Pruritis, Lesions, Dryness - Neurological Neurological: denies: General weakness, Focal weakness, Headache, Dizziness - Psychiatric Psychiatric: denies: Depression, Anxiety - Endocrine Endocrine: denies: Polyuria, Polydypsia - Hematologic/Lymphatic Hematologic/Lymphatic: denies: Anemia, Bruising, Petechiae Prior Level of Functionality: Independent of activities of daily living. Exam - Vital Signs Vital Signs: Vital Signs x48h Temp Pulse Pulse Resp BP BP BP 05/10/21 20:07 37 C 91 18 126/80 05/10/21 17:00 37.0 C 96 16 98/72 05/10/21 16:00 36.5 C 94 19 122/86 H 05/10/21 15:30 36.5 C 94 20 122/86 H 05/10/21 15:00 36.6 C 100 16 127/70 05/10/21 14:30 100 15 127/70 05/10/21 14:15 108 H 15 134/79 H 05/10/21 13:30 36.5 C 112 H 22 160/80 H 05/10/21 13:23 36.5 C 116 H 24 160/82 H 05/10/21 12:53 36.5 C 118 H 24 168/86 H Pulse Ox 05/10/21 20:07 95 05/10/21 17:00 96 05/10/21 16:00 93 05/10/21 15:30 93 05/10/21 15:00 98 05/10/21 14:30 97 05/10/21 14:15 95 05/10/21 13:30 98 05/10/21 13:23 96 05/10/21 12:53 96 - Physical Exam General Appearance: positive: Alert, Mild distress, Moderate distress Eyes Bilateral: positive: PERRL, EOMI ENT: positive: No signs of dehydration Neck: positive: No JVD, Trachea midline Respiratory: positive: Chest non-tender, No respiratory distress, Breath sounds nml. negative: Wheezes, Rales, Rhonchi Cardiovascular: positive: Regular rate & rhythm, No murmur Abdomen: positive: Non-tender, No organomegaly, Nml bowel sounds, No distention. negative: Guarding, Rebound Back: positive: Nml inspection Skin: positive: Warm, Dry, Other (chronic on toes and plantar surface of feet bilaterally with necrotic areas noted on the left medial 3 toes. Malodorous) Extremities: positive: Pedal edema (trace to +1) Neurologic/Psychiatric: positive: Oriented x3, Mood/affect nml Conclusion/Plan - Problem List (1) HCAP (healthcare-associated pneumonia) Conclusion/Plan: WBC 12.9. On 2 L of oxygen via nasal cannula with oxygen saturation in the 90s. Patient treated with cefepime and azithromycin. Blood cultures pending. (2) Diabetic foot ulcer Conclusion/Plan: Patient is scheduled to see Dr. Underwood with orthopedic surgery in the outpatient setting on 05/21/2021. Patient is currently undergoing work-up for amputation in the future. He is scheduled to see vascular surgery and cardiology in the outpatient setting. Lower extremity pain is likely a combination of peripheral neuropathy and decreased blood flow related to peripheral vascular disease. This is further compounded by patient's active and chronic tobacco use. Symptomatic treatment of pain with norco as needed. Gabapentin 300 mg every afternoon ordered. Patient advised regarding his tobacco use affecting his health. Patient to follow-up with vascular surgery. Qualifiers: Diabetes mellitus type: type 2 (3) Uncontrolled type 2 DM with peripheral circulatory disorder Conclusion/Plan: Lantus 15 units subcu every afternoon. Accu-Cheks before every meal at bedtime. Sliding scale insulin. (4) HTN (hypertension) Conclusion/Plan: On metoprolol succinate 25 mg p.o. daily. Lisinopril 5 mg p.o. daily. (5) Hyperlipidemia Conclusion/Plan: Currently not on a statin. (6) Pleural effusion Conclusion/Plan: Moderate left pleural effusion reported on CT of the chest. Will administer Lasix p.o. in the morning. Consider IR for possible thoracentesis (7) Tobacco abuse Conclusion/Plan: Nicotine patch ordered - Lab Results Fish Bones: 05/10/21 13:04 05/10/21 13:04 Core Measures - Anticipated LOS I expect patient to be DC'd or transferred within 96 hours.: Yes - DVT/VTE - Prophylaxis VTE/DVT Device ordered at admit?: No VTE/DVT Prophylaxis med ordered at admit?: Yes
[2021-05-10] MEDS: CEFEPIME 2 GM in SODIUM CHLORIDE 0.9% MINIBAG 100 ML IV SCH (21:24)
[2021-05-10] MEDS: ACETAMINOPHEN 325 MG TABLET PO PRN (23:54)
[2021-05-11] MEDS: SODIUM CHLORIDE FLUSH 0.9% 10 ML SYRINGE IVP SCH ×3 (00:07→16:51)
[2021-05-11] MEDS ORDERED: METOPROLOL TARTRATE 50 MG TABLET PO STA (00:14)
[2021-05-11] MEDS ORDERED: HYDROmorphone 0.5 MG/0.5 ML SYRINGE IVP PRN (00:17)
[2021-05-11] MEDS: GABAPENTIN 300 MG CAPSULE PO SCH ×2 (00:52→20:48)
[2021-05-11] MEDS: CEFEPIME 2 GM in SODIUM CHLORIDE 0.9% MINIBAG 100 ML IV SCH ×5 (05:21→22:06)
[2021-05-11] MEDS: SODIUM CHLORIDE FLUSH 0.9% 10 ML SYRINGE IVP PRN ×2 (05:23→21:03)
[2021-05-11 06:04] LABS: BASOPHILS # (AUTO) 0.1 10^3/uL (0.0-0.1); BASOPHILS % (AUTO) 0.6 %; EOSINOPHILS # (AUTO) 0.1 10^3/uL (0.0-0.7); EOSINOPHILS % (AUTO) 1.5 %; HGB - HEMOGLOBIN 7.7 g/dL (14.0-18.0); LYMPHOCYTES # (AUTO) 1.6 10^3/uL (1.5-3.5); LYMPHOCYTES % (AUTO) 18.3 %; MEAN CORPUSCULAR HEMOGLOBIN 24.8 pg (27.0-31.0); MEAN CORPUSCULAR HGB CONC 30.8 g/dL (32.0-36.0); MEAN CORPUSCULAR VOLUME 80.6 fL (80.0-94.0); MEAN PLATELET VOLUME 9.4 fL (7.4-11.4); MONOCYTES # (AUTO) 0.7 10^3/uL (0.0-1.0); MONOCYTES % (AUTO) 8.3 %; NEUTROPHILS % (AUTO) 71.1 %; PLT - PLATELET COUNT 326 10^3/uL (130-450); RED CELL DISTRIBUTION WIDTH 17.5 % (12.0-15.0); WHITE BLOOD COUNT 8.5 x10^3/uL (4.8-10.8)
[2021-05-11 06:13] LABS: CALCIUM 7.8 mg/dL (8.5-10.3); CREATININE 0.7 mg/dL (0.6-1.2); MAGNESIUM 1.8 mg/dL (1.7-2.8); POTASSIUM 4.1 mmol/L (3.5-5.0)
[2021-05-11] MEDS: INSULIN ASPART 300 UNIT/3 ML PEN SUBQ SCH ×4 (07:41→20:50)
[2021-05-11] MEDS: MULTIVITAMIN W/MINERALS TABLET PO SCH (08:35)
[2021-05-11] MEDS: ENOXAPARIN 40 MG/0.4 ML SYRINGE SUBQ SCH (08:35)
[2021-05-11] MEDS: AZITHROMYCIN 250 MG TABLET PO SCH (08:35)
[2021-05-11] MEDS: guaiFENesin 600 MG TABLET PO SCH ×2 (08:35→20:48)
[2021-05-11] MEDS: METOPROLOL SUCCINATE 25 MG TABLET PO SCH (08:35)
[2021-05-11] MEDS: lisinopriL 5 MG TABLET PO SCH (08:35)
[2021-05-11 12:17] LABS: ESTIMATED AVERAGE GLUCOSE 260 mg/dL (70-100); HEMOGLOBIN A1c% 10.7 % (4.27-6.07)
--- NOTE | 2021-05-11 12:24 | PHARMACY PROGRESS NOTE ---
- Best Possible Medication History Admit Date and Time: 05/10/21 1547 Processed by: Pharmacy Medication History completed: Yes Secondary Source(s): Physician records, Insurance records, Previous admit records Recent office visit with Dr Saldivar on 04/23/21 where diabetes and CHF medications were addressed As the person ultimately responsible for medication therapy, providers are able to order a medication from an existing home medication list in [facility] via the "Reconcile Routine" prior to Confirmation of that medication by applications support lead. Such practice is discouraged except when the physician, in their clinical judgment, deems that a medical need exists for a medication without regard to previous use.
--- NOTE | 2021-05-11 20:40 | PROVIDER PROGRESS NOTE ---
Assessment/Plan - Problem List (1) HCAP (healthcare-associated pneumonia) Assessment/Plan: Chest x-ray done on 05/11/2021 showed marked progression of bilateral pulmonary opacities suggestive of airspace disease such as pneumonia. Superimposed edema and/or atelectasis cannot be excluded. Bilateral effusions also present. WBC improved from 12.9 down to 8.5. We will continue cefepime and azithromycin. (2) Diabetic foot ulcer Qualifiers: Diabetes mellitus type: type 2 Assessment/Plan: Patient is scheduled to see Dr. Underwood with orthopedic surgery in the outpatient setting on 05/21/2021. Patient is currently undergoing work-up for amputation in the future. He is scheduled to see vascular surgery and cardiology in the outpatient setting. Lower extremity pain is likely a combination of peripheral neuropathy and decreased blood flow related to peripheral vascular disease. This is further compounded by patient's active and chronic tobacco use. Symptomatic treatment of pain with norco as needed. Gabapentin 300 mg every afternoon ordered. Patient advised regarding his tobacco use affecting his health. Patient to follow-up with vascular surgery. (3) Uncontrolled type 2 DM with peripheral circulatory disorder Assessment/Plan: Poorly controlled. Hemoglobin A1c is 10.7. Lantus 15 units subcu every afternoon. Accu-Cheks before every meal at bedtime. Sliding scale insulin. (4) HTN (hypertension) Assessment/Plan: On metoprolol succinate 25 mg p.o. daily. Lisinopril 5 mg p.o. daily. (6) Pleural effusion Assessment/Plan: Chest x-ray done on 05/11/2021 showed marked progression of bilateral pulmonary opacities suggestive of airspace disease such as pneumonia. Superimposed edema and/or atelectasis cannot be excluded. Bilateral effusions also present. BNP on 05/10/2021 was 711. Lasix 40 mg IV x1 given today. We will continue Lasix 20 mg p.o. twice daily starting on 05/12/21. Monitor BNP daily x3 Consider IR for possible thoracentesis (7) Tobacco abuse Assessment/Plan: Nicotine patch ordered (8) COPD (chronic obstructive pulmonary disease) Assessment/Plan: Perforomist and budesonide ordered. DuoNeb q4 hours as needed. Patient is on 2 L of oxygen via nasal cannula. - Current Meds Current Meds: Current Medications Generic Name Dose Route Start Last Admin Trade Name Freq PRN Reason Stop Dose Admin Acetaminophen 650 mg 05/10/21 15:47 05/10/21 23:54 Acetaminophen 325 Mg Tablet PO 650 mg Q4HR PRN Administration Pain or Fever > 38C (100.4F) Azithromycin 500 mg 05/11/21 09:00 05/11/21 08:35 Azithromycin 250 Mg Tablet PO 05/13/21 00:01 500 mg DAILY DIANE Administration Enoxaparin Sodium 40 mg 05/11/21 09:00 05/11/21 08:35 Enoxaparin 40 Mg/0.4 Ml Syringe SUBQ 40 mg DAILY DIANE Administration Gabapentin 300 mg 05/11/21 00:06 05/11/21 00:52 Gabapentin 300 Mg Capsule PO 300 mg QPM DIANE Administration Guaifenesin 600 mg 05/10/21 21:00 05/11/21 08:35 Guaifenesin 600 Mg Tablet PO 600 mg BID DIANE Administration Cefepime HCl 2 gm/ Sodium 100 mls @ 200 mls/hr 05/10/21 22:00 05/11/21 14:45 Chloride IV Infused TID DIANE Infusion Insulin Glargine 15 unit 05/10/21 21:00 05/10/21 20:32 Insulin Glargine 300 Unit/3 Ml Pen SUBQ 15 unit QPM DIANE Administration Lisinopril 5 mg 05/11/21 09:00 05/11/21 08:35 Lisinopril 5 Mg Tablet PO 5 mg DAILY DIANE Administration Metoprolol Succinate 25 mg 05/11/21 09:00 05/11/21 08:35 Metoprolol Succinate 25 Mg Tablet PO 25 mg DAILY DIANE Administration Multivitamins/Minerals 1 tab 05/11/21 08:00 05/11/21 08:35 Multivitamin W/Minerals Tablet PO 1 tab DAILYWM DIANE Administration Sodium Chloride 10 ml 05/10/21 15:47 05/11/21 05:23 Sodium Chloride Flush 0.9% 10 Ml Syringe IVP 10 ml PRN PRN Administration NEEDED PER PROVIDER ORDERS Sodium Chloride 10 ml 05/10/21 17:00 05/11/21 16:51 Sodium Chloride Flush 0.9% 10 Ml Syringe IVP 10 ml 0100,0900,1700 DIANE Administration - Lab Result Fish Bone Diagrams: 05/11/21 05:59 05/11/21 05:59 - Additional Planning My Orders: My Active Orders 05/11/21 00:06 Gabapentin [Neurontin] 300 mg PO QPM 05/11/21 00:07 HYDROcod/ACETAM 5/325 [[place] 5/325] 1 tab PO Q4HR PRN 05/11/21 00:17 HYDROmorphone 0.5MG SYRINGE [Dilaudid 0.5MG Syringe] 0.5 mg IVP Q2H PRN 05/11/21 20:20 Nebulizer/MDI Tx. [RC] QID Resp Teach Nebulizer/MDI [RC] .ONCE Chest 1 View X-Ray [XR] Stat Ipratropium/Albuterol [Duoneb] 3 ml INH Q4HR PRN 05/12/21 07:00 Budesonide [Pulmicort] 0.5 mg INH RTBID Formoterol Fumarate [Perforomist] 20 mcg INH RTBID Subjective - Subjective Patient Reports: Other (Patient was experiencing worsening dyspnea this afternoon. Wheezing reported at the time. Denied any pain.) Objective Vital Signs: Vital Signs - 24 hr 05/11/21 05/11/21 05/11/21 00:06 00:49 04:30 Temperature 36.7 C 36.7 C Heart Rate [ 92 68 Brachial] Respiratory 18 16 Rate Blood Pressure 128/75 Blood Pressure 150/84 H 116/64 [Right Brachial artery] O2 Saturation 100 100 05/11/21 05/11/21 05/11/21 07:51 11:13 14:11 Temperature 36.3 C L 36.3 C L Heart Rate [ 71 82 Brachial] Respiratory 17 18 Rate Blood Pressure Blood Pressure 131/79 H 146/83 H [Right Brachial artery] O2 Saturation 97 94 95 05/11/21 05/11/21 05/11/21 15:53 15:55 18:41 Temperature 36.6 C Heart Rate [ 88 Brachial] Respiratory 20 22 21 Rate Blood Pressure Blood Pressure 161/87 H [Right Brachial artery] O2 Saturation 93 86 L 97 Oxygen O2 Source Nasal cannula Oxygen Flow Rate 2 I&O (Last 24 Hrs): Intake and Output Totals x24h 05/09/21 05/10/21 05/11/21 23:59 23:59 23:59 Intake Total 1290 2110 Output Total 1 200 Balance 1289 1910 General: Alert, Oriented x3 HEENT: PERRLA, EOMI Neck: Supple, No JVD Neuro: Alert, Oriented Times 3 Cardiovascular: Regular rate Respiratory: Chest non-tender, Other (Coarse breath sound dyspneic) Extremities: Other (ulcers on toes and plantar surface of feet bilaterally with necrotic areas noted on the left medial 3 toes. Malodorous) - Results Results: Laboratory Results WBC 8.5 x10^3/uL (4.8-10.8) 05/11/21 05:59 RBC 3.10 10^6/uL (4.70-6.10) L 05/11/21 05:59 Hgb 7.7 g/dL (14.0-18.0) L 05/11/21 05:59 Hct 25.0 % (42.0-52.0) L 05/11/21 05:59 MCV 80.6 fL (80.0-94.0) 05/11/21 05:59 MCH 24.8 pg (27.0-31.0) L 05/11/21 05:59 MCHC 30.8 g/dL (32.0-36.0) L 05/11/21 05:59 RDW 17.5 % (12.0-15.0) H 05/11/21 05:59 Plt Count 326 10^3/uL (130-450) 05/11/21 05:59 MPV 9.4 fL (7.4-11.4) 05/11/21 05:59 Neut # (Auto) 6.0 10^3/uL (1.5-6.6) 05/11/21 05:59 Lymph # (Auto) 1.6 10^3/uL (1.5-3.5) 05/11/21 05:59 [place] # (Auto) 0.7 10^3/uL (0.0-1.0) 05/11/21 05:59 Eos # (Auto) 0.1 10^3/uL (0.0-0.7) 05/11/21 05:59 Baso # (Auto) 0.1 10^3/uL (0.0-0.1) 05/11/21 05:59 Absolute Nucleated RBC 0.00 x10^3/uL 05/11/21 05:59 Nucleated RBC % 0.0 /100WBC 05/11/21 05:59 PT 12.1 secs (9.9-12.6) 05/10/21 13:04 INR 1.1 (0.8-1.2) 05/10/21 13:04 Sodium 133 mmol/L (135-145) L 05/11/21 05:59 Potassium 4.1 mmol/L (3.5-5.0) 05/11/21 05:59 Chloride 102 mmol/L (101-111) 05/11/21 05:59 Carbon Dioxide 25 mmol/L (21-32) 05/11/21 05:59 Anion Gap 6.0 (6-13) 05/11/21 05:59 BUN 22 mg/dL (6-20) H 05/11/21 05:59 Creatinine 0.7 mg/dL (0.6-1.2) 05/11/21 05:59 Estimated GFR (MDRD) 114 (>89) 05/11/21 05:59 Glucose 101 mg/dL (70-100) H 05/11/21 05:59 POC Whole Bld Glucose 182 mg/dL (70 - 100) H 05/11/21 16:41 Estimat Average Glucose 260 mg/dL (70-100) H 05/11/21 05:59 Hemoglobin A1c % 10.7 % (4.27-6.07) H 05/11/21 05:59 Lactic Acid 1.8 mmol/L (0.5-2.2) 05/10/21 13:04 Calcium 7.8 mg/dL (8.5-10.3) L 05/11/21 05:59 Magnesium 1.8 mg/dL (1.7-2.8) 05/11/21 05:59 Total Bilirubin < 0.2 mg/dL (0.2-1.0) L 05/10/21 13:04 AST 21 IU/L (10-42) 05/10/21 13:04 ALT 26 IU/L (10-60) 05/10/21 13:04 Alkaline Phosphatase 218 IU/L (42-121) H 05/10/21 13:04 Troponin I High Sens 19.1 ng/L (2.3-19.7) 05/10/21 13:04 B-Natriuretic Peptide 711 pg/mL (5-100) H 05/10/21 13:04 Total Protein 6.6 g/dL (6.7-8.2) L 05/10/21 13:04 Albumin 1.9 g/dL (3.2-5.5) L 05/10/21 13:04 Globulin 4.7 g/dL (2.1-4.2) H 05/10/21 13:04 Albumin/Globulin Ratio 0.4 (1.0-2.2) L 05/10/21 13:04 Lipase 23 U/L (22-51) 05/10/21 13:04 Nasal Adenovirus (PCR) NOT DETECTED 05/10/21 12:21 Nasal B. parapertussis DNA (PCR) NOT DETECTED 05/10/21 12:21 Nasal Coronavir 229E PCR NOT DETECTED 05/10/21 12:21 Nasal Coronavir HKU1 PCR NOT DETECTED 05/10/21 12:21 Nasal Coronavir NL63 PCR NOT DETECTED 05/10/21 12:21 Nasal Coronavir OC43 PCR NOT DETECTED 05/10/21 12:21 Nasal Enterovir/Rhinovir PCR NOT DETECTED 05/10/21 12:21 Nasal Influenza B PCR NOT DETECTED 05/10/21 12:21 Nasal Influenza A PCR NOT DETECTED 05/10/21 12:21 Nasal Parainfluen 1 PCR NOT DETECTED 05/10/21 12:21 Nasal Parainfluen 2 PCR NOT DETECTED 05/10/21 12:21 Nasal Parainfluen 3 PCR NOT DETECTED 05/10/21 12:21 Nasal Parainfluen 4 PCR NOT DETECTED 05/10/21 12:21 Nasal RSV (PCR) NOT DETECTED 05/10/21 12:21 Nasal B.pertussis DNA PCR NOT DETECTED 05/10/21 12:21 Nasal C.pneumoniae (PCR) NOT DETECTED 05/10/21 12:21 Esvin Human Metapneumo PCR NOT DETECTED 05/10/21 12:21 Nasal M.pneumoniae (PCR) NOT DETECTED 05/10/21 12:21 Nasal SARS-CoV-2 (PCR) DETECTED A 05/10/21 12:21 - Procedures Procedures: Procedures (04/16/21) DRAINAGE OF R PLEURAL CAV WITH DRAIN DEV, PERC APPROACH (01/29/17) DRAINAGE OF RIGHT PLEURAL CAVITY, PERC APPROACH, DIAGN (01/29/17) INTRODUCTION OF ANTI-INFLAM INTO PERIPH VEIN, PERC APPROACH (04/16/21) ABX Reporting Has patient been on IV antibiotics over the past 48 hours?: Yes
[2021-05-11] MEDS: INSULIN GLARGINE 300 UNIT/3 ML PEN SUBQ SCH (20:51)
[2021-05-11] MEDS: IPRATROPIUM/ALBUTEROL 3 ML NEB INH PRN (20:57)
[2021-05-11] MEDS ORDERED: FUROSEMIDE 40 MG/4 ML VIAL IVP STA (21:06)
--- NOTE | 2021-05-11 21:16 | XRAY Report ---
PROCEDURE: Chest 1 View X-Ray INDICATIONS: dyspnea and hypoxia TECHNIQUE: One view of the chest was acquired. COMPARISON: CT and x-ray chest 05/10/2021 FINDINGS: Surgical changes and devices: None. Lungs and pleura: There is marked interval progression of bilateral pulmonary opacities. In addition, mild bilateral pleural effusions are present, left greater than right, also progressive compared to prior exam. Mediastinum: Mediastinal contours appear normal. Heart size is normal. Bones and chest wall: No suspicious bony lesions. Overlying soft tissues appear unremarkable. IMPRESSION: Marked progression of bilateral pulmonary opacities suggestive of airspace disease, such as pneumonia . Superimposed edema and/or atelectasis cannot be excluded. In addition, bilateral effusions are pres ent. Reviewed by: Salina Cadet MD on 05/11/2021 9:14 PM PDT Approved by: Salina Cadet MD on 05/11/2021 9:14 PM PDT Station ID: [id number]
[2021-05-11] MEDS: FORMOTEROL FUMARATE NEB 20 MCG/2 ML INH SCH (21:45)
[2021-05-11] MEDS: BUDESONIDE 0.5 MG/2 ML NEB INH SCH (21:45)
[2021-05-11] MEDS: ZOLPIDEM 5 MG TABLET PO PRN (23:08)
[2021-05-12] MEDS: SODIUM CHLORIDE FLUSH 0.9% 10 ML SYRINGE IVP SCH ×3 (00:10→18:09)
[2021-05-12] MEDS: IPRATROPIUM/ALBUTEROL 3 ML NEB INH PRN ×2 (01:06→15:05)
[2021-05-12] MEDS: CEFEPIME 2 GM in SODIUM CHLORIDE 0.9% MINIBAG 100 ML IV SCH ×3 (05:47→22:01)
[2021-05-12] MEDS ORDERED: FUROSEMIDE 20 MG TABLET PO SCH (06:00)
[2021-05-12 06:14] LABS: BASOPHILS % (AUTO) 0.4 %; EOSINOPHILS # (AUTO) 0.1 10^3/uL (0.0-0.7); HGB - HEMOGLOBIN 7.9 g/dL (14.0-18.0); LYMPHOCYTES # (AUTO) 0.9 10^3/uL (1.5-3.5); LYMPHOCYTES % (AUTO) 10.4 %; MEAN CORPUSCULAR HGB CONC 31.6 g/dL (32.0-36.0); MEAN CORPUSCULAR VOLUME 79.1 fL (80.0-94.0); MEAN PLATELET VOLUME 9.2 fL (7.4-11.4); MONOCYTES # (AUTO) 0.6 10^3/uL (0.0-1.0); MONOCYTES % (AUTO) 6.7 %; NEUTROPHILS # (AUTO) 7.3 10^3/uL (1.5-6.6); NEUTROPHILS % (AUTO) 81.2 %; PLT - PLATELET COUNT 391 10^3/uL (130-450); RED BLOOD COUNT 3.16 10^6/uL (4.70-6.10); RED CELL DISTRIBUTION WIDTH 17.2 % (12.0-15.0)
[2021-05-12 06:23] LABS: CALCIUM 7.6 mg/dL (8.5-10.3); CREATININE 0.7 mg/dL (0.6-1.2); POTASSIUM 4.1 mmol/L (3.5-5.0)
[2021-05-12] MEDS: FORMOTEROL FUMARATE NEB 20 MCG/2 ML INH SCH ×2 (07:20→19:38)
[2021-05-12] MEDS: BUDESONIDE 0.5 MG/2 ML NEB INH SCH ×2 (07:20→19:38)
[2021-05-12] MEDS ORDERED: ALBUTEROL NEB 2.5 MG/3 ML INH PRN (07:58)
[2021-05-12] MEDS: AZITHROMYCIN 250 MG TABLET PO SCH (08:23)
[2021-05-12] MEDS: MULTIVITAMIN W/MINERALS TABLET PO SCH (08:23)
[2021-05-12] MEDS: METOPROLOL SUCCINATE 25 MG TABLET PO SCH (08:24)
[2021-05-12] MEDS: lisinopriL 5 MG TABLET PO SCH (08:24)
[2021-05-12] MEDS: guaiFENesin 600 MG TABLET PO SCH ×2 (08:24→21:16)
[2021-05-12] MEDS: FUROSEMIDE 20 MG/2 ML VIAL IVP SCH ×2 (08:24→13:45)
[2021-05-12] MEDS: ENOXAPARIN 40 MG/0.4 ML SYRINGE SUBQ SCH (08:24)
[2021-05-12] MEDS: INSULIN ASPART 300 UNIT/3 ML PEN SUBQ SCH ×4 (08:42→21:16)
[2021-05-12] MEDS: ACETAMINOPHEN 325 MG TABLET PO PRN (09:59)
[2021-05-12] MEDS: SACCHAROMYCES BOULARDII 250 MG CAPSULE PO SCH ×2 (09:59→17:11)
--- NOTE | 2021-05-12 13:59 | PROVIDER PROGRESS NOTE ---
Subjective - Prog Note Date Prog Note Date: 05/12/21 - Subjective Pt reports feeling: Improved Subjective: Patient report he feel his breathing is better. Patient also reported he follow- up his vascular surgeon And Orthopedics surgeon For his bilaterally Lower extremity diabetic infection. He denies fever, chest pain. Current Medications - Current Medications Current Medications: Active Medications Acetaminophen (Acetaminophen 325 Mg Tablet) 650 mg PO Q4HR PRN PRN Reason: Pain or Fever > 38C (100.4F) Last Admin: 05/12/21 09:59 Dose: 650 mg Hydrocodone Bitart/Acetaminophen (Hydrocod/Acetam 5/325 Mg Tablet) 1 tab PO Q4HR PRN PRN Reason: PAIN Albuterol (Albuterol Neb 2.5 Mg/3 Ml) 2.5 mg INH RTQ4H PRN PRN Reason: Wheezing Albuterol/Ipratropium (Ipratropium/Albuterol 3 Ml Neb) 3 ml INH Q4HR PRN PRN Reason: Wheezing Last Admin: 05/12/21 01:06 Dose: 3 ml Azithromycin (Azithromycin 250 Mg Tablet) 500 mg PO DAILY DIANE Stop: 05/13/21 00:01 Last Admin: 05/12/21 08:23 Dose: 500 mg Budesonide (Budesonide 0.5 Mg/2 Ml Neb) 0.5 mg INH RTBID DIANE Last Admin: 05/12/21 07:20 Dose: 0.5 mg Enoxaparin Sodium (Enoxaparin 40 Mg/0.4 Ml Syringe) 40 mg SUBQ DAILY DIANE Last Admin: 05/12/21 08:24 Dose: 40 mg Formoterol Fumarate (Formoterol Fumarate Neb 20 Mcg/2 Ml) 20 mcg INH RTBID DIANE Last Admin: 05/12/21 07:20 Dose: 20 mcg Furosemide (Furosemide 20 Mg/2 Ml Vial) 20 mg IVP BIDDIURETIC DIANE Last Admin: 05/12/21 13:45 Dose: 20 mg Gabapentin (Gabapentin 300 Mg Capsule) 300 mg PO QPM DIANE Last Admin: 05/11/21 20:48 Dose: 300 mg Guaifenesin (Guaifenesin 600 Mg Tablet) 600 mg PO BID [facility] [place] Last Admin: 05/12/21 08:24 Dose: 600 mg Hydromorphone HCl (Hydromorphone 0.5 Mg/0.5 Ml Syringe) 0.5 mg IVP Q2H PRN PRN Reason: PAIN Cefepime HCl 2 gm/ Sodium (Chloride) 100 mls @ 200 mls/hr IV TID [facility] [place] Last Admin: 05/12/21 13:45 Dose: 200 mls/hr Insulin Aspart (Insulin Aspart 300 Unit/3 Ml Pen) 2 - 10 unit SUBQ 0800,1200,1700,2100 [facility] [place]; Protocol Last Admin: 05/12/21 11:47 Dose: Not Given Insulin Glargine (Insulin Glargine 300 Unit/3 Ml Pen) 30 unit SUBQ QPM [facility] [place] Lisinopril (Lisinopril 5 Mg Tablet) 5 mg PO DAILY [facility] [place] Last Admin: 05/12/21 08:24 Dose: 5 mg Metoprolol Succinate (Metoprolol Succinate 25 Mg Tablet) 25 mg PO DAILY [facility] [place] Last Admin: 05/12/21 08:24 Dose: 25 mg Multivitamins/Minerals (Multivitamin W/Minerals Tablet) 1 tab PO DAILYWM [facility] [place] Last Admin: 05/12/21 08:23 Dose: 1 tab Ondansetron HCl (Ondansetron 4 Mg/2 Ml Vial) 4 mg IVP Q6HR PRN PRN Reason: Nausea / Vomiting Saccharomyces Boulardii (Saccharomyces Boulardii 250 Mg Capsule) 250 mg PO BIDWM [facility] [place] Last Admin: 05/12/21 09:59 Dose: 250 mg Sodium Chloride (Sodium Chloride Flush 0.9% 10 Ml Syringe) 10 ml IVP PRN PRN PRN Reason: NEEDED PER PROVIDER ORDERS Last Admin: 05/11/21 21:03 Dose: 10 ml Sodium Chloride (Sodium Chloride Flush 0.9% 10 Ml Syringe) 10 ml IVP 0100,0900,1700 [facility] [place] Last Admin: 05/12/21 05:48 Dose: 10 ml Zolpidem Tartrate (Zolpidem 5 Mg Tablet) 5 mg PO QPM PRN PRN Reason: Insomnia Last Admin: 05/11/21 23:08 Dose: 5 mg Insulin Aspart [NovoLOG] 20 unit SUBQ AC 04/17/21 Insulin Glargine [Lantus Solostar] 50 unit SUBQ QPM 04/17/21 Metformin HCl [Metformin ER Gastric] 1,000 mg PO DAILYWM 04/17/21 Objective - Vital Signs/Intake & Output Vital Signs: Vital Signs x48h Temp Pulse Pulse Resp BP Pulse Ox 05/12/21 12:24 36.7 C 87 24 146/89 H 99 05/12/21 08:41 36.8 C 94 20 158/77 H 97 05/12/21 07:22 77 14 Intake & Output: Intake & Output 05/09/21 05/10/21 05/11/21 05/12/21 23:59 23:59 23:59 23:59 Intake Total 1290 2410 640 Output Total 1 1500 200 Balance 1289 910 440 - Objective General Appearance: positive: No acute distress, Alert. negative: Lethargic Eyes Bilateral: positive: Normal inspection, No lid inflammation ENT: positive: ENT inspection nml, No signs of dehydration. negative: Dry mucous membranes Neck: positive: Nml inspection, Trachea midline. negative: Tracheal deviation Respiratory: positive: Chest non-tender, No respiratory distress, Rales Cardiovascular: positive: Regular rate & rhythm. negative: Tachycardia, Bradycardia, Systolic murmur Peripheral Pulses: 2+ Radial (R), 2+ Radial (L) Abdomen: positive: Non-tender, Nml bowel sounds, No distention. negative: Tenderness Back: positive: Nml inspection Skin: positive: Dry, Other (pt has dressing change on both his foot, he decline to take off dressing.) Extremities: positive: Full ROM. negative: Calf tenderness Neurologic/Psychiatric: positive: Oriented x3, Motor nml. negative: Weakness, Sensory loss, Facial droop, Slurred/abnml speech, Depressed mood/affect - Lab Results Fish Bones: 05/12/21 06:07 05/12/21 06:07 Other Labs: Lab Results x24hrs 05/12/21 05/12/21 05/12/21 Range/Units 11:37 08:32 06:07 WBC (4.8-10.8) x10^3/uL RBC (4.70-6.10) 10^6/uL Hgb (14.0-18.0) g/dL Hct (42.0-52.0) % MCV (80.0-94.0) fL MCH (27.0-31.0) pg MCHC (32.0-36.0) g/dL RDW (12.0-15.0) % Plt Count (130-450) 10^3/uL MPV (7.4-11.4) fL Neut # (Auto) (1.5-6.6) 10^3/uL Lymph # (Auto) (1.5-3.5) 10^3/uL [place] # (Auto) (0.0-1.0) 10^3/uL Eos # (Auto) (0.0-0.7) 10^3/uL Baso # (Auto) (0.0-0.1) 10^3/uL Absolute Nucleated RBC x10^3/uL Nucleated RBC % /100WBC Sodium (135-145) mmol/L Potassium (3.5-5.0) mmol/L Chloride (101-111) mmol/L Carbon Dioxide (21-32) mmol/L Anion Gap (6-13) BUN (6-20) mg/dL Creatinine (0.6-1.2) mg/dL Estimated GFR (MDRD) (>89) Glucose (70-100) mg/dL POC Whole Bld Glucose 99 248 H (70 - 100) mg/dL Estimat Average Glucose (70-100) mg/dL Hemoglobin A1c % (4.27-6.07) % Calcium (8.5-10.3) mg/dL B-Natriuretic Peptide 1203 H (5-100) pg/mL 05/12/21 05/12/21 05/11/21 Range/Units 06:07 06:07 20:50 WBC 9.0 (4.8-10.8) x10^3/uL RBC 3.16 L (4.70-6.10) 10^6/uL Hgb 7.9 L (14.0-18.0) g/dL Hct 25.0 L (42.0-52.0) % MCV 79.1 L (80.0-94.0) fL MCH 25.0 L (27.0-31.0) pg MCHC 31.6 L (32.0-36.0) g/dL RDW 17.2 H (12.0-15.0) % Plt Count 391 (130-450) 10^3/uL MPV 9.2 (7.4-11.4) fL Neut # (Auto) 7.3 H (1.5-6.6) 10^3/uL Lymph # (Auto) 0.9 L (1.5-3.5) 10^3/uL [place] # (Auto) 0.6 (0.0-1.0) 10^3/uL Eos # (Auto) 0.1 (0.0-0.7) 10^3/uL Baso # (Auto) 0.0 (0.0-0.1) 10^3/uL Absolute Nucleated RBC 0.00 x10^3/uL Nucleated RBC % 0.0 /100WBC Sodium 131 L (135-145) mmol/L Potassium 4.1 (3.5-5.0) mmol/L Chloride 99 L (101-111) mmol/L Carbon Dioxide 24 (21-32) mmol/L Anion Gap 8.0 (6-13) BUN 24 H (6-20) mg/dL Creatinine 0.7 (0.6-1.2) mg/dL Estimated GFR (MDRD) 114 (>89) Glucose 231 H (70-100) mg/dL POC Whole Bld Glucose 130 H (70 - 100) mg/dL Estimat Average Glucose (70-100) mg/dL Hemoglobin A1c % (4.27-6.07) % Calcium 7.6 L (8.5-10.3) mg/dL B-Natriuretic Peptide (5-100) pg/mL 05/11/21 05/11/21 Range/Units 16:41 05:59 WBC (4.8-10.8) x10^3/uL RBC (4.70-6.10) 10^6/uL Hgb (14.0-18.0) g/dL Hct (42.0-52.0) % MCV (80.0-94.0) fL MCH (27.0-31.0) pg MCHC (32.0-36.0) g/dL RDW (12.0-15.0) % Plt Count (130-450) 10^3/uL MPV (7.4-11.4) fL Neut # (Auto) (1.5-6.6) 10^3/uL Lymph # (Auto) (1.5-3.5) 10^3/uL [place] # (Auto) (0.0-1.0) 10^3/uL Eos # (Auto) (0.0-0.7) 10^3/uL Baso # (Auto) (0.0-0.1) 10^3/uL Absolute Nucleated RBC x10^3/uL Nucleated RBC % /100WBC Sodium (135-145) mmol/L Potassium (3.5-5.0) mmol/L Chloride (101-111) mmol/L Carbon Dioxide (21-32) mmol/L Anion Gap (6-13) BUN (6-20) mg/dL Creatinine (0.6-1.2) mg/dL Estimated GFR (MDRD) (>89) Glucose (70-100) mg/dL POC Whole Bld Glucose 182 H (70 - 100) mg/dL Estimat Average Glucose 260 H (70-100) mg/dL Hemoglobin A1c % 10.7 H (4.27-6.07) % Calcium (8.5-10.3) mg/dL B-Natriuretic Peptide (5-100) pg/mL ABX Reporting Has patient been on IV antibiotics over the past 48 hours?: Yes Assessment/Plan - Problem List (1) Acute respiratory failure with hypoxia Impression: 05/12 Patient Report his breathing is better. Patient had 99% oxygen saturation on 2 L of oxygen, patient did not take her oxygen at home. Patient had 88% oxygen saturation on room air with tachycardia. Patient's tachycardia is resolved. Patient had a CTA of the chest which show likely no PE, Multiple lobes infiltrate, left Moderate pleural effusion and laboratory tests show still positive for COVID-19. Patient had positive COVID-19 test in April 16. So patient was not treated for COVID-19 in this hospital at this admission. We will continue Intravenous antibiotics, add probiotics. Supplemental oxygen as needed. Patient had moderate pleural effusion, And elevated BNP, we will continue intravenous Lasix (2) pneumonia Assessment/Plan: 05/12 Chest x-ray show bilateral pulmonary opacities suggestive of airspace disease such as pneumonia. Superimposed edema and/or atelectasis cannot be excluded. CTA of the chest which show likely no PE, Multiple lobes infiltrate, left Moderate pleural effusion. Patient had elevated WBC. After an antibiotics treated for patient, patient feel he is breathing is improved, WBC become normal range, patient had a 99% on 2 L oxygen We will continue cefepime and azithromycin. (3) Diabetic foot ulcer 05/12 Patient is following up with his vascular surgeon now, and Patient is scheduled to see Dr. Underwood with orthopedic surgery in the outpatient setting on 05/21/2021. Patient is currently considering to work-up for amputation in the future. At this point, Patient may follow-up with vascular surgery and orthopedics, followup with dressing change schedule. (4) Uncontrolled type 2 DM with peripheral circulatory disorder Assessment/Plan: 05/12 Poorly controlled. Hemoglobin A1c is 10.7. Continue Lantus, sliding scale, hypoglycemia protocol, We will continue adjusting to insulin dosage as needed In the hospital stay (5) HTN (hypertension) Assessment/Plan: stable, On metoprolol succinate 25 mg p.o. daily. Lisinopril 5 mg p.o. daily. (6) Pleural effusion Assessment/Plan: 05/12 CTA show Left moderate pleural effusion and small right effusions also present. If patient's respiratory status continue to improve then patient may follow-up outpatient IR for further evaluation. If patient respiratory status is not improving then we may consult with intervention radiologist for possible thoracentesis (7) Tobacco abuse Assessment/Plan: Nicotine patch ordered (8) COPD (chronic obstructive pulmonary disease) Assessment/Plan: 05/12 continue Perforomist and budesonide ordered, DuoNeb q4 hours as needed. Patient is on 2 L of oxygen via nasal cannula as needed
[2021-05-12] MEDS: HYDROcod/ACETAM 5/325 MG TABLET PO PRN (15:54)
[2021-05-12] MEDS: GABAPENTIN 300 MG CAPSULE PO SCH (21:16)
[2021-05-12] MEDS: INSULIN GLARGINE 300 UNIT/3 ML PEN SUBQ SCH (21:17)
[2021-05-13] MEDS: NICOTINE 14 MG PATCH TOP SCH ×3 (00:02→12:17)
[2021-05-13] MEDS: ZOLPIDEM 5 MG TABLET PO PRN ×2 (00:03→21:31)
[2021-05-13] MEDS: HYDROcod/ACETAM 5/325 MG TABLET PO PRN ×2 (00:03→21:30)
[2021-05-13] MEDS: SODIUM CHLORIDE FLUSH 0.9% 10 ML SYRINGE IVP SCH ×3 (00:30→17:58)
[2021-05-13] MEDS: CEFEPIME 2 GM in SODIUM CHLORIDE 0.9% MINIBAG 100 ML IV SCH ×3 (05:02→21:26)
[2021-05-13] MEDS: FUROSEMIDE 20 MG/2 ML VIAL IVP SCH ×2 (05:50→13:47)
[2021-05-13] MEDS: BUDESONIDE 0.5 MG/2 ML NEB INH SCH ×2 (07:09→19:15)
[2021-05-13] MEDS: FORMOTEROL FUMARATE NEB 20 MCG/2 ML INH SCH ×2 (07:09→19:15)
[2021-05-13 07:15] LABS: BASOPHILS % (AUTO) 0.5 %; EOSINOPHILS # (AUTO) 0.1 10^3/uL (0.0-0.7); EOSINOPHILS % (AUTO) 1.6 %; HCT - HEMATOCRIT 26.4 % (42.0-52.0); LYMPHOCYTES # (AUTO) 0.9 10^3/uL (1.5-3.5); LYMPHOCYTES % (AUTO) 10.5 %; MEAN CORPUSCULAR HEMOGLOBIN 23.9 pg (27.0-31.0); MEAN CORPUSCULAR HGB CONC 30.3 g/dL (32.0-36.0); MEAN CORPUSCULAR VOLUME 78.8 fL (80.0-94.0); MEAN PLATELET VOLUME 9.1 fL (7.4-11.4); MONOCYTES # (AUTO) 0.7 10^3/uL (0.0-1.0); MONOCYTES % (AUTO) 8.4 %; NEUTROPHILS # (AUTO) 6.4 10^3/uL (1.5-6.6); NEUTROPHILS % (AUTO) 78.4 %; PLT - PLATELET COUNT 440 10^3/uL (130-450); RED BLOOD COUNT 3.35 10^6/uL (4.70-6.10); RED CELL DISTRIBUTION WIDTH 17.2 % (12.0-15.0); WHITE BLOOD COUNT 8.1 x10^3/uL (4.8-10.8)
[2021-05-13 07:22] LABS: CALCIUM 7.8 mg/dL (8.5-10.3); CREATININE 0.7 mg/dL (0.6-1.2); POTASSIUM 3.8 mmol/L (3.5-5.0)
--- NOTE | 2021-05-13 08:16 | CT Report ---
PROCEDURE: HEAD WO INDICATIONS: fall TECHNIQUE: Noncontrast 4.5 mm thick angled axial sections acquired from the foramen magnum to the vertex. For r adiation dose reduction, the following was used: automated exposure control, adjustment of mA and/or kV according to patient size. COMPARISON: None. FINDINGS: Image quality: Excellent. CSF spaces: Basal cisterns are patent. No extra-axial fluid collections. Ventricles are age-approp riate in size and shape. Brain: No midline shift. No intracranial masses or hemorrhage. Mild scattered hypodensities in the subcortical and periventricular white matter are nonspecific, but are most commonly encountered in th e setting of chronic microvascular ischemic changes. Intracranial vascular calcifications are present . Skull and face: Calvarium and visualized facial bones are intact, without suspicious lesions. Sinuses: There is partial opacification of the left posterior ethmoid air cells. The remaining visua lized paranasal sinuses and the mastoid air cells are clear. IMPRESSION: No acute intracranial abnormality. Reviewed by: Juancarlos Mcgrath MD on 05/13/2021 8:15 AM PDT Approved by: Juancarlos Mcgrath MD on 05/13/2021 8:15 AM PDT Station ID: [id number]
[2021-05-13] MEDS: ENOXAPARIN 40 MG/0.4 ML SYRINGE SUBQ SCH (08:56)
[2021-05-13] MEDS: lisinopriL 5 MG TABLET PO SCH (08:56)
[2021-05-13] MEDS: ASCORBIC ACID 500 MG TABLET PO SCH (08:56)
[2021-05-13] MEDS: MULTIVITAMIN W/MINERALS TABLET PO SCH (08:56)
[2021-05-13] MEDS: METOPROLOL SUCCINATE 25 MG TABLET PO SCH (08:56)
[2021-05-13] MEDS: SACCHAROMYCES BOULARDII 250 MG CAPSULE PO SCH ×2 (08:56→17:58)
[2021-05-13] MEDS: FERROUS GLUCONATE 324 MG TABLET PO SCH (08:56)
[2021-05-13] MEDS: guaiFENesin 600 MG TABLET PO SCH ×2 (08:56→20:34)
[2021-05-13] MEDS: methylPREDNISolone SUCCINATE 125 MG/2 ML VIAL IVP SCH ×3 (08:57→21:31)
[2021-05-13] MEDS: INSULIN ASPART 300 UNIT/3 ML PEN SUBQ SCH ×4 (08:58→20:34)
[2021-05-13] MEDS ORDERED: NICOTINE 14 MG PATCH TOP SCH (09:00)
[2021-05-13] MEDS: IPRATROPIUM/ALBUTEROL 3 ML NEB INH SCH ×3 (09:14→19:15)
--- NOTE | 2021-05-13 11:08 | PROVIDER PROGRESS NOTE ---
Assessment/Plan - Problem List (1) Acute respiratory failure with hypoxia Assessment/Plan: 05/13 pt's show slight increase of SOB, pt had 92% O2 sat on 2 liter of O2 on today, worsen than yesterday. we will order CXR to monitor. pt present significant wheezing today, pt has hx of cigarette smoking. we will add solu- metrol, schedule of breath treatment as well. Supplemental oxygen as needed. 05/12 Patient Report his breathing is better. Patient had 99% oxygen saturation on 2 L of oxygen, patient did not take her oxygen at home. Patient had 88% oxygen saturation on room air with tachycardia. Patient's tachycardia is resolved. Patient had a CTA of the chest which show likely no PE, Multiple lobes infiltrate, left Moderate pleural effusion and laboratory tests show still positive for COVID-19. Patient had positive COVID-19 test in April 16. So patient was not treated for COVID-19 in this hospital at this admission. We will continue Intravenous antibiotics, add probiotics. Supplemental oxygen as needed. 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 pt denies other injury. CT of head is No acute intracranial abnormality. Continue nurse team for patient's fall precaution, continue PT/OT Evaluation and treatment. (3) COPD exacerbation Assessment/Plan: 05/13 Patient has history of cigarette smoking, Patient is on nicotine patch. pt has hx of COPD. Patient present significantly wheezy on today. Patient show increases of shortness of breathing. We will order chest x-ray to monitor, we will add Solu-Medrol, scheduled breathing treatment for COPD. We will continue supplemental oxygen as needed. 05/12 continue Perforomist and budesonide ordered, DuoNeb q4 hours as needed. Patient is on 2 L of oxygen via nasal cannula as needed (4) pneumonia Assessment/Plan: 05/13 Continue antibiotics, order chest x-ray to monitor, Supplemental oxygen as needed 05/12 Chest x-ray show bilateral pulmonary opacities suggestive of airspace disease such as pneumonia. Superimposed edema and/or atelectasis cannot be excluded. CTA of the chest which show likely no PE, Multiple lobes infiltrate, left Moderate pleural effusion. Patient had elevated WBC. After an antibiotics treated for patient, patient feel he is breathing is improved, WBC become normal range, patient had a 99% on 2 L oxygen We will continue cefepime and azithromycin. (5) Diabetic foot ulcer 05/12 Patient is following up with his vascular surgeon now, and Patient is scheduled to see Dr. Underwood with orthopedic surgery in the outpatient setting on 05/21/2021. Patient is currently considering to work-up for amputation in the future. At this point, Patient may follow-up with vascular surgery and orthopedics, followup with dressing change schedule. (6) Uncontrolled type 2 DM with peripheral circulatory disorder Assessment/Plan: 05/12 Poorly controlled. Hemoglobin A1c is 10.7. Continue Lantus, sliding scale, hypoglycemia protocol, We will continue adjusting to insulin dosage as needed In the hospital stay (7) HTN (hypertension) Assessment/Plan: stable, On metoprolol succinate 25 mg p.o. daily. Lisinopril 5 mg p.o. daily. (8) Pleural effusion Assessment/Plan: 05/13 Chest x-ray to monitor the pleural effusion, Continue Lasix. Continue laboratory monitoring and vital signs monitor 05/12 CTA show Left moderate pleural effusion and small right effusions also present. If patient's respiratory status continue to improve then patient may follow-up outpatient IR for further evaluation. If patient respiratory status is not improving then we may consult with intervention radiologist for possible thoracentesis (7) Tobacco abuse Assessment/Plan: Nicotine patch ordered - Current Meds Current Meds: Current Medications Generic Name Dose Route Start Last Admin Trade Name Freq PRN Reason Stop Dose Admin Acetaminophen 650 mg 05/10/21 15:47 05/12/21 09:59 Acetaminophen 325 Mg Tablet PO 650 mg Q4HR PRN Administration Pain or Fever > 38C (100.4F) Hydrocodone Bitart/Acetaminophen 1 tab 05/11/21 00:07 05/13/21 00:03 Hydrocod/Acetam 5/325 Mg Tablet PO 1 tab Q4HR PRN Administration PAIN Albuterol/Ipratropium 3 ml 05/13/21 09:00 05/13/21 09:14 Ipratropium/Albuterol 3 Ml Neb INH 3 ml RTQ6H DIANE Administration Ascorbic Acid 500 mg 05/13/21 09:00 05/13/21 08:56 Ascorbic Acid 500 Mg Tablet PO 500 mg DAILY DIANE Administration Budesonide 0.5 mg 05/11/21 22:00 05/13/21 07:09 Budesonide 0.5 Mg/2 Ml Neb INH 0.5 mg RTBID DIANE Administration Enoxaparin Sodium 40 mg 05/11/21 09:00 05/13/21 08:56 Enoxaparin 40 Mg/0.4 Ml Syringe SUBQ 40 mg DAILY IDANE Administration Ferrous Gluconate 324 mg 05/13/21 08:00 05/13/21 08:56 Ferrous Gluconate 324 Mg Tablet PO 324 mg DAILYWM DIANE Administration Formoterol Fumarate 20 mcg 05/11/21 22:00 05/13/21 07:09 Formoterol Fumarate Neb 20 Mcg/2 Ml INH 20 mcg RTBID DIANE Administration Furosemide 20 mg 05/12/21 08:00 05/13/21 05:50 Furosemide 20 Mg/2 Ml Vial IVP 20 mg BIDDIURETIC DIANE Administration Gabapentin 300 mg 05/11/21 00:06 05/12/21 21:16 Gabapentin 300 Mg Capsule PO 300 mg QPM DIANE Administration Guaifenesin 600 mg 05/10/21 21:00 05/13/21 08:56 Guaifenesin 600 Mg Tablet PO 600 mg BID DIANE Administration Cefepime HCl 2 gm/ Sodium 100 mls @ 200 mls/hr 05/11/21 22:00 05/13/21 05:50 Chloride IV Infused TID DIANE Infusion Insulin Aspart 2 - 10 unit 05/11/21 21:00 05/13/21 08:58 Insulin Aspart 300 Unit/3 Ml Pen SUBQ Not Given 0800,1200,1700,2100 [facility] Protocol Insulin Glargine 30 unit 05/12/21 21:00 05/12/21 21:17 Insulin Glargine 300 Unit/3 Ml Pen SUBQ 30 unit QPM DIANE Administration Lisinopril 5 mg 05/11/21 09:00 05/13/21 08:56 Lisinopril 5 Mg Tablet PO 5 mg DAILY DIANE Administration Methylprednisolone Sodium Succinate 60 mg 05/13/21 09:00 05/13/21 08:57 Methylprednisolone Succinate 125 Mg/2 Ml Vial IVP 60 mg TID DIANE Administration Metoprolol Succinate 25 mg 05/11/21 09:00 05/13/21 08:56 Metoprolol Succinate 25 Mg Tablet PO 25 mg DAILY DIANE Administration Multivitamins/Minerals 1 tab 05/11/21 08:00 05/13/21 08:56 Multivitamin W/Minerals Tablet PO 1 tab DAILYWM DIANE Administration Nicotine 1 patch 05/12/21 23:41 05/13/21 00:02 Nicotine 14 Mg Patch TOP 1 patch DAILY DIANE Administration Saccharomyces Boulardii 250 mg 05/12/21 08:13 05/13/21 08:56 Saccharomyces Boulardii 250 Mg Capsule PO 250 mg BIDWM DIANE Administration Sodium Chloride 10 ml 05/10/21 15:47 05/11/21 21:03 Sodium Chloride Flush 0.9% 10 Ml Syringe IVP 10 ml PRN PRN Administration NEEDED PER PROVIDER ORDERS Sodium Chloride 10 ml 05/10/21 17:00 05/13/21 08:59 Sodium Chloride Flush 0.9% 10 Ml Syringe IVP 10 ml 0100,0900,1700 DIANE Administration Zolpidem Tartrate 5 mg 05/10/21 15:47 05/13/21 00:03 Zolpidem 5 Mg Tablet PO 5 mg QPM PRN Administration Insomnia - Lab Result Fish Bone Diagrams: 05/13/21 07:05 05/13/21 07:05 - Additional Planning My Orders: My Active Orders 05/12/21 21:00 Insulin Glargine [Lantus Solostar] 30 unit SUBQ QPM 05/13/21 08:00 Ferrous Gluconate [Fergon] 324 mg PO DAILYWM 05/13/21 09:00 Ascorbic Acid [Vitamin C] 500 mg PO DAILY Ipratropium/Albuterol [Duoneb] 3 ml INH RTQ6H methylPREDNISolone SUCCINATE [SOLU-Medrol (125MG VIAL)] 60 mg IVP TID 05/14/21 05:00 BMP - BASIC METABOLIC PANEL [CHEM] DAILYLAB CBC - COMP BLD CT W/AUTO DIFF [HEME] DAILYLAB 05/15/21 05:00 BMP - BASIC METABOLIC PANEL [CHEM] DAILYLAB CBC - COMP BLD CT W/AUTO DIFF [HEME] DAILYLAB 05/16/21 05:00 BMP - BASIC METABOLIC PANEL [CHEM] DAILYLAB CBC - COMP BLD CT W/AUTO DIFF [HEME] DAILYLAB 05/17/21 05:00 BMP - BASIC METABOLIC PANEL [CHEM] DAILYLAB CBC - COMP BLD CT W/AUTO DIFF [HEME] DAILYLAB 05/18/21 05:00 BMP - BASIC METABOLIC PANEL [CHEM] DAILYLAB CBC - COMP BLD CT W/AUTO DIFF [HEME] DAILYLAB Subjective - Subjective Patient Reports: Resting Comfortably Objective Vital Signs: Vital Signs - 24 hr 05/12/21 05/12/21 05/12/21 12:24 15:08 16:00 Temperature 36.7 C 36.6 C Heart Rate 71 Heart Rate [ 87 89 Brachial] Respiratory 24 18 22 Rate Blood Pressure 146/89 H 156/78 H [Right Brachial artery] O2 Saturation 99 98 05/12/21 05/12/21 05/13/21 19:40 20:22 00:04 Temperature 36.9 C 36.8 C Heart Rate 82 Heart Rate [ 95 103 H Brachial] Respiratory 20 22 18 Rate Blood Pressure 179/82 H 161/81 H [Right Brachial artery] O2 Saturation 100 95 05/13/21 05/13/21 05/13/21 05:00 07:13 08:00 Temperature Heart Rate 87 Heart Rate [ 81 95 Brachial] Respiratory 18 19 22 Rate Blood Pressure 141/70 H 168/80 H [Right Brachial artery] O2 Saturation 93 92 05/13/21 09:17 Temperature Heart Rate 101 H Heart Rate [ Brachial] Respiratory 20 Rate Blood Pressure [Right Brachial artery] O2 Saturation Oxygen O2 Source Nasal cannula Oxygen Flow Rate 2 I&O (Last 24 Hrs): Intake and Output Totals x24h 05/11/21 05/12/21 05/13/21 23:59 23:59 23:59 Intake Total 2410 1090 850 Output Total 3308 107 6704 Balance 910 165 -275 General: Alert, Oriented x3, Cooperative, Mild distress HEENT: Atraumatic Neck: Supple Lymphatic: no adenopathy Neuro: Alert, Non Focal, Oriented Times 3 Cardiovascular: Regular rate, Normal S1, Normal S2 Respiratory: Chest non-tender, No respiratory distress Abdomen: Normal bowel sounds, Soft Extremities: Normal pulses, Other (pt declined to open his bilteral foot dressing to check his ulcer conditions.) - Results Results: Laboratory Results WBC 8.1 x10^3/uL (4.8-10.8) 05/13/21 07:05 RBC 3.35 10^6/uL (4.70-6.10) L 05/13/21 07:05 Hgb 8.0 g/dL (14.0-18.0) L 05/13/21 07:05 Hct 26.4 % (42.0-52.0) L 05/13/21 07:05 MCV 78.8 fL (80.0-94.0) L 05/13/21 07:05 MCH 23.9 pg (27.0-31.0) L 05/13/21 07:05 MCHC 30.3 g/dL (32.0-36.0) L 05/13/21 07:05 RDW 17.2 % (12.0-15.0) H 05/13/21 07:05 Plt Count 440 10^3/uL (130-450) 05/13/21 07:05 MPV 9.1 fL (7.4-11.4) 05/13/21 07:05 Neut # (Auto) 6.4 10^3/uL (1.5-6.6) 05/13/21 07:05 Lymph # (Auto) 0.9 10^3/uL (1.5-3.5) L 05/13/21 07:05 Wilson # (Auto) 0.7 10^3/uL (0.0-1.0) 05/13/21 07:05 Eos # (Auto) 0.1 10^3/uL (0.0-0.7) 05/13/21 07:05 Baso # (Auto) 0.0 10^3/uL (0.0-0.1) 05/13/21 07:05 Absolute Nucleated RBC 0.00 x10^3/uL 05/13/21 07:05 Nucleated RBC % 0.0 /100WBC 05/13/21 07:05 PT 12.1 secs (9.9-12.6) 05/10/21 13:04 INR 1.1 (0.8-1.2) 05/10/21 13:04 Sodium 133 mmol/L (135-145) L 05/13/21 07:05 Potassium 3.8 mmol/L (3.5-5.0) 05/13/21 07:05 Chloride 97 mmol/L (101-111) L 05/13/21 07:05 Carbon Dioxide 26 mmol/L (21-32) 05/13/21 07:05 Anion Gap 10.0 (6-13) 05/13/21 07:05 BUN 21 mg/dL (6-20) H 05/13/21 07:05 Creatinine 0.7 mg/dL (0.6-1.2) 05/13/21 07:05 Estimated GFR (MDRD) 114 (>89) 05/13/21 07:05 Glucose 117 mg/dL (70-100) H 05/13/21 07:05 POC Whole Bld Glucose 130 mg/dL (70 - 100) H 05/13/21 07:50 Estimat Average Glucose 260 mg/dL (70-100) H 05/11/21 05:59 Hemoglobin A1c % 10.7 % (4.27-6.07) H 05/11/21 05:59 Lactic Acid 1.8 mmol/L (0.5-2.2) 05/10/21 13:04 Calcium 7.8 mg/dL (8.5-10.3) L 05/13/21 07:05 Magnesium 1.8 mg/dL (1.7-2.8) 05/11/21 05:59 Total Bilirubin < 0.2 mg/dL (0.2-1.0) L 05/10/21 13:04 AST 21 IU/L (10-42) 05/10/21 13:04 ALT 26 IU/L (10-60) 05/10/21 13:04 Alkaline Phosphatase 218 IU/L (42-121) H 05/10/21 13:04 Troponin I High Sens 19.1 ng/L (2.3-19.7) 05/10/21 13:04 B-Natriuretic Peptide 1026 pg/mL (5-100) H 05/13/21 07:05 Total Protein 6.6 g/dL (6.7-8.2) L 05/10/21 13:04 Albumin 1.9 g/dL (3.2-5.5) L 05/10/21 13:04 Globulin 4.7 g/dL (2.1-4.2) H 05/10/21 13:04 Albumin/Globulin Ratio 0.4 (1.0-2.2) L 05/10/21 13:04 Lipase 23 U/L (22-51) 05/10/21 13:04 Nasal Adenovirus (PCR) NOT DETECTED 05/10/21 12:21 Nasal B. parapertussis DNA (PCR) NOT DETECTED 05/10/21 12:21 Nasal Coronavir 229E PCR NOT DETECTED 05/10/21 12:21 Nasal Coronavir HKU1 PCR NOT DETECTED 05/10/21 12:21 Nasal Coronavir NL63 PCR NOT DETECTED 05/10/21 12:21 Nasal Coronavir OC43 PCR NOT DETECTED 05/10/21 12:21 Nasal Enterovir/Rhinovir PCR NOT DETECTED 05/10/21 12:21 Nasal Influenza B PCR NOT DETECTED 05/10/21 12:21 Nasal Influenza A PCR NOT DETECTED 05/10/21 12:21 Nasal Parainfluen 1 PCR NOT DETECTED 05/10/21 12:21 Nasal Parainfluen 2 PCR NOT DETECTED 05/10/21 12:21 Nasal Parainfluen 3 PCR NOT DETECTED 05/10/21 12:21 Nasal Parainfluen 4 PCR NOT DETECTED 05/10/21 12:21 Nasal RSV (PCR) NOT DETECTED 05/10/21 12:21 Nasal B.pertussis DNA PCR NOT DETECTED 05/10/21 12:21 Nasal C.pneumoniae (PCR) NOT DETECTED 05/10/21 12:21 Esvin Human Metapneumo PCR NOT DETECTED 05/10/21 12:21 Nasal M.pneumoniae (PCR) NOT DETECTED 05/10/21 12:21 Nasal SARS-CoV-2 (PCR) DETECTED A 05/10/21 12:21 - Procedures Procedures: Procedures (04/16/21) DRAINAGE OF R PLEURAL CAV WITH DRAIN DEV, PERC APPROACH (01/29/17) DRAINAGE OF RIGHT PLEURAL CAVITY, PERC APPROACH, DIAGN (01/29/17) INTRODUCTION OF ANTI-INFLAM INTO PERIPH VEIN, PERC APPROACH (04/16/21) ABX Reporting Has patient been on IV antibiotics over the past 48 hours?: Yes Current Medications - Current Medications Current Medications: Active Medications Acetaminophen (Acetaminophen 325 Mg Tablet) 650 mg PO Q4HR PRN PRN Reason: Pain or Fever > 38C (100.4F) Last Admin: 05/12/21 09:59 Dose: 650 mg Hydrocodone Bitart/Acetaminophen (Hydrocod/Acetam 5/325 Mg Tablet) 1 tab PO Q4H R PRN PRN Reason: PAIN Last Admin: 05/13/21 00:03 Dose: 1 tab Albuterol (Albuterol Neb 2.5 Mg/3 Ml) 2.5 mg INH RTQ4H PRN PRN Reason: Wheezing Albuterol/Ipratropium (Ipratropium/Albuterol 3 Ml Neb) 3 ml INH RTQ6H [facility] Last Admin: 05/13/21 09:14 Dose: 3 ml Ascorbic Acid (Ascorbic Acid 500 Mg Tablet) 500 mg PO DAILY [facility] Last Admin: 05/13/21 08:56 Dose: 500 mg Budesonide (Budesonide 0.5 Mg/2 Ml Neb) 0.5 mg INH RTBID [facility] Last Admin: 05/13/21 07:09 Dose: 0.5 mg Enoxaparin Sodium (Enoxaparin 40 Mg/0.4 Ml Syringe) 40 mg SUBQ DAILY [facility] Last Admin: 05/13/21 08:56 Dose: 40 mg Ferrous Gluconate (Ferrous Gluconate 324 Mg Tablet) 324 mg PO DAILYWM [facility] Last Admin: 05/13/21 08:56 Dose: 324 mg Formoterol Fumarate (Formoterol Fumarate Neb 20 Mcg/2 Ml) 20 mcg INH RTBID [facility] Last Admin: 05/13/21 07:09 Dose: 20 mcg Furosemide (Furosemide 20 Mg/2 Ml Vial) 20 mg IVP BIDDIURETIC [facility] Last Admin: 05/13/21 05:50 Dose: 20 mg Gabapentin (Gabapentin 300 Mg Capsule) 300 mg PO QPM [facility] Last Admin: 05/12/21 21:16 Dose: 300 mg Guaifenesin (Guaifenesin 600 Mg Tablet) 600 mg PO BID [facility] Last Admin: 05/13/21 08:56 Dose: 600 mg Hydromorphone HCl (Hydromorphone 0.5 Mg/0.5 Ml Syringe) 0.5 mg IVP Q2H PRN PRN Reason: PAIN Cefepime HCl 2 gm/ Sodium (Chloride) 100 mls @ 200 mls/hr IV TID [facility] Last Infusion: 05/13/21 05:50 Dose: Infused Insulin Aspart (Insulin Aspart 300 Unit/3 Ml Pen) 2 - 10 unit SUBQ 0800,1200,1700,2100 [facility]; Protocol Last Admin: 05/13/21 08:58 Dose: Not Given Insulin Glargine (Insulin Glargine 300 Unit/3 Ml Pen) 30 unit SUBQ QPM [facility] Last Admin: 05/12/21 21:17 Dose: 30 unit Lisinopril (Lisinopril 5 Mg Tablet) 5 mg PO DAILY [facility] Last Admin: 05/13/21 08:56 Dose: 5 mg Methylprednisolone Sodium Succinate (Methylprednisolone Succinate 125 Mg/2 Ml Vial) 60 mg IVP TID [facility] Last Admin: 05/13/21 08:57 Dose: 60 mg Metoprolol Succinate (Metoprolol Succinate 25 Mg Tablet) 25 mg PO DAILY [facility] Last Admin: 05/13/21 08:56 Dose: 25 mg Multivitamins/Minerals (Multivitamin W/Minerals Tablet) 1 tab PO DAILYWM [facility] Last Admin: 05/13/21 08:56 Dose: 1 tab Nicotine (Nicotine 14 Mg Patch) 1 patch TOP DAILY [facility] Last Admin: 05/13/21 00:02 Dose: 1 patch Ondansetron HCl (Ondansetron 4 Mg/2 Ml Vial) 4 mg IVP Q6HR PRN PRN Reason: Nausea / Vomiting Saccharomyces Boulardii (Saccharomyces Boulardii 250 Mg Capsule) 250 mg PO BIDWM [facility] Last Admin: 05/13/21 08:56 Dose: 250 mg Sodium Chloride (Sodium Chloride Flush 0.9% 10 Ml Syringe) 10 ml IVP PRN PRN PRN Reason: NEEDED PER PROVIDER ORDERS Last Admin: 05/11/21 21:03 Dose: 10 ml Sodium Chloride (Sodium Chloride Flush 0.9% 10 Ml Syringe) 10 ml IVP 0100,0900,1700 [facility] Last Admin: 05/13/21 08:59 Dose: 10 ml Zolpidem Tartrate (Zolpidem 5 Mg Tablet) 5 mg PO QPM PRN PRN Reason: Insomnia Last Admin: 05/13/21 00:03 Dose: 5 mg Insulin Aspart [NovoLOG] 20 unit SUBQ AC 04/17/21 Insulin Glargine [Lantus Solostar] 50 unit SUBQ QPM 04/17/21 Metformin HCl [Metformin ER Gastric] 1,000 mg PO DAILYWM 04/17/21
--- NOTE | 2021-05-13 11:29 | XRAY Report ---
PROCEDURE: Chest 1 View X-Ray INDICATIONS: SOB TECHNIQUE: One view of the chest was acquired. COMPARISON: 05/11/2021 chest x-ray FINDINGS: Surgical changes and devices: None. Lungs and pleura: No pneumothorax. Small left pleural effusion. Allowing for differences in techniqu e, no significant change in severe bilateral reticulonodular pulmonary opacity. Mediastinum: Mediastinal contours appear normal. Heart size is normal. Bones and chest wall: No suspicious bony lesions. Overlying soft tissues appear unremarkable. IMPRESSION: No change in severe bilateral pneumonia/ARDS. Reviewed by: Bailee Santos MD on 05/13/2021 11:28 AM PDT Approved by: Bailee Santos MD on 05/13/2021 11:28 AM PDT Station ID: [id number]
[2021-05-13] MEDS ORDERED: INSULIN ASPART 300 UNIT/3 ML PEN SUBQ SCH (17:00)
[2021-05-13] MEDS: INSULIN ASPART 300 UNIT/3 ML PEN SUBQ ONE ×2 (20:04→20:05)
[2021-05-13] MEDS: GABAPENTIN 300 MG CAPSULE PO SCH (20:34)
[2021-05-13] MEDS: INSULIN GLARGINE 300 UNIT/3 ML PEN SUBQ SCH (20:35)
[2021-05-14 05:08] LABS: BASOPHILS % (AUTO) 0.1 %; HCT - HEMATOCRIT 26.1 % (42.0-52.0); HGB - HEMOGLOBIN 8.2 g/dL (14.0-18.0); LYMPHOCYTES # (AUTO) 0.7 10^3/uL (1.5-3.5); MEAN CORPUSCULAR HEMOGLOBIN 24.8 pg (27.0-31.0); MEAN CORPUSCULAR HGB CONC 31.4 g/dL (32.0-36.0); MEAN CORPUSCULAR VOLUME 79.1 fL (80.0-94.0); MEAN PLATELET VOLUME 9.4 fL (7.4-11.4); MONOCYTES # (AUTO) 0.2 10^3/uL (0.0-1.0); MONOCYTES % (AUTO) 1.7 %; NEUTROPHILS # (AUTO) 10.2 10^3/uL (1.5-6.6); NEUTROPHILS % (AUTO) 91.5 %; PLT - PLATELET COUNT 488 10^3/uL (130-450); RED CELL DISTRIBUTION WIDTH 17.2 % (12.0-15.0); WHITE BLOOD COUNT 11.2 x10^3/uL (4.8-10.8)
[2021-05-14 05:24] LABS: CALCIUM 8.2 mg/dL (8.5-10.3); CREATININE 0.7 mg/dL (0.6-1.2); POTASSIUM 4.2 mmol/L (3.5-5.0)
[2021-05-14] MEDS: CEFEPIME 2 GM in SODIUM CHLORIDE 0.9% MINIBAG 100 ML IV SCH (05:33)
[2021-05-14] MEDS: methylPREDNISolone SUCCINATE 125 MG/2 ML VIAL IVP SCH (05:33)
[2021-05-14] MEDS: FUROSEMIDE 20 MG/2 ML VIAL IVP SCH (05:34)
[2021-05-14] MEDS: HYDROcod/ACETAM 5/325 MG TABLET PO PRN (05:34)
[2021-05-14] MEDS: SODIUM CHLORIDE FLUSH 0.9% 10 ML SYRINGE IVP SCH ×2 (05:34→08:36)
[2021-05-14] MEDS: IPRATROPIUM/ALBUTEROL 3 ML NEB INH SCH ×2 (06:42→07:22)
[2021-05-14] MEDS: BUDESONIDE 0.5 MG/2 ML NEB INH SCH (07:22)
[2021-05-14] MEDS: FORMOTEROL FUMARATE NEB 20 MCG/2 ML INH SCH (07:22)
[2021-05-14] MEDS ORDERED: FUROSEMIDE 20 MG/2 ML VIAL IVP SCH (08:12)
[2021-05-14] MEDS: SACCHAROMYCES BOULARDII 250 MG CAPSULE PO SCH (08:35)
[2021-05-14] MEDS: MULTIVITAMIN W/MINERALS TABLET PO SCH (08:35)
[2021-05-14] MEDS: NICOTINE 14 MG PATCH TOP SCH (08:36)
[2021-05-14] MEDS: lisinopriL 5 MG TABLET PO SCH (08:36)
[2021-05-14] MEDS: ENOXAPARIN 40 MG/0.4 ML SYRINGE SUBQ SCH (08:36)
[2021-05-14] MEDS: ASCORBIC ACID 500 MG TABLET PO SCH (08:36)
[2021-05-14] MEDS: METOPROLOL SUCCINATE 25 MG TABLET PO SCH (08:36)
[2021-05-14] MEDS: guaiFENesin 600 MG TABLET PO SCH (08:36)
[2021-05-14] MEDS: INSULIN ASPART 300 UNIT/3 ML PEN SUBQ SCH ×4 (08:43→11:51)
[2021-05-14] MEDS: FERROUS GLUCONATE 324 MG TABLET PO SCH (08:47)
--- NOTE | 2021-05-14 10:51 | Discharge Plan ---
Discharge Plan Problem Reviewed?: Yes Disposition: Home, Self Care Condition: Stable Prescriptions: HYDROcod/ACETAM 5/325 [Harrells 5/325] 1 tab PO Q4HR PRN #15 tablet PRN Reason: Pain Ipratropium [Atrovent] 1 puffs INH Q6H PRN #1 inhaler PRN Reason: Shortness Of Air/Wheezing cefUROXime axetiL [Ceftin] 500 mg PO Q12H #20 tablet predniSONE [Deltasone] 20 mg PO [id number] #11 tab Saccharomyces Boulardii [Florastor] 250 mg PO BIDWM #10 cap Furosemide [Lasix] 20 mg PO DAILY #30 tablet Gabapentin [Neurontin] 300 mg PO QPM #30 cap Albuterol Sulfate [Proair Hfa Inhaler] 1 puffs INH Q4H PRN #1 inhaler PRN Reason: Shortness Of Air/Wheezing Diet: Diabetic Activity Restrictions: Activity as Tolerated Shower Restrictions: No (fall precaution) Instruction Topics: COPD, Cefuroxime tablets, Pneumonia, Prednisone tablets, Albuterol inhalation solution, Ipratropium aerosol inhaler, Furosemide tablets, Heart Failure, Gabapentin capsules or tablets, Acetaminophen Hydrocodone tablets or capsules Health Concerns: pneumonia, COPD, uncontrolled diabetes with foot infection, diastolic heart failure Plan of Treatment: After you are treated in the hospital, you have no respiratory distress, you had 94% oxygen saturation on room air. You hope to be discharged on today to home. You were found to have pneumonia and COPD exacerbation the hospital. You are prescribed antibiotics, prednisone, albuterol, ipratropium inhaler as needed. You may follow-up with your PCP, follow-up with emission specialist as outpatient. You report you did daily dressing change for your bilaterally foot diabetic infection, You hope nurse gave you some supplement for dressing change, no other needed. You report You will follow up with your orthopedics surgeon on May 21 for follow up care for your foot, followup with your PCP on May 24. You may resume your home meds for your history of diastolic heart failure, you is prescription of new medicine Lasix. You may continue follow-up with your PCP to manage. You may resume your home insulin, it is very important for you to keep medical compliance. home health RN is arranged to help your care. you may follow-up with your primary care to continue management of your diabetes Care Goals: Stabilization and improvement of your medical conditions Assessment: Discussed the care plan in detail with you, answered your questions, you understood and agreed Additional Instructions or Follow Up instructions: You may follow-up with your PCP as your schedule, follow-up with your orthopedic surgeon as the schedule for your diabetes foot care. Should your symptoms return or worsen, you may present to the ER or call 911 for help Follow-Up Care: Home Health - RN No Smoking: If you smoke, Please STOP! Call for help. Follow-up with: Rajat Saldivar MD [Primary Care Provider] -
--- NOTE | 2021-05-14 11:35 | DISCHARGE SUMMARY ---
Discharge Summary Admit Date: 05/10/21 Discharge Date: 05/14/21 Discharging Provider: Ulisses Smyth Primary Care Provider: Cayetano Bravo Condition at Discharge: Stable Discharge Disposition: 01 Home, Self Care Discharge Facility Name: home - DIAGNOSES Discharge Diagnoses with Status of Each Condition: (1) Acute respiratory failure with hypoxia resolved. Patient has no acute respiratory distress, patient had 96% O2 sat on room air (2)fall at hospital pt had a fall when he was at inpt. CT of head show no acute process. pt can walk to bathroom by himself. pt refused to have PT/OT evaluation and treatment. pt had education for how to prevent of fall. Patient may follow up with his PCP To continue management the risk of fall (3) COPD exacerbation Patient has no acute respiratory distress, patient had 96% O2 sat on room air. pt is prescribed tapered prednisone, albuterol and ipratropium Inhaler PRN. Patient may follow-up with his PCP and real estate officer as outpatient. Strongly advised patient quit cigarette smoking. (4) pneumonia Patient has no acute respiratory distress, patient had 96% O2 sat on room air. Patient has no fever, cough, blood culture is negative for bacteremia. Patient is prescribed antibiotics to finish the treatment course. (5) Diabetic foot ulcer Pt has hx of bilateral diabetes infection. Patient report he did his diabetes wound foot dressing change daily by himself, declined further help. he has some device for dressing change. he asked nurse give him more. He reported he will see his orthopedic surgeon on May 21 to manage his foot wound. He will see his PCP on May 24 as well. (6) Uncontrolled type 2 DM with peripheral circulatory disorder Poorly controlled. Hemoglobin A1c is 10.7. Patient has a history of medical noncompliance, strongly advised the patient keep medical compliant, Control of his diabetes. (7) HTN (hypertension) stable, Resume patient home meds (8) Pleural effusion stable. Patient has no acute respiratory distress, patient had 96% O2 sat on room air. pt has moderate size Of left pleural effusion in CTA of chest. Patient may follow-up with his PCP and real estate officer as outpatient to continue the management (9) Tobacco abuse Strongly advised patient quit cigarette smoking (10)diastolic heart failure pt has hx of diastolic heart failure. unfortunately we do not ECHO service now. Patient will resume his home medication, add 20 mg Lasix daily. Patient may continue follow-up his PCP to manage (11)Covid 19 positive Patient had COVID-19 + three weeks ago, patient is still positive at this admission. Patient has no acute respiratory distress, patient had 96% O2 sat on room air. Patient may follow-up with [facility] for COVID-19 recommendations - [facility] History of Present Illness: refer from Dr. Quinones's HPI on 05/10/21 Patient is a 65-year-old male with medical history significant for hypertension, hyperlipidemia, diabetes mellitus type 2, peripheral neuropathy, loculated pleural effusion, COPD and tobacco use who presented to the ED with complaint of shortness of breath and leg pain. His symptoms have been going on for the past 2 to 3 days. However he adds that he has been dyspneic since his last hospital stay. He was discharged about 3 weeks ago after being treated in the hospital for Covid pneumonia. His shortness of breath is worse when he lays flat. His leg pain is bilaterally and is up to his thighs. He has wound on his lower extremities bilaterally. They are currently wrapped in bandage and are malodorous. He is currently being seen by orthopedics Dr. Alcazar and is undergoing work-up for potential amputation in the future. His oxygen saturation was 88% on room air and he required 2 L of oxygen to maintain his oxygen saturation in the 90s. He also had a white blood cell count of 12.9 Work-up in the ED included a CT of the chest which was negative for PE but reported moderate left pleural effusion and trace right pleural effusion as well as ill-defined bilateral multilobar patchy infiltrates. He was presented for admission for further treatment. - ALLERGIES Allergies/Adverse Reactions: Allergies Allergy/AdvReac Type Severity Reaction Status Date / Time No Known Drug Allergies Allergy Verified 05/10/21 12:11 - MEDICATIONS Home Medications: Ambulatory Orders Medication Instructions Recorded Confirmed Insulin Aspart [NovoLOG] 20 unit SUBQ AC 04/17/21 05/11/21 Insulin Glargine [Lantus Solostar] 50 unit SUBQ QPM 04/17/21 05/11/21 Metformin HCl [Metformin ER 1,000 mg PO DAILYWM 04/17/21 05/11/21 Gastric] Ascorbic Acid [Vitamin C] 500 mg PO DAILY tablet 04/19/21 05/11/21 Ferrous Gluconate [Fergon] 324 mg PO DAILYWM #30 tablet 04/19/21 05/11/21 Metoprolol Succinate [Toprol Xl] 25 mg PO DAILY #30 tablet 04/19/21 05/11/21 Multivitamin W/Minerals [Theragran 1 tab PO DAILYWM tablet 04/19/21 05/11/21 M] lisinopriL [Zestril] 5 mg PO DAILY #30 tablet 04/19/21 05/11/21 Albuterol Sulfate [Proair Hfa 1 puffs INH Q4H PRN #1 inhaler 05/14/21 Inhaler] Furosemide [Lasix] 20 mg PO DAILY #30 tablet 05/14/21 Gabapentin [Neurontin] 300 mg PO QPM #30 cap 05/14/21 HYDROcod/ACETAM 5/325 [[place] 5/325] 1 tab PO Q4HR PRN #15 tablet 05/14/21 Ipratropium [Atrovent] 1 puffs INH Q6H PRN #1 inhaler 05/14/21 Saccharomyces Boulardii [Florastor] 250 mg PO BIDWM #10 cap 05/14/21 cefUROXime axetiL [Ceftin] 500 mg PO Q12H #20 tablet 05/14/21 predniSONE [Deltasone] 20 mg PO [id number] #11 tab 05/14/21 - PHYSICAL EXAM AT DISCHARGE General Appearance: positive: No acute distress, Alert. negative: Lethargic Eyes Bilateral: positive: Normal inspection, No lid inflammation ENT: positive: ENT inspection nml, No signs of dehydration. negative: Purulent nasal drainage Neck: positive: Nml inspection, Trachea midline. negative: Tracheal deviation Respiratory: positive: Chest non-tender, No respiratory distress. negative: Wheezes Cardiovascular: positive: Regular rate & rhythm. negative: Tachycardia, Bradycardia, Systolic murmur Peripheral Pulses: positive: 2+ Abdomen: positive: Non-tender, Nml bowel sounds, No distention. negative: Tenderness Back: positive: Nml inspection Skin: positive: Warm, Dry. negative: Cyanosis Extremities: positive: Non-tender, Full ROM, Other (pt declined us to assess his wound ) Neurologic/Psychiatric: positive: Oriented x3, Motor nml, Sensation nml. negative: Weakness, Sensory loss, Facial droop, Slurred/abnml speech, Depressed mood/affect - LABS Result Diagrams: 05/14/21 04:16 05/14/21 04:16 - FOLLOW UP Follow Up: After you are treated in the hospital, you have no respiratory distress, you had 96% oxygen saturation on room air. You hope to be discharged on today to home. You were found to have pneumonia and COPD exacerbation the hospital. You are prescribed antibiotics, prednisone, albuterol, ipratropium inhaler as needed. You may follow-up with your PCP, follow-up with real estate officer as outpatient. You report you did daily dressing change for your bilaterally foot diabetic infection, You hope nurse gave you some supplement for dressing change, no other needed. You report You will follow up with your orthopedics surgeon on May 21 for follow up care for your foot, followup with your PCP on May 24. You may resume your home meds for your history of diastolic heart failure, you is prescription of new medicine Lasix. You may continue follow-up with your PCP to manage. You may resume your home insulin, it is very important for you to keep medical compliance. home health RN is arranged to help your care. you may follow-up with your primary care to continue management of your diabetes. You may follow-up with your PCP as your schedule, follow-up with your orthopedic surgeon as the schedule for your diabetes foot care. Should your symptoms return or worsen, you may present to the ER or call 911 for help - TIME SPENT Time Spent in Discharge (Minutes): 30
[2021-05-14 11:47] VITALS: BP 166/87
[2021-05-14] MEDS ORDERED: methylPREDNISolone SUCCINATE 125 MG/2 ML VIAL IVP SCH (14:00)
[2021-05-14] MEDS ORDERED: INSULIN GLARGINE 300 UNIT/3 ML PEN SUBQ SCH (21:00)
== END 2021-05-14 12:50 | disposition home or self-care (01) | DRG 189 ==
LOC: ED 11:48 → MS3 15:47
PROVIDERS: ADMIT Internal Medicine; ATTEND Nurse Practitioner Gerontology
DX: J96.01 Acute respiratory failure with hypoxia (principal); J18.9 Pneumonia, unspecified organism; U07.1 COVID-19; J44.0 Chronic obstructive pulmonary disease with (acute) lower respiratory infection; J90 Pleural effusion, not elsewhere classified; I50.32 Chronic diastolic (congestive) heart failure; J44.1 Chronic obstructive pulmonary disease with (acute) exacerbation; E11.42 Type 2 diabetes mellitus with diabetic polyneuropathy; E11.51 Type 2 diabetes mellitus with diabetic peripheral angiopathy without gangrene; E11.621 Type 2 diabetes mellitus with foot ulcer; E11.65 Type 2 diabetes mellitus with hyperglycemia; E78.00 Pure hypercholesterolemia, unspecified; F17.210 Nicotine dependence, cigarettes, uncomplicated; I11.0 Hypertensive heart disease with heart failure; L97.519 Non-pressure chronic ulcer of other part of right foot with unspecified severity; L97.529 Non-pressure chronic ulcer of other part of left foot with unspecified severity; Z79.4 Long term (current) use of insulin; Z79.84 Long term (current) use of oral hypoglycemic drugs; Z79.899 Other long term (current) drug therapy; Z91.14 Patient's other noncompliance with medication regimen
CPT/HCPCS: 0202U; 36415; 70450; 71045; 71275; 80048; 80053; 83036; 83605; 83690; 83735; 83880; 84484; 85025; 85610; 87040; 87205; 93005; 94640; 96365; 96375; 99284; 99285; A9270; J1650; J1815; J7120; J7626; Q9967; 87070

== ENCOUNTER 2021-05-15 05:03 | Outpatient (CLI) | payer MEDICAID | END 2021-05-15 05:04 | disposition critical access hospital (66) | LOC: EMS 05:03 | DX: R06.02 Shortness of breath (principal); R05.9 Cough, unspecified; R53.83 Other fatigue | CPT/HCPCS: A0425; A0427; A0999 ==

== ENCOUNTER 2021-05-15 05:32 | Observation (INO) | payer MEDICAID ==
--- OUTSIDE RECORDS SUMMARY | 2021-05-15 05:42 | EXTERNAL MEDICAL SUMMARY RPT | Continuity of Care Document ---
:1955 Author Organization [facility] Address [address] [place] [address] Phone Allergies No information. Encounters No information. Medications No information. Problems date description facility [id number] Left ventricular failure, unspecified Formerly [facility] Results No information.
--- NOTE | 2021-05-15 06:17 | ED Physician Documentation ---
PD HPI DYSPNEA - Stated complaint Stated Complaint: SOA - Chief complaint Chief Complaint: Resp - History obtained from History obtained from: Patient, EMS - Additional information Additional information: Patient is a 65-year-old male with a history significant for COPD, tobacco abuse, diabetes, leg wounds who was recently admitted earlier in April for Covid pneumonia. He was subsequently admitted from May 10 to May 14 for multi lobar pneumonia and acute respiratory failure with a COPD exacerbation. He was discharged home on prednisone, breathing treatments and Ceftin. He reports feeling these medications and taking them as prescribed. In the middle of the night he reports feeling shortness of breath and had trouble controlling his breath. He did utilize his breathing treatmentsAnd was given a treatment by EMS. He states his breathing is starting to feel better again. He has continued to have a cough. Denies fever, new weakness, chest pain, abdominal pain, vomiting or diarrhea. Review of Systems Constitutional: denies: Fever Nose: denies: Congestion Cardiac: denies: Chest pain / pressure Respiratory: reports: Dyspnea, Cough GI: reports: Nausea. denies: Abdominal Pain, Vomiting : denies: Dysuria Skin: reports: Lesions (Leg wounds) Musculoskeletal: denies: Back pain Neurologic: denies: Syncope, Headache PD PAST MEDICAL HISTORY - Past Medical History Cardiovascular: Hypertension, High cholesterol Respiratory: None Neuro: Peripheral neuropathy Endocrine/Autoimmune: Type 2 diabetes GI: Hepatitis : Other Psych: None Musculoskeletal: None Derm: None - Past Surgical History Past Surgical History: Yes General: Hiatal hernia repair - Present Medications Home Medications: Ambulatory Orders Medication Instructions Recorded Confirmed Insulin Aspart [NovoLOG] 20 unit SUBQ AC 04/17/21 05/15/21 Insulin Glargine [Lantus Solostar] 50 unit SUBQ QPM 04/17/21 05/15/21 Metformin HCl [Metformin ER 1,000 mg PO DAILYWM 04/17/21 05/15/21 Gastric] Ascorbic Acid [Vitamin C] 500 mg PO DAILY tablet 04/19/21 05/15/21 Ferrous Gluconate [Fergon] 324 mg PO DAILYWM #30 tablet 04/19/21 05/15/21 Metoprolol Succinate [Toprol Xl] 25 mg PO DAILY #30 tablet 04/19/21 05/15/21 Multivitamin W/Minerals [Theragran 1 tab PO DAILYWM tablet 04/19/21 05/15/21 M] lisinopriL [Zestril] 5 mg PO DAILY #30 tablet 04/19/21 05/15/21 Albuterol Sulfate [Proair Hfa 1 puffs INH Q4H PRN #1 inhaler 05/14/21 05/15/21 Inhaler] Furosemide [Lasix] 20 mg PO DAILY #30 tablet 05/14/21 05/15/21 Gabapentin [Neurontin] 300 mg PO QPM #30 cap 05/14/21 05/15/21 HYDROcod/ACETAM 5/325 [[place] 5/325] 1 tab PO Q4HR PRN #15 tablet 05/14/21 05/15/21 Ipratropium [Atrovent] 1 puffs INH Q6H PRN #1 inhaler 05/14/21 05/15/21 Saccharomyces Boulardii [Florastor] 250 mg PO BIDWM #10 cap 05/14/21 05/15/21 cefUROXime axetiL [Ceftin] 500 mg PO Q12H #20 tablet 05/14/21 05/15/21 predniSONE [Deltasone] 20 mg PO [id number] #11 tab 05/14/21 05/15/21 Ipratropium/Albuterol [Duoneb] 3 ml INH RTQID #30 neb 05/17/21 Multivitamin W/Minerals [Theragran 1 tab PO DAILYWM tablet 05/17/21 M] - Allergies Allergies/Adverse Reactions: Allergies Allergy/AdvReac Type Severity Reaction Status Date / Time No Known Drug Allergies Allergy Verified 05/15/21 05:42 - Social History Does the pt smoke?: Yes Smoking Status: Current some day smoker Does the pt drink ETOH?: No Does the pt have substance abuse?: Yes - Immunizations Immunizations are current?: Yes - POLST Patient has POLST: No POLST Status: Full Code PD ED PE NORMAL - General General: Alert and oriented X 3, No acute distress, Other (Frail, chronically ill-appearing) - HEENT HEENT: Atraumatic, Moist mucous membranes, Pharynx benign - Neck Neck: Supple, no meningeal sign - Cardiac Cardiac: RRR, No murmur, Strong equal pulses - Respiratory Respiratory: No respiratory distress, Other (Scattered rhonchi; diminished at b/l bases) - Abdomen Abdomen: Normal bowel sounds, Soft, Non tender - Derm Derm: Other (Dressings to bilateral lower extremities) - Neuro Neuro: Alert and oriented X 3, Normal speech - Psych Psych: Normal mood, Normal affect Results - Vitals Vitals: Oxygen O2 Source Room air Oxygen Flow Rate 0 - EKG (time done) 0558 Rate: Rate (enter#) (91) Rhythm: NSR Ischemia: Other (T wave flattening in leads I, aVL, V6) Computer interpretation: Agree with computer - Labs Labs: Laboratory Tests 05/15/21 05/15/21 05/15/21 06:41 06:41 06:41 WBC 18.8 H RBC 3.58 L Hgb 8.8 L Hct 28.5 L MCV 79.6 L MCH 24.6 L MCHC 30.9 L RDW 17.3 H Plt Count 604 H MPV 9.1 Neut # (Auto) 15.3 H Lymph # (Auto) 2.2 [place] # (Auto) 1.2 H Eos # (Auto) 0.0 Baso # (Auto) 0.0 Absolute Nucleated RBC 0.00 Nucleated RBC % 0.0 Sodium 132 L Potassium 3.3 L Chloride 97 L Carbon Dioxide 24 Anion Gap 11.0 BUN 32 H Creatinine 0.7 Estimated GFR (MDRD) 114 Glucose 63 L POC Whole Bld Glucose Calcium 8.5 Total Bilirubin 0.3 AST 31 ALT 28 Alkaline Phosphatase 173 H Troponin I High Sens 40.6 H* B-Natriuretic Peptide Total Protein 7.2 Albumin 2.0 L Globulin 5.2 H Albumin/Globulin Ratio 0.4 L 05/15/21 05/15/21 05/15/21 06:41 06:44 07:15 WBC RBC Hgb Hct MCV MCH MCHC RDW Plt Count MPV Neut # (Auto) Lymph # (Auto) [place] # (Auto) Eos # (Auto) Baso # (Auto) Absolute Nucleated RBC Nucleated RBC % Sodium Potassium Chloride Carbon Dioxide Anion Gap BUN Creatinine Estimated GFR (MDRD) Glucose POC Whole Bld Glucose 43 L* 55 L* Calcium Total Bilirubin AST ALT Alkaline Phosphatase Troponin I High Sens B-Natriuretic Peptide 1137 H Total Protein Albumin Globulin Albumin/Globulin Ratio PD MEDICAL DECISION MAKING - ED course ED course: 06 - Patient resting comfortably in bed, states his breathing difficulties have resolved. However, pt remains on O2. Chest x-rayWith bilateral patchy infiltrates. Due to issue with PACS system unable to view old images 0700 - Pt still requiring O2, labs reviewed. AM Hospitalist unavailable to discuss case. Will sign out to Dr. Roberto, AM ED Physician. Departure - Departure Disposition: ED Place in Observation Clinical Impression: Moderate COPD (chronic obstructive pulmonary disease), Loculated pleural effusion Respiratory failure with hypoxia Qualifiers: Chronicity: acute on chronic Qualified Code(s): J96.21 - Acute and chronic respiratory failure with hypoxia Pneumonia Qualifiers: Pneumonia type: due to unspecified organism Laterality: bilateral Lung location: lower lobe of lung Qualified Code(s): J18.9 - Pneumonia, unspecified organism Condition: Fair Discharge Date/Time: 05/15/21 10:47
[2021-05-15] MEDS ORDERED: ONDANSETRON 4 MG/2 ML VIAL IVP STA ×2 (06:28→06:59)
[2021-05-15 07:01] LABS: ALBUMIN/GLOBULIN RATIO 0.4 (1.0-2.2); BILIRUBIN,TOTAL 0.3 mg/dL (0.2-1.0); CALCIUM 8.5 mg/dL (8.5-10.3); CREATININE 0.7 mg/dL (0.6-1.2); POTASSIUM 3.3 mmol/L (3.5-5.0); TOTAL PROTEIN 7.2 g/dL (6.7-8.2)
[2021-05-15 07:12] LABS: BASOPHILS % (AUTO) 0.2 %; EOSINOPHILS % (AUTO) 0.1 %; HCT - HEMATOCRIT 28.5 % (42.0-52.0); HGB - HEMOGLOBIN 8.8 g/dL (14.0-18.0); LYMPHOCYTES # (AUTO) 2.2 10^3/uL (1.5-3.5); LYMPHOCYTES % (AUTO) 11.6 %; MEAN CORPUSCULAR HEMOGLOBIN 24.6 pg (27.0-31.0); MEAN CORPUSCULAR HGB CONC 30.9 g/dL (32.0-36.0); MEAN CORPUSCULAR VOLUME 79.6 fL (80.0-94.0); MEAN PLATELET VOLUME 9.1 fL (7.4-11.4); MONOCYTES # (AUTO) 1.2 10^3/uL (0.0-1.0); MONOCYTES % (AUTO) 6.4 %; NEUTROPHILS # (AUTO) 15.3 10^3/uL (1.5-6.6); NEUTROPHILS % (AUTO) 81.1 %; PLT - PLATELET COUNT 604 10^3/uL (130-450); RED BLOOD COUNT 3.58 10^6/uL (4.70-6.10); RED CELL DISTRIBUTION WIDTH 17.3 % (12.0-15.0); WHITE BLOOD COUNT 18.8 x10^3/uL (4.8-10.8)
[2021-05-15] MEDS ORDERED: IPRATROPIUM/ALBUTEROL 3 ML NEB INH STA (07:36)
--- NOTE | 2021-05-15 07:38 | ED Physician Documentation ---
ED Addendum - Addendum Addendum: 05/15/21 07:38 65-year-old male endorsed to me by Dr. Calvin at shift change has returned to the emergency department this morning after being discharged from the hospital yesterday. He is a male with a history of diabetes, COPD, CHF and a recent admission for exacerbation of COPD with pneumonia and Covid. He has had 2 hospitalizations in the month of April. He was discharged from the hospital yesterday after a stay for pneumonia/CHF. He left feeling well with a oxygen saturation of 96% on room air. He got into his car with his daughter, had wait for some prescriptions eventually made his way home did some light work folding laundry. The patient was receiving routine nebulized treatments in the hospital and he does not have a nebulizer machine at home. He feels like he could use a treatment now. Today here in the emergency department his oxygen saturation is 85% on room air. He corrects to 92 to 93% on 2 L nasal cannula. I evaluated the patient in the emergency department found him to have diminished breath sounds bilaterally and I checked his inferior vena cava and found it to be plethoric at 1.76. The size of the vessel is within the euvolemic size but it does not collapse well, consistent with the patient's history of congestive heart failure. His BNP is 1140 and lower than discharge. His legs are skinny. He has a history of diastolic failure. I do not think this is an exacerbation of CHF. We administered a duoneb treatment. 05/15/21 08:38 The patient felt some improvement with use of the DuoNeb treatment and we trialed the patient off of oxygen again and at rest after nebulizer treatment his oxygen saturation still 87 to 89%. He is placed back onto 2 L nasal cannula. He reports that he was unable to sleep last night secondary to struggling for breath. He was able to sleep when he arrived to the emergency department and was placed onto oxygen. Impression: COPD/pneumonia with CHF and hypoxia. Plan: Admit to observation with further treatment and O2. 05/15/21 09:26
--- NOTE | 2021-05-15 08:40 | XRAY Report ---
PROCEDURE: Chest 1 View X-Ray INDICATIONS: SOB TECHNIQUE: One view of the chest was acquired. COMPARISON: 05/11/2021 chest x-ray FINDINGS: Surgical changes and devices: None. Lungs and pleura: No pneumothorax. Small left pleural effusion is similar. Allowing for differences in technique, there is slight worsening severe bilateral reticulonodular pulmonary opacity. Mediastinum: Mediastinal contours appear normal. Heart size is normal. Bones and chest wall: No suspicious bony lesions. Overlying soft tissues appear unremarkable. IMPRESSION: Worsened severe bilateral airspace opacities. Reviewed by: Warren Martinez MD on 05/15/2021 8:39 AM PDT Approved by: Warren Martinez MD on 05/15/2021 8:39 AM PDT Station ID: [id number]
[2021-05-15] MEDS ORDERED: ONDANSETRON ODT 4 MG TABLET TL PRN (09:25)
[2021-05-15] MEDS ORDERED: ONDANSETRON 4 MG/2 ML VIAL IVP PRN (09:25)
[2021-05-15] MEDS ORDERED: oxyCODONE 5 MG TABLET PO PRN (09:25)
[2021-05-15] MEDS ORDERED: ACETAMINOPHEN 325 MG TABLET PO PRN (09:25)
[2021-05-15] MEDS ORDERED: SODIUM CHLORIDE FLUSH 0.9% 10 ML SYRINGE IVP PRN (09:25)
[2021-05-15] MEDS ORDERED: methylPREDNISolone SUCCINATE 125 MG/2 ML VIAL IVP SCH (11:00)
[2021-05-15] MEDS ORDERED: NS W/20 MEQ KCL 1,000 ML IV SCH (11:00)
[2021-05-15] MEDS ORDERED: CEFEPIME 2 GM in SODIUM CHLORIDE 0.9% MINIBAG 100 ML IV SCH (11:00)
[2021-05-15 11:17] LABS: CORONAVIRUS 229E-RESP PCR NOT DETECTED
[2021-05-15 11:18] LABS: B. PARAPERTUSSIS- RESP PCR PAN NOT DETECTED; B. PERTUSSIS- RESP PCR PANEL NOT DETECTED; C. PNEUMONIAE- RESP PCR PANEL NOT DETECTED; CORONAVIRUS HKU1-RESP PCR NOT DETECTED; CORONAVIRUS NL63-RESP PCR NOT DETECTED; CORONAVIRUS OC43-RESP PCR NOT DETECTED; HUMAN METAPNEUMOVIRUS NOT DETECTED; INFLUENZA A- RESP PCR PANEL NOT DETECTED; INFLUENZA B - RESP PCR PANEL NOT DETECTED; M. PNEUMONIAE- RESP PCR PANEL NOT DETECTED; PARAINFLUENZA VIRUS 1 NOT DETECTED; PARAINFLUENZA VIRUS 2 NOT DETECTED; PARAINFLUENZA VIRUS 3 NOT DETECTED; PARAINFLUENZA VIRUS 4 NOT DETECTED; RHINOVIRUS/ENTEROVIRUS NOT DETECTED; RSV- RESP PCR PANEL NOT DETECTED
[2021-05-15 11:20] LABS: SARS-CoV-2 -RESP PCR PANEL DETECTED
[2021-05-15] MEDS: SODIUM CHLORIDE FLUSH 0.9% 10 ML SYRINGE IVP SCH ×2 (11:54→21:19)
[2021-05-15] MEDS: ENOXAPARIN 40 MG/0.4 ML SYRINGE SUBQ SCH (12:05)
[2021-05-15] MEDS ORDERED: ALBUTEROL NEB 2.5 MG/3 ML INH PRN (13:38)
[2021-05-15] MEDS ORDERED: AZITHROMYCIN INJ 500 MG in SODIUM CHLORIDE 0.9% 250 ML IV SCH (13:44)
--- NOTE | 2021-05-15 13:52 | HISTORY & PHYSICAL EXAMINATION ---
Chief Complaint - Chief Complaint Chief Complaint: shortness of breath History of Present Illness - Admitted From Admitted From:: medical floor - History Obtained From Records Reviewed: [facility], ER note History obtained from: pt Exam Limitations: no - History of Present Illness HPI Comment/Other: Patient is a 65-year-old gentleman with a past medical history significant for uncontrolled diabetes, chronic bilateral diabetes foot infection and he was followup by his orthopedics surgeon for the care, COPD, loculated pleural effusion in 2017 requiring chest tube, medical non-complaint, hyperlipidemia, hypertension and hepatitis C status post treatment in 1999, who presented to the emergency department with a chief complaint of shortness of breath. pt was discharged on yesterday. At the time for discharge, pt felt much better. pt has no respiratory distress, he had 94-96% O2 sat on room air and pt requested to be discharged to home. pt was discharged home on prednisone, breathing treatments INH, Lasix and Ceftin. He reports filling these medications and taking them as prescribed. He feel well at home but In the middle of the night he reports feeling shortness of breath and had trouble controlling his breath again. In the ER, CXR reveal of worsening severe bilateral airspace opacities. Routine laboratory test significantly show in ER WBC is 19, Initially glucose 43, troponin of 71, BNP 1100. COVID-19 testing was still positive. He was COVID-19 positive april 16. Above pt's medical conditions, Medical team was called for admission. Discussed the care goal with the patient, patient hope to have full code History - Past Medical History Cardiovascular: reports: Hypertension, High cholesterol Respiratory: reports: None Neuro: reports: Peripheral neuropathy Endocrine/Autoimmune: reports: Type 2 diabetes GI: reports: Hepatitis : reports: Other Psych: reports: None Musculoskeletal: reports: None Derm: reports: None MRSA Hx?: No - Past Surgical History General: reports: Hiatal hernia repair - Family & Social History Family History Comment/Other: Patient report his father at age 75 with leukemia, his mother is 84 years old, still living Living Situation: With family Social History Notes: The patient lives in [place] with his mother. He does have children who are grown. He is not currently . 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 He states that he smokes half a pack to 1 pack per day and has been smoking since the age of 20. He denies any illicit drug use or alcohol abuse. - Substance History Use: Uses substance without health or social issues: Tobacco - POLST Patient has POLST: No POLST Status: Full Code Meds/Allgy - Home Medications Home Medications: Ambulatory Orders Medication Instructions Recorded Confirmed Insulin Aspart [NovoLOG] 20 unit SUBQ AC 04/17/21 05/15/21 Insulin Glargine [Lantus Solostar] 50 unit SUBQ QPM 04/17/21 05/15/21 Metformin HCl [Metformin ER 1,000 mg PO DAILYWM 04/17/21 05/15/21 Gastric] Ascorbic Acid [Vitamin C] 500 mg PO DAILY tablet 04/19/21 05/15/21 Ferrous Gluconate [Fergon] 324 mg PO DAILYWM #30 tablet 04/19/21 05/15/21 Metoprolol Succinate [Toprol Xl] 25 mg PO DAILY #30 tablet 04/19/21 05/15/21 Multivitamin W/Minerals [Theragran 1 tab PO DAILYWM tablet 04/19/21 05/15/21 M] lisinopriL [Zestril] 5 mg PO DAILY #30 tablet 04/19/21 05/15/21 Albuterol Sulfate [Proair Hfa 1 puffs INH Q4H PRN #1 inhaler 05/14/21 05/15/21 Inhaler] Furosemide [Lasix] 20 mg PO DAILY #30 tablet 05/14/21 05/15/21 Gabapentin [Neurontin] 300 mg PO QPM #30 cap 05/14/21 05/15/21 HYDROcod/ACETAM 5/325 [Peosta 5/325] 1 tab PO Q4HR PRN #15 tablet 05/14/21 05/15/21 Ipratropium [Atrovent] 1 puffs INH Q6H PRN #1 inhaler 05/14/21 05/15/21 Saccharomyces Boulardii [Florastor] 250 mg PO BIDWM #10 cap 05/14/21 05/15/21 cefUROXime axetiL [Ceftin] 500 mg PO Q12H #20 tablet 05/14/21 05/15/21 predniSONE [Deltasone] 20 mg PO [id number] #11 tab 05/14/21 05/15/21 - Allergies Allergies/Adverse Reactions: Allergies Allergy/AdvReac Type Severity Reaction Status Date / Time No Known Drug Allergies Allergy Verified 05/15/21 05:42 Review of Systems - Constitutional Constitutional: denies: Fever, Chills - Eyes Eyes: denies: Pain - Cardiovascular Cariovascular: reports: Exertional dyspnea. denies: Chest pain - Respiratory Respiratory: reports: SOB at rest, SOB with exertion. denies: Cough - Gastrointestinal Gastrointestinal: denies: Abdominal pain, Diarrhea, Nausea, Vomiting - Genitourinary Genitourinary: denies: Dysuria - Neurological Neurological: denies: Focal weakness, Dizziness, Numbness, Seizures, Incoordination, Slurred speech Exam - Vital Signs Vital Signs: Vital Signs x48h Temp Pulse Pulse Resp BP BP Pulse Ox 05/15/21 10:40 36.4 C L 95 20 154/86 H 99 05/15/21 09:38 37.2 C 89 17 129/75 94 05/15/21 08:23 81 19 131/72 H 89 L 05/15/21 07:52 87 29 H 05/15/21 07:32 87 24 127/65 89 L 05/15/21 07:30 82 L 05/15/21 07:17 90 27 H 91 L 05/15/21 06:56 91 32 H 150/88 H 89 L - Physical Exam General Appearance: positive: No acute distress, Alert. negative: Lethargic Eyes Bilateral: positive: Normal inspection, No lid inflammation ENT: positive: ENT inspection nml, No signs of dehydration. negative: Purulent nasal drainage Neck: positive: Nml inspection, Trachea midline. negative: Tracheal deviation Respiratory: positive: Chest non-tender, No respiratory distress. negative: Wheezes Cardiovascular: positive: Regular rate & rhythm. negative: Tachycardia, Bradycardia, Systolic murmur Peripheral Pulses: positive: 2+ Abdomen: positive: Non-tender, Nml bowel sounds, No distention. negative: Tenderness Back: positive: Nml inspection Skin: positive: Color nml, Warm, Dry. negative: Cyanosis Extremities: positive: Non-tender, Other (pt's bilateral feet was covered by dressing. pt has chronic foot infection. pt report he did dressing change daily) Neurologic/Psychiatric: positive: Oriented x3, Sensation nml. negative: Weakness, Sensory loss, Facial droop, Slurred/abnml speech, Depressed mood/affect Conclusion/Plan - Problem List (1) Acute respiratory failure with hypoxia Conclusion/Plan: Patient had 82% oxygen saturation on room air in the ER. Patient report he was doing well in hospital but he does not know why he cannot do well in the home. He reported he was difficulty breathing at home. Chest x-ray show worsening severe bilaterally airspace opacity, COVID-19 test is still positive as well. Also he had significantly elevated WBC. Patient also has history of diastolic heart failure. pt has hx of COPD, current smoker. Start with breathing treatment with albuterol, DuoNeb, Pulmicort, formaterol, solo-metro. We will give patient intravenous antibiotics treated for pneumonia. pt had elevated BNP and hx of diastolic heart failure, start with IV Lasix. After initially treated for patient, patient already feel better. (2) Pneumonia Conclusion/Plan: Patient had significant elevated WBC, chest x-ray show worsening severe bilaterally airspace opacities, Patient also still positive for COVID-19. We will start with intravenous antibiotics, add probitics. Continue supplemental oxygen as needed Qualifiers: Pneumonia type: due to unspecified organism Laterality: bilateral Lung location: lower lobe of lung Qualified Code(s): J18.9 - Pneumonia, unspecified organism (3) Hypoglycemia Conclusion/Plan: pt Also present hypoglycemia, glucose 40 in the morning. Now his glucose is 137. We may reduce patient's home Lantus dosage. Start sliding scale, hypoglycemia protocol, Continue glucose check (4) COPD (chronic obstructive pulmonary disease) Conclusion/Plan: Patient has History of COPD, We will start with albuterol, DuoNeb, formasterol, Pulmicort. Started with Solu-Medrol, Continue supplemental oxygen as needed (5) SARS-CoV-2 positive Conclusion/Plan: Patient had COVID-19 positive for nearly 1 months. We will continue isolation protocol. Continue supplemental oxygen as needed (6) Diabetes mellitus with foot ulcer Conclusion/Plan: Patient report he daily by himself dressing change for his bilaterally foot infection. He will see his orthopedic surgeon on May 21, see His PCP on May 24. And at this point, we will have good glucose control for patient diabetes. 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 (8) HTN (hypertension) Conclusion/Plan: History of hypertension, now patient blood pressure is stable, will resume home blood pressure medications - Lab Results Fish Bones: 05/15/21 06:41 05/15/21 06:41 Core Measures - Anticipated LOS I expect patient to be DC'd or transferred within 96 hours.: Yes - DVT/VTE - Prophylaxis VTE/DVT Device ordered at admit?: Yes VTE/DVT Prophylaxis med ordered at admit?: Yes
[2021-05-15] MEDS ORDERED: POTASSIUM CHLORIDE 20 MEQ TABLET PO ONE (14:21)
[2021-05-15] MEDS: FUROSEMIDE 20 MG TABLET PO SCH (14:35)
[2021-05-15] MEDS: METOPROLOL SUCCINATE 25 MG TABLET PO SCH (14:35)
[2021-05-15] MEDS: INSULIN ASPART 300 UNIT/3 ML PEN SUBQ SCH ×2 (16:56→21:29)
[2021-05-15] MEDS ORDERED: INSULIN ASPART 300 UNIT/3 ML PEN SUBQ SCH ×2 (17:00)
[2021-05-15] MEDS: IPRATROPIUM/ALBUTEROL 3 ML NEB INH SCH (19:42)
[2021-05-15] MEDS: FORMOTEROL FUMARATE NEB 20 MCG/2 ML INH SCH (19:43)
[2021-05-15] MEDS: BUDESONIDE 0.5 MG/2 ML NEB INH SCH (19:43)
[2021-05-15] MEDS ORDERED: INSULIN GLARGINE 300 UNIT/3 ML PEN SUBQ SCH (21:00)
[2021-05-15] MEDS: SACCHAROMYCES BOULARDII 250 MG CAPSULE PO SCH (21:18)
[2021-05-15] MEDS: HYDROcod/ACETAM 5/325 MG TABLET PO PRN (21:18)
[2021-05-15] MEDS: GABAPENTIN 300 MG CAPSULE PO SCH (21:19)
[2021-05-15] MEDS: CEFEPIME 2 GM in SODIUM CHLORIDE 0.9% MINIBAG 100 ML IV SCH (21:20)
[2021-05-15] MEDS: methylPREDNISolone SUCCINATE 125 MG/2 ML VIAL IVP SCH (21:20)
[2021-05-16] MEDS: SODIUM CHLORIDE FLUSH 0.9% 10 ML SYRINGE IVP SCH ×4 (00:18→23:41)
[2021-05-16] MEDS: HYDROcod/ACETAM 5/325 MG TABLET PO PRN ×2 (01:46→20:34)
[2021-05-16] MEDS: FUROSEMIDE 20 MG TABLET PO SCH ×2 (05:13→14:54)
[2021-05-16] MEDS: methylPREDNISolone SUCCINATE 125 MG/2 ML VIAL IVP SCH ×3 (05:13→21:02)
[2021-05-16 05:27] LABS: BASOPHILS % (AUTO) 0.1 %; HCT - HEMATOCRIT 26.9 % (42.0-52.0); LYMPHOCYTES # (AUTO) 1.1 10^3/uL (1.5-3.5); LYMPHOCYTES % (AUTO) 10.7 %; MEAN CORPUSCULAR HEMOGLOBIN 23.7 pg (27.0-31.0); MEAN CORPUSCULAR HGB CONC 29.7 g/dL (32.0-36.0); MEAN CORPUSCULAR VOLUME 79.8 fL (80.0-94.0); MEAN PLATELET VOLUME 9.1 fL (7.4-11.4); MONOCYTES # (AUTO) 0.3 10^3/uL (0.0-1.0); MONOCYTES % (AUTO) 2.9 %; NEUTROPHILS # (AUTO) 8.7 10^3/uL (1.5-6.6); NEUTROPHILS % (AUTO) 85.6 %; PLT - PLATELET COUNT 440 10^3/uL (130-450); RED BLOOD COUNT 3.37 10^6/uL (4.70-6.10); RED CELL DISTRIBUTION WIDTH 17.3 % (12.0-15.0); WHITE BLOOD COUNT 10.1 x10^3/uL (4.8-10.8)
[2021-05-16] MEDS: CEFEPIME 2 GM in SODIUM CHLORIDE 0.9% MINIBAG 100 ML IV SCH ×3 (05:30→21:02)
[2021-05-16 05:31] LABS: CALCIUM 8.2 mg/dL (8.5-10.3); CREATININE 0.8 mg/dL (0.6-1.2); POTASSIUM 4.9 mmol/L (3.5-5.0)
[2021-05-16] MEDS: FORMOTEROL FUMARATE NEB 20 MCG/2 ML INH SCH ×2 (07:17→19:33)
[2021-05-16] MEDS: BUDESONIDE 0.5 MG/2 ML NEB INH SCH ×2 (07:17→19:33)
[2021-05-16] MEDS: IPRATROPIUM/ALBUTEROL 3 ML NEB INH SCH ×5 (07:17→19:32)
--- NOTE | 2021-05-16 08:12 | PROVIDER PROGRESS NOTE ---
Subjective - Prog Note Date Prog Note Date: 05/16/21 Prog Note Time: 13:53 - Subjective Subjective: Episode of raised voice. Yelling at the nurses because he wanted more scoops of chocolate icecream and more cream/sugar. He is getting double protein in the morning. While raising his voice and expressing his wishes loudly and gesticulating there is no sob or wheezing or respiratory distress. He had been discharged May 13. Sent home with the idea that he had nebulizer machines and bronchodilator medication. However, after respiratory therapy i nvestigated, [employer] was not able to deliver as expected. So the patient was home without his bronchodilator therapy for the day and into the day of admission. He has now been resumed on his bronchodilator therapy here. Prior to discharge was able to be on room air. When he was readmitted, he is r equiring 4 L nasal cannula. Yesterday morning we tried 2 L and he desatted to 89%. So back on 4 L. This morning, however, he is down to 1 L at rest and saturating 93%.. With exertion he will drop his O2 sats. Current Medications - Current Medications Current Medications: Active Medications Acetaminophen (Acetaminophen 325 Mg Tablet) 650 mg PO Q4HR PRN PRN Reason: Pain 1 to 4 Hydrocodone Bitart/Acetaminophen (Hydrocod/Acetam 5/325 Mg Tablet) 1 tab PO Q4HR PRN PRN Reason: PAIN Last Admin: 05/16/21 01:46 Dose: 1 tab Albuterol (Albuterol Neb 2.5 Mg/3 Ml) 2.5 mg INH RTQ4H PRN PRN Reason: Wheezing Albuterol/Ipratropium (Ipratropium/Albuterol 3 Ml Neb) 3 ml INH RTQID DIANE Last Admin: 05/16/21 11:41 Dose: 3 ml Ascorbic Acid (Ascorbic Acid 500 Mg Tablet) 500 mg PO DAILY [facility] Last Admin: 05/16/21 10:12 Dose: 500 mg Budesonide (Budesonide 0.5 Mg/2 Ml Neb) 0.5 mg INH RTBID [facility] Last Admin: 05/16/21 07:17 Dose: 0.5 mg Enoxaparin Sodium (Enoxaparin 40 Mg/0.4 Ml Syringe) 40 mg SUBQ DAILY [facility] Last Admin: 05/16/21 11:20 Dose: 40 mg Ferrous Gluconate (Ferrous Gluconate 324 Mg Tablet) 324 mg PO DAILYWM [facility] Last Admin: 05/16/21 10:11 Dose: 324 mg Formoterol Fumarate (Formoterol Fumarate Neb 20 Mcg/2 Ml) 20 mcg INH RTBID [facility] Last Admin: 05/16/21 07:17 Dose: 20 mcg Furosemide (Furosemide 20 Mg Tablet) 20 mg PO BIDDIURETIC [facility] Last Admin: 05/16/21 05:13 Dose: 20 mg Gabapentin (Gabapentin 300 Mg Capsule) 300 mg PO QPM [facility] Last Admin: 05/15/21 21:19 Dose: 300 mg Cefepime HCl 2 gm/ Sodium (Chloride) 100 mls @ 200 mls/hr IV TID [facility] Last Infusion: 05/16/21 06:00 Dose: Infused Insulin Aspart (Insulin Aspart 300 Unit/3 Ml Pen) 3 - 11 unit SUBQ 0800,1 200,1700,2100 [facility]; Protocol Last Admin: 05/16/21 12:33 Dose: 9 unit Insulin Glargine (Insulin Glargine 300 Unit/3 Ml Pen) 10 unit SUBQ QPM [facility] Last Admin: 05/15/21 21:29 Dose: 10 unit Lisinopril (Lisinopril 5 Mg Tablet) 5 mg PO DAILY [facility] Last Admin: 05/16/21 10:11 Dose: 5 mg Methylprednisolone Sodium Succinate (Methylprednisolone Succinate 125 Mg/2 Ml Vial) 60 mg IVP TID [facility] Last Admin: 05/16/21 05:13 Dose: 60 mg Metoprolol Succinate (Metoprolol Succinate 25 Mg Tablet) 25 mg PO DAILY [facility] Last Admin: 05/16/21 10:11 Dose: 25 mg Multivitamins/Minerals (Multivitamin W/Minerals Tablet) 1 tab PO DAILYWM [facility] Last Admin: 05/16/21 10:11 Dose: 1 tab Ondansetron HCl (Ondansetron Odt 4 Mg Tablet) 4 mg TL Q6HR PRN PRN Reason: Nausea / Vomiting Ondansetron HCl (Ondansetron 4 Mg/2 Ml Vial) 4 mg IVP Q6HR PRN PRN Reason: Nausea / Vomiting Oxycodone HCl (Oxycodone 5 Mg Tablet) 5 mg PO Q4HR PRN PRN Reason: Pain 5 to 7 Saccharomyces Boulardii (Saccharomyces Boulardii 250 Mg Capsule) 250 mg PO BIDWM [facility] Last Admin: 05/16/21 10:12 Dose: 250 mg Sodium Chloride (Sodium Chloride Flush 0.9% 10 Ml Syringe) 10 ml IVP PRN PRN PRN Reason: NEEDED PER PROVIDER ORDERS Sodium Chloride (Sodium Chloride Flush 0.9% 10 Ml Syringe) 10 ml IVP 0100,0900,1700 [facility] Last Admin: 05/16/21 00:18 Dose: 10 ml Insulin Aspart [NovoLOG] 20 unit SUBQ AC 04/17/21 Insulin Glargine [Lantus Solostar] 50 unit SUBQ QPM 04/17/21 Metformin HCl [Metformin ER Gastric] 1,000 mg PO DAILYWM 04/17/21 Objective - Vital Signs/Intake & Output Reviewed Vital Signs: Yes Vital Signs: Vital Signs x48h Temp Pulse Pulse Resp BP Pulse Ox 05/16/21 07:35 36.4 C L 97 20 155/88 H 96 05/16/21 07:18 90 20 05/16/21 05:52 93 05/16/21 05:17 156/88 H 95 05/16/21 05:00 36.5 C 92 18 169/85 H 98 05/16/21 00:14 36.7 C 100 18 155/92 H 96 Intake & Output: Intake & Output 05/13/21 05/14/21 05/15/21 05/16/21 23:59 23:59 23:59 23:59 Intake Total 2780 880 Output Total 1050 950 Balance 1730 -70 - Objective General Appearance: positive: No acute distress, Alert, Other (5 foot 7 inch male that looks older than stated age, balding, 79 kg, sitting upright in his c hair with slight tripoding as a his forearms rest on his thighs.) Eyes Bilateral: positive: PERRL, EOMI ENT: positive: Other (Contusion/abrasion on his forehead. He denies any fall or blow to the head. Cannot tell me how he got it.) Neck: positive: No JVD. negative: Stiff neck Respiratory: positive: No respiratory distress, Wheezes (Faint and scant.), Other (No use of accessory muscles. No use of sternocleidomastoid). negative: Rales, Rhonchi Cardiovascular: positive: Regular rate & rhythm. negative: Gallop/S4, Friction rub Abdomen: positive: Non-tender, No organomegaly, Nml bowel sounds, No distention Skin: positive: Warm, Dry, Other (Skin of legs is dry, scaly and slightly reddened from the knees down) Extremities: positive: Full ROM, Pedal edema Neurologic/Psychiatric: positive: Oriented x3, CN's nml (2-12), Motor nml - Lab Results Fish Bones: 05/16/21 04:48 05/16/21 04:48 Other Labs: Lab Results x24hrs 05/16/21 05/16/21 05/16/21 Range/Units 07:29 04:48 04:48 WBC (4.8-10.8) x10^3/uL RBC (4.70-6.10) 10^6/uL Hgb (14.0-18.0) g/dL Hct (42.0-52.0) % MCV (80.0-94.0) fL MCH (27.0-31.0) pg MCHC (32.0-36.0) g/dL RDW (12.0-15.0) % Plt Count (130-450) 10^3/uL MPV (7.4-11.4) fL Neut # (Auto) (1.5-6.6) 10^3/uL Lymph # (Auto) (1.5-3.5) 10^3/uL [place] # (Auto) (0.0-1.0) 10^3/uL Eos # (Auto) (0.0-0.7) 10^3/uL Baso # (Auto) (0.0-0.1) 10^3/uL Absolute Nucleated RBC x10^3/uL Nucleated RBC % /100WBC Sodium 131 L (135-145) mmol/L Potassium 4.9 (3.5-5.0) mmol/L Chloride 96 L (101-111) mmol/L Carbon Dioxide 26 (21-32) mmol/L Anion Gap 9.0 (6-13) BUN 40 H (6-20) mg/dL Creatinine 0.8 (0.6-1.2) mg/dL Estimated GFR (MDRD) 98 (>89) Glucose 330 H (70-100) mg/dL POC Whole Bld Glucose 278 H (70 - 100) mg/dL Lactic Acid (0.5-2.2) mmol/L Calcium 8.2 L (8.5-10.3) mg/dL Troponin I High Sens (2.3-19.7) ng/L B-Natriuretic Peptide 1272 H (5-100) pg/mL Nasal Adenovirus (PCR) Nasal B. parapertussis DNA (PCR) Nasal Coronavir 229E PCR Nasal Coronavir HKU1 PCR Nasal Coronavir NL63 PCR Nasal Coronavir OC43 PCR Nasal Enterovir/Rhinovir PCR Nasal Influenza B PCR Nasal Influenza A PCR Nasal Parainfluen 1 PCR Nasal Parainfluen 2 PCR Nasal Parainfluen 3 PCR Nasal Parainfluen 4 PCR Nasal RSV (PCR) Nasal B.pertussis DNA PCR Nasal C.pneumoniae (PCR) Esvin Human Metapneumo PCR Nasal M.pneumoniae (PCR) Nasal SARS-CoV-2 (PCR) 05/16/21 05/16/21 05/15/21 Range/Units 04:48 00:26 20:34 WBC 10.1 (4.8-10.8) x10^3/uL RBC 3.37 L (4.70-6.10) 10^6/uL Hgb 8.0 L (14.0-18.0) g/dL Hct 26.9 L (42.0-52.0) % MCV 79.8 L (80.0-94.0) fL MCH 23.7 L (27.0-31.0) pg MCHC 29.7 L (32.0-36.0) g/dL RDW 17.3 H (12.0-15.0) % Plt Count 440 (130-450) 10^3/uL MPV 9.1 (7.4-11.4) fL Neut # (Auto) 8.7 H (1.5-6.6) 10^3/uL Lymph # (Auto) 1.1 L (1.5-3.5) 10^3/uL [place] # (Auto) 0.3 (0.0-1.0) 10^3/uL Eos # (Auto) 0.0 (0.0-0.7) 10^3/uL Baso # (Auto) 0.0 (0.0-0.1) 10^3/uL Absolute Nucleated RBC 0.00 x10^3/uL Nucleated RBC % 0.0 /100WBC Sodium (135-145) mmol/L Potassium (3.5-5.0) mmol/L Chloride (101-111) mmol/L Carbon Dioxide (21-32) mmol/L Anion Gap (6-13) BUN (6-20) mg/dL Creatinine (0.6-1.2) mg/dL Estimated GFR (MDRD) (>89) Glucose (70-100) mg/dL POC Whole Bld Glucose 329 H 371 H (70 - 100) mg/dL Lactic Acid (0.5-2.2) mmol/L Calcium (8.5-10.3) mg/dL Troponin I High Sens (2.3-19.7) ng/L B-Natriuretic Peptide (5-100) pg/mL Nasal Adenovirus (PCR) Nasal B. parapertussis DNA (PCR) Nasal Coronavir 229E PCR Nasal Coronavir HKU1 PCR Nasal Coronavir NL63 PCR Nasal Coronavir OC43 PCR Nasal Enterovir/Rhinovir PCR Nasal Influenza B PCR Nasal Influenza A PCR Nasal Parainfluen 1 PCR Nasal Parainfluen 2 PCR Nasal Parainfluen 3 PCR Nasal Parainfluen 4 PCR Nasal RSV (PCR) Nasal B.pertussis DNA PCR Nasal C.pneumoniae (PCR) Esvin Human Metapneumo PCR Nasal M.pneumoniae (PCR) Nasal SARS-CoV-2 (PCR) 05/15/21 05/15/21 05/15/21 Range/Units 16:34 15:13 13:54 WBC (4.8-10.8) x10^3/uL RBC (4.70-6.10) 10^6/uL Hgb (14.0-18.0) g/dL Hct (42.0-52.0) % MCV (80.0-94.0) fL MCH (27.0-31.0) pg MCHC (32.0-36.0) g/dL RDW (12.0-15.0) % Plt Count (130-450) 10^3/uL MPV (7.4-11.4) fL Neut # (Auto) (1.5-6.6) 10^3/uL Lymph # (Auto) (1.5-3.5) 10^3/uL [place] # (Auto) (0.0-1.0) 10^3/uL Eos # (Auto) (0.0-0.7) 10^3/uL Baso # (Auto) (0.0-0.1) 10^3/uL Absolute Nucleated RBC x10^3/uL Nucleated RBC % /100WBC Sodium (135-145) mmol/L Potassium (3.5-5.0) mmol/L Chloride (101-111) mmol/L Carbon Dioxide (21-32) mmol/L Anion Gap (6-13) BUN (6-20) mg/dL Creatinine (0.6-1.2) mg/dL Estimated GFR (MDRD) (>89) Glucose (70-100) mg/dL POC Whole Bld Glucose 250 H (70 - 100) mg/dL Lactic Acid 1.6 (0.5-2.2) mmol/L Calcium (8.5-10.3) mg/dL Troponin I High Sens 45.9 H* (2.3-19.7) ng/L B-Natriuretic Peptide (5-100) pg/mL Nasal Adenovirus (PCR) Nasal B. parapertussis DNA (PCR) Nasal Coronavir 229E PCR Nasal Coronavir HKU1 PCR Nasal Coronavir NL63 PCR Nasal Coronavir OC43 PCR Nasal Enterovir/Rhinovir PCR Nasal Influenza B PCR Nasal Influenza A PCR Nasal Parainfluen 1 PCR Nasal Parainfluen 2 PCR Nasal Parainfluen 3 PCR Nasal Parainfluen 4 PCR Nasal RSV (PCR) Nasal B.pertussis DNA PCR Nasal C.pneumoniae (PCR) Esvin Human Metapneumo PCR Nasal M.pneumoniae (PCR) Nasal SARS-CoV-2 (PCR) 05/15/21 05/15/21 05/15/21 Range/Units 10:27 09:56 07:15 WBC (4.8-10.8) x10^3/uL RBC (4.70-6.10) 10^6/uL Hgb (14.0-18.0) g/dL Hct (42.0-52.0) % MCV (80.0-94.0) fL MCH (27.0-31.0) pg MCHC (32.0-36.0) g/dL RDW (12.0-15.0) % Plt Count (130-450) 10^3/uL MPV (7.4-11.4) fL Neut # (Auto) (1.5-6.6) 10^3/uL Lymph # (Auto) (1.5-3.5) 10^3/uL [place] # (Auto) (0.0-1.0) 10^3/uL Eos # (Auto) (0.0-0.7) 10^3/uL Baso # (Auto) (0.0-0.1) 10^3/uL Absolute Nucleated RBC x10^3/uL Nucleated RBC % /100WBC Sodium (135-145) mmol/L Potassium (3.5-5.0) mmol/L Chloride (101-111) mmol/L Carbon Dioxide (21-32) mmol/L Anion Gap (6-13) BUN (6-20) mg/dL Creatinine (0.6-1.2) mg/dL Estimated GFR (MDRD) (>89) Glucose (70-100) mg/dL POC Whole Bld Glucose 134 H 55 L* (70 - 100) mg/dL Lactic Acid (0.5-2.2) mmol/L Calcium (8.5-10.3) mg/dL Troponin I High Sens (2.3-19.7) ng/L B-Natriuretic Peptide (5-100) pg/mL Nasal Adenovirus (PCR) NOT DETECTED Nasal B. parapertussis DNA (PCR) NOT DETECTED Nasal Coronavir 229E PCR NOT DETECTED Nasal Coronavir HKU1 PCR NOT DETECTED Nasal Coronavir NL63 PCR NOT DETECTED Nasal Coronavir OC43 PCR NOT DETECTED Nasal Enterovir/Rhinovir PCR NOT DETECTED Nasal Influenza B PCR NOT DETECTED Nasal Influenza A PCR NOT DETECTED Nasal Parainfluen 1 PCR NOT DETECTED Nasal Parainfluen 2 PCR NOT DETECTED Nasal Parainfluen 3 PCR NOT DETECTED Nasal Parainfluen 4 PCR NOT DETECTED Nasal RSV (PCR) NOT DETECTED Nasal B.pertussis DNA PCR NOT DETECTED Nasal C.pneumoniae (PCR) NOT DETECTED Esvin Human Metapneumo PCR NOT DETECTED Nasal M.pneumoniae (PCR) NOT DETECTED Nasal SARS-CoV-2 (PCR) DETECTED A 05/15/21 Range/Units 06:44 WBC (4.8-10.8) x10^3/uL RBC (4.70-6.10) 10^6/uL Hgb (14.0-18.0) g/dL Hct (42.0-52.0) % MCV (80.0-94.0) fL MCH (27.0-31.0) pg MCHC (32.0-36.0) g/dL RDW (12.0-15.0) % Plt Count (130-450) 10^3/uL MPV (7.4-11.4) fL Neut # (Auto) (1.5-6.6) 10^3/uL Lymph # (Auto) (1.5-3.5) 10^3/uL [place] # (Auto) (0.0-1.0) 10^3/uL Eos # (Auto) (0.0-0.7) 10^3/uL Baso # (Auto) (0.0-0.1) 10^3/uL Absolute Nucleated RBC x10^3/uL Nucleated RBC % /100WBC Sodium (135-145) mmol/L Potassium (3.5-5.0) mmol/L Chloride (101-111) mmol/L Carbon Dioxide (21-32) mmol/L Anion Gap (6-13) BUN (6-20) mg/dL Creatinine (0.6-1.2) mg/dL Estimated GFR (MDRD) (>89) Glucose (70-100) mg/dL POC Whole Bld Glucose 43 L* (70 - 100) mg/dL Lactic Acid (0.5-2.2) mmol/L Calcium (8.5-10.3) mg/dL Troponin I High Sens (2.3-19.7) ng/L B-Natriuretic Peptide (5-100) pg/mL Nasal Adenovirus (PCR) Nasal B. parapertussis DNA (PCR) Nasal Coronavir 229E PCR Nasal Coronavir HKU1 PCR Nasal Coronavir NL63 PCR Nasal Coronavir OC43 PCR Nasal Enterovir/Rhinovir PCR Nasal Influenza B PCR Nasal Influenza A PCR Nasal Parainfluen 1 PCR Nasal Parainfluen 2 PCR Nasal Parainfluen 3 PCR Nasal Parainfluen 4 PCR Nasal RSV (PCR) Nasal B.pertussis DNA PCR Nasal C.pneumoniae (PCR) Esvin Human Metapneumo PCR Nasal M.pneumoniae (PCR) Nasal SARS-CoV-2 (PCR) ABX Reporting Has patient been on IV antibiotics over the past 48 hours?: Yes Assessment/Plan - Problem List (1) Acute respiratory failure with hypoxia Impression: Patient was discharged on May 13. We are now finding out that he did not have his nebulizer machine or nebulizers at home and was without those therapy for 36 hours before he bounced back to our emergency room. He presented as difficulty breathing, and chest x-ray in our emergency room showed "worsening bilateral airspace opacity". COVID-19 testing continues to be positive but he did have COVID-19 and we would expect him to be positive days if not weeks later. On admission he had an elevated white cell count. He has been started on DuoNeb at a scheduled dose, albuterol as needed, Pulmicort, formoterol, and Solu-Medrol. We have also expanded antibiotics since he already completed community-acquired pneumonia pathway. We also think that he may have an element of congestive heart failure since BNP is elevated and he was started on Lasix. He is already feeling better. He is needing less oxygen. We are hoping that when he is down to room air he can be discharged home again. This time we will make sure he gets his equipment. (2) Pneumonia Conclusion/Plan: White cell count was elevated with his last admission. The highest was was 12.9. By the time of discharge he was 8.1. On readmission his white cell count is 18.8. An abundance of caution, we are treating him as progression of pneumonia because his white cell count is worse, his hypoxia is worse. There is no phlegm production. He is already improving on day 2 of cefepime. Qualifiers: Pneumonia type: due to unspecified organism Laterality: bilateral Lung location: lower lobe of lung Qualified Code(s): J18.9 - Pneumonia, unspecified organism (3) Hypoglycemia with DM type 2, uncontrolled, on [facility] insulin with complication of foot ulcer Conclusion/Plan: Glucose was in the 60s in the emergency room. Reportedly 40 at home before he came to the emergency room. Since then his glucose has been 278 and as high as 371. He is on Solu-Medrol. Medication is Lantus 10 units at night. Plus sliding scale. At home he takes Lantus 50 units at night and 20 units of NovoLog before meals. Plan today is to increase his Lantus to his home dose. And give 5 units of short acting insulin with each meal. Plus sliding scale. He is very unhappy at his caloric restriction while in the hospital. He was that way when he was here last time. Nutrition services is working with him to double up his protein intake but we are reluctant to increase his carb intake with check things such as ice cream when his sugars are elevated. If I can get his sugars under control, I may consider letting him have more ice cream. I have explained all of this to him and he is deeply, deeply disappointed and expresses his disappointment quite loudly (4) COPD (chronic obstructive pulmonary disease) with exacerbation Conclusion/Plan: Patient has History of COPD, He has improved with steroids, nebulizers. Antibiotics. We think his exacerbation is due to progression of pneumonia, and being without his medications for close to 36 hours. (5) SARS-CoV-2 positive Conclusion/Plan: Patient had COVID-19 positive for nearly 1 month. We will continue isolation protocol. Continue supplemental oxygen as needed (6) Diabetes mellitus with foot ulcer Conclusion/Plan: Patient reports doing daily dressings for himself for bilateral foot infection, twice a day. He will see his orthopedic surgeon on May 21, see His PCP on May 24. And at this point, we are aiming for good glucose control for patient. (7) Diastolic heart failure Conclusion/Plan: Patient has history of diastolic heart failure, patient is on home Lasix, but had elevated BNP on admission with shortness breath. On intravenous Lasix 20 mg twice daily. (8) HTN (hypertension) Conclusion/Plan: History of hypertension, on home blood pressure medications
[2021-05-16] MEDS: INSULIN ASPART 300 UNIT/3 ML PEN SUBQ SCH ×5 (08:22→20:42)
[2021-05-16] MEDS: METOPROLOL SUCCINATE 25 MG TABLET PO SCH (10:11)
[2021-05-16] MEDS: MULTIVITAMIN W/MINERALS TABLET PO SCH (10:11)
[2021-05-16] MEDS: FERROUS GLUCONATE 324 MG TABLET PO SCH (10:11)
[2021-05-16] MEDS: lisinopriL 5 MG TABLET PO SCH (10:11)
[2021-05-16] MEDS: SACCHAROMYCES BOULARDII 250 MG CAPSULE PO SCH ×2 (10:12→17:26)
[2021-05-16] MEDS: ASCORBIC ACID 500 MG TABLET PO SCH (10:12)
[2021-05-16] MEDS: ENOXAPARIN 40 MG/0.4 ML SYRINGE SUBQ SCH (11:20)
[2021-05-16] MEDS ORDERED: CALCIUM CARBONATE CHEW 500 MG TABLET PO PRN (19:34)
[2021-05-16] MEDS ORDERED: SIMETHICONE 40 MG/0.6 ML 30 ML BOTTLE PO PRN (20:07)
[2021-05-16] MEDS ORDERED: TEMAZEPAM 15 MG CAPSULE PO PRN (20:08)
[2021-05-16] MEDS ORDERED: SIMETHICONE CHEW 80 MG TABLET PO PRN (20:29)
[2021-05-16] MEDS: GABAPENTIN 300 MG CAPSULE PO SCH (20:34)
[2021-05-16] MEDS ORDERED: INSULIN GLARGINE 300 UNIT/3 ML PEN SUBQ SCH (21:00)
[2021-05-17] MEDS: methylPREDNISolone SUCCINATE 125 MG/2 ML VIAL IVP SCH (05:35)
[2021-05-17] MEDS: CEFEPIME 2 GM in SODIUM CHLORIDE 0.9% MINIBAG 100 ML IV SCH (05:35)
[2021-05-17] MEDS: FUROSEMIDE 20 MG TABLET PO SCH (05:36)
[2021-05-17 05:40] LABS: BASOPHILS % (AUTO) 0.1 %; HCT - HEMATOCRIT 27.1 % (42.0-52.0); HGB - HEMOGLOBIN 8.1 g/dL (14.0-18.0); LYMPHOCYTES # (AUTO) 1.4 10^3/uL (1.5-3.5); LYMPHOCYTES % (AUTO) 9.7 %; MEAN CORPUSCULAR HEMOGLOBIN 23.7 pg (27.0-31.0); MEAN CORPUSCULAR HGB CONC 29.9 g/dL (32.0-36.0); MEAN CORPUSCULAR VOLUME 79.2 fL (80.0-94.0); MEAN PLATELET VOLUME 9.5 fL (7.4-11.4); MONOCYTES # (AUTO) 0.7 10^3/uL (0.0-1.0); MONOCYTES % (AUTO) 4.6 %; NEUTROPHILS % (AUTO) 84.7 %; PLT - PLATELET COUNT 467 10^3/uL (130-450); RED BLOOD COUNT 3.42 10^6/uL (4.70-6.10); RED CELL DISTRIBUTION WIDTH 17.2 % (12.0-15.0); WHITE BLOOD COUNT 14.2 x10^3/uL (4.8-10.8)
[2021-05-17 05:48] LABS: CALCIUM 8.4 mg/dL (8.5-10.3); POTASSIUM 4.6 mmol/L (3.5-5.0)
[2021-05-17] MEDS: IPRATROPIUM/ALBUTEROL 3 ML NEB INH SCH (07:18)
[2021-05-17] MEDS: BUDESONIDE 0.5 MG/2 ML NEB INH SCH (07:18)
[2021-05-17] MEDS: FORMOTEROL FUMARATE NEB 20 MCG/2 ML INH SCH (07:18)
[2021-05-17] MEDS: INSULIN ASPART 300 UNIT/3 ML PEN SUBQ SCH ×2 (07:48)
[2021-05-17] MEDS: SODIUM CHLORIDE FLUSH 0.9% 10 ML SYRINGE IVP SCH (07:49)
[2021-05-17] MEDS: METOPROLOL SUCCINATE 25 MG TABLET PO SCH (08:02)
[2021-05-17] MEDS: lisinopriL 5 MG TABLET PO SCH (08:02)
[2021-05-17] MEDS: ASCORBIC ACID 500 MG TABLET PO SCH (08:02)
[2021-05-17] MEDS: ENOXAPARIN 40 MG/0.4 ML SYRINGE SUBQ SCH (08:02)
[2021-05-17] MEDS: MULTIVITAMIN W/MINERALS TABLET PO SCH (08:02)
[2021-05-17] MEDS: SACCHAROMYCES BOULARDII 250 MG CAPSULE PO SCH (08:02)
[2021-05-17] MEDS: FERROUS GLUCONATE 324 MG TABLET PO SCH (08:02)
[2021-05-17] MEDS: HYDROcod/ACETAM 5/325 MG TABLET PO PRN (08:09)
--- NOTE | 2021-05-17 09:01 | Discharge Plan ---
Discharge Plan Problem Reviewed?: Yes Disposition: Home Health Service Condition: Fair Prescriptions: Ipratropium/Albuterol [Duoneb] 3 ml INH RTQID #30 neb Diet: Low Sodium Activity Restrictions: Activity as Tolerated Shower Restrictions: No Driving Restrictions: Yes (no driving ) Assistance Devices: [facility] Concerns: You had just been discharged from the hospital after being treated for pneumonia and emphysema exacerbation with a little bit of congestive heart failure. When he got home, you felt like you needed oxygen, and there were also no nebulizers that were easy for you to use. You can use the handheld nebulizers very well. So you bounced back to our emergency room with emphysema, congestive heart failure, and a possibly worsening chest x-ray for a little bit more worse pneumonia. You wanted to go home today. You have already received antibiotics, intravenous steroids, and the breathing and nebulizers. You have been here for 3 days. Plan of Treatment: 1. You will need to go home on a tapering dose of steroids and that is with prednisone 2. We have sent a request to a [employer] to deliver a nebulizer machine and nebulizer medicines to you. The medicines cannot be delivered today so I have called in a prescription to [facility] that you can get a weeks worth. After that week, you should have a month supply from the [employer] this that you have the nebulizer machine and tubing. 3. Please continue to take Lasix tablet once a day for fluid in your lungs from congestive heart failure. You will need to see your primary care provider, Dr. Ayala, in the next 2 weeks to make sure your potassium and kidneys are fine with this pill. 4. You have requested to go home on oxygen. We have done a study that says that you do need 1 L of oxygen, especially when you get up and walk around.This is not meant to be a permanent solution, and hopefully you will be able to come off oxygen in the near future.Ask your primary care provider, Dr. Ayala, if you could please get a prescription for Perforomist and budesonide. These are both long-acting inhalation medicines that will help stabilize your emphysema. 5. When you were sent home the first time, you were discharged with antibiotics. Please continue those antibiotics and complete therapy. Care Goals: To continue to control your emphysema at home without having to come back to the hospital. You also have uncontrolled diabetes, and need to strive to eat less carbohydrates at home. Assessment: Patient states that he understands the goals. No Smoking: If you smoke, Please STOP! Call for help.
--- NOTE | 2021-05-17 10:46 | DISCHARGE SUMMARY ---
"Discharge Summary Admit Date: 05/15/21 Discharge Date: 05/17/21 Discharging Provider: Leona Galvin MD Primary Care Provider: Noemi Saldivar MD Code Status: Attempt Resuscitation Condition at Discharge: Fair Discharge Disposition: 06 Home Health Service - DIAGNOSES Discharge Diagnoses with Status of Each Condition: 1. Acute on chronic respiratory failure with hypoxia 2. COPD with exacerbation 3. Pneumonia 4. Type 2 diabetes mellitus, uncontrolled, with hyperglycemia, with complications, on insulin 5. Diabetic foot ulcer 6. Chronic diastolic congestive heart failure 7. Hypertension - HPI History of Present Illness: Patient is a 65-year-old gentleman with a past medical history significant for uncontrolled diabetes, chronic bilateral diabetes foot infection and he was followup by his orthopedics surgeon for the care, COPD, loculated pleural effusion in 2016 requiring chest tube, medical non-complaint, hyperlipidemia, hypertension and hepatitis C status post treatment in 1999, who presented to the emergency department with a chief complaint of shortness of breath. pt was discharged on yesterday. At the time for discharge, pt felt much better. pt has no respiratory distress, he had 94-96% O2 sat on room air and pt requested to be discharged to home. pt was discharged home on prednisone, breathing treatments INH, Lasix and Ceftin. He reports filling these medications and taking them as prescribed. He feel well at home but In the middle of the night he reports feeling shortness of breath and had trouble controlling his breath again. In the ER, CXR reveal of worsening severe bilateral airspace opacities. Routine laboratory test significantly show in ER WBC is 19, Initially glucose 43, troponin of 71, BNP 1100. COVID-19 testing was still positive. He was COVID-19 positive april 16. Above pt's medical conditions, Medical team was called for admission. Discussed the care goal with the patient, patient hope to have full code - Past Medical History Cardiovascular: reports: Hypertension, High cholesterol Respiratory: reports: None Neuro: reports: Peripheral neuropathy Endocrine/Autoimmune: reports: Type 2 diabetes GI: reports: Hepatitis : reports: Other Psych: reports: None Musculoskeletal: reports: None Derm: reports: None MRSA Hx?: No - Past Surgical History General: reports: Hiatal hernia repair - CONSULTS | PROCEDURES Procedures: Chest x-ray has no pneumothorax. A small left pleural effusion. It is compared to May 11 chest x-ray and allowing for differences in technique, there is slight worsening of severe bilateral reticular nodular pulmonary opacities. - HOSPITAL COURSE Hospital Course: In speaking to the patient he went home and did not have adequate relief with his hand-held nebulizers. He became quickly short of breath. And return back to the hospital within 36 hours. He also feels that he needs oxygen although he passed a desaturation test before discharge. He was resumed on IV steroids, antibiotics, budesonide via inhalation, Perforomist via inhalation, and DuoNeb via inhalation. By the time of discharge she felt he was stable enough to go home. At rest he is 87% on room air with a heart rate of 90. At rest on oxygen he is 94% at 1 L. Heart rate 90. With ambulation his O2 sat is 90% with a heart rate of 98. He required 2 L with ambulation to get his O2 sat to 92% after walking 50 feet. As such she is going home on 2 L of oxygen with exertion and 1 L of oxygen at rest. I am also sending prescriptions for budesonide and Perforomist to his DME company. I am sending prescriptions for DuoNeb to his [employer] company. His DME company cannot deliver his nebulizers until the next couple of days and as such I have called in Duo[facility]eb [facility] for the next week until he can get his nebulizers. Machine will be delivered today. Oxygen will be delivered today. At discharge the patient is comfortable sitting up in his chair. He is not happy that he does not get enough food while eating here. Specifically he likes his ice cream, and pastries. We do try and accommodate him by doubling up on his protein portions because of his diabetes and his uncontrolled glucose. He was hypoglycemic on the day of admission. He also has chronic diabetic foot ulcers that are followed in the [facility] clinic. We did not address those foot ulcers other than doing dressing changes while here. Temperature is 36.5. Heart rate is 101. Blood pressure 150/80. Respirations 18. He is 92% at rest with 1 L. He is 5 feet 7 inches tall and weighs 79 kg. He looks much older than stated age, neck is supple with shotty adenopathy. Very quiet lung sounds with prolonged and exhalation but no wheezing or rhonchi. No tachypnea with speaking to me. He has a regular rate and rhythm with a soft systolic murmur. And abdomen that soft, nontender. Extremities are wrapped feet and no edema around ankles or calves. The feet are wrapped because of chronic diabetic foot ulcers on both feet. Currently the bandages are clean and dry. However, when the bandages are off the bottom of his left foot has complete loss of skin and fascia down to muscle with a glistening white surface. He also has had partial amputations of toes. He is supposed to be heel walk ing. The right foot has intact skin except over the plantar surface at the base of the right great toe. That is dry, not glistening. Also loss of skin to fascia. Fascia is still in place. There is no surrounding redness, heat. He is discharged in stable condition. Greater than 30 minutes was spent coordinating discharge.He is to complete a tapering steroid dose. He is to complete antibiotics with Ceftin. And he is to start using inhalers via nebulizer machine delivery. He needs to see his primary care provider in the next 1 to 2 weeks. I have also made sure that he follows up with the wound clinic that he already is established with. - ALLERGIES Allergies/Adverse Reactions: Allergies Allergy/AdvReac Type Severity Reaction Status Date / Time No Known Drug Allergies Allergy Verified 05/15/21 05:42 - MEDICATIONS Home Medications: Ambulatory Orders Medication Instructions Recorded Confirmed Insulin Aspart [NovoLOG] 20 unit SUBQ AC 04/17/21 05/15/21 Insulin Glargine [Lantus Solostar] 50 unit SUBQ QPM 04/17/21 05/15/21 Metformin HCl [Metformin ER 1,000 mg PO DAILYWM 04/17/21 05/15/21 Gastric] Ascorbic Acid [Vitamin C] 500 mg PO DAILY tablet 04/19/21 05/15/21 Ferrous Gluconate [Fergon] 324 mg PO DAILYWM #30 tablet 04/19/21 05/15/21 Metoprolol Succinate [Toprol Xl] 25 mg PO DAILY #30 tablet 04/19/21 05/15/21 Multivitamin W/Minerals [Theragran 1 tab PO DAILYWM tablet 04/19/21 05/15/21 M] lisinopriL [Zestril] 5 mg PO DAILY #30 tablet 04/19/21 05/15/21 Albuterol Sulfate [Proair Hfa 1 puffs INH Q4H PRN #1 inhaler 05/14/21 05/15/21 Inhaler] Furosemide [Lasix] 20 mg PO DAILY #30 tablet 05/14/21 05/15/21 Gabapentin [Neurontin] 300 mg PO QPM #30 cap 05/14/21 05/15/21 HYDROcod/ACETAM 5/325 [[place] 5/325] 1 tab PO Q4HR PRN #15 tablet 05/14/21 05/15/21 Ipratropium [Atrovent] 1 puffs INH Q6H PRN #1 inhaler 05/14/21 05/15/21 Saccharomyces Boulardii [Florastor] 250 mg PO BIDWM #10 cap 05/14/21 05/15/21 cefUROXime axetiL [Ceftin] 500 mg PO Q12H #20 tablet 05/14/21 05/15/21 predniSONE [Deltasone] 20 mg PO [id number] #11 tab 05/14/21 05/15/21 Ipratropium/Albuterol [Duoneb] 3 ml INH RTQID #30 neb 05/17/21 Multivitamin W/Minerals [Theragran 1 tab PO DAILYWM tablet 05/17/21 M] - LABS Result Diagrams: 05/17/21 05:12 05/17/21 05:12"
[2021-05-17 11:28] VITALS: BP 160/74
== END 2021-05-17 11:30 | disposition home health service (06) ==
LOC: EDUNIT# → ED 05:32 → MS2 09:26
PROVIDERS: ADMIT Specialist; ATTEND Specialist
DX: J96.21 Acute and chronic respiratory failure with hypoxia (principal); J44.1 Chronic obstructive pulmonary disease with (acute) exacerbation; J44.0 Chronic obstructive pulmonary disease with (acute) lower respiratory infection; J18.9 Pneumonia, unspecified organism; U07.1 COVID-19; E11.42 Type 2 diabetes mellitus with diabetic polyneuropathy; E11.621 Type 2 diabetes mellitus with foot ulcer; E11.649 Type 2 diabetes mellitus with hypoglycemia without coma; E11.65 Type 2 diabetes mellitus with hyperglycemia; L97.519 Non-pressure chronic ulcer of other part of right foot with unspecified severity; L97.529 Non-pressure chronic ulcer of other part of left foot with unspecified severity; D72.829 Elevated white blood cell count, unspecified; I11.0 Hypertensive heart disease with heart failure; I50.32 Chronic diastolic (congestive) heart failure; E78.5 Hyperlipidemia, unspecified; E78.00 Pure hypercholesterolemia, unspecified; F17.200 Nicotine dependence, unspecified, uncomplicated; Z79.4 Long term (current) use of insulin; Z79.84 Long term (current) use of oral hypoglycemic drugs; Z79.899 Other long term (current) drug therapy; Z86.19 Personal history of other infectious and parasitic diseases
CPT/HCPCS: 0202U; 36415; 71045; 80048; 80053; 83605; 83880; 84484; 85025; 93005; 94640; 94761; 96365; 96366; 96372; 96375; 96376; 97161; 99284; 99285; A9270; G0378; J1650; J1815; J7626

== ENCOUNTER 2021-05-17 22:37 | Outpatient (CLI) | payer MEDICAID | END 2021-05-17 22:38 | disposition critical access hospital (66) | LOC: EMS 22:37 | DX: R41.0 Disorientation, unspecified (principal); E11.649 Type 2 diabetes mellitus with hypoglycemia without coma | CPT/HCPCS: A0425; A0427; A0999 ==

== ENCOUNTER 2021-05-17 23:05 | Emergency (ER) | payer MEDICAID ==
--- OUTSIDE RECORDS SUMMARY | 2021-05-17 23:13 | EXTERNAL MEDICAL SUMMARY RPT | Continuity of Care Document ---
:1955 Author Organization [facility] Address [address] [place] [address] Phone Allergies No information. Encounters No information. Medications No information. Problems date description facility [id number] Left ventricular failure, unspecified [facility] Results No information.
--- NOTE | 2021-05-17 23:15 | ED Physician Documentation ---
PD HPI ALTERED MENTAL STATUS - Stated complaint Stated Complaint: AMS, LOW BS - History obtained from History obtained from: Patient (limited historian), EMS - History of Present Illness Quality / character: Less responsive, Confused Contributing factors: Diabetic, COPD Treatment [employer]TE[employer] CAMPAIGN MANAGER: Accucheck, Other (glucagon) Recently seen: Admitted - Additional information Additional information: BIBA for AMS, found to be hypoglycemic by EMS (FSBS 40). EMS unable to establish IV access and thus gave IM glucacagon, FSBS 76 just INTEGR[employer] CAMPAIGN MANAGER by EMS. Patient is dyspneic on arrival making HPI/ROS very limited. Review of Systems Unable to obtain: AMS PD PAST MEDICAL HISTORY - Past Medical History Cardiovascular: Hypertension, High cholesterol Respiratory: None Neuro: Peripheral neuropathy Endocrine/Autoimmune: Type 2 diabetes GI: Hepatitis : Other Psych: None Musculoskeletal: None Derm: None - Past Surgical History Past Surgical History: Yes General: Hiatal hernia repair - Present Medications Home Medications: Ambulatory Orders Medication Instructions Recorded Confirmed Insulin Aspart [NovoLOG] 20 unit SUBQ AC 04/17/21 05/18/21 Insulin Glargine [Lantus Solostar] 50 unit SUBQ QPM 04/17/21 05/18/21 Metformin HCl [Metformin ER 1,000 mg PO DAILYWM 04/17/21 05/18/21 Gastric] Ascorbic Acid [Vitamin C] 500 mg PO DAILY tablet 04/19/21 05/18/21 Ferrous Gluconate [Fergon] 324 mg PO DAILYWM #30 tablet 04/19/21 05/18/21 Metoprolol Succinate [Toprol Xl] 25 mg PO DAILY #30 tablet 04/19/21 05/18/21 lisinopriL [Zestril] 5 mg PO DAILY #30 tablet 04/19/21 05/18/21 Albuterol Sulfate [Proair Hfa 1 puffs INH Q4H PRN #1 inhaler 05/14/21 05/18/21 Inhaler] Furosemide [Lasix] 20 mg PO DAILY #30 tablet 05/14/21 05/18/21 Gabapentin [Neurontin] 300 mg PO QPM #30 cap 05/14/21 05/18/21 HYDROcod/ACETAM 5/325 [[place] 5/325] 1 tab PO Q4HR PRN #15 tablet 05/14/21 05/18/21 Ipratropium [Atrovent] 1 puffs INH Q6H PRN #1 inhaler 05/14/21 05/18/21 Saccharomyces Boulardii [Florastor] 250 mg PO BIDWM #10 cap 05/14/21 05/18/21 cefUROXime axetiL [Ceftin] 500 mg PO Q12H #20 tablet 05/14/21 05/18/21 predniSONE [Deltasone] 20 mg PO [id number] #11 tab 05/14/21 05/18/21 Ipratropium/Albuterol [Duoneb] 3 ml INH RTQID #30 neb 05/17/21 Multivitamin W/Minerals [Theragran 1 tab PO DAILYWM tablet 05/17/21 05/18/21 M] - Allergies Allergies/Adverse Reactions: Allergies Allergy/AdvReac Type Severity Reaction Status Date / Time No Known Drug Allergies Allergy Verified 05/17/21 23:51 - Social History Does the pt smoke?: Yes Smoking Status: Current some day smoker Does the pt drink ETOH?: No Does the pt have substance abuse?: Yes - Immunizations Immunizations are current?: Yes - POLST Patient has POLST: No POLST Status: Full Code PD ED PE NORMAL - Vitals Vital signs reviewed: Yes - General General: Other (dyspneic, speaking in 1-2 word answers. oriented x 2 (self, place)) - Cardiac Cardiac: RRR - Abdomen Abdomen: Soft, Non tender - Derm Derm: Normal color, Warm and dry PD ED PE EXPANDED - Respiratory Respiratory: Distress, Wheezing, Rhonchi, Rales - Extremities Extremities: Pedal edema bilateral Results - Vitals Vitals: Vital Signs - 24 hr 05/17/21 05/17/21 05/17/21 23:14 23:28 23:38 Temperature 36.4 C L Heart Rate 88 78 82 Respiratory 22 18 17 Rate Blood Pressure 172/98 H 150/92 H 150/81 H O2 Saturation 88 L 92 97 05/17/21 05/18/21 05/18/21 23:49 00:00 00:04 Temperature Heart Rate 80 79 79 Respiratory 21 16 20 Rate Blood Pressure 150/81 H 160/85 H 160/85 H O2 Saturation 94 96 93 05/18/21 05/18/21 05/18/21 00:34 01:04 01:28 Temperature Heart Rate 79 82 110 H Respiratory 18 23 22 Rate Blood Pressure 142/89 H 158/97 H O2 Saturation 94 98 05/18/21 05/18/21 05/18/21 01:30 02:00 02:30 Temperature Heart Rate 81 79 77 Respiratory 19 18 14 Rate Blood Pressure 145/83 H 145/83 H 140/74 H O2 Saturation 90 L 95 100 05/18/21 05/18/21 05/18/21 03:00 04:07 04:30 Temperature Heart Rate 79 73 73 Respiratory 22 17 16 Rate Blood Pressure 170/93 H 160/90 H 137/77 H O2 Saturation 92 96 99 05/18/21 05/18/21 05/18/21 05:00 05:30 05:47 Temperature Heart Rate 78 84 92 Respiratory 17 19 24 Rate Blood Pressure 148/80 H 143/78 H O2 Saturation 99 92 05/18/21 05/18/21 05/18/21 06:00 06:28 06:30 Temperature Heart Rate 85 84 Respiratory 18 23 Rate Blood Pressure 157/77 H 173/98 H O2 Saturation 90 L 98 98 05/18/21 05/18/21 05/18/21 07:00 07:30 08:00 Temperature Heart Rate 84 84 82 Respiratory 14 18 16 Rate Blood Pressure 147/88 H 142/76 H 144/71 H O2 Saturation 93 99 95 05/18/21 05/18/21 05/18/21 08:30 09:00 09:30 Temperature Heart Rate 84 85 85 Respiratory 17 17 17 Rate Blood Pressure 147/85 H 148/83 H 158/92 H O2 Saturation 98 98 98 05/18/21 05/18/21 05/18/21 10:00 10:30 11:00 Temperature Heart Rate 86 89 89 Respiratory 19 19 19 Rate Blood Pressure 162/85 H 153/85 H 154/92 H O2 Saturation 99 05/18/21 05/18/21 05/18/21 11:30 12:00 12:30 Temperature Heart Rate 91 92 94 Respiratory 19 17 19 Rate Blood Pressure 144/88 H 155/85 H 154/75 H O2 Saturation 94 91 L 05/18/21 05/18/21 05/18/21 12:41 13:00 13:45 Temperature 36.3 C L Heart Rate 98 100 Respiratory 22 18 Rate Blood Pressure 141/71 H O2 Saturation 93 05/18/21 05/18/21 05/18/21 14:00 15:00 15:30 Temperature Heart Rate 100 94 102 H Respiratory 15 19 18 Rate Blood Pressure 176/97 H 154/75 H 161/96 H O2 Saturation 94 91 L 97 05/18/21 05/18/21 05/18/21 17:00 17:30 19:34 Temperature Heart Rate 91 105 H 103 H Respiratory 16 20 Rate Blood Pressure O2 Saturation 95 90 L 05/18/21 21:34 Temperature Heart Rate 101 H Respiratory 20 Rate Blood Pressure O2 Saturation 92 Oxygen O2 Source Nasal cannula - EKG (time done) No standard instances Rate: Rate (enter#) (82) Rhythm: NSR [place]: LAD Intervals: Normal OR Ischemia: Normal ST segments, Q waves (V1, V2, III , aVF) Compare to prior EKG: Unchanged from prior EKG (05/15/21) - Labs Labs: Laboratory Tests 05/17/21 05/17/21 05/17/21 23:25 23:25 23:25 WBC 16.9 H RBC 3.64 L Hgb 8.8 L Hct 29.6 L MCV 81.3 MCH 24.2 L MCHC 29.7 L RDW 17.2 H Plt Count 583 H MPV 9.4 Neut # (Auto) Not Reportable Lymph # (Auto) Not Reportable [place] # (Auto) Not Reportable Eos # (Auto) Not Reportable Baso # (Auto) Not Reportable Absolute Nucleated RBC Not Reportable Total Counted 100 Band Neuts % (Manual) 0 Abnorm Lymph % (Manual) 0 Nucleated RBC % Not Reportable Neutrophils # (Manual) 12.3 H Lymphocytes # (Manual) 2.5 Monocytes # (Manual) 2.0 H Eosinophils # (Manual) 0.0 Basophils # (Manual) 0.0 Differential Comment MANUAL DIFFERENTIAL WBC Morphology NORMAL APPEARANCE Platelet Estimate INCREASED (>450,000) Platelet Morphology NORMAL APPEARANCE RBC Morph Micro Appear NORMAL APPEARANCE Sodium 133 L Potassium 3.8 Chloride 99 L Carbon Dioxide 26 Anion Gap 8.0 BUN 46 H Creatinine 0.6 Estimated GFR (MDRD) 136 Glucose 66 L Calcium 8.2 L Total Bilirubin 0.3 AST 27 ALT 30 Alkaline Phosphatase 145 H Troponin I High Sens B-Natriuretic Peptide 1227 H Total Protein 6.9 Albumin 1.9 L Globulin 5.0 H Albumin/Globulin Ratio 0.4 L Lipase 26 Urine Color Urine Clarity Urine pH Ur Specific [place] Urine Protein Urine Glucose (UA) Urine Ketones Urine Occult Blood Urine Nitrite Urine Bilirubin Urine Urobilinogen Ur Leukocyte Esterase Urine RBC Urine WBC Ur Squamous Epith Cells Urine Bacteria Urine Casts Ur Microscopic Review Urine Culture Comments Urine Opiates Screen Ur Oxycodone Screen Urine Methadone Screen Ur Propoxyphene Screen Ur Barbiturates Screen Ur Tricyclics Screen Ur Phencyclidine Scrn Ur Amphetamine Screen U Methamphetamines Scrn U Benzodiazepines Scrn Urine Cocaine Screen U Cannabinoids Screen 05/17/21 05/18/21 23:25 01:40 WBC RBC Hgb Hct MCV MCH MCHC RDW Plt Count MPV Neut # (Auto) Lymph # (Auto) [place] # (Auto) Eos # (Auto) Baso # (Auto) Absolute Nucleated RBC Total Counted Band Neuts % (Manual) Abnorm Lymph % (Manual) Nucleated RBC % Neutrophils # (Manual) Lymphocytes # (Manual) Monocytes # (Manual) Eosinophils # (Manual) Basophils # (Manual) Differential Comment WBC Morphology Platelet Estimate Platelet Morphology RBC Morph Micro Appear Sodium Potassium Chloride Carbon Dioxide Anion Gap BUN Creatinine Estimated GFR (MDRD) Glucose Calcium Total Bilirubin AST ALT Alkaline Phosphatase Troponin I High Sens 32.2 H* B-Natriuretic Peptide Total Protein Albumin Globulin Albumin/Globulin Ratio Lipase Urine Color YELLOW Urine Clarity CLEAR Urine pH 6.0 Ur Specific [place] >=1.030 H Urine Protein >=300 H Urine Glucose (UA) 100 H Urine Ketones NEGATIVE Urine Occult Blood MODERATE H Urine Nitrite NEGATIVE Urine Bilirubin NEGATIVE Urine Urobilinogen 0.2 (NORMAL) Ur Leukocyte Esterase NEGATIVE Urine RBC 6-10 H Urine WBC 0-3 Ur Squamous Epith Cells RARE Squamous Urine Bacteria Rare Urine Casts 11-25 Hyaline Casts Ur Microscopic Review INDICATED Urine Culture Comments NOT INDICATED Urine Opiates Screen POSITIVE H Ur Oxycodone Screen POSITIVE H Urine Methadone Screen NEGATIVE Ur Propoxyphene Screen NEGATIVE Ur Barbiturates Screen NEGATIVE Ur Tricyclics Screen NEGATIVE Ur Phencyclidine Scrn NEGATIVE Ur Amphetamine Screen POSITIVE H U Methamphetamines Scrn POSITIVE H U Benzodiazepines Scrn POSITIVE H Urine Cocaine Screen NEGATIVE U Cannabinoids Screen NEGATIVE - Rads (name of study) chest xray Radiology: Prelim report reviewed, See rad report PD MEDICAL DECISION MAKING - ED course Complexity details: reviewed old records, reviewed results, re-evaluated patient, considered differential ED course: presents with AMS and hypoglycemia. He was just discharged earlier in the day from [facility]. He is very limited historian, although it is unclear what role the hypoglycemia and dyspnea are playing in this , as he continues to be confused later in ED stay after improvement in the blood sugar and dyspnea. IV access established shortly after ED arrival and he is given 1 amp D50 with subsequent improvement in blood sugar to 119. He has diffuse bilateral airspace opacities "similar to the prior study and progressively increased compared to previous exams" (per radiology reading). He is held overnight in ED, as he is too dyspneic for discharge but there are no beds available in [facility]. He is given 40mg IV lasix with diuresis of 2 liters. He is given duoneb x 2 during my shift as well as PO prednisone. Several hours into ED stay, blood sugar dropped back down to 52 and he is given another amp of D50, subsequent FSBS was 114. Plan is to reassess in the morning and possibly admit to [facility] if bed becomes available. Reevaluated again at 6:20 AM, pulse ox on room air is 96% room air with good pleth. He is tachypneic. He says he does not feel more short of breath than usual. Care of patient turned over to Dr. Nieves at end of my shift, pending SW evaluation to consider possible SNF placement Departure - Departure Disposition: 01 Home, Self Care Clinical Impression: Hypoglycemia Dyspnea Qualifiers: Dyspnea type: shortness of breath Qualified Code(s): R06.02 - Shortness of breath Condition: Stable Instructions: ED Dyspnea Shortness of Breath, ED Diabetes Hypoglycemia Insulin React Comments: It is very important that you use your diabetic medications according to the diabetic teaching has been given your daughter. You must also use the oxygen that you were sent home with. Taking care of your health at home is very important, because you have a low threshold for worsening. While this does not necessitate stay in the hospital, and does require some degree of vigilance with taking care of yourself. Please work with your daughter and the home health staff to keep yourself doing better at home. The 7th grade social studies teacher has evaluated you in the emergency department and has set up a number of resources for you. Please avail yourself of these to help make your time at home easier.
[2021-05-17] MEDS ORDERED: DEXTROSE 50% ABBOJECT 25 GM/50 ML SYRINGE IVP STA (23:32)
[2021-05-17] MEDS ORDERED: NALOXONE 0.4 MG/ML VIAL IVP STA (23:32)
[2021-05-17] MEDS ORDERED: DEXTROSE 50% ABBOJECT 25 GM/50 ML SYRINGE ONE (23:37)
[2021-05-17 23:39] LABS: BASOPHILS % (AUTO) 0.1 %; EOSINOPHILS % (AUTO) 0.1 %; HCT - HEMATOCRIT 29.6 % (42.0-52.0); HGB - HEMOGLOBIN 8.8 g/dL (14.0-18.0); LYMPHOCYTES % (AUTO) 12.5 %; MEAN CORPUSCULAR HEMOGLOBIN 24.2 pg (27.0-31.0); MEAN CORPUSCULAR HGB CONC 29.7 g/dL (32.0-36.0); MEAN CORPUSCULAR VOLUME 81.3 fL (80.0-94.0); MEAN PLATELET VOLUME 9.4 fL (7.4-11.4); MONOCYTES % (AUTO) 9.3 %; PLT - PLATELET COUNT 583 10^3/uL (130-450); RED BLOOD COUNT 3.64 10^6/uL (4.70-6.10); RED CELL DISTRIBUTION WIDTH 17.2 % (12.0-15.0); WHITE BLOOD COUNT 16.9 x10^3/uL (4.8-10.8)
[2021-05-17 23:47] LABS: ABNORMAL LYMPHS % (MANUAL) 0 %; BAND NEUTROPHILS % (MANUAL) 0 %
[2021-05-18 00:04] LABS: ALBUMIN 1.9 g/dL (3.2-5.5); ALBUMIN/GLOBULIN RATIO 0.4 (1.0-2.2); BILIRUBIN,TOTAL 0.3 mg/dL (0.2-1.0); CALCIUM 8.2 mg/dL (8.5-10.3); CREATININE 0.6 mg/dL (0.6-1.2); POTASSIUM 3.8 mmol/L (3.5-5.0); TOTAL PROTEIN 6.9 g/dL (6.7-8.2)
[2021-05-18 00:11] LABS: LYMPHOCYTES # (MANUAL) 2.5 10^3/uL (1.5-3.5); LYMPHOCYTES % (MANUAL) 15 %; NEUTROPHILS # (MANUAL) 12.3 10^3/uL (1.5-6.6); PLATELET ESTIMATE, MANUAL INCREASED (>450,000) (NORMAL); PLATELET MORPHOLOGY NORMAL APPEARANCE (NORMAL); RBC MORPHOLOGY (MULTIPLE) NORMAL APPEARANCE (NORMAL)
[2021-05-18 00:12] LABS: DIFFERENTIAL COMMENT MANUAL DIFFERENTIAL; WBC MORPHOLOGY (MULTIPLE) NORMAL APPEARANCE (NORMAL)
--- NOTE | 2021-05-18 00:53 | XRAY Report ---
PROCEDURE: Chest 1 View X-Ray INDICATIONS: dyspnea TECHNIQUE: One view of the chest was acquired. COMPARISON: Chest x-ray 05/15/2021, 05/13/2021, 05/11/2021. FINDINGS: Surgical changes and devices: None. Lungs and pleura: There are persistent bilateral diffuse airspace opacities which appear progressive ly slightly increased compared to the recent prior studies. These include patchy areas of consolidati on, diffuse groundglass opacities, and reticular interstitial opacities. Confluent opacities within t he left lung base are consistent with consolidation or atelectasis. Bilateral pleural effusions also redemonstrated, moderate on the left and small on the right. No evidence of pneumothorax. Mediastinum: Mediastinal contours appear unchanged. Heart size is normal. Bones and chest wall: No suspicious bony lesions. Overlying soft tissues appear unremarkable. IMPRESSION: 1. Persistent diffuse bilateral airspace opacities appear similar to the prior study and progressivel y increased compared to previous exams. Findings are consistent with patient's history of pneumonia. 2. Confluent left basilar opacities consistent with consolidation or atelectasis. 3. Persistent bilateral pleural effusions, left greater than right. Reviewed by: Ben Wihtman MD on 05/18/2021 12:52 AM PDT Approved by: Ben Whitman MD on 05/18/2021 12:52 AM PDT Station ID: [email or web address]
[2021-05-18] MEDS ORDERED: FUROSEMIDE 40 MG/4 ML VIAL IVP STA (01:13)
[2021-05-18] MEDS ORDERED: IPRATROPIUM/ALBUTEROL 3 ML NEB INH STA ×3 (01:13→12:23)
[2021-05-18 01:44] LABS: MUDS CUTOFF CONCENTRATIONS CUTOFF CONC BELOW:
[2021-05-18 01:45] LABS: BILIRUBIN,URINE NEGATIVE (NEGATIVE); GLUCOSE, URINE (UA) 100 mg/dL (NEGATIVE); KETONES,URINE (UA) NEGATIVE (NEGATIVE); LEUKOCYTE ESTERASE, URINE NEGATIVE (NEGATIVE); NITRITE,URINE NEGATIVE (NEGATIVE); OCCULT BLOOD,URINE MODERATE (NEGATIVE); PROTEIN,URINE >=300 mg/dL (NEGATIVE); UROBILINOGEN,URINE 0.2 (NORMAL) E.U./dL (NORMAL)
[2021-05-18 01:46] LABS: CLARITY,URINE CLEAR (CLEAR)
[2021-05-18 01:52] LABS: BACTERIA,URINE Rare /HPF (None Seen); CASTS, URINE 11-25 Hyaline Casts /LPF; SQUAMOUS EPITHELIAL CELL,UR RARE Squamous (<= Few); WBC,URINE 0-3 /HPF (0-3)
[2021-05-18 01:56] LABS: AMPHETAMINE SCREEN,URINE POSITIVE (NEGATIVE); BARBITURATE SCREEN,UR NEGATIVE (NEGATIVE); BENZODIAZEPINES SCREEN, URINE POSITIVE (NEGATIVE); COCAINE SCREEN URINE NEGATIVE (NEGATIVE); METHADONE SCREEN, URINE NEGATIVE (NEGATIVE); METHAMPHETAMINES SCREEN, URINE POSITIVE (NEGATIVE); OPIATE SCREEN, URINE POSITIVE (NEGATIVE); OXYCODONE SCREEN, URINE POSITIVE (NEGATIVE); PROPOXYPHENE SCREEN, URINE NEGATIVE (NEGATIVE); THC CANNABINOID SCREEN, URINE NEGATIVE (NEGATIVE); TRICYCLIC ANTIDEPRESSANT,URINE NEGATIVE (NEGATIVE)
[2021-05-18] MEDS ORDERED: DEXTROSE 50% ABBOJECT 25 GM/50 ML SYRINGE IVP STA (04:35)
[2021-05-18] MEDS ORDERED: predniSONE 20 MG TABLET PO STA (05:35)
[2021-05-18] MEDS ORDERED: LORazepam 1 MG TABLET PO STA (14:55)
[2021-05-18] MEDS ORDERED: HYDROcod/ACETAM 5/325 MG TABLET PO STA ×2 (19:55→23:59)
[2021-05-19] MEDS: IPRATROPIUM/ALBUTEROL 3 ML NEB INH SCH ×2 (05:17→11:18)
[2021-05-19 08:37] VITALS: BP 133/71
[2021-05-19] MEDS ORDERED: lisinopriL 5 MG TABLET PO SCH (09:00)
[2021-05-19] MEDS ORDERED: FUROSEMIDE 20 MG TABLET PO SCH (09:00)
[2021-05-19] MEDS ORDERED: METOPROLOL SUCCINATE 25 MG TABLET PO SCH (09:00)
[2021-05-19] MEDS ORDERED: GABAPENTIN 100 MG CAPSULE PO SCH (21:00)
--- NOTE | 2021-05-20 02:39 | ED Physician Documentation ---
ED Addendum - Addendum Addendum: 05/20/21 02:37 Patient signed out to oncoming ED physician at end of my shift the morning of 05/18/21, pending SW consult. At the beginning of my shift the evening of 05/18/21, patient was still in ED but flagged for discharge. Please refer to the SW note in [facility] dated 05/18/21 regarding efforts to find SNF placement for this patient; this note, and subsequent notes from same SW (dated same day, 05/18/21), indicate plan to have patient evaluated 05/25 for placement at a SNF, sooner if availability changes, with notes later in that day indicating plan was d/c home and daughter was to come mixing picker tender patient to bring him back home. The notes following indicate several calls to the daughter did not result in successful contact and thus patient remains in ED on my overnight shift 05/18-05/19/21. As he remains in ED overnight, I removed the flag for discharge and I again turned care of patient over to oncoming ED physician at end of my shift the morning of 05/19/21 pending reevaluation by SW, hopefully can reestablish contact with, and confirmation of, plan of care with patients daughter.
== END 2021-05-19 12:55 | disposition home or self-care (01) ==
LOC: EDUNIT# → ED 23:05
DX: E11.649 Type 2 diabetes mellitus with hypoglycemia without coma (principal); E11.42 Type 2 diabetes mellitus with diabetic polyneuropathy; G93.41 Metabolic encephalopathy; Z79.4 Long term (current) use of insulin; F17.200 Nicotine dependence, unspecified, uncomplicated; R06.02 Shortness of breath
CPT/HCPCS: 36415; 80053; 80306; 81001; 81003; 83690; 83880; 84484; 85025; 87086; 93005; 94640; 94664; 96374; 96375; 96376; 99281

== ENCOUNTER 2021-07-01 00:11 | Outpatient (CLI) | payer MEDICAID | END 2021-07-01 00:12 | disposition short-term general hospital (02) | LOC: EMS 00:11 | DX: R60.0 Localized edema (principal); T25.212A Burn of second degree of left ankle, initial encounter; T25.211A Burn of second degree of right ankle, initial encounter; X11.8XXA Contact with other hot tap-water, initial encounter; Y93.E8 Activity, other personal hygiene; Y92.009 Unspecified place in unspecified non-institutional (private) residence as the place of occurrence of the external cause | CPT/HCPCS: A0425; A0429; A0999 ==

== ENCOUNTER 2021-07-06 18:48 | Outpatient (CLI) | payer MEDICAID | END 2021-07-06 18:49 | disposition short-term general hospital (02) | LOC: EMS 18:48 | DX: R41.82 Altered mental status, unspecified (principal); R61 Generalized hyperhidrosis; E11.649 Type 2 diabetes mellitus with hypoglycemia without coma | CPT/HCPCS: A0425; A0427 ==